=== PATIENT | female | born 1955 ===

== ENCOUNTER 2017-08-01 08:25 | Inpatient (IN) | payer OTHER ==
[~2017-08-01] VITALS: Ht 149.9 cm; Wt 80.3 kg
[2017-08-01] MEDS ORDERED: ASPIRIN81 M4 PO (09:56)
[2017-08-01] MEDS ORDERED: AMLODIPINE BESY10 M1 PO (09:56)
[2017-08-01] MEDS ORDERED: ESCITALOPRAM OXA5 MG PO (09:57)
[2017-08-01] MEDS ORDERED: LEVOTHYROXINE50 MCG PO (09:57)
[2017-08-01] MEDS ORDERED: FUROSEMIDE40 M1 PO (09:57)
[2017-08-01] MEDS ORDERED: LOSARTAN POTAS100 M1 PO (09:58)
[2017-08-01] MEDS ORDERED: NOVOLOG100 UNIT/2 (09:59)
[2017-08-01] MEDS ORDERED: PREDNISONE10 M2 PO (09:59)
[2017-08-01] MEDS ORDERED: RENVELA800 M1 PO (10:01)
--- NOTE | 2017-08-01 10:04 | RADIOLOGY REPORT ---
EXAMINATION: XR PORTABLE CHEST CLINICAL INFORMATION: Nausea vomiting, hypoxia, rales. History of end-stage renal disease. COMPARISON: Chest x-ray 03/31/[address] scan of the chest 06/03/2017. TECHNIQUE: Portable frontal view of the chest was obtained. FINDINGS: The lung klein are well-expanded bilaterally. The study redemonstrates a mass in the right superior lung field medially, which is not significantly changed compared to prior imaging. There is a new area of patchy opacity at the left base, which may be consistent with developing consolidation. The cardiac silhouette is normal. The aortic arch is unfolded. There is a small right-sided pleural effusion. There are no acute osseous findings. IMPRESSION: 1. There is a stable mass in the right upper lobe, seen on prior imaging. 2. Patchy opacification at the left base may be consistent with developing consolidation.
--- NOTE | 2017-08-01 10:10 | ED GENERAL ADULT ---
History of Present Illness General Chief Complaint: Altered Mental Status Stated Complaint: BIBA, UNRESPONSIVE Source: patient, family, old records, EMS Exam Limitations: clinical condition Allergies Uncoded Allergies: all pain medications (NAUSEA 02/26/14) Reconcile Medications Amlodipine Besylate 10 MG TABLET 1 TAB PO DAILY HEART (Reported) Aspirin (Aspirin*) 81 MG TAB.CHEW 1 TAB PO DAILY HEART HEALTH (Reported) Escitalopram Oxalate 5 MG TABLET 1 TAB PO DAILY MENTAL HEALTH (Reported) Furosemide 40 MG TABLET 1 TAB PO DAILY WATER RETENTION (Reported) Insulin Aspart (Novolog) (Unknown Strength) VIAL (Unknown Dose) AC DIABETES ( Reported) Levothyroxine Sodium 50 MCG TABLET 1 TAB PO DAILY AC THYROID (Reported) Losartan Potassium 100 MG TABLET 1 TAB PO DAILY HEART (Reported) Prednisone 10 MG TABLET 1 TAB PO DAILY STEROID (Reported) Sevelamer Carbonate (Renvela) 800 MG TABLET 1 TAB PO AC UNKNOWN (Reported) Core Measure Meds Pre-Hospital aspirin Triage Note: BIBA FROM HOME, PER EMS MALE FAMILY MEMBER AT HOUSE CALLED 911 FOR UNRESPONSIVE THIS AM. PT IS DIALYSIS PT LEFT ARM RESTRICTED, ACCUCHECK ON SCENE 27, GIVEN D10 ENROUTE, REPEAT ENROUTE 86 AND ON ARRIVAL 160'S. PT REMAINS UNRESPONSIVE, UPPER AIRWAY CONGESTION NOTED, O2 HIGH FLOW NON-REBREATHER PLACED, O2 SATS ON ARRIVAL 86-87%, ON HIGH FLOW O2 SATS 96-98%, RESPIRATORY PAGED FOR ABG'S AND RESP EVAL. Triage Nurses Notes Reviewed? yes Onset: Just prior to arrival Duration: hour(s):, constant, continues in ED Timing: recent history Injury Environment: home Severity: severe No Modifying Factors: none Associated Symptoms: cough LMP (ages 10-50): post menopausal : No Patient currently breastfeeds: No HPI: 1 day prior to admission patient felt weak and stayed in bed. Her saw her at 7 PM sleeps in another room. He was up. For work and found her with increased work of breathing nausea and vomiting not responsive to vocal stimulation. EMS found patient hypoglycemic and administered D10. He reports there's been no fever chills chest pain cough headache dysuria rash bleeding. (Siri HYMAN,Xavier) Vital Signs & Intake/Output Vital Signs & Intake/Output Vital Signs Date Time Temp Pulse Resp B/P B/P Pulse O2 O2 Flow FiO2 Mean Ox Delivery Rate 08/01 1758 99.7 128 18 181/68 100 Ventilator 08/01 1727 100.1 126 20 136/64 100 Ventilator 100% 08/01 1623 100 08/01 1430 111 93 08/01 1419 110 24 119/63 97 BIPAP 60% 08/01 1330 96 08/01 1210 96.9 96 24 128/72 99 BIPAP 60% 08/01 1150 111 97 08/01 1102 97.0 90 24 137/83 99 BIPAP 60% 08/01 1000 88 24 129/78 100 BIPAP 100% 08/01 1000 111 96 08/01 0900 97 Non 9L ReBreather 08/01 0845 96 Non 100% ReBreather 08/01 0842 97.5 110 28 151/79 87 Room Air Room Air (Nigel Carrillo) Past History Travel History Traveled to [place] past 21 day No Medical History Any Pertinent Medical History? see below for history Cardiovascular: hypertension Respiratory: obstructive sleep apnea Renal: ESRD on HD Surgical History Surgical History: L AVF Psychosocial History What is your primary language Bermudian Tobacco Use: UN Family History Hx Contributory? No (Xavier Horner MD) Review of Systems Review of Systems Constitutional: Reports: see HPI, weakness. EENTM: Reports: no symptoms. Respiratory: Reports: see HPI, cough, short of breath. Cardiovascular: Reports: no symptoms. GI: Reports: see HPI, diarrhea, nausea, vomiting. Genitourinary: Reports: no symptoms. Musculoskeletal: Reports: no symptoms. Skin: Reports: no symptoms. Neurological/Psychological: Reports: see HPI, weakness. Hematologic/Endocrine: Reports: no symptoms. Immunologic/Allergic: Reports: no symptoms. All Other Systems: Reviewed and Negative (Xavier Horner MD) Physical Exam Physical Exam General Appearance: well developed/nourished, lethargic, severe distress, obese Head: atraumatic, normal appearance Eyes: Bilateral: normal appearance, PERRL, other (nystagmus, rotatory). Ears, Nose, Throat: normal pharynx, normal ENT inspection Neck: normal inspection, supple, full range of motion, no midline tenderness Respiratory: chest non-tender, decreased breath sounds, rhonchi, rales, respiratory distress Cardiovascular: regular rate/rhythm, normal peripheral pulses, tachycardia, norml femoral pulses equa Peripheral Pulses: 4+ carotid (R), 4+ carotid (L) Gastrointestinal: normal bowel sounds, soft, non-tender, no organomegaly Back: normal inspection, normal range of motion, no vertebral tenderness Extremities: normal inspection, normal capillary refill, normal range of motion, no ligament instability Neurologic/Psych: disoriented x 3, motor/sensory deficits Reflexes: 2+: bicep (R), bicep (L). Skin: intact, normal color, warm/dry Lymphatic: no anterior cervical damien Core Measures ACS in differential dx? Yes CVA/TIA Diagnosis: No Sepsis Present: Yes Sepsis Focused Exam Completed? Yes (Xavier Horner MD) ED Sepsis Exam Date of Focused Sepsis Exam: 08/01/17 Time of Focused Sepsis Exam: 1700 Sepsis Cardiac Exam: Tachycardia Sepsis Resp Exam: Ronchi Sepsis Cap Refill Exam: >2 sec Sepsis Peripheral Pulse Exam: Weak Sepsis Peripheral Pulse Location: Radial Sepsis Skin Color Exam: Pale Skin Temp/Moisture Exam: Warm/Dry (Xavier Horner MD) Progress Differential Diagnoses I considered the following diagnoses in my evaluation of the patient: Aspiration pneumonia stroke hypoglycemia DKA Diagnostic Imaging: Viewed by Me: Radiology Read, CT Scan. Discussed w/RAD: Radiology Read, CT Scan. Radiology Impression: Nondiagnostic CT of the head secondary to significant streak/motion artifact despite repeating the acquisition. I cannot exclude infarcts nor hemorrhage on this study. CXR Impression: 1. There is a stable mass in the right upper lobe, seen on prior imaging. 2. Patchy opacification at the left base may be consistent with developing consolidation. Initial ED EKG: normal axis, normal intervals, normal p-waves, normal QRS complex, rhythm (sinus tachycardia) Prior EKG: unchanged Rhythm Strip: sinus tachycardia Comments: Sepsis NS fluid bolus not given secondary to ESRD and potential for volume overload. 20 minutes after intubation patient was noted to be hypotensive with bradycardia leading to asystole. ACLS protocol started. Patient with return of spontaneous circulation dopamine and norepinephrine drip started. Dopamine stopped norepinephrine titrated. Amiodarone administered for wide-complex tachycardia. (Xavier Horner MD) Differential Diagnoses I cons Plan of Care: Orders Procedure Date/time Status ARTERIAL BLOOD GAS (GEN) 08/02 499 Active XRY-PORTABLE CHEST XRAY 08/02 499 Active INSULIN,SERUM 08/020 Active ICU LAB BUNDLE 08/02 499 Active CBC WITHOUT DIFFERENTIAL 03/20 0500 Active TROPONIN LEVEL 08/02 0300 Active Nothing by Mouth 08/01 D Active ICU LAB BUNDLE 08/01 2300 Active TROPONIN LEVEL 08/01 2100 Active EKG 08/01 2100 Active PARTIAL THROMBOPLASTIN TIME 08/01 1906 Active PROTHROMBIN TIME 08/01 1906 Active ICU LAB BUNDLE 08/01 1904 Active XRY-PORTABLE CHEST XRAY 08/01 1859 Active VRE ACTIVE SURVIELLANCE 08/01 1849 Active VENTILATOR PARAMETERS 08/01 1845 Complete LACTIC ACID 08/01 1834 Active VRE ACTIVE SURVIELLANCE 08/01 1823 Active ACTIVE SURVEILLANCE NARES 08/01 1823 Active Lab Add-on Test 08/01 1740 Active TYPE & SCREEN (NOT X-MATCH) 08/01 1724 Active EKG 08/01 1703 Active URINE DRUGS OF ABUSE 08/01 1646 Active Lab Add-on Test 08/01 1621 Active Add-on Test (ER Only) 08/01 1606 Active VENTILATOR PARAMETERS 08/01 1600 Complete Add-on Test (ER Only) 08/01 1520 Active LOWER RESPIRATORY CULTURE 08/01 1444 Active ECHOCARDIOGRAM 08/01 1444 Active Lab Add-on Test 08/01 1443 Active TROPONIN LEVEL 08/01 1442 Complete EKG 08/01 1442 Active TRC EVALUATION (GEN) 08/01 1441 Active Saline Lock 08/01 1441 Active Pathway - chart 08/01 1441 Active House Staff 08/01 1441 Active Code Status 08/01 1441 Active Patient Data 08/01 1422 Active Admit to inpatient 08/01 1326 Active BIPAP 08/01 1156 Complete ARTERIAL BLOOD GAS (GEN) 08/01 1140 Complete LACTIC ACID 08/01 1132 Complete RAPID VIRAL INFLUENZA A 08/01 1020 Complete BIPAP 08/01 1000 Complete THYROID STIMULATING HORMONE 08/01 1000 Complete PROLACTIN 08/01 1000 Complete PHOSPHORUS 08/01 1000 Complete INSULIN,SERUM 08/01 1000 Complete GLYCOSYLATED HGB 08/01 1000 Complete FREE T4 08/01 1000 Complete CORTISOL AM 08/01 1000 Complete [place], Insertion/Removal/Asses 08/01 0922 Active CULTURE,URINE 08/01 0922 Active NIH Stroke Scale 08/01 0849 Active ARTERIAL BLOOD GAS (GEN) 08/01 0832 Complete BLOOD CULTURE 08/01 0832 Active TROPONIN LEVEL 08/01 0832 Complete MAGNESIUM 08/01 0832 Complete LACTIC ACID 08/01 0832 Complete COMPREHENSIVE METABOLIC PANEL 08/01 0832 Complete CREATINE PHOSPHOKINASE 08/01 0832 Complete CBC WITHOUT DIFFERENTIAL 08/01 0832 Complete EKG 08/01 0832 Active ARTERIAL BLOOD GAS (GEN) 08/01 UNK Complete VTE Mechanical Prophylaxis 08/01 UNK Active Vital Signs 08/01 UNK Active OGT 08/01 UNK Active Intake & Output 08/01 UNK Active Hemoccult 08/01 UNK Active FingerStick- Glucose 08/01 UNK Active Current Medications Sig/Makayla Start time Last Medication Dose Stop Time Status Admin Hydrocortisone 50 MG Q12 08/02 1000 AC Sodium Succinate (Solucortef) Levothyroxine Sodium 25 MCG DAILY 08/02 1000 AC (Synthroid) Sodium Bicarbonate 150 MEQ Q10H 08/01 1900 AC (Sodium Bicarbonate 8.4%) Dextrose/Water 1,000 ML (D5W 1000) Ampicillin Sodium/ 1,500 MG Q6 08/01 1800 CAN Sulbactam Sodium (Unasyn) Sodium Chloride 100 ML (Normal Saline 0.9%) Ampicillin Sodium/ 3,000 MG Q12 08/01 1730 AC Sulbactam Sodium (Unasyn) Sodium Chloride 100 ML (Normal Saline 0.9%) Heparin Sodium 25,000 UNIT Q24H 08/01 1730 AC (Porcine) (Heparin) Sodium Chloride 500 ML Pantoprazole Sodium 40 MG DAILY 08/01 1730 AC (Protonix) Acetaminophen 1,000 MG Q6P PRN 08/01 1445 AC (Ofirmev) Insulin Human Regular 0 Q6 08/01 1440 AC 08/01 (NovoLIN R) 1813 Laboratory Tests 08/01/17 1710: pH 7.06 *L, pCO2 42, pO2 167 H, HCO3 12 L, ABG O2 Sat (Measured) 97.0, P-50 ( Temp Corrected) N, Carboxyhemoglobin 0.3 L, O2 Concentration % 100%, Temperature 97.5, Respiration Rate 26, O2 Delivery Method ESPRIT VENT, Vent Mode AC, Expiratory Pressure 5, Tidal Volume 500, Phlebotomy Draw Site RIGHT BRACHIAL 08/01/17 1510: Troponin I 3.04 *H 08/01/17 1307: Lactic Acid 2.0 08/01/17 1140: pH 7.29 *L, pCO2 32 L, pO2 238 H, HCO3 15 L, ABG O2 Sat (Measured) 98.0, Carboxyhemoglobin 0.3 L, O2 Concentration % 100%, Respiration Rate 24, O2 Delivery Method BIPAP, Vent Mode ST, Expiratory Pressure 6, Inspiratory Pressure 16, Phlebotomy Draw Site RIGHT RADIAL 08/01/17 1000: Anion Gap 18 H, Estimated GFR 7 L, BUN/Creatinine Ratio 15.3, Glucose 86, Hemoglobin A1c 8.8 H, Insulin Level 31.0 H, Lactic Acid 2.3 H, Calcium 8.2 L , Phosphorus 8.8 H, Magnesium 1.8, Total Bilirubin 0.4, AST 29, ALT 28, Alkaline Phosphatase 48, Creatine Kinase 248 H, Troponin I 2.31 *H, Total Protein 4.9 L, Albumin 2.7 L, Globulin 2.2, Albumin/Globulin Ratio 1.2, TSH 9.510 H, Free T4 0.89, Prolactin 29.0 H, Cortisol AM Sample 26.5 H, CBC w Diff MAN DIFF ORDERED, RBC 4.33, MCV 80.5 L, MCH 26.3 L, MCHC 32.7 L, RDW 18.6 H, MPV 6.9 L, Gran % 89.2 H, Lymphocytes % 9.1 L, Monocytes % 0.9 L, Eosinophils % 0.6, Basophils % 0.2, Absolute Granulocytes 14.5 H, Segmented Neutrophils 73, Band Neutrophils 13 H, Absolute Lymphocytes 1.5, Lymphocytes 11 L, Monocytes 3, Absolute Monocytes 0.1, Absolute Eosinophils 0.1, Absolute Basophils 0, Platelet Estimate INCREASED, Normocytic RBCs VERIFIED, Normochromic RBCs VERIFIED, Poikilocytosis FEW, [place] Cells FEW 08/01/17 0900: pH 7.23 *L, pCO2 38, pO2 92, HCO3 16 L, ABG O2 Sat (Measured) 94.0 L, Carboxyhemoglobin 0.5 L, O2 Concentration % 100%, O2 Delivery Method NRB, Phlebotomy Draw Site RIGHT BRACHIAL Microbiology 08/01 1849 GI: Surveillance Culture - ORD 08/01 182 UPPER RESP: Surveillance Culture - ORD 08/01 1822 GI: Surveillance Culture - ORD 08/01 1444 LOWER RESP: Respiratory Culture - ORD 08/01 1444 LOWER RESP: Gram Stain - ORD 08/01 1030 NASOPHARYN: Influenza Virus A & B Rapid Smear - COMP 08/01 1000 BLOOD: Blood Culture - RECD 03/19 0922 URINE ROUT: Urine Culture - ORD 08/01 0832 BLOOD: Blood Culture - ORD (Nigel Carrillo) Departure Departure Disposition: STILL A PATIENT Condition: Stable Clinical Impression Primary Impression: Aspiration pneumonia due to gastric secretions Qualifiers: Laterality: left Lung location: lower lobe of lung Qualified Code: J69.0 - Pneumonitis due to inhalation of food and vomit Secondary Impressions: End stage renal disease, Hypoglycemia, Metabolic acidosis , NSTEMI (non-ST elevated myocardial infarction) Referrals: Israel Oshea MD (PCP/Family) Departure Forms: Customer Survey General Discharge Information Admission Note Spoke With: Darcy HYMAN,Carlee Davis Documentation of Exam: Documentation of any treatments & extenuating circumstances including Concerns Regarding Discharge (functional status, medication knowledge or non-compliance, living conditions, etc.) that warrant an admission rather than observation: Supplemental oxygen / BiPAP, IV antibiotics, ICU monitoring, serial EKG, serial lab exam, frequent neurologic checks neurology evaluation, renal evaluation, ICU evaluation, medication adjustment, continuing care discharge planning, (Xavier Horner MD) Procedures Intubation Time of Intubation: 161 Intubation Method: orotracheal Tube Size (cm): 7.0 Medications: succinylcholine, etomidate Breath Sounds After Intubation: equal Intubation Complications: no complications Post Intubation Xray? Yes (Xavier Horner MD) Central Line Central Line Lumen: triple Central Line Procedure: Yes: bentadine prep?, sterile drapes applied, sterile dressing applied. Central Line Position: femoral (R) Anesthesia: lidocaine 1% CC's of Anesthesia: 5 Complications: none Central Line Post Position: sutured, good blood return (Nigel Carrillo) Critical Care Note Critical Care Note Critical Care Time: 75-104 min (90) Total CPR Time (mins): 10 (Xavier Horner MD)
[2017-08-01 10:14] LABS: ABSOLUTE BASOPHIL COUNT 0 /CUMM (0.0-0.2); ABSOLUTE EOSINOPHIL COUNT 0.1 /CUMM (0.0-0.7); ABSOLUTE GRANULOCYTE CT 14.5 /CUMM (1.4-6.5); ABSOLUTE LYMPH COUNT 1.5 /CUMM (1.2-3.4); ABSOLUTE MONOCYTE COUNT 0.1 /CUMM (0.10-0.60); BASOPHIL % 0.2 % (0.0-2.0); EOSINOPHIL % 0.6 % (0-5); GRANULOCYTE % 89.2 % (42.2-75.2); HEMATOCRIT 34.8 % (37-47); MEAN CORPUSCULAR HGB 26.3 PG (27.0-31.0); MEAN CORPUSCULAR HGB CONC 32.7 G/DL (33.0-37.0); MEAN CORPUSCULAR VOLUME 80.5 FL (81.0-99.0); MEAN PLATELET VOLUME 6.9 FL (7.4-10.4); PLATELET COUNT 405 /CUMM (130-400); RBC DISTRIBUTION WIDTH 18.6 % (11.5-14.5); RED BLOOD CELL CT 4.33 /CUMM (4.20-5.40); WHITE BLOOD CELL COUNT 16.2 /CUMM (4.8-10.8)
--- NOTE | 2017-08-01 13:01 | CT SCAN REPORT ---
EXAMINATION: CT HEAD WITHOUT CONTRAST CLINICAL INFORMATION: Unresponsive the rotatory nystagmus. COMPARISON: None available. TECHNIQUE: Contiguous axial imaging was performed from the skull base to vertex without intravenous administration of contrast. FINDINGS: This examination is nondiagnostic secondary to significant streak artifact and patient motion. I cannot exclude infarcts nor for the presence of intracranial hemorrhage on this exam. There is no hydrocephalus nor midline shift. No definite significant soft tissue findings. No acute osseous findings. Trace fluid levels within the maxillary sinuses bilaterally. Partial ethmoid air cell opacification bilaterally. Small fluid level within the left sphenoid sinus. Partially imaged nasogastric tube. IMPRESSION: Nondiagnostic CT of the head secondary to significant streak/motion artifact despite repeating the acquisition. I cannot exclude infarcts nor hemorrhage on this study.
--- NOTE | 2017-08-01 14:35 | History & Physical ---
Brad Riggins 08/01/17 1435: General Information and HPI MD Statement: I have seen and personally examined KAM JOSEPH and documented this H&P. The patient is a 62 year old F who presented with a patient stated chief complaint of [unresponsive]. Source of Information: family, old records, EMS Exam Limitations: unable to give history, not alert/orientated History of Present Illness: This is 62-year-old female with a medical history of stage 5 CKD(nephrotic proteinuria, diabetic nephropathy and retinopathy) with left AV fistula placed couple month ago(still making urine), currently not on hemodialysis, has only one kidney since childhood. Chronic anemia, hypertension, type 1 diabetes on insulin pump, hypothyroidism, ankylosing spondylitis on chronic prednisone, depression, GERD, right lung mass according to the family the biopsy came back as a benign, hyperparathyroidism due to renal insufficiency, chronic pain, obstructive sleep apnea on CPAP. Presented to the emergency department via EMS due to unresponsiveness. Her stated that yesterday afternoon was laying down in the bed which is not her usual. He stated that the last time he saw her alert, oriented and awake was around 7 PM. He stated that when he went to see her at 7 AM he found unresponsive, and there is forming/fluid covering her face and mouth and he noticed that she had a bowel and urine incontinence so they contacted EMS and brought her to the hospital, he stated that her Accu-Chek was in the 27(the family stated that her insulin pump was discontinue the day before yesterday) so she received some dextrose D10 on the way to the hospital, also she found to be tachycardic with low oxygen this is associated with airway congestion. The patient arrived to the ED patient was placed on BiPAP due to metabolic acidosis ABG, the patient remained unresponsive also she had troponin of 2.3 with no significant EKG changes, patient this is her first time to present to the ED so we did have previous record for comparison. Also she received a dose of IV ceftriaxone, azithromycin, rectal aspirin, started on D5 half-normal saline. Chest x-ray showed a patchy opacity at the left base which was suggestive of developing consolidation, also shows stable mass in the right upper lobe. Head CAT scan was Nondiagnostic CT of the head secondary to significant streak/motion artifact despite repeating the acquisition. We consulted the following specialist: Nephrology, endocrinology, cardiology, neurology, infectious disease. Patient was intubated around 4:10 PM, reason for intubation was to secure her airways as he has a lot of oral secretions. After discussion with the taxation consultant he recommended to start the patient on continuous infusion of sodium bicarbonate and there is no need for any emergent dialysis for now. After discussion with infectious disease specialist he recommended to cover her for the possibility of aspiration pneumonia with IV Unasyn and panculture the patient. After discussion with pull over as the patient has insulin pump should recommend hydrocortisone stress dose 100 mg IV as the blood pressure starting to decrease around 4:20 PM, stat order placed. And she recommended D10 at 50 mL/h and Accu-Chek every 30 minutes and she preferred Accu-Chek to be via peripheral line, also she recommended to check an insulin level, cortisol level TSH and free T4. Around 4:35 PM the patient starts become bradycardic, direct verbal order of pacer and atropine was giving before these arrived patient become in asystole and cardiac arrest code was initiated, we contact the loin trimmer stat, patient received around 2 amp of atropine and 1 amp of epinephrine, bicarbonate, 40 mg of vasopressin, dopamine drip and Levophed drip started after that has a systolic blood pressure of more than 180 and good peripheral pulses. also she received a dose of 150 amiodarone due to heart is of 220 with a V. tach s/p cardiac arrest code, third troponin came back 3.04. After discussion with the loin trimmer recommended that the patient on IV heparin, keep trending her troponin and EKG. Right femoral central line placed by the ED staff, also the patient received the 100 mg of hydrocortisone. Allergies/Medications Allergies: Uncoded Allergies: all pain medications (NAUSEA 02/26/14) Home Med list Amlodipine Besylate 10 MG TABLET 1 TAB PO DAILY HEART (Reported) Aspirin (Aspirin*) 81 MG TAB.CHEW 1 TAB PO DAILY HEART HEALTH (Reported) Escitalopram Oxalate 5 MG TABLET 1 TAB PO DAILY MENTAL HEALTH (Reported) Furosemide 40 MG TABLET 1 TAB PO DAILY WATER RETENTION (Reported) Insulin Aspart (Novolog) (Unknown Strength) VIAL (Unknown Dose) AC DIABETES ( Reported) Levothyroxine Sodium 50 MCG TABLET 1 TAB PO DAILY AC THYROID (Reported) Losartan Potassium 100 MG TABLET 1 TAB PO DAILY HEART (Reported) Prednisone 10 MG TABLET 1 TAB PO DAILY STEROID (Reported) Sevelamer Carbonate (Renvela) 800 MG TABLET 1 TAB PO AC UNKNOWN (Reported) Past History Travel History Traveled to [place] past 21 day No Medical History Cardiovascular: hypertension Respiratory: obstructive sleep apnea Renal: ESRD on HD Surgical History Surgical History: L AVF Past Family/Social History Family History Relations & Conditions if any MOTHER (Diabetes, hyperlipidemia). Psychosocial History Smoking Status: Former Smoker ETOH Use: occasional use Illicit Drug Use: denies illicit drug use Review of Systems Review of Systems Constitutional: Reports: see HPI. Exam & Diagnostic Data Last 24 Hrs of Vital Signs/I&O Vital Signs Date Time Temp Pulse Resp B/P B/P Pulse O2 O2 Flow FiO2 Mean Ox Delivery Rate 08/01 1727 100.1 126 20 136/64 100 Ventilator 100% 08/01 1623 100 08/01 1430 111 93 08/01 1419 110 24 119/63 97 BIPAP 60% 08/01 1330 96 08/01 1210 96.9 96 24 128/72 99 BIPAP 60% 08/01 1150 111 97 08/01 1102 97.0 90 24 137/83 99 BIPAP 60% 08/01 1000 88 24 129/78 100 BIPAP 100% 08/01 1000 111 96 08/01 0900 97 Non 9L ReBreather 08/01 0845 96 Non 100% ReBreather 08/01 0842 97.5 110 28 151/79 87 Room Air Room Air Intake & Output 08/01 1600 08/01 0800 08/01 0000 Intake Total 1250 Output Total 3 Balance 1247 Intake, IV 1250 Output, Urine 3 Patient 160 lb Weight Weight Estimated Measurement Method Physical Exam General Appearance initially was on BiPAP then intubated Skin Temp/Moisture Exam: Cool/Dry HEENT on initial evaluation she has horizontal nystagmus. after the cardiac arrest code the pupils become fixed and non reactive to light . Neck Supple Cardiovascular Normal S1, Normal S2 Lungs decrease in air entry bibasilar, rhonchi, noisy breathing Abdomen Normal Bowel Sounds, Soft, obese Extremities trace bilateral edema Last 24 Hrs of Labs/Charli: Laboratory Tests 08/01/17 1710: pH 7.06 *L, pCO2 42, pO2 167 H, HCO3 12 L, ABG O2 Sat (Measured) 97.0, P-50 ( Temp Corrected) N, Carboxyhemoglobin 0.3 L, O2 Concentration % 100%, Temperature 97.5, Respiration Rate 26, O2 Delivery Method ESPRIT VENT, Vent Mode AC, Expiratory Pressure 5, Tidal Volume 500, Phlebotomy Draw Site RIGHT BRACHIAL 08/01/17 1510: Troponin I 3.04 *H 08/01/17 1307: Lactic Acid 2.0 08/01/17 1140: pH 7.29 *L, pCO2 32 L, pO2 238 H, HCO3 15 L, ABG O2 Sat (Measured) 98.0, Carboxyhemoglobin 0.3 L, O2 Concentration % 100%, Respiration Rate 24, O2 Delivery Method BIPAP, Vent Mode ST, Expiratory Pressure 6, Inspiratory Pressure 16, Phlebotomy Draw Site RIGHT RADIAL 08/01/17 1000: Anion Gap 18 H, Estimated GFR 7 L, BUN/Creatinine Ratio 15.3, Glucose 86, Hemoglobin A1c 8.8 H, Insulin Level 31.0 H, Lactic Acid 2.3 H, Calcium 8.2 L , Phosphorus 8.8 H, Magnesium 1.8, Total Bilirubin 0.4, AST 29, ALT 28, Alkaline Phosphatase 48, Creatine Kinase 248 H, Troponin I 2.31 *H, Total Protein 4.9 L, Albumin 2.7 L, Globulin 2.2, Albumin/Globulin Ratio 1.2, TSH 9.510 H, Free T4 0.89, Prolactin 29.0 H, Cortisol AM Sample 26.5 H, CBC w Diff MAN DIFF ORDERED, RBC 4.33, MCV 80.5 L, MCH 26.3 L, MCHC 32.7 L, RDW 18.6 H, MPV 6.9 L, Gran % 89.2 H, Lymphocytes % 9.1 L, Monocytes % 0.9 L, Eosinophils % 0.6, Basophils % 0.2, Absolute Granulocytes 14.5 H, Segmented Neutrophils 73, Band Neutrophils 13 H, Absolute Lymphocytes 1.5, Lymphocytes 11 L, Monocytes 3, Absolute Monocytes 0.1, Absolute Eosinophils 0.1, Absolute Basophils 0, Platelet Estimate INCREASED, Normocytic RBCs VERIFIED, Normochromic RBCs VERIFIED, Poikilocytosis FEW, [place] Cells FEW 08/01/17 0900: pH 7.23 *L, pCO2 38, pO2 92, HCO3 16 L, ABG O2 Sat (Measured) 94.0 L, Carboxyhemoglobin 0.5 L, O2 Concentration % 100%, O2 Delivery Method NRB, Phlebotomy Draw Site RIGHT BRACHIAL Microbiology 08/01 1444 LOWER RESP: Respiratory Culture - ORD 08/01 1444 LOWER RESP: Gram Stain - ORD 08/01 1030 NASOPHARYN: Influenza Virus A & B Rapid Smear - COMP 08/01 1000 BLOOD: Blood Culture - RECD 08/01 0922 URINE ROUT: Urine Culture - ORD 08/01 0832 BLOOD: Blood Culture - ORD Diagnostic Data CXR Results EXAMINATION: XR PORTABLE CHEST CLINICAL INFORMATION: Nausea vomiting, hypoxia, rales. History of end-stage renal disease. COMPARISON: Chest x-ray 03/31/[address] scan of the chest 06/03/2017. TECHNIQUE: Portable frontal view of the chest was obtained. FINDINGS: The lung klein are well-expanded bilaterally. The study redemonstrates a mass in the right superior lung field medially, which is not significantly changed compared to prior imaging. There is a new area of patchy opacity at the left base, which may be consistent with developing consolidation. The cardiac silhouette is normal. The aortic arch is unfolded. There is a small right-sided pleural effusion. There are no acute osseous findings. IMPRESSION: 1. There is a stable mass in the right upper lobe, seen on prior imaging. 2. Patchy opacification at the left base may be consistent with developing consolidation. Other Results EXAM TYPE: CAT - CT HEAD WO IV CONTRAST EXAMINATION: CT HEAD WITHOUT CONTRAST CLINICAL INFORMATION: Unresponsive the rotatory nystagmus. COMPARISON: None available. TECHNIQUE: Contiguous axial imaging was performed from the skull base to vertex without intravenous administration of contrast. FINDINGS: This examination is nondiagnostic secondary to significant streak artifact and patient motion. I cannot exclude infarcts nor for the presence of intracranial hemorrhage on this exam. There is no hydrocephalus nor midline shift. No definite significant soft tissue findings. No acute osseous findings. Trace fluid levels within the maxillary sinuses bilaterally. Partial ethmoid air cell opacification bilaterally. Small fluid level within the left sphenoid sinus. Partially imaged nasogastric tube. IMPRESSION: Nondiagnostic CT of the head secondary to significant streak/motion artifact despite repeating the acquisition. I cannot exclude infarcts nor hemorrhage on this study. Assessment/Plan Assessment: This is 62-year-old female with a medical history of stage 5 CKD(nephrotic proteinuria, diabetic nephropathy and retinopathy) with left AV fistula placed couple month ago(still making urine), currently not on hemodialysis, has only one kidney since childhood. 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 Presented to the emergency department via EMS due to unresponsiveness. Problem list: -Status post cardiac arrest in the ED was on asystole -Acute hypoxic respiratory failure currently intubated. -Unresponsiveness 2/2 hypoglycemia versus encephalopathy versus cerebellar stroke. -Hyppoglycemia with elevated insulin level. -Elevated troponin type II PA versus ST segment depression PA. -New RBBB, wide QRS tachycardia. -End-stage renal disease with metabolic acidosis. -Leukocytosis with bandemia that could be most likely due to aspiration pneumonia. Plan: -Admit patient to critical care unit -Vitals every shift, blood pressure continuous monitoring -Start cooling pre protocol -Obtain coagulation panel, type and crossmatch. -Continue Levophed to keep systolic blood pressure more than 90mmHg -IV Unasyn 3 g per renal clearance -Panculture including blood, urine and sputum. Obtain urine tox -150 mEq sodium bicarbonate and D5 at 100 mL per hour the 1st 500 ml as a bolus. -IV heparin drip pre cardiology, trend troponin and EKG. -Obtain echocardiogram. -D10 dextrose at 20 mL per hour at the second Accu-Chek more than 100 DC the dextrose. -hydrocortisone 50 mg IV twice a day, 25 MCG IV levothyroxin -Accu-Chek every 30 minute via peripheral blood sample. -Follow-up with the family regarding the insulin pump setting. -40 mg of IV Protonix for GI ppt. -Recheck insulin level, TSH, free T4, prolactin level. -Repeat ABG, chest x-ray in a.m. -Neurology, cardiology, nephrology, endocrinology consultation, we will follow recommendations. -DVT prophylaxis: Heparin Drip -Full code As Ranked By This Provider Problem List: 1. Metabolic acidosis 2. Hypoglycemia 3. NSTEMI (non-ST elevated myocardial infarction) Core Measures/Misc (01/30) Acute Coronary Syndrome ACS Diagnosis: Yes Congestive Heart Failure Congestive Heart Failure Diagnosis Yes Cerebrovascular Accident CVA/TIA Diagnosis: No VTE (View Protocol) VTE Risk Factors Age>40 No Mechanical VTE Prophylaxis d/t N/A MechProphylax Ordered No VTE Pharm Prophylaxis d/t NA PharmProphylax ordered Sepsis (View protocol) Sepsis Present: Yes Darcy HYMANCarele Davis 08/01/172004: Attending MD Review Statement Attending Statement Attending MD Statement: examined this patient, discuss w/resident/PA/PAPER REELER, agreed w/resident/PA/PAPER REELER, discussed with family Attending Assessment/Plan: I have personally seen and examined the patient multiple times throughout the day. I have had multiple family meetings with the patient's , sister, mother and daughter. I have discussed the plan of care with the housestaff at length. Briefly, the patient is a 62-year-old female with a history of stage V CK D secondary to diabetic nephropathy status post left AV fistula and currently not on hemodialysis. She also has chronic anemia, hypertension, type 1 diabetes on an insulin pump, hypothyroidism, ankylosing spondylitis on chronic prednisone , depression, reflux disease, and a chronic right lung mass which has been worked up by Dr. Barajas and Dr. Nash at length. There has been no evidence of malignancy demonstrated. The patient was found yesterday afternoon laying in her bed which was not her baseline. The last time she was seen awake and alert at home around 7 PM. The patient's went to check on her at 7 AM noting she was found to be unresponsive foaming at the mouth and having had evidence of vomiting with aspiration. She also had bowel and urine incontinence. 911 was called and an Accu-Chek was done with a blood sugar of 27. The patient's family stated her insulin pump was discontinued the day before yesterday. She was given D10 on the way to the hospital and had significant airway congestion and hypoxemia. In the ED, the patient had hypoxia was placed on BiPAP for metabolic acidosis on ABG. She had a positive troponin of 2.3. The patient received ceftriaxone and azithromycin following campos culturing. She was also given IV fluids for volume resuscitation. Initial chest x-ray showed a patchy opacity at the left base which was suggestive of developing consolidation. She had a stable right upper lobe lung mass. She had a head CT that was negative for any acute pathology. After reviewing her labs and examining the patient, multiple consultants were called including nephrology, endocrinology, cardiology, neurology and ID. Of note, the patient was intubated approximately around 4:10 PM. The reason for intubation was the patient remained unresponsive and was unable to adequately protect her airway. She also appeared to be in increased respiratory distress and had ongoing evidence of a bulk acidosis despite BiPAP. Fifteen minutes following the intubation, the patient became bradycardic and atropine was ordered. She was subsequently noted to be in cardiac arrest and ACLS was initiated as per protocol. The patient was reported to have a ventricular arrhythmia and was given 150 mg of amiodarone. The patient had recovery of spontaneous circulation several minutes after CPR was initiated. She received a total of 2 mg of atropine, 1 amp of epinephrine, 1 amp of sodium bicarbonate, 40 mg of vasopressin, and she was subsequently started on dopamine and Levophed for a low systolic blood pressure. The patient had no spontaneous movements and her pupils were fixed and dilated postarrest. Her third troponin came back at 3.04. The patient was given stress dose steroids and a right femoral central line was placed in the ED. The patient is currently in the intensive care unit. Again, she has no spontaneous movements and her pupils remained fixed and dilated. Because this was a witnessed cardiac arrest, in hospital, with evidence of ventricular tachycardia, therapeutic hypothermia as per protocol is being initiated. We will plan to follow up cultures, continue with IV Unasyn as per ID, and tenuous volume resuscitation as per nephrology (no current role for dialysis), taper pressors down to off to maintain the systolic blood pressure greater then 90 mmHg, monitor blood sugars every 30 minutes per endocrinology (continue D10 until blood sugars are stabilized), continue stress dose steroids, provide IV Protonix, and DVT prophylaxis at all times. A heparin drip has been recommended by cardiology will monitor PTTs. A repeat ABG has been requested post administration of bicarbonate therapy. Absolute be drawn as per therapeutic hypothermia protocol. Will also repeat a lactic acid. Will trend troponins. The endotracheal tube has been removed and repeat chest x-ray is pending. Will follow up all consultants recommendations. Appreciate input. The patient remains critically ill. I have discussed her current situation with the patient's family and housestaff in detail. I have asked to be contacted during the night should the patient's condition change or deteriorate.
--- NOTE | 2017-08-01 16:38 | Cons- Nephrology ---
General Information and HPI Consulting Request Date of Consult: 08/01/17 Requested By: Carlee Taveras MD History of Present Illness: Ms. 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 She has longstanding DM and underwent a renal biopsy (faxed progress notes from Dr. Mcghee , brine purifier) which showed chronic interstitial nephritis and DN. She was treated with a course of steroids which were tapered and underwent creation of a left UA AVF last fall in anticipation of dialysis. She continued to work at [employer] and , in fact, went to work for 1/2 day on Tuesday. She was last seen by her awake last night around 5 PM when she was in bed (she often does this due to fatigue). This morning he found her unresponsive with foaming around the mouth. EMT's were called and en route glucose was 24. She was given D10 and brought to the ED and is now being admitted to the ICU. Intial Cr was 6 (baseline 5.5) with a metabolic acidosis. Allergies/Medications Allergies: Uncoded Allergies: all pain medications (NAUSEA 02/26/14) Home Med List: Amlodipine Besylate 10 MG TABLET 1 TAB PO DAILY HEART (Reported) Aspirin (Aspirin*) 81 MG TAB.CHEW 1 TAB PO DAILY HEART HEALTH (Reported) Escitalopram Oxalate 5 MG TABLET 1 TAB PO DAILY MENTAL HEALTH (Reported) Furosemide 40 MG TABLET 1 TAB PO DAILY WATER RETENTION (Reported) Insulin Aspart (Novolog) (Unknown Strength) VIAL (Unknown Dose) AC DIABETES ( Reported) Levothyroxine Sodium 50 MCG TABLET 1 TAB PO DAILY AC THYROID (Reported) Losartan Potassium 100 MG TABLET 1 TAB PO DAILY HEART (Reported) Prednisone 10 MG TABLET 1 TAB PO DAILY STEROID (Reported) Sevelamer Carbonate (Renvela) 800 MG TABLET 1 TAB PO AC UNKNOWN (Reported) Review of Systems Review of Systems: Unable to obtain. pt unresponsive Past History Travel History Traveled to [place] past 21 day No Medical History Cardiovascular: hypertension Respiratory: obstructive sleep apnea Renal: ESRD on HD Surgical History Surgical History: L AVF Exam & Diagnostic Data Vital Signs and I&O Vital Signs Date Time Temp Pulse Resp B/P B/P Pulse O2 O2 Flow FiO2 Mean Ox Delivery Rate 08/01 1430 111 93 08/01 1419 110 24 119/63 97 BIPAP 60% 03/19 1330 96 08/01 1210 96.9 96 24 128/72 99 BIPAP 60% 08/01 1150 111 97 08/01 1102 97.0 90 24 137/83 99 BIPAP 60% 08/01 1000 88 24 129/78 100 BIPAP 100% 08/01 1000 111 96 08/01 0900 97 Non 9L ReBreather 08/01 0845 96 Non 100% ReBreather 08/01 0842 97.5 110 28 151/79 87 Room Air Room Air F intubated in ED. Nurses taking BP but low Skin neg rash Eyes anicteric ENT intubated Lungs clear to A Cor RRR Abd soft N/T Ext tr edema L UA AVF good bruit Neuro unresponsive Results Pertinent Lab Results: Laboratory Tests 08/01 08/01 08/01 1510 1307 1140 Blood Gas pH (7.35 - 7.45 PH) 7.29 *L pCO2 (35 - 45 TORR) 32 L pO2 (80 - 100 TORR) 238 H HCO3 (21 - 28 MEQ/L) 15 L ABG O2 Sat (Measured) (>96.0 %) 98.0 Carboxyhemoglobin (1.5 - 5.0 %) 0.3 L O2 Concentration % 100% Respiration Rate (BPM) 24 O2 Delivery Method BIPAP Vent Mode ST Expiratory Pressure (CM H2O P) 6 Inspiratory Pressure (CM H2O P) 16 Chemistry Lactic Acid (0.7 - 2.1 mmol/L) 2.0 Troponin I (< 0.11 ng/ml) 3.04 *H Miscellaneous Phlebotomy Draw Site RIGHT RADIAL 08/01 08/01 1000 0900 Blood Gas pH (7.35 - 7.45 PH) 7.23 *L pCO2 (35 - 45 TORR) 38 pO2 (80 - 100 TORR) 92 HCO3 (21 - 28 MEQ/L) 16 L ABG O2 Sat (Measured) (>96.0 %) 94.0 L Carboxyhemoglobin (1.5 - 5.0 %) 0.5 L O2 Concentration % 100% O2 Delivery Method NRB Chemistry Sodium (137 - 145 mmol/L) 146 H Potassium (3.5 - 5.1 mmol/L) 4.7 Chloride (98 - 107 mmol/L) 111 H Carbon Dioxide (22 - 30 mmol/L) 16 L Anion Gap (5 - 16) 18 H BUN (7 - 17 mg/dL) 95 H Creatinine (0.5 - 1.0 mg/dL) 6.2 *H Estimated GFR (>60 ml/min) 7 L BUN/Creatinine Ratio (7 - 25 %) 15.3 Glucose (65 - 99 mg/dL) 86 Hemoglobin A1c (4.2 - 5.8 %) 8.8 H Insulin Level (3.0 - 25.0 mIU/mL) Pending Lactic Acid (0.7 - 2.1 mmol/L) 2.3 H Calcium (8.4 - 10.2 mg/dL) 8.2 L Phosphorus (2.5 - 4.5 mg/dL) 8.8 H Magnesium (1.6 - 2.3 mg/dL) 1.8 Total Bilirubin (0.2 - 1.3 mg/dL) 0.4 AST (14 - 36 U/L) 29 ALT (9 - 52 U/L) 28 Alkaline Phosphatase (<127 U/L) 48 Creatine Kinase (30 - 135 U/L) 248 H Troponin I (< 0.11 ng/ml) 2.31 *H Total Protein (6.3 - 8.2 g/dL) 4.9 L Albumin (3.5 - 5.0 g/dL) 2.7 L Globulin (1.9 - 4.2 gm/dL) 2.2 Albumin/Globulin Ratio (1.1 - 2.2 %) 1.2 TSH (0.270 - 4.200 uIU/mL) 9.510 H Free T4 (0.78 - 2.44 ng/dL) 0.89 Prolactin (3.0 - 18.6 ng/mL) 29.0 H Cortisol AM Sample (4.46 - 22.7 ug/dL) Pending Hematology CBC w Diff MAN DIFF ORDERED WBC (4.8 - 10.8 /CUMM) 16.2 H RBC (4.20 - 5.40 /CUMM) 4.33 Hgb (12.0 - 16.0 G/DL) 11.4 L Hct (37 - 47 %) 34.8 L MCV (81.0 - 99.0 FL) 80.5 L MCH (27.0 - 31.0 PG) 26.3 L MCHC (33.0 - 37.0 G/DL) 32.7 L RDW (11.5 - 14.5 %) 18.6 H Plt Count (130 - 400 /CUMM) 405 H MPV (7.4 - 10.4 FL) 6.9 L Gran % (42.2 - 75.2 %) 89.2 H Lymphocytes % (20.5 - 51.1 %) 9.1 L Monocytes % (1.7 - 9.3 %) 0.9 L Eosinophils % (0 - 5 %) 0.6 Basophils % (0.0 - 2.0 %) 0.2 Absolute Granulocytes (1.4 - 6.5 /CUMM) 14.5 H Segmented Neutrophils (42.2 - 75.2 %) 73 Band Neutrophils (0.0 - 5.0 %) 13 H Absolute Lymphocytes (1.2 - 3.4 /CUMM) 1.5 Lymphocytes (20.5 - 51.1 %) 11 L Monocytes (1.7 - 9.3 %) 3 Absolute Monocytes (0.10 - 0.60 /CUMM) 0.1 Absolute Eosinophils (0.0 - 0.7 /CUMM) 0.1 Absolute Basophils (0.0 - 0.2 /CUMM) 0 Platelet Estimate (ADEQUATE) INCREASED Normocytic RBCs VERIFIED Normochromic RBCs VERIFIED Poikilocytosis FEW [place] Cells FEW Miscellaneous Phlebotomy Draw Site RIGHT BRACHIAL Assessment/Plan Assessment/Recommendations Assessment: CKD V predominantly due to diabetic nephropathy with a component of JOYCE. Her says she often doesn't eat due to fatigue and these likely represent early uremic symptoms. Cr on admission here is not that different than outpatient creatinine but this likely represents a GFR < 10 cc/min. Her unresponsiveness is not related to uremia although I suspect her fatigue and appetite change are. She does not require emergent dialysis and given her unstable state at this point dialysis would be more likely to cause harm in the immediate setting (vascular instability). I did, however, discuss with her that I suspect she will start dialysis this admission (next few days) given baseline low GFR and increased catabolic load. As discussed with the medical team, she has an anion gap metabolic acidosis (Winter's formula (1.5 x 16 + 8 +/- 2 = 32 +/- 2. CO2 is 32 so she has apporpriate resp compensation). She does not have metabolic alkalosis (A.G. - nl A.G (12 but may be higher given CKD) = 18-12 = 6. This 6 is direct marketing representative of the mEq of organic anions ( lactate/ketones etc) and are considered bicarb equivalents. if we add this to her bicarb 16 her total bicarbonate is 22 - prob a bit lower since her nl A.G is prob higher than 12). This means she does not have a met alkalosis (easier to understand and more physiologic than traditional delta/delta taught). Could correct with some IV bicarbonate (not critical) typically D5 with 150 Na Bicarbonate). Given hypotension and URI symptoms, consider sepsis. Send BC and antibiotics as recommended by Dr Love. Correct hypoglycemia as you are doing. Please send Hepatitis B S Ag/Ab with next bloodwork (not urgent) as this will be needed if dialysis is needed. Thanks will follow. Jamar Lucero MD. Recommendations: .
--- NOTE | 2017-08-01 16:47 | Cons- Infect Disease ---
General Information and HPI Consulting Request Date of Consult: 08/01/17 Requested By: Carlee Taveras MD Reason for Consult: Rule out sepsis Source of Information: family Exam Limitations: unable to give history, clinical condition History of Present Illness: This is a 62-year-old woman with a history of diabetes, end-stage renal disease, status post creation of a left upper extremity fistula 6 months prior to admission in anticipation of dialysis, maintained on steroids for the last several months for biopsy-proven interstitial nephritis, status post a nondiagnostic navigational bronchoscopy and biopsy 4 months prior to admission for a right upper lobe mass, noted to be lethargic yesterday with recent URI symptoms, admitted today after she was found by her this morning to be unresponsive, with a glucose of 27 reported en route to the hospital. On arrival to the emergency room she was found to be unresponsive with foam around the mouth, with intermittent episodes of right arm stiffening noted. She was afebrile, with a blood pressure of 151/79, an O2 sat of 86-87% on high flow oxygen and a glucose in the 160's. Laboratory data revealed a white blood cell count of 16,000, with 73 segs and 13 bands, BUN/creatinine 95 and 6.2, lactic acid 2.3, with normal liver enzymes, CPK 248, troponin 2.31, TSH 9.510, hemoglobin A1c 8.8, ABG 7.23/38/92 on 100% nonrebreather. Chest x-ray revealed a stable mass in the right upper lobe and patchy opacification at the left lung base. CT of the head, a limited study, was negative for any acute process. She was begun on Ceftriaxone and Azithromycin and was intubated. She is now hypotensive, with a systolic blood pressure in the 50s. Allergies/Medications Allergies: Uncoded Allergies: all pain medications (NAUSEA 02/26/14) Home Med List: Amlodipine Besylate 10 MG TABLET 1 TAB PO DAILY HEART (Reported) Aspirin (Aspirin*) 81 MG TAB.CHEW 1 TAB PO DAILY HEART HEALTH (Reported) Escitalopram Oxalate 5 MG TABLET 1 TAB PO DAILY MENTAL HEALTH (Reported) Furosemide 40 MG TABLET 1 TAB PO DAILY WATER RETENTION (Reported) Insulin Aspart (Novolog) (Unknown Strength) VIAL (Unknown Dose) AC DIABETES ( Reported) Levothyroxine Sodium 50 MCG TABLET 1 TAB PO DAILY AC THYROID (Reported) Losartan Potassium 100 MG TABLET 1 TAB PO DAILY HEART (Reported) Prednisone 10 MG TABLET 1 TAB PO DAILY STEROID (Reported) Sevelamer Carbonate (Renvela) 800 MG TABLET 1 TAB PO AC UNKNOWN (Reported) Past History Travel History Traveled to [place] past 21 day No Medical History Cardiovascular: hypertension Respiratory: obstructive sleep apnea Renal: chronic kidney disease Musculoskeletal: arthritis Endocrine: diabetes Surgical History Surgical History: L AVF Review of Systems Comments Unobtainable Exam & Diagnostic Data Last 24 Hrs of Vital Signs/I&O Vital Signs Date Time Temp Pulse Resp B/P B/P Pulse O2 O2 Flow FiO2 Mean Ox Delivery Rate 08/01 1430 111 93 08/01 1419 110 24 119/63 97 BIPAP 60% 08/01 1330 96 08/01 1210 96.9 96 24 128/72 99 BIPAP 60% 08/01 1150 111 97 08/01 1102 97.0 90 24 137/83 99 BIPAP 60% 08/01 1000 88 24 129/78 100 BIPAP 100% 08/01 1000 111 96 08/01 0900 97 Non 9L ReBreather 08/01 0845 96 Non 100% ReBreather 08/01 0842 97.5 110 28 151/79 87 Room Air Room Air Intake & Output 08/01 1600 08/01 0800 08/01 0000 Intake Total 1250 Output Total 3 Balance 1247 Intake, IV 1250 Output, Urine 3 Patient 160 lb Weight Weight Estimated Measurement Method Physical Exam Other Physical Findings: Afebrile. She is sedated and unresponsive now on the ventilator. Skin reveals no rash. HEENT negative. Neck is supple with no adenopathy. Lungs bilateral rhonchi. Heart regular rhythm with no murmur. Abdomen is soft, nontender with positive bowel sounds. Back no CVA tenderness. Extremities no cyanosis, clubbing or edema; left upper extremity fistula with a positive bruit. Neuro is without focality. Last 24 Hours of Lab Results: Laboratory Tests 08/01 08/01 08/01 1510 1307 1140 Blood Gas pH (7.35 - 7.45 PH) 7.29 *L pCO2 (35 - 45 TORR) 32 L pO2 (80 - 100 TORR) 238 H HCO3 (21 - 28 MEQ/L) 15 L ABG O2 Sat (Measured) (>96.0 %) 98.0 Carboxyhemoglobin (1.5 - 5.0 %) 0.3 L O2 Concentration % 100% Respiration Rate (BPM) 24 O2 Delivery Method BIPAP Vent Mode ST Expiratory Pressure (CM H2O P) 6 Inspiratory Pressure (CM H2O P) 16 Chemistry Lactic Acid (0.7 - 2.1 mmol/L) 2.0 Troponin I (< 0.11 ng/ml) 3.04 *H Miscellaneous Phlebotomy Draw Site RIGHT RADIAL 08/01 08/01 1000 0900 Blood Gas pH (7.35 - 7.45 PH) 7.23 *L pCO2 (35 - 45 TORR) 38 pO2 (80 - 100 TORR) 92 HCO3 (21 - 28 MEQ/L) 16 L ABG O2 Sat (Measured) (>96.0 %) 94.0 L Carboxyhemoglobin (1.5 - 5.0 %) 0.5 L O2 Concentration % 100% O2 Delivery Method NRB Chemistry Sodium (137 - 145 mmol/L) 146 H Potassium (3.5 - 5.1 mmol/L) 4.7 Chloride (98 - 107 mmol/L) 111 H Carbon Dioxide (22 - 30 mmol/L) 16 L Anion Gap (5 - 16) 18 H BUN (7 - 17 mg/dL) 95 H Creatinine (0.5 - 1.0 mg/dL) 6.2 *H Estimated GFR (>60 ml/min) 7 L BUN/Creatinine Ratio (7 - 25 %) 15.3 Glucose (65 - 99 mg/dL) 86 Hemoglobin A1c (4.2 - 5.8 %) 8.8 H Insulin Level (3.0 - 25.0 mIU/mL) Pending Lactic Acid (0.7 - 2.1 mmol/L) 2.3 H Calcium (8.4 - 10.2 mg/dL) 8.2 L Phosphorus (2.5 - 4.5 mg/dL) 8.8 H Magnesium (1.6 - 2.3 mg/dL) 1.8 Total Bilirubin (0.2 - 1.3 mg/dL) 0.4 AST (14 - 36 U/L) 29 ALT (9 - 52 U/L) 28 Alkaline Phosphatase (<127 U/L) 48 Creatine Kinase (30 - 135 U/L) 248 H Troponin I (< 0.11 ng/ml) 2.31 *H Total Protein (6.3 - 8.2 g/dL) 4.9 L Albumin (3.5 - 5.0 g/dL) 2.7 L Globulin (1.9 - 4.2 gm/dL) 2.2 Albumin/Globulin Ratio (1.1 - 2.2 %) 1.2 TSH (0.270 - 4.200 uIU/mL) 9.510 H Free T4 (0.78 - 2.44 ng/dL) 0.89 Prolactin (3.0 - 18.6 ng/mL) 29.0 H Cortisol AM Sample (4.46 - 22.7 ug/dL) Pending Hematology CBC w Diff MAN DIFF ORDERED WBC (4.8 - 10.8 /CUMM) 16.2 H RBC (4.20 - 5.40 /CUMM) 4.33 Hgb (12.0 - 16.0 G/DL) 11.4 L Hct (37 - 47 %) 34.8 L MCV (81.0 - 99.0 FL) 80.5 L MCH (27.0 - 31.0 PG) 26.3 L MCHC (33.0 - 37.0 G/DL) 32.7 L RDW (11.5 - 14.5 %) 18.6 H Plt Count (130 - 400 /CUMM) 405 H MPV (7.4 - 10.4 FL) 6.9 L Gran % (42.2 - 75.2 %) 89.2 H Lymphocytes % (20.5 - 51.1 %) 9.1 L Monocytes % (1.7 - 9.3 %) 0.9 L Eosinophils % (0 - 5 %) 0.6 Basophils % (0.0 - 2.0 %) 0.2 Absolute Granulocytes (1.4 - 6.5 /CUMM) 14.5 H Segmented Neutrophils (42.2 - 75.2 %) 73 Band Neutrophils (0.0 - 5.0 %) 13 H Absolute Lymphocytes (1.2 - 3.4 /CUMM) 1.5 Lymphocytes (20.5 - 51.1 %) 11 L Monocytes (1.7 - 9.3 %) 3 Absolute Monocytes (0.10 - 0.60 /CUMM) 0.1 Absolute Eosinophils (0.0 - 0.7 /CUMM) 0.1 Absolute Basophils (0.0 - 0.2 /CUMM) 0 Platelet Estimate (ADEQUATE) INCREASED Normocytic RBCs VERIFIED Normochromic RBCs VERIFIED Poikilocytosis FEW [place] Cells FEW Miscellaneous Phlebotomy Draw Site RIGHT BRACHIAL Last 24 Hours of Charli Results: Blood culture August 01 pending Rapid flu swab August 01 negative Diagnostic Data Recent Imaging Findings: Chest x-ray revealed a stable mass in the right upper lobe and patchy opacification at the left lung base. CT of the head, a limited study, was negative for any acute process. Assessment/Plan Assessment/Plan Impression: This is a 62-year-old woman with a history of diabetes, end-stage renal disease, maintained on steroids for the last several months for interstitial nephritis, admitted this morning after she was found to be unresponsive at home, with increased lethargy and URI symptoms over the last day, found en route to the hospital to have a glucose of 27 and noted to have intermittent episodes of right arm stiffening, currently afebrile and hypotensive, intubated for hypoxia, with a leukocytosis/bandemia and elevated troponin and patchy opacification at the left lung base on chest x-ray. The etiology of her illness is unclear. Her unresponsiveness may be related to hypoglycemia, with the report of episodic stiffening of her right arm raising concern for seizure activity. Her leukocytosis and bandemia suggest sepsis, though she has been on steroids chronically, which could explain her leukocytosis. She does have a patchy density at the left lung base, which could be secondary to aspiration. The right upper lobe mass has been noted before, with a navigational bronchoscopy/biopsy 4 months prior to admission nondiagnostic. Her elevated troponin is of unclear significance with her renal failure. Suggestion: 1. Obtain an additional blood culture 2. Sputum culture 3. Further management of her hypoglycemia, including stress steroids, per Endocrinology 4. Further management of her renal failure per Renal 5. Consider Neuro evaluation for possible seizure activity 6. Begin Unasyn 3 grams IV every 12 hours pending above Consult Acknowledgment - Thank you for your consult request.
--- NOTE | 2017-08-01 18:44 | RADIOLOGY REPORT ---
EXAMINATION: CHEST 1 VIEW CLINICAL INFORMATION: Endotracheal tube placement. COMPARISON: Same day chest radiograph obtained at 0906 hours. TECHNIQUE: An AP view of the chest is provided. FINDINGS: The cardiac silhouette is not enlarged. An endotracheal tube has been placed. The tip is approximately 5 to 10 mm above the vazquez. There are neither pleural effusions nor pneumothoraces. There is a persistent right upper lobe mass adjacent to the mediastinal pleura with mild adjacent nonspecific patchy airspace disease. There is improved aeration at the left lung base with minimal airspace disease persisting. The osseous structures are unremarkable. IMPRESSION: Tip of endotracheal tube approximately 5 to 10 mm above the vazquez. Persistent right upper lobe mass. Improved aeration at the left lung base.
--- NOTE | 2017-08-01 20:01 | RADIOLOGY REPORT ---
EXAMINATION: XR PORTABLE CHEST CLINICAL INFORMATION: Repositioning of endotracheal tube. COMPARISON: 08/01/2017 at 5:00 PM TECHNIQUE: Portable frontal view of the chest was obtained. FINDINGS: Since the prior study there has been retraction of the endotracheal tube now terminating approximately 5.6 cm above the vazquez. A nasogastric tube is now evident with tip projecting over the stomach. The cardiomediastinal silhouette is stable. There are hazy bilateral airspace opacities seen in both lungs, slightly more conspicuous at the left base than previously which may be technical in nature. A small left-sided pleural effusion may be present. No pneumothoraces are visualized. IMPRESSION: Endotracheal tube terminates 5.6 cm above the vazquez. Nasogastric tube tip projects over the stomach. Bilateral patchy airspace opacities are redemonstrated, perhaps slightly increased in conspicuity at the left base relative to the prior study.
--- NOTE | 2017-08-01 20:05 | Admission Certification ---
Admission Certification Certification Statement - As attending physician, I certify that at the time of - admission, based on clinical presentation, severity of - symptoms, need for further diagnostic testing and - therapeutic interventions, and risk of adverse outcomes - without in-hospital treatment, in my clinical assessment, - this patient requires an acute hospital stay for a minimum - of two nights or longer. I have also considered psychsocial - factors such as support system, advanced age, financial - issues, cognitive issues, and failed out-patient treatments, - past re-admission history, safety of patient, and lack of - compliance as applicable. Specific rationale supporting this admission is: The patient presented with acute mental status change, respiratory failure, and aspiration pneumonia. She arrested in the ED approximately 15 minutes post intubation. She requires mechanical ventilation and pressor support. She remains critically ill and will continue to need ICU monitoring and treatment.
--- NOTE | 2017-08-01 20:11 | Cons- Neurology ---
General Information and HPI Consulting Request Date of Consult: 08/01/17 Requested By: Darcy HYMAN,Carlee Davis Source of Information: old records History of Present Illness: 62-year-old female admitted to hospital unresponsive She has long history of diabetes and nephritis She has a history of fatigue and went to bed early night before her admission On the morning found her unresponsive foaming at the mouth EMT was called and a glucose of 24 was found Patient was given D10 In the ED she had a cardiac arrest; she was given atropine and succinocholine and atropine She is presently intubated Allergies/Medications Allergies: Uncoded Allergies: all pain medications (NAUSEA 02/26/14) Home Med List: Amlodipine Besylate 10 MG TABLET 1 TAB PO DAILY HEART (Reported) Aspirin (Aspirin*) 81 MG TAB.CHEW 1 TAB PO DAILY HEART HEALTH (Reported) Escitalopram Oxalate 5 MG TABLET 1 TAB PO DAILY MENTAL HEALTH (Reported) Furosemide 40 MG TABLET 1 TAB PO DAILY WATER RETENTION (Reported) Insulin Aspart (Novolog) (Unknown Strength) VIAL (Unknown Dose) AC DIABETES ( Reported) Levothyroxine Sodium 50 MCG TABLET 1 TAB PO DAILY AC THYROID (Reported) Losartan Potassium 100 MG TABLET 1 TAB PO DAILY HEART (Reported) Prednisone 10 MG TABLET 1 TAB PO DAILY STEROID (Reported) Sevelamer Carbonate (Renvela) 800 MG TABLET 1 TAB PO AC UNKNOWN (Reported) Current Medications: Current Medications Sig/Makayla Start time Last Medication Dose Route Stop Time Status Admin Acetaminophen 1,000 MG Q6P PRN 08/01 1445 AC IV Ampicillin Sodium/ 1,500 MG Q6 08/01 1800 CAN Sulbactam Sodium IV Sodium Chloride 100 ML Ampicillin Sodium/ 3,000 MG Q12 08/01 1730 AC Sulbactam Sodium IV Sodium Chloride 100 ML Aspirin 300 MG ONCE ONE 08/01 1145 DC 08/01 AL 08/01 1146 1145 Atropine Sulfate 0 .STK-MED ONE 08/01 1630 DC .ROUTE Azithromycin 500 MG ONCE ONE 08/01 1000 DC 08/01 Dextrose/Water 250 ML IV 08/01 1059 1053 Ceftriaxone Sodium 0 .STK-MED ONE 08/01 1030 DC .ROUTE Ceftriaxone Sodium 1,000 MG ONCE ONE 08/01 1000 DC 08/01 IV 08/01 1001 1053 Dextrose/Sodium 1,000 ML Q10H 08/01 1145 DC 08/01 Chloride IV 1248 Dextrose/Sodium 1,000 ML Q10H 08/01 1100 DC 08/01 Chloride IV 1100 Dextrose/Water 1,000 ML Q20H 08/01 1630 DC 08/01 IV 1726 Dextrose/Water 250 ML .STK-MED ONE 08/01 1156 DC IV Etomidate 20 MG ONCE ONE 08/01 1545 DC 08/01 IV 08/01 1546 1619 Etomidate 0 .STK-MED ONE 08/01 1545 DC IV Glucagon 0 .STK-MED ONE 08/01 1156 DC .ROUTE Heparin Sodium 0 .STK-MED ONE 08/01 1756 DC (Porcine) .ROUTE Heparin Sodium 4,000 UNIT ONCE ONE 08/01 1730 DC (Porcine) IV 08/01 1731 Heparin Sodium 25,000 UNIT Q24H 08/01 1730 AC (Porcine) IV Sodium Chloride 500 ML Hydrocortisone 50 MG Q12 08/02 1000 DC Sodium Succinate IV Hydrocortisone 50 MG DAILY 08/02 1000 UNVr Sodium Succinate IV Hydrocortisone 100 MG ONE ONE 08/01 1615 DC 08/01 Sodium Succinate IV 08/01 1616 1709 Insulin Human Regular 0 Q6 08/01 1440 AC 08/01 SC 1813 Levothyroxine Sodium 25 MCG DAILY 08/02 1000 AC IV Lorazepam 0 .STK-MED ONE 08/01 1604 DC .ROUTE Norepinephrine 8 MG ONCE ONE 08/01 1830 DC Sodium Chloride 250 ML IV 08/01 1831 Norepinephrine 0 .STK-MED ONE 08/01 1825 DC IV Norepinephrine 0 .STK-MED ONE 08/01 1654 DC IV Norepinephrine 8 MG ONCE ONE 08/01 1645 DC 08/01 Sodium Chloride 250 ML IV 08/01 1646 1748 Pantoprazole Sodium 40 MG DAILY 08/01 1730 AC IV Sodium Bicarbonate 50 MEQ ONCE ONE 08/01 1900 DC IV 08/01 1901 Sodium Bicarbonate 150 MEQ Q10H 08/01 1900 AC Dextrose/Water 1,000 ML IV Sodium Bicarbonate 100 MEQ CONTINOUS INFUSION 08/01 1600 DC Dextrose/Water 1,000 ML IV Sodium Chloride 500 ML BOLUS ONE 08/01 1615 DC 08/01 IV 08/01 1714 1617 Succinylcholine 100 MG ONCE ONE 08/01 1545 DC 08/01 Chloride IV 08/01 1546 1619 Review of Systems Review of Systems: Unable to obtain at present since patient is in coma Past History Travel History Traveled to [place] past 21 day No Medical History Cardiovascular: hypertension Respiratory: obstructive sleep apnea Renal: chronic kidney disease Musculoskeletal: arthritis Endocrine: diabetes Surgical History Surgical History: L AVF Family History Relations & Conditions If Any: MOTHER (Diabetes, hyperlipidemia). Psychosocial History Smoking Status: Former Smoker ETOH Use: occasional use Illicit Drug Use: denies illicit drug use Exam & Diagnostic Data Vital Signs and I&O Vital Signs Date Time Temp Pulse Resp B/P B/P Pulse O2 O2 Flow FiO2 Mean Ox Delivery Rate 08/01 1950 Ventilator 85% 08/01 1825 100.0 126 18 136/64 100 Ventilator 100% 08/01 1758 99.7 128 18 181/68 100 Ventilator 08/01 1727 100.1 126 20 136/64 100 Ventilator 100% 08/01 1623 100 08/01 1553 97.9 122 18 152/72 100 08/01 1430 111 93 08/01 1419 110 24 119/63 97 BIPAP 60% 08/01 1330 96 08/01 1210 96.9 96 24 128/72 99 BIPAP 60% 08/01 1150 111 97 08/01 1102 97.0 90 24 137/83 99 BIPAP 60% 08/01 1000 88 24 129/78 100 BIPAP 100% 08/01 1000 111 96 08/01 0900 97 Non 9L ReBreather 08/01 0845 96 Non 100% ReBreather 08/01 0842 97.5 110 28 151/79 87 Room Air Room Air Intake & Output 08/01 1600 08/01 0800 08/01 0000 Intake Total 1250 Output Total 3 Balance 1247 Intake, IV 1250 Output, Urine 3 Patient 160 lb Weight Weight Estimated Measurement Method Physical Exam: On cooling blanket and on pressors No response to noxious stimuli Pupils not reactive and midsize No doll's eyes No corneal response No gag response No not breathing above respirator setting Flaccid upper and lower extremities No movement upper and lower extremities Deep tendon reflexes hypoactive Coordinative functions cannot be assessed Last 48 Hours of Lab Results: Laboratory Tests 08/01 1931 1710 1510 1307 Blood Gas pH (7.35 - 7.45 PH) 7.06 *L pCO2 (35 - 45 TORR) 42 pO2 (80 - 100 TORR) 167 H HCO3 (21 - 28 MEQ/L) 12 L ABG O2 Sat (Measured) (>96.0 %) 97.0 P-50 (Temp Corrected) N Carboxyhemoglobin (1.5 - 5.0 %) 0.3 L O2 Concentration % 100% Temperature (97.0 - 100.0 FARH) 97.5 Respiration Rate (BPM) 26 O2 Delivery Method ESPRIT VENT Vent Mode AC Expiratory Pressure (CMH2O/P) 5 Tidal Volume (CC) 500 Chemistry Sodium Pending Potassium Pending Chloride Pending Carbon Dioxide Pending Anion Gap Pending BUN Pending Creatinine Pending Glucose Pending Lactic Acid (0.7 - 2.1 mmol/L) Pending 2.0 Calcium Pending Phosphorus Pending Magnesium Pending Total Bilirubin Pending AST Pending ALT Pending Troponin I (< 0.11 ng/ml) 3.04 *H Albumin Pending Coagulation PT Pending INR Pending APTT Pending Miscellaneous Phlebotomy Draw Site RIGHT BRACHIAL 08/01 08/01 1140 1000 Blood Gas pH (7.35 - 7.45 PH) 7.29 *L pCO2 (35 - 45 TORR) 32 L pO2 (80 - 100 TORR) 238 H HCO3 (21 - 28 MEQ/L) 15 L ABG O2 Sat (Measured) (>96.0 %) 98.0 Carboxyhemoglobin (1.5 - 5.0 %) 0.3 L O2 Concentration % 100% Respiration Rate (BPM) 24 O2 Delivery Method BIPAP Vent Mode ST Expiratory Pressure (CM H2O P) 6 Inspiratory Pressure (CM H2O P) 16 Chemistry Sodium (137 - 145 mmol/L) 146 H Potassium (3.5 - 5.1 mmol/L) 4.7 Chloride (98 - 107 mmol/L) 111 H Carbon Dioxide (22 - 30 mmol/L) 16 L Anion Gap (5 - 16) 18 H BUN (7 - 17 mg/dL) 95 H Creatinine (0.5 - 1.0 mg/dL) 6.2 *H Estimated GFR (>60 ml/min) 7 L BUN/Creatinine Ratio (7 - 25 %) 15.3 Glucose (65 - 99 mg/dL) 86 Hemoglobin A1c (4.2 - 5.8 %) 8.8 H Insulin Level (3.0 - 25.0 mIU/mL) 31.0 H Lactic Acid (0.7 - 2.1 mmol/L) 2.3 H Calcium (8.4 - 10.2 mg/dL) 8.2 L Phosphorus (2.5 - 4.5 mg/dL) 8.8 H Magnesium (1.6 - 2.3 mg/dL) 1.8 Total Bilirubin (0.2 - 1.3 mg/dL) 0.4 AST (14 - 36 U/L) 29 ALT (9 - 52 U/L) 28 Alkaline Phosphatase (<127 U/L) 48 Creatine Kinase (30 - 135 U/L) 248 H Troponin I (< 0.11 ng/ml) 2.31 *H Total Protein (6.3 - 8.2 g/dL) 4.9 L Albumin (3.5 - 5.0 g/dL) 2.7 L Globulin (1.9 - 4.2 gm/dL) 2.2 Albumin/Globulin Ratio (1.1 - 2.2 %) 1.2 TSH (0.270 - 4.200 uIU/mL) 9.510 H Free T4 (0.78 - 2.44 ng/dL) 0.89 Prolactin (3.0 - 18.6 ng/mL) 29.0 H Cortisol AM Sample (4.46 - 22.7 ug/dL) 26.5 H Hematology CBC w Diff MAN DIFF ORDERED WBC (4.8 - 10.8 /CUMM) 16.2 H RBC (4.20 - 5.40 /CUMM) 4.33 Hgb (12.0 - 16.0 G/DL) 11.4 L Hct (37 - 47 %) 34.8 L MCV (81.0 - 99.0 FL) 80.5 L MCH (27.0 - 31.0 PG) 26.3 L MCHC (33.0 - 37.0 G/DL) 32.7 L RDW (11.5 - 14.5 %) 18.6 H Plt Count (130 - 400 /CUMM) 405 H MPV (7.4 - 10.4 FL) 6.9 L Gran % (42.2 - 75.2 %) 89.2 H Lymphocytes % (20.5 - 51.1 %) 9.1 L Monocytes % (1.7 - 9.3 %) 0.9 L Eosinophils % (0 - 5 %) 0.6 Basophils % (0.0 - 2.0 %) 0.2 Absolute Granulocytes (1.4 - 6.5 /CUMM) 14.5 H Segmented Neutrophils (42.2 - 75.2 %) 73 Band Neutrophils (0.0 - 5.0 %) 13 H Absolute Lymphocytes (1.2 - 3.4 /CUMM) 1.5 Lymphocytes (20.5 - 51.1 %) 11 L Monocytes (1.7 - 9.3 %) 3 Absolute Monocytes (0.10 - 0.60 /CUMM) 0.1 Absolute Eosinophils (0.0 - 0.7 /CUMM) 0.1 Absolute Basophils (0.0 - 0.2 /CUMM) 0 Platelet Estimate (ADEQUATE) INCREASED Normocytic RBCs VERIFIED Normochromic RBCs VERIFIED Poikilocytosis FEW [place] Cells FEW Miscellaneous Phlebotomy Draw Site RIGHT RADIAL 08/01 0900 Blood Gas pH (7.35 - 7.45 PH) 7.23 *L pCO2 (35 - 45 TORR) 38 pO2 (80 - 100 TORR) 92 HCO3 (21 - 28 MEQ/L) 16 L ABG O2 Sat (Measured) (>96.0 %) 94.0 L Carboxyhemoglobin (1.5 - 5.0 %) 0.5 L O2 Concentration % 100% O2 Delivery Method NRB Miscellaneous Phlebotomy Draw Site RIGHT BRACHIAL Imaging/Other Studies: CT brain IMPRESSION: Nondiagnostic CT of the head secondary to significant streak/motion artifact despite repeating the acquisition. I cannot exclude infarcts nor hemorrhage on this study. Assessment/Plan Assessment: Coma Likely secondary to severe hypoglycemia Unclear as to how much medication such as succinylcholine are interfering with the neurologic examination; half-life should be relatively short and in approximately 24 hours a better assessment can be made Nonetheless given history prognosis appears very poor Recommendations: Reevaluation within 1-2 days Consult Acknowledgment - Thank you for your consult request.
--- NOTE | 2017-08-01 20:46 | Event Note ---
Event Note Event Note: Situation Hypoglycemia now resolved Background 62 year old insulin diabetic admitted for unresponsive subsequently developing cardiac arrest s/p CPR/ROSC. Insulin pump was reported discontinued yesterday, however her insulin level today is found to be high. Assessment Patient with apparent unintended insulin overdose with profound hypoglycemia and cardiac arrest. Patient was initially hypotensive requiring levophed, dopamine, and hydrocortisone. She was maintained on D10 in addition to D5 + Bicarb. Blood sugars shreya to over 200. Stem Teacher Dr Estrada was made aware of these whom recommended discontinuing D10 and evening hydrocortisone (cortisol was found to be normal) and started levemir / novolog coverage. Insulin pump was provided by and was placed with patients belongings. SBP was found to be greater that 180 for which dopamine was discontinued and levophed reduced. Plan -Discontinue D10 -Continue D5 + Bicarb -Start Levemir 12 units SC BID -Start Novolog SSI with Accuchecks Q4H -Skip evening hydrocortisone -Titrate Levophed as needed
[2017-08-01 21:24] LABS: PT 13.1 SEC (9.4-12.5); PTT 28 SEC (25-37)
--- NOTE | 2017-08-01 21:34 | Cons- Endocrinology ---
General Information and HPI Consulting Request Date of Consult: 08/01/17 Requested By: ICU team Reason for Consult: management of DM type 1 and severe hypoglycemia and unresponsiveness Source of Information: family Exam Limitations: unable to give history History of Present Illness: 62 y/o female hx of longstanding DM type 1, chronic renal disease due to diabetes and chronic interstitual nephritis and was treated with a couse of steroid. As per patient's , patient took prednisone 10 mg last night. Her glucose level was running low and insulin pump was supposed to be discontinued last night. Patient was found to be unresponsive with foaming around her mouth. EMS was called and her glucose level was in the 20s. IV dextrose was given. Her glucose level improved temporarily and then dropped again. When I was called to see the patient in ER at around 4 pm, her FSG was in the 50s and her SBP was in the 50s as well. She was intubated. She was on bicarb drip in d5w. Stress dose of steroid and D10 w were recommended. Then patient had cardiac arrest and she was coded. NOw she is in ICU. She is on pressor and bicarb drip in D5W. Her BP and glucse level were better. D10 w was discontinued. Her recent FSG was 252. Allergies/Medications Allergies: Uncoded Allergies: all pain medications (NAUSEA 02/26/14) Home Med List: Amlodipine Besylate 10 MG TABLET 1 TAB PO DAILY HEART (Reported) Aspirin (Aspirin*) 81 MG TAB.CHEW 1 TAB PO DAILY HEART HEALTH (Reported) Escitalopram Oxalate 5 MG TABLET 1 TAB PO DAILY MENTAL HEALTH (Reported) Furosemide 40 MG TABLET 1 TAB PO DAILY WATER RETENTION (Reported) Insulin Aspart (Novolog) (Unknown Strength) VIAL (Unknown Dose) AC DIABETES ( Reported) Levothyroxine Sodium 50 MCG TABLET 1 TAB PO DAILY AC THYROID (Reported) Losartan Potassium 100 MG TABLET 1 TAB PO DAILY HEART (Reported) Prednisone 10 MG TABLET 1 TAB PO DAILY STEROID (Reported) Sevelamer Carbonate (Renvela) 800 MG TABLET 1 TAB PO AC UNKNOWN (Reported) Review of Systems Review of Systems Constitutional: Reports: see HPI (intubated). 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 Psychosocial History Where Do You Live? Home Services at Home: None Smoking Status: Former Smoker ETOH Use: occasional use Illicit Drug Use: denies illicit drug use Exam & Diagnostic Data Last 24 Hrs of Vital Signs/I&O Vital Signs Date Time Temp Pulse Resp B/P B/P Pulse O2 O2 Flow FiO2 Mean Ox Delivery Rate 08/02 1999 75 08/02 1999 99 Ventilator 85% 08/01 1950 Ventilator 85% 08/01 1825 100.0 126 18 136/64 100 Ventilator 100% 08/01 1758 99.7 128 18 181/68 100 Ventilator 08/01 1727 100.1 126 20 136/64 100 Ventilator 100% 08/01 1705 165 18 199/80 98 Ventilator 100% 08/01 1623 100 08/01 1553 97.9 122 18 152/72 100 08/01 1430 111 93 08/01 1419 110 24 119/63 97 BIPAP 60% 08/01 1330 96 08/01 1210 96.9 96 24 128/72 99 BIPAP 60% 08/01 1150 111 97 08/01 1102 97.0 90 24 137/83 99 BIPAP 60% 08/01 1000 88 24 129/78 100 BIPAP 100% 08/01 1000 111 96 08/01 0900 97 Non 9L ReBreather 08/01 0845 96 Non 100% ReBreather 08/01 0842 97.5 110 28 151/79 87 Room Air Room Air Intake & Output 08/01 1600 08/01 0800 08/01 0000 Intake Total 1250 Output Total 3 Balance 1247 Intake, IV 1250 Output, Urine 3 Patient 160 lb Weight Weight Estimated Measurement Method Physical Exam General Appearance: intubated Respiratory: coarse breath sound Cardiovascular: bradycardia ( in ER) Extremities: no edema Labs/Charli Results: Laboratory Tests 08/01 1710 Blood Gas pH (7.35 - 7.45 PH) 7.06 *L pCO2 (35 - 45 TORR) 42 pO2 (80 - 100 TORR) 167 H HCO3 (21 - 28 MEQ/L) 12 L ABG O2 Sat (Measured) (>96.0 %) 97.0 P-50 (Temp Corrected) N Carboxyhemoglobin (1.5 - 5.0 %) 0.3 L O2 Concentration % 100% Temperature (97.0 - 100.0 FARH) 97.5 Respiration Rate (BPM) 26 O2 Delivery Method ESPRIT VENT Vent Mode AC Expiratory Pressure (CMH2O/P) 5 Tidal Volume (CC) 500 Chemistry Sodium (137 - 145 mmol/L) 144 Potassium (3.5 - 5.1 mmol/L) 5.6 H Chloride (98 - 107 mmol/L) 108 H Carbon Dioxide (22 - 30 mmol/L) 15 L Anion Gap (5 - 16) 20 H BUN (7 - 17 mg/dL) 95 H Creatinine (0.5 - 1.0 mg/dL) 6.3 *H Estimated GFR (>60 ml/min) 7 L Glucose (65 - 99 mg/dL) 228 H Lactic Acid (0.7 - 2.1 mmol/L) 3.8 H Calcium (8.4 - 10.2 mg/dL) 7.2 L Phosphorus (2.5 - 4.5 mg/dL) 10.7 H Magnesium (1.6 - 2.3 mg/dL) 1.7 Total Bilirubin (0.2 - 1.3 mg/dL) 0.5 AST (14 - 36 U/L) 253 H ALT (9 - 52 U/L) 161 H Troponin I Pending Albumin (3.5 - 5.0 g/dL) 2.3 L Coagulation PT (9.4 - 12.5 SEC) 13.1 H INR (0.90 - 1.19) 1.20 H APTT (25 - 37 SEC) 28 Miscellaneous Phlebotomy Draw Site RIGHT BRACHIAL 08/01 08/01 08/01 1510 1307 1140 Blood Gas pH (7.35 - 7.45 PH) 7.29 *L pCO2 (35 - 45 TORR) 32 L pO2 (80 - 100 TORR) 238 H HCO3 (21 - 28 MEQ/L) 15 L ABG O2 Sat (Measured) (>96.0 %) 98.0 Carboxyhemoglobin (1.5 - 5.0 %) 0.3 L O2 Concentration % 100% Respiration Rate (BPM) 24 O2 Delivery Method BIPAP Vent Mode ST Expiratory Pressure (CM H2O P) 6 Inspiratory Pressure (CM H2O P) 16 Chemistry Lactic Acid (0.7 - 2.1 mmol/L) 2.0 Troponin I (< 0.11 ng/ml) 3.04 *H Miscellaneous Phlebotomy Draw Site RIGHT RADIAL 08/01 08/01 1000 0900 Blood Gas pH (7.35 - 7.45 PH) 7.23 *L pCO2 (35 - 45 TORR) 38 pO2 (80 - 100 TORR) 92 HCO3 (21 - 28 MEQ/L) 16 L ABG O2 Sat (Measured) (>96.0 %) 94.0 L Carboxyhemoglobin (1.5 - 5.0 %) 0.5 L O2 Concentration % 100% O2 Delivery Method NRB Chemistry Sodium (137 - 145 mmol/L) 146 H Potassium (3.5 - 5.1 mmol/L) 4.7 Chloride (98 - 107 mmol/L) 111 H Carbon Dioxide (22 - 30 mmol/L) 16 L Anion Gap (5 - 16) 18 H BUN (7 - 17 mg/dL) 95 H Creatinine (0.5 - 1.0 mg/dL) 6.2 *H Estimated GFR (>60 ml/min) 7 L BUN/Creatinine Ratio (7 - 25 %) 15.3 Glucose (65 - 99 mg/dL) 86 Hemoglobin A1c (4.2 - 5.8 %) 8.8 H Insulin Level (3.0 - 25.0 mIU/mL) 31.0 H Lactic Acid (0.7 - 2.1 mmol/L) 2.3 H Calcium (8.4 - 10.2 mg/dL) 8.2 L Phosphorus (2.5 - 4.5 mg/dL) 8.8 H Magnesium (1.6 - 2.3 mg/dL) 1.8 Total Bilirubin (0.2 - 1.3 mg/dL) 0.4 AST (14 - 36 U/L) 29 ALT (9 - 52 U/L) 28 Alkaline Phosphatase (<127 U/L) 48 Creatine Kinase (30 - 135 U/L) 248 H Troponin I (< 0.11 ng/ml) 2.31 *H Total Protein (6.3 - 8.2 g/dL) 4.9 L Albumin (3.5 - 5.0 g/dL) 2.7 L Globulin (1.9 - 4.2 gm/dL) 2.2 Albumin/Globulin Ratio (1.1 - 2.2 %) 1.2 TSH (0.270 - 4.200 uIU/mL) 9.510 H Free T4 (0.78 - 2.44 ng/dL) 0.89 Prolactin (3.0 - 18.6 ng/mL) 29.0 H Cortisol AM Sample (4.46 - 22.7 ug/dL) 26.5 H Hematology CBC w Diff MAN DIFF ORDERED WBC (4.8 - 10.8 /CUMM) 16.2 H RBC (4.20 - 5.40 /CUMM) 4.33 Hgb (12.0 - 16.0 G/DL) 11.4 L Hct (37 - 47 %) 34.8 L MCV (81.0 - 99.0 FL) 80.5 L MCH (27.0 - 31.0 PG) 26.3 L MCHC (33.0 - 37.0 G/DL) 32.7 L RDW (11.5 - 14.5 %) 18.6 H Plt Count (130 - 400 /CUMM) 405 H MPV (7.4 - 10.4 FL) 6.9 L Gran % (42.2 - 75.2 %) 89.2 H Lymphocytes % (20.5 - 51.1 %) 9.1 L Monocytes % (1.7 - 9.3 %) 0.9 L Eosinophils % (0 - 5 %) 0.6 Basophils % (0.0 - 2.0 %) 0.2 Absolute Granulocytes (1.4 - 6.5 /CUMM) 14.5 H Segmented Neutrophils (42.2 - 75.2 %) 73 Band Neutrophils (0.0 - 5.0 %) 13 H Absolute Lymphocytes (1.2 - 3.4 /CUMM) 1.5 Lymphocytes (20.5 - 51.1 %) 11 L Monocytes (1.7 - 9.3 %) 3 Absolute Monocytes (0.10 - 0.60 /CUMM) 0.1 Absolute Eosinophils (0.0 - 0.7 /CUMM) 0.1 Absolute Basophils (0.0 - 0.2 /CUMM) 0 Platelet Estimate (ADEQUATE) INCREASED Normocytic RBCs VERIFIED Normochromic RBCs VERIFIED Poikilocytosis FEW [place] Cells FEW Miscellaneous Phlebotomy Draw Site RIGHT BRACHIAL Assessment/Plan Assessment/Plan 62 y/o female hx of longstanding DM type 1, chronic renal disease due to diabetes and chronic interstitual nephritis and was treated with a couse of steroid. As per patient's , patient took prednisone 10 mg last night. Her glucose level was running low and insulin pump was supposed to be discontinued last night. Patient was found to be unresponsive with glucose level was in the 20s. Blood work in ER showed inappropriately elevated insulin level. Her severe hypoglycemia most likely is due to insulin overdose. She received hydrocortisone 100 mg iv in ER. She was on D10 w and pressor. Now her BP and glucose level improved. According to her insulin pump-- [employer]onic 630 G-- her basal insulin 36.75 units per 24 hours. Plan for now: 1. start evemir 12 units twice a day; 2. Novolog coveage every 4 hours--detail see the inpatient DM order; 3. Levothyroxine 25 mcg iv daily; 4. might consider stress dose of hydrocortisone 50 mg iv every 12 hours tomorrow ; 5. monitor FSG every 1-2 hours; insulin drip as it is indicated; 6. monitor electrolytes; 7. continue other treatments as per team; will follow 6. Inpatient Diabetes Orders Every 4 Hours: [place] Insulin: Novolog < 80 mg/dl: no coverage 80-100 mg/dl: no coverage 101-120 mg/dl: no coverage 121-150 mg/dl: no coverage 151-200 mg/dl: 2 units 201-250 mg/dl: 4 units 251-300 mg/dl: 6 units 301-350 mg/dl: 8 units 351-400 mg/dl: 10 units > 400 mg/dl: 12 units Consult Acknowledgment - Thank you for your consult request.
--- NOTE | 2017-08-01 22:14 | Cons- Cardiology ---
General Information and HPI Consulting Request Date of Consult: 08/01/17 Requested By: Carlee Taveras MD History of Present Illness: This patient is a 62 year old female with history of hypertension, diabetes, renal failure and ankylosing spondylitis on prednisone. The patient was seen last evening at about 7PM. At 7AM this morning the patient was found unconscious and unresponsive and incontinent of urine and stool. Her blood glucose was very low at 27. Her insulin pump was stopped two days ago. In the ER the patient demonstrated an metabolic acidosis and positive troponin. The patient was given dextrose with no improvement in mental status. A chest X-ray showed a left basilar infiltrate along with a stable right upper lobe mass. This patient was intubated and 15 to twently minutes later became bradycardic and went into asystole. She had chest compressions along with atropine, Epinephrine and bicarbonate with return of her rhythm. In consideration of likely aspiration pneumonia the patient was started on IV Unasyn. Since the patient had been on steroid she was given stress dose steroid swith an improvement in her blood pressure. After an episode of ventricular tachycardia the patient was also started on Amiodarone. Allergies/Medications Allergies: Uncoded Allergies: all pain medications (NAUSEA 02/26/14) Home Med List: Amlodipine Besylate 10 MG TABLET 1 TAB PO DAILY HEART (Reported) Aspirin (Aspirin*) 81 MG TAB.CHEW 1 TAB PO DAILY HEART HEALTH (Reported) Escitalopram Oxalate 5 MG TABLET 1 TAB PO DAILY MENTAL HEALTH (Reported) Furosemide 40 MG TABLET 1 TAB PO DAILY WATER RETENTION (Reported) Insulin Aspart (Novolog) (Unknown Strength) VIAL (Unknown Dose) AC DIABETES ( Reported) Levothyroxine Sodium 50 MCG TABLET 1 TAB PO DAILY AC THYROID (Reported) Losartan Potassium 100 MG TABLET 1 TAB PO DAILY HEART (Reported) Prednisone 10 MG TABLET 1 TAB PO DAILY STEROID (Reported) Sevelamer Carbonate (Renvela) 800 MG TABLET 1 TAB PO AC UNKNOWN (Reported) Review of Systems Review of Systems: A review of systems is unobtainable. 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 Psychosocial History Where Do You Live? Home Services at Home: None Smoking Status: Former Smoker ETOH Use: occasional use Illicit Drug Use: denies illicit drug use Exam & Diagnostic Data Vital Signs and I&O Vital Signs Date Time Temp Pulse Resp B/P B/P Pulse O2 O2 Flow FiO2 Mean Ox Delivery Rate 08/02 1999 75 08/02 1999 99 Ventilator 85% 08/01 1950 Ventilator 85% 08/01 1825 100.0 126 18 136/64 100 Ventilator 100% 08/01 1758 99.7 128 18 181/68 100 Ventilator 08/01 1727 100.1 126 20 136/64 100 Ventilator 100% 08/01 1705 165 18 199/80 98 Ventilator 100% 08/01 1623 100 08/01 1553 97.9 122 18 152/72 100 08/01 1430 111 93 08/01 1419 110 24 119/63 97 BIPAP 60% 08/01 1330 96 08/01 1210 96.9 96 24 128/72 99 BIPAP 60% 08/01 1150 111 97 08/01 1102 97.0 90 24 137/83 99 BIPAP 60% 08/01 1000 88 24 129/78 100 BIPAP 100% 08/01 1000 111 96 08/01 0900 97 Non 9L ReBreather 08/01 0845 96 Non 100% ReBreather 08/01 0842 97.5 110 28 151/79 87 Room Air Room Air Intake & Output 08/01 1600 08/01 0800 08/01 0000 07/31 1600 07/31 0800 07/31 0000 Intake Total 1250 Output Total 3 Balance 1247 Intake, IV 1250 Output, Urine 3 Patient 160 lb Weight Weight Estimated Measurement Method Physical Exam: General: WD/WN female; unresponsive and intubated HEENT: NC/AT, pupils fixed Neck: no JVD Heart: RRR w/o murmur Lungs: clear anteriorly Abdomen: soft, NT, +ve bowel sounds Ezxtremities: No edema Assessment/Plan Assessment/Plan * This patient likely had a hypoglycemic coma of unkown duration. Her neurologic status is uncertain at this point in time. * This patient has positive cardiac enzymes consistent with a type 2 TN. I am not convinced that this is the primary event in her illness. Begin aspirin, IV hepatin and statin. Do not begin a beta usha due to the patient becoming bradycardic and going into asystole. Follow cardiac enzymes until they peak. Obtain an echocardiogram. * Continue stress dose steroid and antibiotic therapy. Consult Acknowledgment - Thank you for your consult request.
--- NOTE | 2017-08-01 23:19 | Cons- Urology ---
General Information and HPI Consulting Request Date of Consult: 08/01/17 Requested By: Darcy HYMAN,Carlee Davis Reason for Consult: Patient unresponsive. Unable to place tinsley Source of Information: old records Exam Limitations: no limitations History of Present Illness: This patient was brought to the ER with unresponsiveness due to severe hypoglycemia. In the ER she sustained a cardiac arrest and was eventually resusitated and transfered to the ICU. She remains intubated and critically ill with unclear prognosis. An attempt to place tinsley by the nursing staff was unsuccessful. The patient has a hx of pelvic surgery the details of which are not known. Allergies/Medications Allergies: Uncoded Allergies: all pain medications (NAUSEA 02/26/14) Home Med List: Amlodipine Besylate 10 MG TABLET 1 TAB PO DAILY HEART (Reported) Aspirin (Aspirin*) 81 MG TAB.CHEW 1 TAB PO DAILY HEART HEALTH (Reported) Escitalopram Oxalate 5 MG TABLET 1 TAB PO DAILY MENTAL HEALTH (Reported) Furosemide 40 MG TABLET 1 TAB PO DAILY WATER RETENTION (Reported) Insulin Aspart (Novolog) (Unknown Strength) VIAL (Unknown Dose) AC DIABETES ( Reported) Levothyroxine Sodium 50 MCG TABLET 1 TAB PO DAILY AC THYROID (Reported) Losartan Potassium 100 MG TABLET 1 TAB PO DAILY HEART (Reported) Prednisone 10 MG TABLET 1 TAB PO DAILY STEROID (Reported) Sevelamer Carbonate (Renvela) 800 MG TABLET 1 TAB PO AC UNKNOWN (Reported) Current Medications: Current Medications Sig/Makayla Start time Last Medication Dose Route Stop Time Status Admin Acetaminophen 1,000 MG Q6P PRN 08/01 1445 AC IV Ampicillin Sodium/ 1,500 MG Q6 08/01 1800 CAN Sulbactam Sodium IV Sodium Chloride 100 ML Ampicillin Sodium/ 3,000 MG Q12 08/01 1730 AC 08/01 Sulbactam Sodium IV 2019 Sodium Chloride 100 ML Aspirin 300 MG ONCE ONE 08/01 1145 DC 08/01 IA 08/01 1146 1145 Atropine Sulfate 0 .STK-MED ONE 08/01 1630 DC .ROUTE Azithromycin 500 MG ONCE ONE 08/01 1000 DC 08/01 Dextrose/Water 250 ML IV 08/01 1059 1053 Ceftriaxone Sodium 0 .STK-MED ONE 08/01 1030 DC .ROUTE Ceftriaxone Sodium 1,000 MG ONCE ONE 08/01 1000 DC 08/01 IV 08/01 1001 1053 Dextrose/Sodium 1,000 ML Q10H 08/01 1145 DC 08/01 Chloride IV 1248 Dextrose/Sodium 1,000 ML Q10H 08/01 1100 DC 08/01 Chloride IV 1100 Dextrose/Water 1,000 ML Q20H 08/01 1630 DC 08/01 IV 1726 Dextrose/Water 250 ML .STK-MED ONE 08/01 1156 DC IV Etomidate 20 MG ONCE ONE 08/01 1545 DC 08/01 IV 08/01 1546 1619 Etomidate 0 .STK-MED ONE 08/01 1545 DC IV Glucagon 0 .STK-MED ONE 08/01 1156 DC .ROUTE Heparin Sodium 0 .STK-MED ONE 08/01 1756 DC (Porcine) .ROUTE Heparin Sodium 4,000 UNIT ONCE ONE 08/01 1730 DC 08/01 (Porcine) IV 08/01 1731 2025 Heparin Sodium 25,000 UNIT Q24H 08/01 1730 AC 08/01 (Porcine) IV 2036 Sodium Chloride 500 ML Hydrocortisone 50 MG Q12 08/02 1000 DC Sodium Succinate IV Hydrocortisone 50 MG DAILY 08/02 1000 AC Sodium Succinate IV Hydrocortisone 100 MG ONE ONE 08/01 1615 DC 08/01 Sodium Succinate IV 08/01 1616 1709 Insulin Aspart 0 Q4 08/01 2200 AC 08/01 SC 2245 Insulin Detemir 12 UNITS BID 08/01 2200 AC 08/01 SC 2245 Insulin Human Regular 0 Q6 08/01 1440 DC 08/01 SC 1813 Levothyroxine Sodium 25 MCG DAILY 08/02 1000 AC IV Lorazepam 0 .STK-MED ONE 08/01 1604 DC .ROUTE Norepinephrine 8 MG Q24H 08/02 0600 AC Sodium Chloride 250 ML IV Norepinephrine 8 MG ONCE ONE 08/01 1830 DC 08/01 Sodium Chloride 250 ML IV 08/01 1831 2014 Norepinephrine 0 .STK-MED ONE 08/01 1825 DC IV Norepinephrine 0 .STK-MED ONE 08/01 1654 DC IV Norepinephrine 8 MG ONCE ONE 08/01 1645 DC 08/01 Sodium Chloride 250 ML IV 08/01 1646 1748 Pantoprazole Sodium 40 MG DAILY 08/01 1730 AC 08/01 IV 2015 Sodium Bicarbonate 50 MEQ ONCE ONE 08/01 1900 DC 08/01 IV 08/01 1901 2013 Sodium Bicarbonate 150 MEQ Q10H 08/01 1900 AC 08/01 Dextrose/Water 1,000 ML IV 2100 Sodium Bicarbonate 100 MEQ CONTINOUS INFUSION 08/01 1600 DC Dextrose/Water 1,000 ML IV Sodium Chloride 500 ML BOLUS ONE 08/01 1615 DC 08/01 IV 08/01 1714 1617 Succinylcholine 100 MG ONCE ONE 08/01 1545 DC 08/01 Chloride IV 08/01 1546 1619 Past History Medical History Blood Transfusion Hx: No Neurological: NONE EENT: NONE Cardiovascular: hypertension Respiratory: obstructive sleep apnea Gastrointestinal: NONE Hepatic: NONE Renal: chronic kidney disease Musculoskeletal: arthritis Psychiatric: NONE Endocrine: diabetes type 1 Blood Disorders: NONE 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 Psychosocial History Where Do You Live? Home Services at Home: None Smoking Status: Former Smoker ETOH Use: occasional use Illicit Drug Use: denies illicit drug use Exam & Diagnostic Data Vital Signs and I&O Vital Signs Date Time Temp Pulse Resp B/P B/P Pulse O2 O2 Flow FiO2 Mean Ox Delivery Rate 08/01 2253 65 08/02 1999 75 08/02 1999 99 Ventilator 85% 08/01 1950 Ventilator 85% 08/01 1825 100.0 126 18 136/64 100 Ventilator 100% 08/01 1758 99.7 128 18 181/68 100 Ventilator 08/01 1727 100.1 126 20 136/64 100 Ventilator 100% 08/01 1705 165 18 199/80 98 Ventilator 100% 08/01 1623 100 08/01 1553 97.9 122 18 152/72 100 08/01 1430 111 93 08/01 1419 110 24 119/63 97 BIPAP 60% 08/01 1330 96 08/01 1210 96.9 96 24 128/72 99 BIPAP 60% 08/01 1150 111 97 08/01 1102 97.0 90 24 137/83 99 BIPAP 60% 08/01 1000 88 24 129/78 100 BIPAP 100% 08/01 1000 111 96 08/01 0900 97 Non 9L ReBreather 08/01 0845 96 Non 100% ReBreather 08/01 0842 97.5 110 28 151/79 87 Room Air Room Air Intake & Output 08/01 1600 08/01 0800 08/01 0000 07/31 1600 07/31 0800 07/31 0000 Intake Total 1250 Output Total 3 Balance 1247 Intake, IV 1250 Output, Urine 3 Patient 160 lb Weight Weight Estimated Measurement Method Pt intubated Abd: soft and non tender. Transverse lower abdominal incision is well healed Genitalia: Normal external genitalia. Urethral meatus is visible Procedure: Attempt to place tinsley was unsuccessful due urethral stricture likely from her previous surgery. Using filiforms and followers the urethra was dilated to 16 fr. Following this a 14 fr tinsley was placed Assessment/Plan Assessment/Plan Imp: 1. Urethral stricture, likely from previous surgery Plan: 1. Leave tinsley in place while patient is critically ill Consult Acknowledgment - Thank you for your consult request.
[2017-08-02] VITALS: BP 128/64
--- NOTE | 2017-08-02 00:21 | Event Note ---
Event Note Event Note: Situation Patient seen to have purposeful movement with agitation and overbreathing the ventilator while on hypothermic protocol s/p cardiac arrest Background 62 year old insulin diabetic admitted for unresponsive subsequently developing cardiac arrest s/p CPR/ROSC. Insulin pump was reported discontinued yesterday, however her insulin level today is found to be high. Assessment Patient appears to have movement consistent with intact brainsteam and cortical function making hypothermic protocol contraindicated due to purposeful movement. Palletizer Dr. Taveras notified. This was discussed with physical testing supervisor Dr. Galaviz. Hypothermic protocol is to be terminated and propofol started for sedation. Plan -Stop hypothermic protocol, patient temp now 97 degrees -Start propofol GGT for sedation
[2017-08-02 03:07] LABS: PTT 63 SEC (25-37)
[2017-08-02 05:24] LABS: ABSOLUTE BASOPHIL COUNT 0 /CUMM (0.0-0.2); ABSOLUTE EOSINOPHIL COUNT 0 /CUMM (0.0-0.7); ABSOLUTE GRANULOCYTE CT 13.7 /CUMM (1.4-6.5); ABSOLUTE LYMPH COUNT 1.3 /CUMM (1.2-3.4); ABSOLUTE MONOCYTE COUNT 0.5 /CUMM (0.10-0.60); BASOPHIL % 0.1 % (0.0-2.0); EOSINOPHIL % 0 % (0-5); GRANULOCYTE % 88.2 % (42.2-75.2); MEAN CORPUSCULAR HGB CONC 32.2 G/DL (33.0-37.0); MEAN CORPUSCULAR VOLUME 80.5 FL (81.0-99.0); MEAN PLATELET VOLUME 7.2 FL (7.4-10.4); PLATELET COUNT 319 /CUMM (130-400); RBC DISTRIBUTION WIDTH 18.8 % (11.5-14.5); RED BLOOD CELL CT 3.33 /CUMM (4.20-5.40); WHITE BLOOD CELL COUNT 15.5 /CUMM (4.8-10.8)
[2017-08-02 05:37] LABS: HEMATOCRIT 26.8 % (37-47)
--- NOTE | 2017-08-02 06:20 | RADIOLOGY REPORT ---
EXAMINATION: XR PORTABLE CHEST CLINICAL INFORMATION: Intubation. COMPARISON: Chest x-ray August 01, 2017 TECHNIQUE: Portable frontal view of the chest was obtained. 5:51 AM FINDINGS: Endotracheal tube measuring 3.6 cm above the vazquez. Nasogastric tube in stomach. The patchy bilateral airspace opacities are persistent. Largest area of consolidation in the right upper lobe. No significant central pulmonary vascular congestion. No large pleural effusion. There is no pneumothorax. IMPRESSION: 1. Endotracheal tube 3.6 as above vazquez. 2. Nasogastric tube in stomach. 3. Persistent bilateral airspace opacities.
--- NOTE | 2017-08-02 07:31 | PN- Urology ---
Subjective Subjective: Remains intubated Objective Vital Signs and I&Os Vital Signs Date Time Temp Pulse Resp B/P B/P Pulse O2 O2 Flow FiO2 Mean Ox Delivery Rate 08/02 0702 65 08/02 0648 101.1 08/02 0551 101.3 08/02 0400 99 Ventilator 65% 08/02 0344 65 08/02 0105 65 08/02 0000 96.6 110 30 128/64 99 Ventilator 65% 08/02 0000 99 Ventilator 65% 08/01 2253 65 08/01 2000 75 08/02 1999 99 Ventilator 85% 08/01 1950 Ventilator 85% 08/01 1825 100.0 126 18 136/64 100 Ventilator 100% 08/01 1758 99.7 128 18 181/68 100 Ventilator 08/01 1727 100.1 126 20 136/64 100 Ventilator 100% 08/01 1705 165 18 199/80 98 Ventilator 100% 08/01 1623 100 08/01 1553 97.9 122 18 152/72 100 08/01 1430 111 93 08/01 1419 110 24 119/63 97 BIPAP 60% 08/01 1330 96 08/01 1210 96.9 96 24 128/72 99 BIPAP 60% 08/01 1150 111 97 08/01 1102 97.0 90 24 137/83 99 BIPAP 60% 08/01 1000 88 24 129/78 100 BIPAP 100% 08/01 1000 111 96 08/01 0900 97 Non 9L ReBreather 08/01 0845 96 Non 100% ReBreather 08/01 0842 97.5 110 28 151/79 87 Room Air Room Air Intake & Output 08/02 0800 08/02 0000 08/01 1600 08/01 0800 08/01 0000 07/31 1600 Intake Total 1059 1455 1250 Output Total 32 20 3 Balance 1027 1435 1247 Intake, IV 1059 1455 1250 Output, Urine 32 20 3 Patient 170 lb 160 lb Weight Weight Bed scale Estimated Measurement Method Urine output is low via tinsley Abd: soft and non tender. Bladder is not palpable Genitalia: On pelvic exam tinsley balloon appears to be palable in bladder Attempted to irrigate tinsley but it does not irrigate well Laboratory Tests 08/02 08/02 0655 0600 Blood Gas pH (7.35 - 7.45 PH) 7.48 H pCO2 (35 - 45 TORR) 27 L pO2 (80 - 100 TORR) 219 H HCO3 (21 - 28 MEQ/L) 20 L ABG O2 Sat (Measured) (>96.0 %) 99.0 P-50 (Temp Corrected) N Carboxyhemoglobin (1.5 - 5.0 %) 0.4 L O2 Concentration % .65 Respiration Rate (BPM) 30 O2 Delivery Method VENT Vent Mode A/C Expiratory Pressure (CMH2O/P) 5 Tidal Volume (CC) 500 Chemistry Troponin I Cancelled Miscellaneous Phlebotomy Draw Site RIGHT BRACHIAL 08/02 08/02 08/02 0500 0230 0230 Chemistry Sodium (137 - 145 mmol/L) 145 Potassium (3.5 - 5.1 mmol/L) 4.6 Chloride (98 - 107 mmol/L) 105 Carbon Dioxide (22 - 30 mmol/L) 22 Anion Gap (5 - 16) 18 H BUN (7 - 17 mg/dL) 97 H Creatinine (0.5 - 1.0 mg/dL) 6.5 *H Estimated GFR (>60 ml/min) 7 L Glucose (65 - 99 mg/dL) 295 H Insulin Level (3.0 - 25.0 mIU/mL) Pending Lactic Acid (0.7 - 2.1 mmol/L) 3.0 H 3.2 H Calcium (8.4 - 10.2 mg/dL) 6.7 L Phosphorus (2.5 - 4.5 mg/dL) 8.3 H Magnesium (1.6 - 2.3 mg/dL) 1.6 Total Bilirubin (0.2 - 1.3 mg/dL) 0.4 AST (14 - 36 U/L) 138 H ALT (9 - 52 U/L) 124 H Troponin I (< 0.11 ng/ml) 4.20 *H Albumin (3.5 - 5.0 g/dL) 2.1 L Coagulation APTT (25 - 37 SEC) 63 H Hematology CBC w Diff MAN DIFF ORDERED WBC (4.8 - 10.8 /CUMM) 15.5 H RBC (4.20 - 5.40 /CUMM) 3.33 L Hgb (12.0 - 16.0 G/DL) 8.6 L Hct (37 - 47 %) 26.8 L MCV (81.0 - 99.0 FL) 80.5 L MCH (27.0 - 31.0 PG) 26.0 L MCHC (33.0 - 37.0 G/DL) 32.2 L RDW (11.5 - 14.5 %) 18.8 H Plt Count (130 - 400 /CUMM) 319 MPV (7.4 - 10.4 FL) 7.2 L Gran % (42.2 - 75.2 %) 88.2 H Lymphocytes % (20.5 - 51.1 %) 8.3 L Monocytes % (1.7 - 9.3 %) 3.4 Eosinophils % (0 - 5 %) 0 Basophils % (0.0 - 2.0 %) 0.1 Absolute Granulocytes (1.4 - 6.5 /CUMM) 13.7 H Segmented Neutrophils (42.2 - 75.2 %) 81 H Band Neutrophils (0.0 - 5.0 %) 4 Absolute Lymphocytes (1.2 - 3.4 /CUMM) 1.3 Lymphocytes (20.5 - 51.1 %) 13 L Monocytes (1.7 - 9.3 %) 2 Absolute Monocytes (0.10 - 0.60 /CUMM) 0.5 Absolute Eosinophils (0.0 - 0.7 /CUMM) 0 Absolute Basophils (0.0 - 0.2 /CUMM) 0 Platelet Estimate (ADEQUATE) ADEQUATE Polychromasia 1+ Hypochromic-Microcytic 1+ Poikilocytosis 2+ Basophilic Stippling SLIGHT Anisocytosis 1+ Microcytic Cells 1+ Ovalocytes 1+ Stomatocytes 1+ Other Body Source Fld Total RBCs Counted (%) 100 08/01 08/01 08/01 08/01 2255 2255 2240 2235 Blood Gas pH (7.35 - 7.45 PH) 7.29 *L pCO2 (35 - 45 TORR) 33 L pO2 (80 - 100 TORR) 87 HCO3 (21 - 28 MEQ/L) 16 L ABG O2 Sat (Measured) (>96.0 %) 96.0 P-50 (Temp Corrected) Y Carboxyhemoglobin (1.5 - 5.0 %) 0.3 L O2 Concentration % 65% Temperature (97.0 - 100.0 FARH) 96.4 L Respiration Rate (BPM) 30 O2 Delivery Method ESPRIT Vent Mode AC Expiratory Pressure (CMH2O/P) 5 Tidal Volume (CC) 500 Chemistry Sodium (137 - 145 mmol/L) 144 Potassium (3.5 - 5.1 mmol/L) 4.9 Chloride (98 - 107 mmol/L) 106 Carbon Dioxide (22 - 30 mmol/L) 17 L Anion Gap (5 - 16) 20 H BUN (7 - 17 mg/dL) 96 H Creatinine (0.5 - 1.0 mg/dL) 6.2 *H Estimated GFR (>60 ml/min) 7 L Glucose (65 - 99 mg/dL) 328 H Lactic Acid (0.7 - 2.1 mmol/L) 3.3 H Calcium (8.4 - 10.2 mg/dL) 6.9 L Phosphorus (2.5 - 4.5 mg/dL) 8.9 H Magnesium (1.6 - 2.3 mg/dL) 1.7 Total Bilirubin (0.2 - 1.3 mg/dL) 0.4 AST (14 - 36 U/L) 221 H ALT (9 - 52 U/L) 149 H Albumin (3.5 - 5.0 g/dL) 2.3 L Miscellaneous Phlebotomy Draw Site RIGHT BRACHIAL Toxicology Urine Opiates Screen (>2000 NG/ML) < 100 Methadone Screen (>300 NG/ML) < 40 Barbiturate Screen (>200 NG/ML) < 60 Ur Phencyclidine Scrn (>25 NG/ML) < 6.00 Amphetamines Screen (>1000 NG/ML) < 100 U Benzodiazepines Scrn (>200 NG/ML) < 85 Urine Cocaine Screen (>300 NG/ML) < 50 Urine Cannabis Screen (>50 NG/ML) < 5.00 08/01 193 1710 Blood Gas pH (7.35 - 7.45 PH) 7.06 *L pCO2 (35 - 45 TORR) 42 pO2 (80 - 100 TORR) 167 H HCO3 (21 - 28 MEQ/L) 12 L ABG O2 Sat (Measured) (>96.0 %) 97.0 P-50 (Temp Corrected) N Carboxyhemoglobin (1.5 - 5.0 %) 0.3 L O2 Concentration % 100% Temperature (97.0 - 100.0 FARH) 97.5 Respiration Rate (BPM) 26 O2 Delivery Method ESPRIT VENT Vent Mode AC Expiratory Pressure (CMH2O/P) 5 Tidal Volume (CC) 500 Chemistry Sodium (137 - 145 mmol/L) 144 Potassium (3.5 - 5.1 mmol/L) 5.6 H Chloride (98 - 107 mmol/L) 108 H Carbon Dioxide (22 - 30 mmol/L) 15 L Anion Gap (5 - 16) 20 H BUN (7 - 17 mg/dL) 95 H Creatinine (0.5 - 1.0 mg/dL) 6.3 *H Estimated GFR (>60 ml/min) 7 L Glucose (65 - 99 mg/dL) 228 H Lactic Acid (0.7 - 2.1 mmol/L) 3.8 H Calcium (8.4 - 10.2 mg/dL) 7.2 L Phosphorus (2.5 - 4.5 mg/dL) 10.7 H Magnesium (1.6 - 2.3 mg/dL) 1.7 Total Bilirubin (0.2 - 1.3 mg/dL) 0.5 AST (14 - 36 U/L) 253 H ALT (9 - 52 U/L) 161 H Troponin I (< 0.11 ng/ml) 3.46 *H Albumin (3.5 - 5.0 g/dL) 2.3 L Coagulation PT (9.4 - 12.5 SEC) 13.1 H INR (0.90 - 1.19) 1.20 H APTT (25 - 37 SEC) 28 Miscellaneous Phlebotomy Draw Site RIGHT BRACHIAL 08/01 08/01 08/01 1510 1307 1140 Blood Gas pH (7.35 - 7.45 PH) 7.29 *L pCO2 (35 - 45 TORR) 32 L pO2 (80 - 100 TORR) 238 H HCO3 (21 - 28 MEQ/L) 15 L ABG O2 Sat (Measured) (>96.0 %) 98.0 Carboxyhemoglobin (1.5 - 5.0 %) 0.3 L O2 Concentration % 100% Respiration Rate (BPM) 24 O2 Delivery Method BIPAP Vent Mode ST Expiratory Pressure (CM H2O P) 6 Inspiratory Pressure (CM H2O P) 16 Chemistry Lactic Acid (0.7 - 2.1 mmol/L) 2.0 Troponin I (< 0.11 ng/ml) 3.04 *H Miscellaneous Phlebotomy Draw Site RIGHT RADIAL 08/01 08/01 1000 0900 Blood Gas pH (7.35 - 7.45 PH) 7.23 *L pCO2 (35 - 45 TORR) 38 pO2 (80 - 100 TORR) 92 HCO3 (21 - 28 MEQ/L) 16 L ABG O2 Sat (Measured) (>96.0 %) 94.0 L Carboxyhemoglobin (1.5 - 5.0 %) 0.5 L O2 Concentration % 100% O2 Delivery Method NRB Chemistry Sodium (137 - 145 mmol/L) 146 H Potassium (3.5 - 5.1 mmol/L) 4.7 Chloride (98 - 107 mmol/L) 111 H Carbon Dioxide (22 - 30 mmol/L) 16 L Anion Gap (5 - 16) 18 H BUN (7 - 17 mg/dL) 95 H Creatinine (0.5 - 1.0 mg/dL) 6.2 *H Estimated GFR (>60 ml/min) 7 L BUN/Creatinine Ratio (7 - 25 %) 15.3 Glucose (65 - 99 mg/dL) 86 Hemoglobin A1c (4.2 - 5.8 %) 8.8 H Insulin Level (3.0 - 25.0 mIU/mL) 31.0 H Lactic Acid (0.7 - 2.1 mmol/L) 2.3 H Calcium (8.4 - 10.2 mg/dL) 8.2 L Phosphorus (2.5 - 4.5 mg/dL) 8.8 H Magnesium (1.6 - 2.3 mg/dL) 1.8 Total Bilirubin (0.2 - 1.3 mg/dL) 0.4 AST (14 - 36 U/L) 29 ALT (9 - 52 U/L) 28 Alkaline Phosphatase (<127 U/L) 48 Creatine Kinase (30 - 135 U/L) 248 H Troponin I (< 0.11 ng/ml) 2.31 *H Total Protein (6.3 - 8.2 g/dL) 4.9 L Albumin (3.5 - 5.0 g/dL) 2.7 L Globulin (1.9 - 4.2 gm/dL) 2.2 Albumin/Globulin Ratio (1.1 - 2.2 %) 1.2 TSH (0.270 - 4.200 uIU/mL) 9.510 H Free T4 (0.78 - 2.44 ng/dL) 0.89 Prolactin (3.0 - 18.6 ng/mL) 29.0 H Cortisol AM Sample (4.46 - 22.7 ug/dL) 26.5 H Hematology CBC w Diff MAN DIFF ORDERED WBC (4.8 - 10.8 /CUMM) 16.2 H RBC (4.20 - 5.40 /CUMM) 4.33 Hgb (12.0 - 16.0 G/DL) 11.4 L Hct (37 - 47 %) 34.8 L MCV (81.0 - 99.0 FL) 80.5 L MCH (27.0 - 31.0 PG) 26.3 L MCHC (33.0 - 37.0 G/DL) 32.7 L RDW (11.5 - 14.5 %) 18.6 H Plt Count (130 - 400 /CUMM) 405 H MPV (7.4 - 10.4 FL) 6.9 L Gran % (42.2 - 75.2 %) 89.2 H Lymphocytes % (20.5 - 51.1 %) 9.1 L Monocytes % (1.7 - 9.3 %) 0.9 L Eosinophils % (0 - 5 %) 0.6 Basophils % (0.0 - 2.0 %) 0.2 Absolute Granulocytes (1.4 - 6.5 /CUMM) 14.5 H Segmented Neutrophils (42.2 - 75.2 %) 73 Band Neutrophils (0.0 - 5.0 %) 13 H Absolute Lymphocytes (1.2 - 3.4 /CUMM) 1.5 Lymphocytes (20.5 - 51.1 %) 11 L Monocytes (1.7 - 9.3 %) 3 Absolute Monocytes (0.10 - 0.60 /CUMM) 0.1 Absolute Eosinophils (0.0 - 0.7 /CUMM) 0.1 Absolute Basophils (0.0 - 0.2 /CUMM) 0 Platelet Estimate (ADEQUATE) INCREASED Normocytic RBCs VERIFIED Normochromic RBCs VERIFIED Poikilocytosis FEW Nando Cells FEW Miscellaneous Phlebotomy Draw Site RIGHT BRACHIAL Assessment/Plan Assessment/Plan Imp: 1. Critically ill patient with difficult tinsley placement. On exam tinsley appears to be in place but doesn't irrigate well. Bladder scan is 137 cc Plan: 1. Would leave tinsley in place. 2. Bladder scan q shift 3. If bladder volumes increase options are: removal of tinsley to see if pt voids spontaneously, another attempt at bedside urethral dilation and tinsley placemen, attempted tinsley placement in OR, or suprapubic tube
--- NOTE | 2017-08-02 07:38 | PN- Resident CRCU ---
Bijan HYMAN,Nelly 08/02/17 0737: Subjective HPI/CRCU Issues: Overnight issues: Patient remains unresponsive on intubation with sedation. Trops continue to trend up. Tinsley with frothy blood/urine with poor output. Vitals: MAXIMUM TEMPERATURE 101.3, heart rate 92-122, sinus tach, respiration rate 30-34 , blood pressure 66-140 systolic over 43-101 diastolic, saturating at 95-100%, intubated with tidal volume of 500, FiO2 from 85% now down to 65%, PEEP of 5 Intake: 2013, output 52 Currently on levo fed, IV heparin drip, IV bicarbonate, propofol Labs: WBC: 15.5 with 88.2% granulocytes, 81 segmented neutrophils, 4 bands (down from 16.2 and 13 bands), H&H 8.6 and 26.8 (down from 11.4 and 34.8), platelets 319 ( down from 405) Sodium 145, potassium 4.6, chloride 105, bicarbonate 22, anion gap: 18 down from 20, BUN 97, creatinine 6.5, glucose 295 Hemoglobin A1c: 8.8 Accuchecks: 200s to 300s. Lactic acid: 3.0 (down from 3.2) Calcium: 6.7, albumin 2.1, corrected calcium 8.2 Phosphorus 8.3, magnesium 1.6, T bili, 0.4, AST: 138 (down from 221), ALT: 124 ( down from 149) Troponin: 2.31, 3.04, 3.46, 4.20 Toxicology screen: Negative Chest x-ray: 1. Endotracheal tube 3.6 as above vazquez. 2. Nasogastric tube in stomach. 3. Persistent bilateral airspace opacities. Objective Vital Signs & I&O Last 8 Hrs of Vitals and I&O: Vital Signs Date Time Temp Pulse Resp B/P B/P Pulse O2 O2 Flow FiO2 Mean Ox Delivery Rate 08/02 1600 98.8 98 20 126/60 98 Ventilator 40% 08/02 1600 98 Ventilator 40% 08/02 1540 40 08/02 1412 40 08/02 1200 96 Ventilator 40% 08/02 1149 40 08/02 0839 40 08/02 0800 100.8 92 30 118/60 98 Ventilator 65% 08/02 0800 98 Ventilator 65% 08/02 0702 65 08/02 0648 101.1 08/02 0551 101.3 03/20 0400 99 Ventilator 65% 08/02 0344 65 08/02 0105 65 08/02 0000 96.6 110 30 128/64 99 Ventilator 65% 08/02 0000 99 Ventilator 65% 08/01 2253 65 08/01 2000 75 08/01 2000 99 Ventilator 85% 08/01 1950 Ventilator 85% 08/01 1825 100.0 126 18 136/64 100 Ventilator 100% Intake & Output 08/02 1600 08/02 0800 08/02 0000 Intake Total 500 1059 1455 Output Total 32 20 Balance 500 1027 1435 Intake, IV 500 1059 1455 Output, Urine 32 20 Patient 169 lb 170 lb Weight Weight Bed scale Measurement Method Intake & Output 08/02 1600 Intake Total 500 Output Total Balance 500 Intake, IV 500 Patient 169 lb Weight Exam General Appearance: intubated, sedation turned off this am, patient moving legs spontaneously, not responsive to verbal/tactile/painful stimuli Head: atraumatic, normal appearance Respiratory: lungs clear (on anterior auscultation) Cardiovascular: regular rate/rhythm Gastrointestinal: normal bowel sounds, soft, non-tender Extremities: normal inspection, no edema Cranial Nerves: pupils were round, reactive to light however sluggish Skin: intact, warm/dry Skin Temp/Moisture Exam: Warm/Dry IV Drips IV Drips: IV heparin Current Medications: Current Medications Sig/Makayla Start time Last Medication Dose Route Stop Time Status Admin Acetaminophen 1,000 MG Q6P PRN 08/01 1445 AC 08/02 IV 0551 Ampicillin Sodium/ 3,000 MG Q12 08/01 1730 AC 08/02 Sulbactam Sodium IV 1020 Sodium Chloride 100 ML Dextrose/Water 1,000 ML Q20H 08/01 1630 DC 08/01 IV 1726 Heparin Sodium 25,000 UNIT Q24H 08/01 1730 AC 08/01 (Porcine) IV 2036 Sodium Chloride 500 ML Hydrocortisone 50 MG Q12 08/02 1000 DC Sodium Succinate IV Hydrocortisone 50 MG DAILY 08/02 1000 DC Sodium Succinate IV Hydrocortisone 25 MG BID 08/02 1000 AC 08/02 Sodium Succinate IV 1026 Insulin Aspart 0 Q4 08/01 2200 AC 08/02 SC 1529 Insulin Detemir 16 UNITS BID 08/02 1000 AC 08/02 SC 1026 Insulin Detemir 12 UNITS BID 08/01 2200 DC 08/01 SC 2245 Insulin Human Regular 0 Q6 08/01 1440 DC 08/01 SC 1813 Levothyroxine Sodium 25 MCG DAILY 08/02 1000 AC 08/02 IV 1022 Lorazepam 1 MG Q4P PRN 08/02 1400 AC IV Magnesium Citrate 300 ML ONE ONE 08/02 1615 CAN PO 08/02 1616 Magnesium Sulfate 1 GM ONCE ONE 08/02 1645 AC 08/02 Dextrose/Water 100 ML IV 08/02 2044 1720 Non-Formulary 0 SEE ADMIN CRITERIA 08/02 0030 CAN Medication ANY Norepinephrine 8 MG Q24H 08/02 0600 DC Sodium Chloride 250 ML IV Norepinephrine 8 MG ONCE ONE 08/01 1830 DC 08/01 Sodium Chloride 250 ML IV 08/01 [id number] Norepinephrine 0 .STK-MED ONE 08/01 1825 DC IV Pantoprazole Sodium 40 MG DAILY 08/01 1730 AC 08/02 IV 1018 Propofol 1,000 MG CONTINOUS INFUSION 08/02 0030 DC 08/02 N/A 1 UNIT IV 0030 Scopolamine HBr 1 PAT Q72H PRN 08/02 1600 AC 08/02 TOP 1640 Sodium Bicarbonate 150 MEQ Q10H 08/02 0300 DC 08/02 Dextrose/Water 1,000 ML IV 0325 Sodium Bicarbonate 50 MEQ ONCE ONE 08/01 1900 DC 08/01 IV 08/01 1902013 Sodium Bicarbonate 150 MEQ Q10H 08/01 1900 DC 08/01 Dextrose/Water 1,000 ML IV 2100 Sodium Bicarbonate 100 MEQ CONTINOUS INFUSION 08/01 1600 DC Dextrose/Water 1,000 ML IV Antibiotics Day #: 2 IV/PO? IV Impression/Plan Impression/Problem List Impression: This is 62-year-old female with a medical history of stage 5 CKD(nephrotic proteinuria, diabetic nephropathy and retinopathy) with left AV fistula placed couple month ago(still making urine), currently not on hemodialysis, has only one kidney since childhood. 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 Presented to the emergency department via EMS due to unresponsiveness. Patient is admitted to the ICU for management of the following: Respiratory: Acute hypoxic respiratory failure 2/2 to aspiration pneumonia on mechanical ventilation: Patient continues to remain on mechanical ventilation. Oxygen requirement has improved with decreased FiO2. Patient's sedation with propofol was shut off this morning. - continue mechanical ventilation at decreased respiratory rate of 20. - ativan 1mg q4h PRN for agitation - Repeat ABG and chest x-ray in a.m. Infection: Aspiration Pneumonia: Patient continues to be tachycardic, febrile with elevated leukocytosis which is downtrending on IV Unasyn. No growth on cultures thus far. Repeat chest xray shows persistent bilateral airspace opacities with largest area of consolidation in the right upper lobe. Patient remains on ventilatory support. - continue IV Unasyn - continue to monitor CBCs, vitals - Follow-up blood cultures, sputum culture - ID on board. Appreciate recommendations. Cardiac: Status post cardiac arrest in the ED New right bundle branch block, wide QRS tachycardia NSTEMI- likely 2/2 to demand ischemia Patient's troponin's peaked to 4.20. Patient remains unresponsive on mechanical ventilator. Patient's heparin was temporarily stopped due to concerns of bleeding from tinsley site. Patient was seen by cardiology. H/H was stable and patient's heparin was resumed. - continue IV heparin - continue aspirin and statin Heme: Anemia Patient has a history of chronic anemia. Patient had bleeding in the tinsley and around the tinsley site. H/H was monitored with no acute drop. - continue to monitor H/H Metabolic: Type 1 Diabetes - on Insulin Pump Patient initially presented with hypoglycemia w/ BG of 27. Patients BG over the past 24 hours was in the high 200s to high 300s. - Endocrinology on board. Appreciate recommendations - Increased levemir to 16 units BID - Insulin SS adjusted per endocrinology recommendations - Target BG per endocrinology: FSG of 100 to 200. Adrenal Insufficiency. Patient is on chronic prednisone for interstitital nephritis. - Stress dose steroids with IV hydrocortisone 25mg IV BID Metabolic acidosis with elevated anion gap and lactic acidosis Patient's anion gap is down from previous day. Lactic acid was previously fluctuating however is now downtrending. Patient was previously getting IV Bicarb. - continue to monitor - repeat lactic acid until it normalizes - IV bicarb discontinued due to ABG showing alkalosis with pH of 7.48 Alimentary: Patient is currently NPO due to intubation. Fluids are being given cautiously due to ECHO showing LVEF of 30%. Neurology: Unresponsiveness - likely multifactorial at this point. Initially secondary to severe hypoglycemia. Patient likely had a seizure prior to arrival as she was found to have urinary and bladder incontinence and had an elevated prolactin level on admission. Patient was also found to have vomitted and aspirated. In the ED on day of admision patient had a cardiac arrest for approximately 10 minutes. Patient had a head CT which was nondiagnostic due to motion artifact therefore bleed, hypoxic brain injury or infarction cannot be ruled out. - neurology is on board. appreciate recommendations - will require further imaging with CT or MRI - an EEG may be prudent to rule out seizures - continue neurochecks - continue to watch off sedation - continue aspiration protocol - continue aspirin - continue to monitor and replete electrolytes Nephrology: ESRD w/maturing left sided AV fistula: Patient has a history of ESRD with biopsy showing chronic intersitial nephritis and diabetic nephropathy. Patient was placed on a course of steroids which were tapered off. Patient has been evaluated by nephrology today. IV Bicarb was discontinued. Patient will not need dialysis yet per nephrology. Patient is currently oliguric. - continue to monitor electrolytes - continue to monitor I/O - nephrology consulted. appreciate recommendations Urology: Urethral stricture. Nursing was unable to placed tinsley. Urology was consulted and placed a 16 jordanian tinsley after urethral dilation. Patient's tinsley appears to be obstructed today with what appears to be clotted frothy blood in the bag and area around the tinsley with bleeding and showing leakage. Irrigation today did not improve the patency of the tinsley. Patient continues to have elevated PVR. Urology was contacted today. - Will continue to keep tinsley in place at this time - Remove tinsley if PVR > 300 - PVR qshift - No bladder irrigation at this time per urology - If tinsley is removed pending PVR, watch to see if patient has spontaneous voiding. If she does not, patient may require tinsley placement in the OR. DVT PPx: On IV Heparin Code: Full code Problem List: 1. Hypoglycemia 2. Metabolic acidosis 3. NSTEMI (non-ST elevated myocardial infarction) 4. End stage renal disease 5. Aspiration pneumonia due to gastric secretions Pain Ratin Tomorrow's Labs & Rationales: cbc cmp Plan DVT/Prophylaxis: mechanical, pharmacological Hector Barajas MD 08/02/17 0949: Attending MD Review Statement Attending Sign Off Attending Cosign Statement: I have: examined this patient, reviewed avalbl EMR data, personally reviewd images, discussd w/resident/PA/CYCLE ANALYST, discussed mgmt plan w/chico, discussed mgmt plan w/CM, discussed mgmt plan w/pt, agreed w/resident/PA/CYCLE ANALYST, amended to note. Other Findings: Impression 62 year old woman * s/p asystolic arrest, likely/presumed secondary to insulin overdose resulting in hypolglycemia * CKD * unresponsiveness * hypoxemic respiratory failure * lung nodule s/p non diagnostic biopsy * leukocytosis with likely aspiration Plan Respiratory -mechanical ventilation to be continued -abg corrected -reduce RR to 20 -lung nodule was non-diagnositic, to be followed in future if appropriate -dc bicarb ID -f/u ID, unsayn for now CVS -monitor hemodynamics -f/u cardiology recs Heme -f/u cbc, coags Metabolic -f/u endocrine/renal recs -monitor ins/outs -monitor electrolytes Alimentary -NPO for now -finger sticks Neuro -neurology appreciated -hypothermia aborted secondary to spontantaneous movements DVT prophylaxis at all times TTS 45 min
[2017-08-02 08:00] VITALS: BP 118/60
--- NOTE | 2017-08-02 08:59 | PN- Nephrology ---
Assessment/Plan Nephrology Assessment: CKD 5. s/p hypoglycemia, asp pneumonia and now cardiac arrest. Oligoanuric. Acidosis corrected (now resp alk). Would stop bicarbonate drip. Continue supportive care as you are doing. No urgent need for dialysis but will likely need to start later this week. Discussed with . Suggestion: . Subjective Subjective: Events noted. Pt with V fib arrest last night. Resusitated. Now in ICU intubated. Was cooled for 4 hrs but cooling stopped when she began to move. Oligoanuric. Acidosis corrected. BP okay off pressors. Objective Vital Signs and I&Os F Intubated 101.1 110 128/64 Lungs occ ronchi Cor RRR Abd soft Ext neg edema AVF pos bruit Results Pertinent Lab Results: 7.48/ 27/ 219 40% FIO2 145 / 105 / 97 / 4.6 / 22 / 6.5\ AG 18 L.A. 3.0
--- NOTE | 2017-08-02 10:06 | ECHOCARDIOGRAM REPORT ---
KAM JOSEPH Age: 62 : 1955 Gender: F Exam Date: 08/01/2017 20:05 Exam Location: [facility] Ht (in): 60 Wt (lb): 160 BSA: 1.78 BP: 119 / 63 Ordering Physician: Brad Riggins MD Referring Physician: Loyd Morrow MD, PhD Technologist: Allyssa Glez [facility] Room Number: 104 Indications: SHORTNESS OF BREATH Rhythm: Sinus Technical Quality: fair FINDINGS Left Ventricle Normal left ventricular size, wall thickness and systolic function with severe hypokinesis of the apex, mid to distal inferior and distal anteroseptal wall. The ejection fraction is visually estimated at 30%. Right Ventricle The right ventricle is normal in size and function. Right Atrium The right atrium is normal in size. Left Atrium The left atrium is normal in size. The interatrial septum is intact. Mitral Valve The mitral valve demonstrates mild annuar calcification with normal function. There is trace mitral regurgitation. Aortic Valve Structurally normal aortic valve without significant sclerosis or stenosis. There is no aortic regurgitation. Tricuspid Valve The tricuspid valve is normal in structure and function. There is trace tricuspid regurgitation. Pulmonary artery systolic pressure is normal. Pulmonic Valve Structurally normal pulmonic valve. There is no pulmonic regurgitation. Pericardium Normal pericardium without effusion. No pleural effusion. Great Vessels Normal aortic root dimension. The aortic arch and great vessels are well seen and are normal. CONCLUSIONS 1. Moderately decreased EF of 30% with apical severe hypokinesis consistent with Takasubo cardiomyopathy. 2. Trace mitral regurgitation. 3. Trace tricuspid regurgitation. Loyd Morrow M.D. (Electronically Signed) Final Date: 02 August 2017 10:06 MEASUREMENTS (Male / Female) Normal Values 2D ECHO LV Diastolic Diameter PLAX 4.4 cm 4.2 - 5.9 / 3.9 - 5.3 cm LV Systolic Diameter PLAX 2.9 cm 2.1 - 4.0 cm LV Fractional Shortening PLAX 34.1 % 25 - 46 % LV Ejection Fraction 2D Teich 63.3 % IVS Diastolic Thickness 1.0 cm LVPW Diastolic Thickness 1.1 cm LV Relative Wall Thickness 0.5 RV Internal Dim ED PLAX 1.9 cm 1.9 - 3.8 cm LVOT Diameter 1.8 cm Aortic Root Diameter 2.4 cm LA Systolic Diameter LX 2.7 cm 3.0 - 4.0 / 2.7 - 3.8 cm LA Volume 19.0 cm 18 - 58 / 22 - 52 cm Ascending Aorta Diameter 2.7 cm DOPPLER AV Peak Velocity 157.0 cm/s AV Peak Gradient 9.9 mmHg AV Mean Velocity 103.0 cm/s AV Mean Gradient 5.0 mmHg AV Velocity Time Integral 21.6 cm LVOT Peak Velocity 104.0 cm/s LVOT Peak Gradient 4.3 mmHg LVOT Mean Velocity 76.2 cm/s LVOT Mean Gradient 3.0 mmHg LVOT Velocity Time Integral 16.9 cm LVOT Stroke Volume 43.0 cm AV Area Cont Eq vti 2.0 cm AV Area Cont Eq pk 1.7 cm MV Peak Velocity 170.5 cm/s MV Peak Gradient 11.6 mmHg MV Mean Velocity 90.1 cm/s MV Mean Gradient 4.0 mmHg Mitral E Point Velocity 132.0 cm/s MV PHT Velocity 170.0 cm/s MV Deceleration Hardy 1269.0 cm/s MV Pressure Half Time 40.2 ms MV Area PHT 5.5 cm MV Deceleration Time 148.0 ms TR Peak Velocity 141.0 cm/s TR Peak Gradient 8.0 mmHg Right Atrial Pressure 10.0 mmHg Pulmonary Artery Systolic Pressu 18.0 mmHg Right Ventricular Systolic Press 18.0 mmHg LV E' Lateral Velocity 17.4 cm/s Mitral E to LV E' Lateral Ratio 7.6 LV E' Septal Velocity 16.9 cm/s Mitral E to LV E' Septal Ratio 7.8
--- NOTE | 2017-08-02 11:43 | PN- Infect Dx ---
Subjective Subjective: MAXIMUM TEMPERATURE 101.3 on steroids. Her blood pressure remains stable on no pressors. She was sedated until early this morning but has remained unresponsive. Objective Last 24 Hrs of Vital Signs/I&O Vital Signs Date Time Temp Pulse Resp B/P B/P Pulse O2 O2 Flow FiO2 Mean Ox Delivery Rate 08/02 0839 40 08/02 0800 100.8 92 30 118/60 98 Ventilator 65% 08/02 0800 98 Ventilator 65% 08/02 0702 65 08/02 0648 101.1 08/02 0551 101.3 08/02 0400 99 Ventilator 65% 08/02 0344 65 08/02 0105 65 08/02 0000 96.6 110 30 128/64 99 Ventilator 65% 08/02 0000 99 Ventilator 65% 08/01 2253 65 08/01 2000 75 08/01 2000 99 Ventilator 85% 08/01 1950 Ventilator 85% 08/01 1825 100.0 126 18 136/64 100 Ventilator 100% 08/01 1758 99.7 128 18 181/68 100 Ventilator 08/01 1727 100.1 126 20 136/64 100 Ventilator 100% 08/01 1705 165 18 199/80 98 Ventilator 100% 08/01 1623 100 08/01 1553 97.9 122 18 152/72 100 08/01 1430 111 93 08/01 1419 110 24 119/63 97 BIPAP 60% 08/01 1330 96 08/01 1210 96.9 96 24 128/72 99 BIPAP 60% 08/01 1150 111 97 Intake & Output 08/02 1600 08/02 0800 08/02 0000 Intake Total 1059 1455 Output Total 32 20 Balance 1027 1435 Intake, IV 1059 1455 Output, Urine 32 20 Patient 169 lb 170 lb Weight Weight Bed scale Measurement Method Physical Exam Other Physical Findings: She is unresponsive on the ventilator Lungs are clear anteriorly Heart regular rhythm with no murmur Abdomen soft, with positive bowel sounds Extremities no cyanosis, clubbing or edema Escudero catheter is in place with minimal urine output Results Last 24 Hours of Lab Results: Laboratory Tests 08/02 08/02 08/02 08/02 1115 0835 0835 0655 Blood Gas pH (7.35 - 7.45 PH) 7.48 H pCO2 (35 - 45 TORR) 27 L pO2 (80 - 100 TORR) 219 H HCO3 (21 - 28 MEQ/L) 20 L ABG O2 Sat (Measured) (>96.0 %) 99.0 P-50 (Temp Corrected) N Carboxyhemoglobin (1.5 - 5.0 %) 0.4 L O2 Concentration % .65 Respiration Rate (BPM) 30 O2 Delivery Method VENT Vent Mode A/C Expiratory Pressure (CMH2O/P) 5 Tidal Volume (CC) 500 Chemistry Lactic Acid (0.7 - 2.1 mmol/L) Pending 3.4 H Troponin I (< 0.11 ng/ml) 3.74 *H Miscellaneous Phlebotomy Draw Site RIGHT BRACHIAL 08/02 08/02 08/02 0600 0500 0230 Chemistry Sodium (137 - 145 mmol/L) 145 Potassium (3.5 - 5.1 mmol/L) 4.6 Chloride (98 - 107 mmol/L) 105 Carbon Dioxide (22 - 30 mmol/L) 22 Anion Gap (5 - 16) 18 H BUN (7 - 17 mg/dL) 97 H Creatinine (0.5 - 1.0 mg/dL) 6.5 *H Estimated GFR (>60 ml/min) 7 L Glucose (65 - 99 mg/dL) 295 H Insulin Level (3.0 - 25.0 mIU/mL) 88.5 H Lactic Acid (0.7 - 2.1 mmol/L) 3.0 H Calcium (8.4 - 10.2 mg/dL) 6.7 L Phosphorus (2.5 - 4.5 mg/dL) 8.3 H Magnesium (1.6 - 2.3 mg/dL) 1.6 Total Bilirubin (0.2 - 1.3 mg/dL) 0.4 AST (14 - 36 U/L) 138 H ALT (9 - 52 U/L) 124 H Troponin I (< 0.11 ng/ml) Cancelled 4.20 *H Albumin (3.5 - 5.0 g/dL) 2.1 L Hematology CBC w Diff MAN DIFF ORDERED WBC (4.8 - 10.8 /CUMM) 15.5 H RBC (4.20 - 5.40 /CUMM) 3.33 L Hgb (12.0 - 16.0 G/DL) 8.6 L Hct (37 - 47 %) 26.8 L MCV (81.0 - 99.0 FL) 80.5 L MCH (27.0 - 31.0 PG) 26.0 L MCHC (33.0 - 37.0 G/DL) 32.2 L RDW (11.5 - 14.5 %) 18.8 H Plt Count (130 - 400 /CUMM) 319 MPV (7.4 - 10.4 FL) 7.2 L Gran % (42.2 - 75.2 %) 88.2 H Lymphocytes % (20.5 - 51.1 %) 8.3 L Monocytes % (1.7 - 9.3 %) 3.4 Eosinophils % (0 - 5 %) 0 Basophils % (0.0 - 2.0 %) 0.1 Absolute Granulocytes (1.4 - 6.5 /CUMM) 13.7 H Segmented Neutrophils (42.2 - 75.2 %) 81 H Band Neutrophils (0.0 - 5.0 %) 4 Absolute Lymphocytes (1.2 - 3.4 /CUMM) 1.3 Lymphocytes (20.5 - 51.1 %) 13 L Monocytes (1.7 - 9.3 %) 2 Absolute Monocytes (0.10 - 0.60 /CUMM) 0.5 Absolute Eosinophils (0.0 - 0.7 /CUMM) 0 Absolute Basophils (0.0 - 0.2 /CUMM) 0 Platelet Estimate (ADEQUATE) ADEQUATE Polychromasia 1+ Hypochromic-Microcytic 1+ Poikilocytosis 2+ Basophilic Stippling SLIGHT Anisocytosis 1+ Microcytic Cells 1+ Ovalocytes 1+ Stomatocytes 1+ Other Body Source Fld Total RBCs Counted (%) 100 08/02 08/01 08/01 08/01 0230 2255 2255 2240 Chemistry Sodium (137 - 145 mmol/L) 144 Potassium (3.5 - 5.1 mmol/L) 4.9 Chloride (98 - 107 mmol/L) 106 Carbon Dioxide (22 - 30 mmol/L) 17 L Anion Gap (5 - 16) 20 H BUN (7 - 17 mg/dL) 96 H Creatinine (0.5 - 1.0 mg/dL) 6.2 *H Estimated GFR (>60 ml/min) 7 L Glucose (65 - 99 mg/dL) 328 H Lactic Acid (0.7 - 2.1 mmol/L) 3.2 H 3.3 H Calcium (8.4 - 10.2 mg/dL) 6.9 L Phosphorus (2.5 - 4.5 mg/dL) 8.9 H Magnesium (1.6 - 2.3 mg/dL) 1.7 Total Bilirubin (0.2 - 1.3 mg/dL) 0.4 AST (14 - 36 U/L) 221 H ALT (9 - 52 U/L) 149 H Albumin (3.5 - 5.0 g/dL) 2.3 L Coagulation APTT (25 - 37 SEC) 63 H Toxicology Urine Opiates Screen (>2000 NG/ML) < 100 Methadone Screen (>300 NG/ML) < 40 Barbiturate Screen (>200 NG/ML) < 60 Ur Phencyclidine Scrn (>25 NG/ML) < 6.00 Amphetamines Screen (>1000 NG/ML) < 100 U Benzodiazepines Scrn (>200 NG/ML) < 85 Urine Cocaine Screen (>300 NG/ML) < 50 Urine Cannabis Screen (>50 NG/ML) < 5.00 08/01 193 Blood Gas pH (7.35 - 7.45 PH) 7.29 *L pCO2 (35 - 45 TORR) 33 L pO2 (80 - 100 TORR) 87 HCO3 (21 - 28 MEQ/L) 16 L ABG O2 Sat (Measured) (>96.0 %) 96.0 P-50 (Temp Corrected) Y Carboxyhemoglobin (1.5 - 5.0 %) 0.3 L O2 Concentration % 65% Temperature (97.0 - 100.0 FARH) 96.4 L Respiration Rate (BPM) 30 O2 Delivery Method ESPRIT Vent Mode AC Expiratory Pressure (CMH2O/P) 5 Tidal Volume (CC) 500 Chemistry Sodium (137 - 145 mmol/L) 144 Potassium (3.5 - 5.1 mmol/L) 5.6 H Chloride (98 - 107 mmol/L) 108 H Carbon Dioxide (22 - 30 mmol/L) 15 L Anion Gap (5 - 16) 20 H BUN (7 - 17 mg/dL) 95 H Creatinine (0.5 - 1.0 mg/dL) 6.3 *H Estimated GFR (>60 ml/min) 7 L Glucose (65 - 99 mg/dL) 228 H Lactic Acid (0.7 - 2.1 mmol/L) 3.8 H Calcium (8.4 - 10.2 mg/dL) 7.2 L Phosphorus (2.5 - 4.5 mg/dL) 10.7 H Magnesium (1.6 - 2.3 mg/dL) 1.7 Total Bilirubin (0.2 - 1.3 mg/dL) 0.5 AST (14 - 36 U/L) 253 H ALT (9 - 52 U/L) 161 H Troponin I (< 0.11 ng/ml) 3.46 *H Albumin (3.5 - 5.0 g/dL) 2.3 L Coagulation PT (9.4 - 12.5 SEC) 13.1 H INR (0.90 - 1.19) 1.20 H APTT (25 - 37 SEC) 28 Miscellaneous Phlebotomy Draw Site RIGHT BRACHIAL 08/01 08/01 08/01 08/01 1710 1510 1307 1140 Blood Gas pH (7.35 - 7.45 PH) 7.06 *L 7.29 *L pCO2 (35 - 45 TORR) 42 32 L pO2 (80 - 100 TORR) 167 H 238 H HCO3 (21 - 28 MEQ/L) 12 L 15 L ABG O2 Sat (Measured) (>96.0 %) 97.0 98.0 P-50 (Temp Corrected) N Carboxyhemoglobin (1.5 - 5.0 %) 0.3 L 0.3 L O2 Concentration % 100% 100% Temperature (97.0 - 100.0 FARH) 97.5 Respiration Rate (BPM) 26 24 O2 Delivery Method ESPRIT VENT BIPAP Vent Mode AC ST Expiratory Pressure (CMH2O/P) 5 6 Tidal Volume (CC) 500 Inspiratory Pressure (CM H2O P) 16 Chemistry Lactic Acid (0.7 - 2.1 mmol/L) 2.0 Troponin I (< 0.11 ng/ml) 3.04 *H Miscellaneous Phlebotomy Draw Site RIGHT BRACHIAL RIGHT RADIAL Last 24 Hours of Charli Results: Blood culture August 01 negative Blood culture August 02 pending Sputum culture August 01 scant growth of mixed naeem Urine culture August 01 negative Recent Imaging Studies: Chest x-ray August 02 reveals persistent bilateral airspace opacities Assessment/Plan ID Impression: She remains critically ill, unresponsive since a cardiac arrest yesterday afternoon, now off sedation. She remains febrile with a leukocytosis, which may be in part secondary to steroids, on Unasyn Day 2 of treatment for possible aspiration pneumonia, with a decrease in her oxygen requirements, with her sputum culture only growing mixed naeem. Her prognosis remains guarded, with an elevated troponin and with renal failure, with dialysis considered likely to be necessary in the next few days. Suggestion: 1. Follow-up recent cultures 2. Continue Unasyn
--- NOTE | 2017-08-02 12:11 | Event Note ---
Event Note Event Note: Patient's PVR this afternoon was 190 after irrigation with 40cc. Patient's previous bladder scan this morning was 150ml. Patient's tinsley bag shows clotted frothy bloody output. Spoke to Dr. Lim. Per Dr. Lim, continue checking PVR qshift without irrigating at this time. If patient's PVR > 300mL will likely need to remove tinsley. If patient doesn't have spontaneous voiding, she will likely require tinsley placement in the OR with Dr. Lim. Dr. Lim ([facility]): [phone]
--- NOTE | 2017-08-02 12:26 | PN- Diabetes ---
Assessment/Plan Diabetes Assessment: 62 y/o female hx of longstanding DM type 1, chronic renal disease due to diabetes and chronic interstitual nephritis and was treated with a couse of steroid. As per patient's , patient took prednisone 10 mg last night. Her glucose level was running low and insulin pump was supposed to be discontinued last night. Patient was found to be unresponsive with glucose level was in the 20s. Blood work in ER showed inappropriately elevated insulin level. Her severe hypoglycemia most likely was due to insulin overdose. She received hydrocortisone 100 mg iv in ER. Patient was intubated. She was on D10 w and pressor. Now her BP and glucose level improved and she has been off on D10 w and pressor. She is still on bicarb drip in D5 w at 100 ml/hour. According to her insulin pump-- [employer]onic 630 G-- her basal insulin 36.75 units per 24 hours. She was put on Levemir 12 units twice a day and Novolog coveage every 4 hours. Her FSGs were 335, 390 and 291. In addition, she was put on Levothyroxine 25 mcg iv daily. Plan: 1. increase Levemir to 16 units twice a day; 2. adjust Novolog coverage every 4 hours; detail see the inpatient insulin order ; 3. stress dose steroid--- hydrocortisone 25 mg iv twice a day; 4. monitor FSGs; target of glucose between 100 and 200 mg/dl; 5. monitor vital signs; please inform me if her FSGs are still not controlled or her IVF will be adjusted, then her insulin regimen will be adjusted accordingly. Inpatient Diabetes Orders Every 4 Hours: Bolus Insulin: Novolog < 80 mg/dl: no coverage 80-100 mg/dl: no coverage 101-120 mg/dl: 2 units 121-150 mg/dl: 2 units 151-200 mg/dl: 4 units 201-250 mg/dl: 6 units 251-300 mg/dl: 8 units 301-350 mg/dl: 10 units 351-400 mg/dl: 12 units > 400 mg/dl: 14 units Subjective Subjective: Patient is intubated and on sedation. Objective Last 24 Hrs of Vital Signs/I&O Vital Signs Date Time Temp Pulse Resp B/P B/P Pulse O2 O2 Flow FiO2 Mean Ox Delivery Rate 08/02 1149 40 08/02 0839 40 08/02 0800 100.8 92 30 118/60 98 Ventilator 65% 08/02 0800 98 Ventilator 65% 08/02 0702 65 08/02 0648 101.1 08/02 0551 101.3 08/02 0400 99 Ventilator 65% 08/02 0344 65 08/02 0105 65 08/02 0000 96.6 110 30 128/64 99 Ventilator 65% 08/02 0000 99 Ventilator 65% 08/01 2253 65 08/01 2000 75 08/02 1999 99 Ventilator 85% 08/01 1950 Ventilator 85% 08/01 1825 100.0 126 18 136/64 100 Ventilator 100% 08/01 1758 99.7 128 18 181/68 100 Ventilator 08/01 1727 100.1 126 20 136/64 100 Ventilator 100% 08/01 1705 165 18 199/80 98 Ventilator 100% 08/01 1623 100 08/01 1553 97.9 122 18 152/72 100 08/01 1430 111 93 08/01 1419 110 24 119/63 97 BIPAP 60% 08/01 1330 96 Intake & Output 08/02 1600 08/02 0800 08/02 0000 Intake Total 1059 1455 Output Total 32 20 Balance 1027 1435 Intake, IV 1059 1455 Output, Urine 32 20 Patient 169 lb 170 lb Weight Weight Bed scale Measurement Method Findings Pertinent Lab/Charli Results: Laboratory Tests 08/02 08/02 08/02 08/02 1115 0835 0835 0655 Blood Gas pH (7.35 - 7.45 PH) 7.48 H pCO2 (35 - 45 TORR) 27 L pO2 (80 - 100 TORR) 219 H HCO3 (21 - 28 MEQ/L) 20 L ABG O2 Sat (Measured) (>96.0 %) 99.0 P-50 (Temp Corrected) N Carboxyhemoglobin (1.5 - 5.0 %) 0.4 L O2 Concentration % .65 Respiration Rate (BPM) 30 O2 Delivery Method VENT Vent Mode A/C Expiratory Pressure (CMH2O/P) 5 Tidal Volume (CC) 500 Chemistry Lactic Acid (0.7 - 2.1 mmol/L) Pending 3.4 H Troponin I (< 0.11 ng/ml) 3.74 *H Miscellaneous Phlebotomy Draw Site RIGHT BRACHIAL 08/02 08/02 08/02 0600 0500 0230 Chemistry Sodium (137 - 145 mmol/L) 145 Potassium (3.5 - 5.1 mmol/L) 4.6 Chloride (98 - 107 mmol/L) 105 Carbon Dioxide (22 - 30 mmol/L) 22 Anion Gap (5 - 16) 18 H BUN (7 - 17 mg/dL) 97 H Creatinine (0.5 - 1.0 mg/dL) 6.5 *H Estimated GFR (>60 ml/min) 7 L Glucose (65 - 99 mg/dL) 295 H Insulin Level (3.0 - 25.0 mIU/mL) 88.5 H Lactic Acid (0.7 - 2.1 mmol/L) 3.0 H Calcium (8.4 - 10.2 mg/dL) 6.7 L Phosphorus (2.5 - 4.5 mg/dL) 8.3 H Magnesium (1.6 - 2.3 mg/dL) 1.6 Total Bilirubin (0.2 - 1.3 mg/dL) 0.4 AST (14 - 36 U/L) 138 H ALT (9 - 52 U/L) 124 H Troponin I (< 0.11 ng/ml) Cancelled 4.20 *H Albumin (3.5 - 5.0 g/dL) 2.1 L Hematology CBC w Diff MAN DIFF ORDERED WBC (4.8 - 10.8 /CUMM) 15.5 H RBC (4.20 - 5.40 /CUMM) 3.33 L Hgb (12.0 - 16.0 G/DL) 8.6 L Hct (37 - 47 %) 26.8 L MCV (81.0 - 99.0 FL) 80.5 L MCH (27.0 - 31.0 PG) 26.0 L MCHC (33.0 - 37.0 G/DL) 32.2 L RDW (11.5 - 14.5 %) 18.8 H Plt Count (130 - 400 /CUMM) 319 MPV (7.4 - 10.4 FL) 7.2 L Gran % (42.2 - 75.2 %) 88.2 H Lymphocytes % (20.5 - 51.1 %) 8.3 L Monocytes % (1.7 - 9.3 %) 3.4 Eosinophils % (0 - 5 %) 0 Basophils % (0.0 - 2.0 %) 0.1 Absolute Granulocytes (1.4 - 6.5 /CUMM) 13.7 H Segmented Neutrophils (42.2 - 75.2 %) 81 H Band Neutrophils (0.0 - 5.0 %) 4 Absolute Lymphocytes (1.2 - 3.4 /CUMM) 1.3 Lymphocytes (20.5 - 51.1 %) 13 L Monocytes (1.7 - 9.3 %) 2 Absolute Monocytes (0.10 - 0.60 /CUMM) 0.5 Absolute Eosinophils (0.0 - 0.7 /CUMM) 0 Absolute Basophils (0.0 - 0.2 /CUMM) 0 Platelet Estimate (ADEQUATE) ADEQUATE Polychromasia 1+ Hypochromic-Microcytic 1+ Poikilocytosis 2+ Basophilic Stippling SLIGHT Anisocytosis 1+ Microcytic Cells 1+ Ovalocytes 1+ Stomatocytes 1+ Other Body Source Fld Total RBCs Counted (%) 100 08/02 08/01 08/01 08/01 0230 2255 2255 2240 Chemistry Sodium (137 - 145 mmol/L) 144 Potassium (3.5 - 5.1 mmol/L) 4.9 Chloride (98 - 107 mmol/L) 106 Carbon Dioxide (22 - 30 mmol/L) 17 L Anion Gap (5 - 16) 20 H BUN (7 - 17 mg/dL) 96 H Creatinine (0.5 - 1.0 mg/dL) 6.2 *H Estimated GFR (>60 ml/min) 7 L Glucose (65 - 99 mg/dL) 328 H Lactic Acid (0.7 - 2.1 mmol/L) 3.2 H 3.3 H Calcium (8.4 - 10.2 mg/dL) 6.9 L Phosphorus (2.5 - 4.5 mg/dL) 8.9 H Magnesium (1.6 - 2.3 mg/dL) 1.7 Total Bilirubin (0.2 - 1.3 mg/dL) 0.4 AST (14 - 36 U/L) 221 H ALT (9 - 52 U/L) 149 H Albumin (3.5 - 5.0 g/dL) 2.3 L Coagulation APTT (25 - 37 SEC) 63 H Toxicology Urine Opiates Screen (>2000 NG/ML) < 100 Methadone Screen (>300 NG/ML) < 40 Barbiturate Screen (>200 NG/ML) < 60 Ur Phencyclidine Scrn (>25 NG/ML) < 6.00 Amphetamines Screen (>1000 NG/ML) < 100 U Benzodiazepines Scrn (>200 NG/ML) < 85 Urine Cocaine Screen (>300 NG/ML) < 50 Urine Cannabis Screen (>50 NG/ML) < 5.00 08/01 193 Blood Gas pH (7.35 - 7.45 PH) 7.29 *L pCO2 (35 - 45 TORR) 33 L pO2 (80 - 100 TORR) 87 HCO3 (21 - 28 MEQ/L) 16 L ABG O2 Sat (Measured) (>96.0 %) 96.0 P-50 (Temp Corrected) Y Carboxyhemoglobin (1.5 - 5.0 %) 0.3 L O2 Concentration % 65% Temperature (97.0 - 100.0 FARH) 96.4 L Respiration Rate (BPM) 30 O2 Delivery Method ESPRIT Vent Mode AC Expiratory Pressure (CMH2O/P) 5 Tidal Volume (CC) 500 Chemistry Sodium (137 - 145 mmol/L) 144 Potassium (3.5 - 5.1 mmol/L) 5.6 H Chloride (98 - 107 mmol/L) 108 H Carbon Dioxide (22 - 30 mmol/L) 15 L Anion Gap (5 - 16) 20 H BUN (7 - 17 mg/dL) 95 H Creatinine (0.5 - 1.0 mg/dL) 6.3 *H Estimated GFR (>60 ml/min) 7 L Glucose (65 - 99 mg/dL) 228 H Lactic Acid (0.7 - 2.1 mmol/L) 3.8 H Calcium (8.4 - 10.2 mg/dL) 7.2 L Phosphorus (2.5 - 4.5 mg/dL) 10.7 H Magnesium (1.6 - 2.3 mg/dL) 1.7 Total Bilirubin (0.2 - 1.3 mg/dL) 0.5 AST (14 - 36 U/L) 253 H ALT (9 - 52 U/L) 161 H Troponin I (< 0.11 ng/ml) 3.46 *H Albumin (3.5 - 5.0 g/dL) 2.3 L Coagulation PT (9.4 - 12.5 SEC) 13.1 H INR (0.90 - 1.19) 1.20 H APTT (25 - 37 SEC) 28 Miscellaneous Phlebotomy Draw Site RIGHT BRACHIAL 08/01 08/01 08/01 1710 1510 1307 Blood Gas pH (7.35 - 7.45 PH) 7.06 *L pCO2 (35 - 45 TORR) 42 pO2 (80 - 100 TORR) 167 H HCO3 (21 - 28 MEQ/L) 12 L ABG O2 Sat (Measured) (>96.0 %) 97.0 P-50 (Temp Corrected) N Carboxyhemoglobin (1.5 - 5.0 %) 0.3 L O2 Concentration % 100% Temperature (97.0 - 100.0 FARH) 97.5 Respiration Rate (BPM) 26 O2 Delivery Method ESPRIT VENT Vent Mode AC Expiratory Pressure (CMH2O/P) 5 Tidal Volume (CC) 500 Chemistry Lactic Acid (0.7 - 2.1 mmol/L) 2.0 Troponin I (< 0.11 ng/ml) 3.04 *H Miscellaneous Phlebotomy Draw Site RIGHT BRACHIAL
--- NOTE | 2017-08-02 14:13 | PN- Cardiology ---
Subjective Subjective: * Patient remains unresponsive to verbal stimulus * sinus rhythm * creatinine is 6.5 * troponin peaked at 4.2 and is trending down * Increased WBC count with low grade fever and right lung infiltrate * decreasing H/H Objective Vital Signs and I&Os Vital Signs Date Time Temp Pulse Resp B/P B/P Pulse O2 O2 Flow FiO2 Mean Ox Delivery Rate 08/02 1200 96 Ventilator 40% 08/02 1149 40 08/02 0839 40 08/02 0800 100.8 92 30 118/60 98 Ventilator 65% 08/02 0800 98 Ventilator 65% 08/02 0702 65 08/02 0648 101.1 08/02 0551 101.3 08/02 0400 99 Ventilator 65% 08/02 0344 65 08/02 0105 65 08/02 0000 96.6 110 30 128/64 99 Ventilator 65% 08/02 0000 99 Ventilator 65% 08/01 2253 65 08/01 2000 75 08/01 2000 99 Ventilator 85% 08/01 1950 Ventilator 85% 08/01 1825 100.0 126 18 136/64 100 Ventilator 100% 08/01 1758 99.7 128 18 181/68 100 Ventilator 08/01 1727 100.1 126 20 136/64 100 Ventilator 100% 08/01 1705 165 18 199/80 98 Ventilator 100% 08/01 1623 100 08/01 1553 97.9 122 18 152/72 100 08/01 1430 111 93 08/01 1419 110 24 119/63 97 BIPAP 60% Intake & Output 08/02 1600 08/02 0800 08/02 0000 08/01 1600 08/01 0800 08/01 0000 Intake Total 1059 1455 1250 Output Total 32 20 3 Balance 1027 1435 1247 Intake, IV 1059 1455 1250 Output, Urine 32 20 3 Patient 169 lb 170 lb 160 lb Weight Weight Bed scale Estimated Measurement Method Physical Exam: General: WD/overweight female. Intubated. HEENT: NC/AT, pupils reactive to light, no dolls eyes Neck: no JVD, no carotid bruit Heart: RRR w/o murmur Lungs: clear bilaterally Abdomen: soft, NT, +ve bowel sounds Extremities: no edema Neuro: some spontaneous movement of legs bilaterally Assessment/Plan Assessment/Plan * This patient has evidence of coma likely related to prolonged hypoglycemia. A neurological evaluation is in progress and the patient is having sedation held for better evaluation of her mental status. * This patient has evidence of a NSTEMI with cardiac enzymes trending down. I suspect that her NV is a type 2 from supply demand mismatch rather than from an acute ruptured intracoronary plaque. As such, if bleeding is an issue her IV heparin can be stopped. He H/H is trending down. If her H/H falls more transfuse one unit of pRBC's to decreased myocardial demand and prevent compensatory tachycardia in the setting of her NV. I would not begin beta blockers at this point in time due to her becoming bradycardic and going into asystole yesterday. * Continue antibiotics for a likely aspiration pneumonia. Continue telemetry? Yes
--- NOTE | 2017-08-02 14:27 | PN- Neurology ---
Subjective Subjective: No new problems overnight. Currently on no sedation. Hypothermic protocol being held. Has history of chronic kidney disease and insulin-dependent diabetes. Admitted after being found unresponsive, duration unclear, with a blood glucose in the 20s. She subsequently had an asystole arrest requiring approximately 15 minutes of resuscitative efforts. Objective Vital Signs and I&Os Vital Signs Date Time Temp Pulse Resp B/P B/P Pulse O2 O2 Flow FiO2 Mean Ox Delivery Rate 08/02 1412 40 08/02 1200 96 Ventilator 40% 08/02 1149 40 08/02 0839 40 08/02 0800 100.8 92 30 118/60 98 Ventilator 65% 08/02 0800 98 Ventilator 65% 08/02 0702 65 08/02 0648 101.1 08/02 0551 101.3 08/02 0400 99 Ventilator 65% 08/02 0344 65 08/02 0105 65 08/02 0000 96.6 110 30 128/64 99 Ventilator 65% 08/02 0000 99 Ventilator 65% 08/01 2253 65 08/01 2000 75 08/02 1999 99 Ventilator 85% 08/01 1950 Ventilator 85% 08/01 1825 100.0 126 18 136/64 100 Ventilator 100% 08/01 1758 99.7 128 18 181/68 100 Ventilator 08/01 1727 100.1 126 20 136/64 100 Ventilator 100% 08/01 1705 165 18 199/80 98 Ventilator 100% 08/01 1623 100 08/01 1553 97.9 122 18 152/72 100 08/01 1430 111 93 Intake & Output 08/02 1600 08/02 0800 08/02 0000 08/01 1600 08/01 0800 08/01 0000 Intake Total 1059 1455 1250 Output Total 32 20 3 Balance 1027 1435 1247 Intake, IV 1059 1455 1250 Output, Urine 32 20 3 Patient 169 lb 170 lb 160 lb Weight Weight Bed scale Estimated Measurement Method Middle-aged female intubated in the intensive care unit. She was unresponsive to verbal command. She grimaced to noxious stimuli. She would over breathe the ventilator. Pupils were 3 mm and poorly reactive. The oculocephalic reflex was absent. There was a weak corneal reflex on the left. The right corneal was absent. She had triple flexion responses in the distal lower extremities bilaterally to minimal stimuli. Current Medications: Current Medications Sig/Makayla Start time Last Medication Dose Route Stop Time Status Admin Acetaminophen 1,000 MG Q6P PRN 08/01 1445 AC 08/02 IV 0551 Ampicillin Sodium/ 1,500 MG Q6 08/01 1800 CAN Sulbactam Sodium IV Sodium Chloride 100 ML Ampicillin Sodium/ 3,000 MG Q12 08/01 1730 AC 08/02 Sulbactam Sodium IV 1020 Sodium Chloride 100 ML Atropine Sulfate 0 .STK-MED ONE 08/01 1630 DC .ROUTE Dextrose/Sodium 1,000 ML Q10H 08/01 1100 DC 08/01 Chloride IV 1100 Dextrose/Water 1,000 ML Q20H 08/01 1630 DC 08/01 IV 1726 Etomidate 20 MG ONCE ONE 08/01 1545 DC 08/01 IV 08/01 1546 1619 Etomidate 0 .STK-MED ONE 08/01 1545 DC IV Heparin Sodium 0 .STK-MED ONE 08/01 1756 DC (Porcine) .ROUTE Heparin Sodium 4,000 UNIT ONCE ONE 08/01 1730 DC 08/01 (Porcine) IV 08/01 173 2025 Heparin Sodium 25,000 UNIT Q24H 08/01 1730 AC 08/01 (Porcine) IV 2036 Sodium Chloride 500 ML Hydrocortisone 50 MG Q12 08/02 1000 DC Sodium Succinate IV Hydrocortisone 50 MG DAILY 08/02 1000 DC Sodium Succinate IV Hydrocortisone 25 MG BID 08/02 1000 AC 08/02 Sodium Succinate IV 1026 Hydrocortisone 100 MG ONE ONE 08/01 1615 DC 08/01 Sodium Succinate IV 08/01 1616 1709 Insulin Aspart 0 Q4 08/01 2200 AC 08/02 SC 1026 Insulin Detemir 16 UNITS BID 08/02 1000 AC 08/02 SC 1026 Insulin Detemir 12 UNITS BID 08/01 2200 DC 08/01 SC 2245 Insulin Human Regular 0 Q6 08/01 1440 DC 08/01 SC 1813 Levothyroxine Sodium 25 MCG DAILY 08/02 1000 AC 08/02 IV 1022 Lorazepam 1 MG Q4P PRN 08/02 1400 AC IV Lorazepam 0 .STK-MED ONE 08/01 1604 DC .ROUTE Non-Formulary 0 SEE ADMIN CRITERIA 08/02 0030 CAN Medication ANY Norepinephrine 8 MG Q24H 08/02 0600 DC Sodium Chloride 250 ML IV Norepinephrine 8 MG ONCE ONE 08/01 1830 DC 08/01 Sodium Chloride 250 ML IV 08/01 1831 2014 Norepinephrine 0 .STK-MED ONE 08/01 1825 DC IV Norepinephrine 0 .STK-MED ONE 08/01 1654 DC IV Norepinephrine 8 MG ONCE ONE 08/01 1645 DC 08/01 Sodium Chloride 250 ML IV 08/01 1646 1748 Pantoprazole Sodium 40 MG DAILY 08/01 1730 AC 08/02 IV 1018 Propofol 1,000 MG CONTINOUS INFUSION 08/02 0030 DC 08/02 N/A 1 UNIT IV 0030 Sodium Bicarbonate 150 MEQ Q10H 08/02 0300 DC 08/02 Dextrose/Water 1,000 ML IV 0325 Sodium Bicarbonate 50 MEQ ONCE ONE 08/01 1900 DC 08/01 IV 08/01 1901 2014 Sodium Bicarbonate 150 MEQ Q10H 08/01 1900 DC 08/01 Dextrose/Water 1,000 ML IV 2100 Sodium Bicarbonate 100 MEQ CONTINOUS INFUSION 08/01 1600 DC Dextrose/Water 1,000 ML IV Sodium Chloride 500 ML BOLUS ONE 08/01 1615 DC 08/01 IV 08/01 1714 1617 Succinylcholine 100 MG ONCE ONE 08/01 1545 DC 08/01 Chloride IV 08/01 1546 1619 Assessment/Plan Assessment: Areli currently has minimal brain function following cardiac arrest and significant hypoglycemia of unclear duration. Condition is critical and prognosis guarded at best. Plan: I have discussed the patient's serious situation with multiple family members. We will continue supportive care. CODE STATUS should be clarified. Follow-up imaging of the brain with CAT scan or MRI would be indicated in the next 24-48 hours. We will be available to follow up with the ICU team.
[2017-08-02 15:06] LABS: ABSOLUTE BASOPHIL COUNT 0 /CUMM (0.0-0.2); ABSOLUTE EOSINOPHIL COUNT 0 /CUMM (0.0-0.7); ABSOLUTE GRANULOCYTE CT 12.2 /CUMM (1.4-6.5); ABSOLUTE LYMPH COUNT 1.5 /CUMM (1.2-3.4); ABSOLUTE MONOCYTE COUNT 0.4 /CUMM (0.10-0.60); BASOPHIL % 0.2 % (0.0-2.0); EOSINOPHIL % 0 % (0-5); GRANULOCYTE % 85.9 % (42.2-75.2); HEMATOCRIT 26.3 % (37-47); MEAN CORPUSCULAR HGB 26.2 PG (27.0-31.0); MEAN CORPUSCULAR VOLUME 79.5 FL (81.0-99.0); MEAN PLATELET VOLUME 7.1 FL (7.4-10.4); PLATELET COUNT 338 /CUMM (130-400); RBC DISTRIBUTION WIDTH 18.7 % (11.5-14.5); WHITE BLOOD CELL COUNT 14.2 /CUMM (4.8-10.8)
[2017-08-02 15:19] LABS: PTT 39 SEC (25-37)
[2017-08-02 16:00] VITALS: BP 126/60
[2017-08-02 22:48] LABS: PTT 64 SEC (25-37)
[2017-08-03] VITALS: BP 144/68
[2017-08-03 05:42] LABS: ABSOLUTE BASOPHIL COUNT 0 /CUMM (0.0-0.2); ABSOLUTE EOSINOPHIL COUNT 0 /CUMM (0.0-0.7); ABSOLUTE LYMPH COUNT 1.6 /CUMM (1.2-3.4); ABSOLUTE MONOCYTE COUNT 0.4 /CUMM (0.10-0.60); BASOPHIL % 0.2 % (0.0-2.0); EOSINOPHIL % 0 % (0-5); GRANULOCYTE % 86.5 % (42.2-75.2); HEMATOCRIT 26.8 % (37-47); MEAN CORPUSCULAR HGB 26.5 PG (27.0-31.0); MEAN CORPUSCULAR HGB CONC 32.6 G/DL (33.0-37.0); MEAN CORPUSCULAR VOLUME 81.3 FL (81.0-99.0); MEAN PLATELET VOLUME 7.5 FL (7.4-10.4); PLATELET COUNT 352 /CUMM (130-400); RBC DISTRIBUTION WIDTH 19.3 % (11.5-14.5)
--- NOTE | 2017-08-03 06:22 | PN- Resident CRCU ---
Bijan HYMAN,Nelly 08/03/17 0621: Subjective HPI/CRCU Issues: Overnight issues: Patient remains intubated and unresponsive today off sedation. No acute events overnight. Vitals: MAXIMUM TEMPERATURE of 100.8, heart rate: 98 to 114 sinus tach, respiration rate 20-30, blood pressure: Systolic 107 to 158 over diastolic 55-73, saturating between 96-99% on mechanical ventilation with tidal volume of 500, FiO2 decreased from 65% to 40%, PEEP of 5 Total intake 3089, total output 52 with bladder scan showing PVR of 190, 110, 70 On IV heparin Labs: WBC 16 with 86.5% granulocytes, 84 segmented neutrophils, 5 bands, H&H 8.8 and 26.8, platelet 352 Sodium 149, potassium 4.1, chloride 106, bicarbonate 21, anion gap 22, BUN 102, creatinine 7.6, glucose 109, calcium 7.8, albumin 2.4, phosphorus 8.4, magnesium 2.0, T bili 0.7, AST 65, ALT 89 Chest x-ray: Endotracheal tube 4 cm above the vazquez, and has a gastric tube in the stomach, patchy infiltrate at the right upper lobe Objective Vital Signs & I&O Last 8 Hrs of Vitals and I&O: Vital Signs Date Time Temp Pulse Resp B/P B/P Pulse O2 O2 Flow FiO2 Mean Ox Delivery Rate 08/03 1428 30 08/03 1200 96 Ventilator 30% 08/03 1138 30 08/03 0809 30 08/03 0800 98.2 107 20 146/64 99 Ventilator 40% 08/03 0800 99 Ventilator 40% 08/03 0644 40 08/03 0400 98 Ventilator 40% 08/03 0301 40 08/03 0046 40 08/03 0000 100.4 106 20 144/68 98 Ventilator 40% 08/03 0000 98 Ventilator 40% 08/02 2233 40 08/02 2000 99 Ventilator 40% 08/02 1930 40 Intake & Output 08/03 1600 08/03 0800 08/03 0000 Intake Total 365 175 400 Output Total Balance 365 175 400 Intake, IV 365 175 400 Patient 169 lb Weight Intake & Output 08/03 1600 Intake Total 365 Output Total Balance 365 Intake, IV 365 Patient 169 lb Weight Exam General Appearance: well developed/nourished, intubated, unresponsive Head: atraumatic Respiratory: lungs clear (to anterior auscultation ) Cardiovascular: regular rate/rhythm Gastrointestinal: normal bowel sounds, soft, non-tender Extremities: normal inspection Cranial Nerves: patient unresponsive, PERRL Other Physical Findings: +babinksi, spontaneous leg movement, no response to tacticle, verbal or painful stimuli IV Drips IV Drips: IV heparin Current Medications: Current Medications Sig/Makayla Start time Last Medication Dose Route Stop Time Status Admin Acetaminophen 1,000 MG Q6P PRN 08/01 1445 AC 08/02 IV 0551 Ampicillin Sodium/ 3,000 MG Q12 08/01 1730 AC 08/03 Sulbactam Sodium IV 1037 Sodium Chloride 100 ML Aspirin 81 MG DAILY 08/03 1000 AC 08/03 PO 1317 Atorvastatin Calcium 40 MG 1700 08/03 1700 AC PO Heparin Sodium 25,000 UNIT Q24H 08/01 1730 AC 08/02 (Porcine) IV 2241 Sodium Chloride 500 ML Hydrocortisone 25 MG BID 08/02 1000 AC 08/03 Sodium Succinate IV 1026 Insulin Aspart 0 Q4 08/01 2200 AC 08/03 SC 0217 Insulin Detemir 12 UNITS BID 08/03 2200 AC SC Insulin Detemir 12 UNITS ONCE ONE 08/03 1445 DC 08/03 SC 08/03 1446 1447 Insulin Detemir 14 UNITS BID 08/03 1000 DC SC Insulin Detemir 16 UNITS BID 08/02 1000 DC 08/02 SC 2146 Levothyroxine Sodium 25 MCG DAILY 08/02 1000 AC 08/03 IV 1026 Lorazepam 1 MG Q4P PRN 08/02 1400 AC IV Magnesium Citrate 300 ML ONE ONE 08/02 1615 CAN PO 08/02 1616 Magnesium Sulfate 1 GM ONCE ONE 08/02 1645 DC 08/02 Dextrose/Water 100 ML IV 08/02 2044 1720 Pantoprazole Sodium 40 MG DAILY 08/01 1730 AC 08/03 IV 1026 Scopolamine HBr 1 PAT Q72H PRN 08/02 1600 AC 08/02 TOP 1640 Results Results: Laboratory Tests 08/03 08/03 1005 0620 Blood Gas pH (7.35 - 7.45 PH) 7.43 pCO2 (35 - 45 TORR) 30 L pO2 (80 - 100 TORR) 147 H HCO3 (21 - 28 MEQ/L) 19 L ABG O2 Sat (Measured) (>96.0 %) 98.0 P-50 (Temp Corrected) N Carboxyhemoglobin (1.5 - 5.0 %) 0.3 L O2 Concentration % .40 Respiration Rate (BPM) 20 O2 Delivery Method VENT Vent Mode A/C Expiratory Pressure (CMH2O/P) 5 Tidal Volume (CC) 500 Coagulation APTT (25 - 37 SEC) 66 H Miscellaneous Phlebotomy Draw Site RIGHT BRACHIAL 08/03 08/02 0400 2200 Chemistry Sodium (137 - 145 mmol/L) 149 H Potassium (3.5 - 5.1 mmol/L) 4.1 Chloride (98 - 107 mmol/L) 106 Carbon Dioxide (22 - 30 mmol/L) 21 L Anion Gap (5 - 16) 22 H BUN (7 - 17 mg/dL) 102 *H Creatinine (0.5 - 1.0 mg/dL) 7.6 *H Estimated GFR (>60 ml/min) 5 L Glucose (65 - 99 mg/dL) 109 H Calcium (8.4 - 10.2 mg/dL) 7.8 L Phosphorus (2.5 - 4.5 mg/dL) 8.4 H Magnesium (1.6 - 2.3 mg/dL) 2.0 Total Bilirubin (0.2 - 1.3 mg/dL) 0.7 AST (14 - 36 U/L) 65 H ALT (9 - 52 U/L) 89 H Albumin (3.5 - 5.0 g/dL) 2.4 L Coagulation APTT (25 - 37 SEC) 64 H Hematology CBC w Diff MAN DIFF ORDERED WBC (4.8 - 10.8 /CUMM) 15.0 H RBC (4.20 - 5.40 /CUMM) 3.30 L Hgb (12.0 - 16.0 G/DL) 8.8 L Hct (37 - 47 %) 26.8 L MCV (81.0 - 99.0 FL) 81.3 MCH (27.0 - 31.0 PG) 26.5 L MCHC (33.0 - 37.0 G/DL) 32.6 L RDW (11.5 - 14.5 %) 19.3 H Plt Count (130 - 400 /CUMM) 352 MPV (7.4 - 10.4 FL) 7.5 Gran % (42.2 - 75.2 %) 86.5 H Lymphocytes % (20.5 - 51.1 %) 10.5 L Monocytes % (1.7 - 9.3 %) 2.8 Eosinophils % (0 - 5 %) 0 Basophils % (0.0 - 2.0 %) 0.2 Absolute Granulocytes (1.4 - 6.5 /CUMM) 13.0 H Segmented Neutrophils (42.2 - 75.2 %) 84 H Band Neutrophils (0.0 - 5.0 %) 5 Absolute Lymphocytes (1.2 - 3.4 /CUMM) 1.6 Lymphocytes (20.5 - 51.1 %) 9 L Monocytes (1.7 - 9.3 %) 2 Absolute Monocytes (0.10 - 0.60 /CUMM) 0.4 Absolute Eosinophils (0.0 - 0.7 /CUMM) 0 Absolute Basophils (0.0 - 0.2 /CUMM) 0 Platelet Estimate (ADEQUATE) ADEQUATE Polychromasia 1+ Anisocytosis 1+ Target Cells FEW Stomatocytes FEW [place] Cells RARE Elliptocytes 1+ Serology Hep Bs Antigen (NONREACTIVE) NONREACTIVE Hep Bs Antibody (NONREACTIVE) NONREACTIVE Impression/Plan Impression/Problem List Impression: This is 62-year-old female with a medical history of stage 5 CKD(nephrotic proteinuria, diabetic nephropathy and retinopathy) with left AV fistula placed couple month ago(still making urine), currently not on hemodialysis, has only one kidney since childhood. 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 Presented to the emergency department via EMS due to unresponsiveness. Patient is admitted to the ICU for management of the following: Respiratory: Acute hypoxic respiratory failure 2/2 to aspiration pneumonia on mechanical ventilation: Patient continues to remain on mechanical ventilation. Oxygen requirement continues to improve with decreased FiO2. Patient's remains unresponsive off sedation. - continue mechanical ventilation - ativan 1mg q4h PRN for agitation - Repeat ABG and chest x-ray in a.m. Infection: Aspiration Pneumonia: Patient continues to be tachycardic, febrile with elevated leukocytosis which is downtrending on IV Unasyn. No growth on cultures thus far. Repeat chest xray shows persistent bilateral airspace opacities with largest area of consolidation in the right upper lobe. Patient remains on ventilatory support. CT Chest showing lobulated mass in the right upper lobe medially is not significantly changed in size. There are now patchy areas of ground glass opacification nodularity in both lungs, which may be consistent with multifocal pneumonic infiltrates. - continue IV Unasyn - continue to monitor CBCs, vitals - Follow-up blood cultures, sputum culture - ID on board. Appreciate recommendations. Cardiac: Status post cardiac arrest in the ED New right bundle branch block, wide QRS tachycardia NSTEMI- likely 2/2 to demand ischemia Patient's troponin's peaked to 4.20. Patient remains unresponsive on mechanical ventilator. Patient's heparin was temporarily stopped on 08/02 due to concerns of bleeding from tinsley site. Patient was seen by cardiology. H/H was stable and patient's heparin was shortly after on 08/02. - continue IV heparin - continue aspirin and statin Heme: Anemia Patient has a history of chronic anemia. Patient had bleeding in the tinsley and around the tinsley site. H/H was monitored with no acute drop. - continue to monitor H/H Metabolic: Type 1 Diabetes - on Insulin Pump Patient initially presented with hypoglycemia w/ BG of 27. Patients BG over the past 24 hours was in the high 200s to high 300s. - Endocrinology on board. Appreciate recommendations - Decreased levemir to 12 units BID - Insulin SS adjusted per endocrinology recommendations - Target BG per endocrinology: FSG of 100 to 200. Adrenal Insufficiency. Patient is on chronic prednisone for interstitital nephritis. - Stress dose steroids with IV hydrocortisone 25mg IV BID Metabolic acidosis with elevated anion gap and lactic acidosis - Resolved Patient's anion gap is down from previous day. Lactic acid was previously fluctuating however is now downtrending. Patient was previously getting IV Bicarb. Alimentary: Patient is currently NPO due to intubation. Nutrition consulted today. Patient started on Nepro Tube Feeds. Fluids are being given cautiously due to ECHO showing LVEF of 30%. Neurology: Unresponsiveness - likely multifactorial at this point. Initially secondary to severe hypoglycemia. Patient likely had a seizure prior to arrival as she was found to have urinary and bladder incontinence and had an elevated prolactin level on admission. Patient was also found to have vomitted and aspirated. In the ED on day of admision patient had a cardiac arrest for approximately 10 minutes. Patient had a head CT on admission which was nondiagnostic due to motion artifact. Repeat CT on 08/03 showed extensive loss of benito-white matter differentiation primarily involving the basal ganglia, right insular cortex, and both temporal lobes. These findings are consistent with hypoxic ischemic injury. No acute hemorrhage. - neurology is on board. appreciate recommendations - continue neurochecks - continue to watch off sedation - continue aspiration protocol - continue aspirin - continue to monitor and replete electrolytes Nephrology: ESRD w/left sided AV fistula: Patient has a history of ESRD with biopsy showing chronic intersitial nephritis and diabetic nephropathy. Patient was placed on a course of steroids which were tapered off. Patient has been evaluated by nephrology today. IV Bicarb was discontinued. - patient is to go for dialysis tomorrow. Spoke to Dr. Lucero, patient's fistula will be used. - continue to monitor electrolytes - continue to monitor I/O - nephrology consulted. appreciate recommendations Urology: Urethral stricture. Nursing was unable to placed tinsley. Urology was consulted and placed a 16 ugandan tinsley after urethral dilation. Patient's tinsley appears to be obstructed today with what appears to be clotted frothy blood in the bag and area around the tinsley with bleeding and showing leakage. Irrigation on 08/02 did not improve the patency of the tinsley. The tinsley was removed this morning by urology. This afternoon patient's PVR >500. Dr. Lim was contacted. - Tinsley placement per urology - PVR qshift DVT PPx: On IV Heparin Code: Full code Problem List: 1. Hypoxic brain injury 2. NSTEMI (non-ST elevated myocardial infarction) 3. End stage renal disease Pain Ratin Tomorrow's Labs & Rationales: cbc bep abg Plan DVT/Prophylaxis: mechanical, pharmacological Hector Barajas MD 08/03/17 1043: Attending MD Review Statement Attending Sign Off Attending Cosign Statement: I have: examined this patient, reviewed avalbl EMR data, personally reviewd images, discussd w/resident/PA/REAL ESTATE ACQUISITION ANALYST, discussed mgmt plan w/[place], discussed mgmt plan w/CM, discussed mgmt plan w/pt, agreed w/resident/PA/REAL ESTATE ACQUISITION ANALYST, amended to note. Other Findings: Impression 62 year old woman s/p asystolic arrest, likely/presumed secondary to insulin overdose resulting in hypolglycemia CKD unresponsiveness hypoxemic respiratory failure lung nodule s/p non diagnostic biopsy leukocytosis with likely aspiration Plan Respiratory -mechanical ventilation to be continued -lung nodule was non-diagnositic, ct chest without contrast today ID -f/u ID, unsayn for now CVS -monitor hemodynamics -f/u cardiology recs Heme -f/u cbc, coags Metabolic -f/u endocrine/renal recs -monitor ins/outs -monitor electrolytes -plan for HD per nephrology Alimentary -begin nepro tube feeds -finger sticks Neuro -neurology appreciated -ct head today DVT prophylaxis at all times TTS 40 min Family at bedside, discussed system based problem list and treatment plan
--- NOTE | 2017-08-03 06:58 | RADIOLOGY REPORT ---
EXAMINATION: XR PORTABLE CHEST CLINICAL INFORMATION: Intubation. COMPARISON: Chest x-ray August 02, 2017 TECHNIQUE: Portable frontal view of the chest was obtained. 6:02 AM FINDINGS: Endotracheal tube about 4 cm above the vazquez. Nasogastric tube in stomach. Lung apices not included in exam. There is a patchy density in the right upper lobe. The left lung is now clear. No pleural effusion. There is no significant pulmonary vascular congestion. IMPRESSION: 1. Endotracheal tube about 47 is above vazquez. 2. Nasogastric tube in stomach. 3. Patchy infiltrate right upper lobe. Left lung is now clear.
--- NOTE | 2017-08-03 07:16 | PN- Nephrology ---
Assessment/Plan Nephrology Assessment: ADRIAN on CKD 5. Pt would need dialysis soon in any case but given oligoanuria and intubation we should start dialysis soon. I discussed this with her and son who are with her today. I will begin dialysis tomorrow and plan dialysis /Tuesday/Tuesday this week. Please check with the lab and make sure hepatitis B S Ag has been sent and run and please place a hard copy in her chart of this result for the dialysis nurse. Thanks Jamar Lucero MD Suggestion: . Subjective Subjective: Pt remains intubated. Remains oligoanuric. Objective Vital Signs and I&Os \ F intubated 100.4 106 144/68 Lungs clear Cor RRR Abd soft Ext neg edema AVF pos thrill Results Pertinent Lab Results: 7.43/30/147 149 / 106 / 102 / 4.1 / 22 / 7.6 ]
--- NOTE | 2017-08-03 07:46 | PN- Urology ---
Subjective Subjective: Remains intubated Objective Vital Signs and I&Os Vital Signs Date Time Temp Pulse Resp B/P B/P Pulse O2 O2 Flow FiO2 Mean Ox Delivery Rate 08/03 0644 40 08/03 0400 98 Ventilator 40% 08/03 0301 40 08/03 0046 40 08/03 0000 100.4 106 20 144/68 98 Ventilator 40% 08/03 0000 98 Ventilator 40% 08/02 2233 40 08/02 2000 99 Ventilator 40% 08/02 1930 40 08/02 1600 98.8 98 20 126/60 98 Ventilator 40% 08/02 1600 98 Ventilator 40% 08/02 1540 40 08/02 1412 40 08/02 1200 96 Ventilator 40% 08/02 1149 40 08/02 0839 40 08/02 0800 100.8 92 30 118/60 98 Ventilator 65% 08/02 0800 98 Ventilator 65% Intake & Output 08/03 0800 08/03 0000 08/02 1600 08/02 0800 08/02 0000 08/01 1600 Intake Total 175 023 792 7036 1455 1250 Output Total 32 20 3 Balance 175 835 695 2211 1435 1247 Intake, IV 175 182 162 0387 1455 1250 Output, Urine 32 20 3 Patient 169 lb 170 lb 160 lb Weight Weight Bed scale Estimated Measurement Method Abd: soft and non tender. Bladder not palpable Genitalia: tinsley in place. No drainage over last 24 hours Patient was noted to void around tinsley. PVR by bladder scan is 214 Laboratory Tests 08/03 08/03 0620 0400 Blood Gas pH (7.35 - 7.45 PH) 7.43 pCO2 (35 - 45 TORR) 30 L pO2 (80 - 100 TORR) 147 H HCO3 (21 - 28 MEQ/L) 19 L ABG O2 Sat (Measured) (>96.0 %) 98.0 P-50 (Temp Corrected) N Carboxyhemoglobin (1.5 - 5.0 %) 0.3 L O2 Concentration % .40 Respiration Rate (BPM) 20 O2 Delivery Method VENT Vent Mode A/C Expiratory Pressure (CMH2O/P) 5 Tidal Volume (CC) 500 Chemistry Sodium (137 - 145 mmol/L) 149 H Potassium (3.5 - 5.1 mmol/L) 4.1 Chloride (98 - 107 mmol/L) 106 Carbon Dioxide (22 - 30 mmol/L) 21 L Anion Gap (5 - 16) 22 H BUN (7 - 17 mg/dL) 102 *H Creatinine (0.5 - 1.0 mg/dL) 7.6 *H Estimated GFR (>60 ml/min) 5 L Glucose (65 - 99 mg/dL) 109 H Calcium (8.4 - 10.2 mg/dL) 7.8 L Phosphorus (2.5 - 4.5 mg/dL) 8.4 H Magnesium (1.6 - 2.3 mg/dL) 2.0 Total Bilirubin (0.2 - 1.3 mg/dL) 0.7 AST (14 - 36 U/L) 65 H ALT (9 - 52 U/L) 89 H Albumin (3.5 - 5.0 g/dL) 2.4 L Hematology CBC w Diff MAN DIFF ORDERED WBC (4.8 - 10.8 /CUMM) 15.0 H RBC (4.20 - 5.40 /CUMM) 3.30 L Hgb (12.0 - 16.0 G/DL) 8.8 L Hct (37 - 47 %) 26.8 L MCV (81.0 - 99.0 FL) 81.3 MCH (27.0 - 31.0 PG) 26.5 L MCHC (33.0 - 37.0 G/DL) 32.6 L RDW (11.5 - 14.5 %) 19.3 H Plt Count (130 - 400 /CUMM) 352 MPV (7.4 - 10.4 FL) 7.5 Gran % (42.2 - 75.2 %) 86.5 H Lymphocytes % (20.5 - 51.1 %) 10.5 L Monocytes % (1.7 - 9.3 %) 2.8 Eosinophils % (0 - 5 %) 0 Basophils % (0.0 - 2.0 %) 0.2 Absolute Granulocytes (1.4 - 6.5 /CUMM) 13.0 H Segmented Neutrophils (42.2 - 75.2 %) 84 H Band Neutrophils (0.0 - 5.0 %) 5 Absolute Lymphocytes (1.2 - 3.4 /CUMM) 1.6 Lymphocytes (20.5 - 51.1 %) 9 L Monocytes (1.7 - 9.3 %) 2 Absolute Monocytes (0.10 - 0.60 /CUMM) 0.4 Absolute Eosinophils (0.0 - 0.7 /CUMM) 0 Absolute Basophils (0.0 - 0.2 /CUMM) 0 Platelet Estimate (ADEQUATE) ADEQUATE Polychromasia 1+ Anisocytosis 1+ Target Cells FEW Stomatocytes FEW [place] Cells RARE Elliptocytes 1+ Miscellaneous Phlebotomy Draw Site RIGHT BRACHIAL Serology Hep Bs Antigen (NONREACTIVE) Pending Hep Bs Antibody (NONREACTIVE) Pending 08/02 08/02 08/02 2200 1445 1115 Chemistry Lactic Acid (0.7 - 2.1 mmol/L) 2.0 2.5 H Coagulation APTT (25 - 37 SEC) 64 H 39 H Hematology CBC w Diff MAN DIFF ORDERED WBC (4.8 - 10.8 /CUMM) 14.2 H RBC (4.20 - 5.40 /CUMM) 3.30 L Hgb (12.0 - 16.0 G/DL) 8.6 L Hct (37 - 47 %) 26.3 L MCV (81.0 - 99.0 FL) 79.5 L MCH (27.0 - 31.0 PG) 26.2 L MCHC (33.0 - 37.0 G/DL) 33.0 RDW (11.5 - 14.5 %) 18.7 H Plt Count (130 - 400 /CUMM) 338 MPV (7.4 - 10.4 FL) 7.1 L Gran % (42.2 - 75.2 %) 85.9 H Lymphocytes % (20.5 - 51.1 %) 10.7 L Monocytes % (1.7 - 9.3 %) 3.2 Eosinophils % (0 - 5 %) 0 Basophils % (0.0 - 2.0 %) 0.2 Absolute Granulocytes (1.4 - 6.5 /CUMM) 12.2 H Segmented Neutrophils (42.2 - 75.2 %) 82 H Band Neutrophils (0.0 - 5.0 %) 7 H Absolute Lymphocytes (1.2 - 3.4 /CUMM) 1.5 Lymphocytes (20.5 - 51.1 %) 8 L Monocytes (1.7 - 9.3 %) 3 Absolute Monocytes (0.10 - 0.60 /CUMM) 0.4 Absolute Eosinophils (0.0 - 0.7 /CUMM) 0 Absolute Basophils (0.0 - 0.2 /CUMM) 0 Platelet Estimate (ADEQUATE) ADEQUATE Polychromasia Hypochromic-Microcytic 1+ Anisocytosis 1+ Microcytic Cells 1+ 08/02 08/02 0835 0835 Chemistry Lactic Acid (0.7 - 2.1 mmol/L) 3.4 H Troponin I (< 0.11 ng/ml) 3.74 *H Assessment/Plan Assessment/Plan Imp: 1. Urethral stricture due to previous pelvic/urethral surgery 2. Acute kidney injury on CKD 3. Critically ill with questionable half-way neurologic status Plan: 1. Since tinsley is not draining and she voided around tinsley will remove tinsley 2. Check pvr by bladder scan q shift 3. If patient absolutely needs bladder drainage then she would have to go to OR for attempted cystoscopyic placement and if that failed suprapubic tube insertion
[2017-08-03 08:00] VITALS: BP 146/64
--- NOTE | 2017-08-03 09:45 | PN- Infect Dx ---
Subjective Subjective: MAXIMUM TEMPERATURE 100.8 on steroids. She remains unresponsive. Objective Last 24 Hrs of Vital Signs/I&O Vital Signs Date Time Temp Pulse Resp B/P B/P Pulse O2 O2 Flow FiO2 Mean Ox Delivery Rate 08/03 0809 30 08/03 0800 98.2 107 20 146/64 99 Ventilator 40% 08/03 0644 40 08/03 0400 98 Ventilator 40% 08/03 0301 40 08/03 0046 40 08/03 0000 100.4 106 20 144/68 98 Ventilator 40% 08/03 0000 98 Ventilator 40% 08/02 2233 40 08/02 2000 99 Ventilator 40% 08/02 1930 40 08/02 1600 98.8 98 20 126/60 98 Ventilator 40% 08/02 1600 98 Ventilator 40% 08/02 1540 40 08/02 1412 40 08/02 1200 96 Ventilator 40% 08/02 1149 40 Intake & Output 08/03 1600 08/03 0800 08/03 0000 Intake Total 175 400 Output Total Balance 175 400 Intake, IV 175 400 Physical Exam Other Physical Findings: She is unresponsive on the ventilator Lungs are clear Heart regular rhythm with no murmur Abdomen is soft, with positive bowel sounds Extremities right femoral triple lumen catheter remains in place; left upper extremity fistula with a positive bruit and thrill Results Last 24 Hours of Lab Results: Laboratory Tests 08/03 08/03 0620 0400 Blood Gas pH (7.35 - 7.45 PH) 7.43 pCO2 (35 - 45 TORR) 30 L pO2 (80 - 100 TORR) 147 H HCO3 (21 - 28 MEQ/L) 19 L ABG O2 Sat (Measured) (>96.0 %) 98.0 P-50 (Temp Corrected) N Carboxyhemoglobin (1.5 - 5.0 %) 0.3 L O2 Concentration % .40 Respiration Rate (BPM) 20 O2 Delivery Method VENT Vent Mode A/C Expiratory Pressure (CMH2O/P) 5 Tidal Volume (CC) 500 Chemistry Sodium (137 - 145 mmol/L) 149 H Potassium (3.5 - 5.1 mmol/L) 4.1 Chloride (98 - 107 mmol/L) 106 Carbon Dioxide (22 - 30 mmol/L) 21 L Anion Gap (5 - 16) 22 H BUN (7 - 17 mg/dL) 102 *H Creatinine (0.5 - 1.0 mg/dL) 7.6 *H Estimated GFR (>60 ml/min) 5 L Glucose (65 - 99 mg/dL) 109 H Calcium (8.4 - 10.2 mg/dL) 7.8 L Phosphorus (2.5 - 4.5 mg/dL) 8.4 H Magnesium (1.6 - 2.3 mg/dL) 2.0 Total Bilirubin (0.2 - 1.3 mg/dL) 0.7 AST (14 - 36 U/L) 65 H ALT (9 - 52 U/L) 89 H Albumin (3.5 - 5.0 g/dL) 2.4 L Hematology CBC w Diff MAN DIFF ORDERED WBC (4.8 - 10.8 /CUMM) 15.0 H RBC (4.20 - 5.40 /CUMM) 3.30 L Hgb (12.0 - 16.0 G/DL) 8.8 L Hct (37 - 47 %) 26.8 L MCV (81.0 - 99.0 FL) 81.3 MCH (27.0 - 31.0 PG) 26.5 L MCHC (33.0 - 37.0 G/DL) 32.6 L RDW (11.5 - 14.5 %) 19.3 H Plt Count (130 - 400 /CUMM) 352 MPV (7.4 - 10.4 FL) 7.5 Gran % (42.2 - 75.2 %) 86.5 H Lymphocytes % (20.5 - 51.1 %) 10.5 L Monocytes % (1.7 - 9.3 %) 2.8 Eosinophils % (0 - 5 %) 0 Basophils % (0.0 - 2.0 %) 0.2 Absolute Granulocytes (1.4 - 6.5 /CUMM) 13.0 H Segmented Neutrophils (42.2 - 75.2 %) 84 H Band Neutrophils (0.0 - 5.0 %) 5 Absolute Lymphocytes (1.2 - 3.4 /CUMM) 1.6 Lymphocytes (20.5 - 51.1 %) 9 L Monocytes (1.7 - 9.3 %) 2 Absolute Monocytes (0.10 - 0.60 /CUMM) 0.4 Absolute Eosinophils (0.0 - 0.7 /CUMM) 0 Absolute Basophils (0.0 - 0.2 /CUMM) 0 Platelet Estimate (ADEQUATE) ADEQUATE Polychromasia 1+ Anisocytosis 1+ Target Cells FEW Stomatocytes FEW [place] Cells RARE Elliptocytes 1+ Miscellaneous Phlebotomy Draw Site RIGHT BRACHIAL Serology Hep Bs Antigen (NONREACTIVE) Pending Hep Bs Antibody (NONREACTIVE) Pending 08/02 08/02 08/02 2200 1445 1115 Chemistry Lactic Acid (0.7 - 2.1 mmol/L) 2.0 2.5 H Coagulation APTT (25 - 37 SEC) 64 H 39 H Hematology CBC w Diff MAN DIFF ORDERED WBC (4.8 - 10.8 /CUMM) 14.2 H RBC (4.20 - 5.40 /CUMM) 3.30 L Hgb (12.0 - 16.0 G/DL) 8.6 L Hct (37 - 47 %) 26.3 L MCV (81.0 - 99.0 FL) 79.5 L MCH (27.0 - 31.0 PG) 26.2 L MCHC (33.0 - 37.0 G/DL) 33.0 RDW (11.5 - 14.5 %) 18.7 H Plt Count (130 - 400 /CUMM) 338 MPV (7.4 - 10.4 FL) 7.1 L Gran % (42.2 - 75.2 %) 85.9 H Lymphocytes % (20.5 - 51.1 %) 10.7 L Monocytes % (1.7 - 9.3 %) 3.2 Eosinophils % (0 - 5 %) 0 Basophils % (0.0 - 2.0 %) 0.2 Absolute Granulocytes (1.4 - 6.5 /CUMM) 12.2 H Segmented Neutrophils (42.2 - 75.2 %) 82 H Band Neutrophils (0.0 - 5.0 %) 7 H Absolute Lymphocytes (1.2 - 3.4 /CUMM) 1.5 Lymphocytes (20.5 - 51.1 %) 8 L Monocytes (1.7 - 9.3 %) 3 Absolute Monocytes (0.10 - 0.60 /CUMM) 0.4 Absolute Eosinophils (0.0 - 0.7 /CUMM) 0 Absolute Basophils (0.0 - 0.2 /CUMM) 0 Platelet Estimate (ADEQUATE) ADEQUATE Polychromasia Hypochromic-Microcytic 1+ Anisocytosis 1+ Microcytic Cells 1+ Last 24 Hours of Charli Results: Blood cultures August 01/August 02 negative Sputum culture August 01 mixed naeem Urine culture August 01 negative Recent Imaging Studies: Chest x-ray August 03 no change in the chronic right upper lobe density, with lungs otherwise clear Assessment/Plan ID Impression: Condition remains poor, unresponsive since a cardiac arrest on admission, off sedation. She remains febrile, of unclear etiology, with a leukocytosis, which may be secondary to the steroids, which have been continued for interstitial nephritis diagnosed several months prior to admission. She remains on Unasyn Day 3 of treatment for possible aspiration pneumonia, with overall improvement in her respiratory status, with her chest x-ray negative for any new consolidation and with her sputum culture only growing mixed naeem. She is tentatively scheduled for dialysis tomorrow. Suggestion: 1. Further evaluation of her neurologic status per Neurology 2. Await dialysis, tentatively scheduled for the a.m. 3. Remove right femoral triple lumen catheter 4. Continue Unasyn
--- NOTE | 2017-08-03 10:00 | PN- Neurology ---
Subjective Subjective: Admitted after being found unresponsive, duration unclear, with a blood glucose in the 20s. She subsequently had an asystole arrest requiring approximately 15 minutes of resuscitative efforts. On steroids, which have been continued for interstitial nephritis diagnosed several months prior to admission. She remains on Unasyn Day 3 of treatment for possible aspiration pneumonia. Acute on chronic kidney failure, to be dialyzed today. Remains intubated, off sedatives Objective Vital Signs and I&Os Vital Signs Date Time Temp Pulse Resp B/P B/P Pulse O2 O2 Flow FiO2 Mean Ox Delivery Rate 08/03 0809 30 08/03 0800 98.2 107 20 146/64 99 Ventilator 40% 08/03 0800 99 Ventilator 40% 08/03 0644 40 08/03 0400 98 Ventilator 40% 08/03 0301 40 08/03 0046 40 08/03 0000 100.4 106 20 144/68 98 Ventilator 40% 08/03 0000 98 Ventilator 40% 08/02 2233 40 08/02 2000 99 Ventilator 40% 08/02 1930 40 08/02 1600 98.8 98 20 126/60 98 Ventilator 40% 08/02 1600 98 Ventilator 40% 08/02 1540 40 08/02 1412 40 08/02 1200 96 Ventilator 40% 08/02 1149 40 Intake & Output 08/03 1600 08/03 0800 08/03 0000 08/02 1600 08/02 0800 08/02 0000 Intake Total 175 649 418 6561 1455 Output Total 32 20 Balance 175 373 064 9498 1435 Intake, IV 175 629 611 9046 1455 Output, Urine 32 20 Patient 169 lb 170 lb Weight Weight Bed scale Measurement Method Physical Exam: Intubated, eyes closed No response to verbal stimuli Follows no commands To sternal rub, there is decerebrate posturing and grimacing With nailbed pressure to the hands, there is decerebrate posturing With nailbed pressure to the toes, there is flexion withdrawal, reflexive versus semi-purposeful Gag reflex present Corneal reflexes present Oculocephalics intact Pupils equal and round, sluggishly reactive to light Current Medications: Current Medications Sig/Makayla Start time Last Medication Dose Route Stop Time Status Admin Acetaminophen 1,000 MG Q6P PRN 08/01 1445 AC 08/02 IV 0551 Ampicillin Sodium/ 3,000 MG Q12 08/01 1730 AC 08/02 Sulbactam Sodium IV 2146 Sodium Chloride 100 ML Aspirin 81 MG DAILY 08/03 1000 AC PO Atorvastatin Calcium 40 MG 1700 08/03 1700 AC PO Heparin Sodium 5,000 UNIT .STK-MED ONE 08/02 1528 DC (Porcine) IV 08/02 1529 Heparin Sodium 25,000 UNIT Q24H 08/01 1730 AC 08/02 (Porcine) IV 2241 Sodium Chloride 500 ML Hydrocortisone 25 MG BID 08/02 1000 AC 08/02 Sodium Succinate IV 2147 Insulin Aspart 0 Q4 08/01 2200 AC 08/03 SC 0217 Insulin Detemir 14 UNITS BID 08/03 1000 AC SC Insulin Detemir 16 UNITS BID 08/02 1000 DC 08/02 SC 2146 Levothyroxine Sodium 25 MCG DAILY 08/02 1000 AC 08/02 IV 1022 Lorazepam 1 MG Q4P PRN 08/02 1400 AC IV Magnesium Citrate 300 ML ONE ONE 08/02 1615 CAN PO 08/02 1616 Magnesium Sulfate 1 GM ONCE ONE 08/02 1645 DC 08/02 Dextrose/Water 100 ML IV 08/02 2044 1720 Norepinephrine 8 MG Q24H 08/02 0600 DC Sodium Chloride 250 ML IV Pantoprazole Sodium 40 MG DAILY 08/01 1730 AC 08/02 IV 1018 Propofol 1,000 MG CONTINOUS INFUSION 08/02 0030 DC 08/02 N/A 1 UNIT IV 0030 Scopolamine HBr 1 PAT Q72H PRN 08/02 1600 AC 08/02 TOP 1640 Sodium Bicarbonate 150 MEQ Q10H 08/02 0300 DC 08/02 Dextrose/Water 1,000 ML IV 0325 Results Last 24 Hours of Lab Results: Laboratory Tests 08/03 08/03 0620 0400 Blood Gas pH (7.35 - 7.45 PH) 7.43 pCO2 (35 - 45 TORR) 30 L pO2 (80 - 100 TORR) 147 H HCO3 (21 - 28 MEQ/L) 19 L ABG O2 Sat (Measured) (>96.0 %) 98.0 P-50 (Temp Corrected) N Carboxyhemoglobin (1.5 - 5.0 %) 0.3 L O2 Concentration % .40 Respiration Rate (BPM) 20 O2 Delivery Method VENT Vent Mode A/C Expiratory Pressure (CMH2O/P) 5 Tidal Volume (CC) 500 Chemistry Sodium (137 - 145 mmol/L) 149 H Potassium (3.5 - 5.1 mmol/L) 4.1 Chloride (98 - 107 mmol/L) 106 Carbon Dioxide (22 - 30 mmol/L) 21 L Anion Gap (5 - 16) 22 H BUN (7 - 17 mg/dL) 102 *H Creatinine (0.5 - 1.0 mg/dL) 7.6 *H Estimated GFR (>60 ml/min) 5 L Glucose (65 - 99 mg/dL) 109 H Calcium (8.4 - 10.2 mg/dL) 7.8 L Phosphorus (2.5 - 4.5 mg/dL) 8.4 H Magnesium (1.6 - 2.3 mg/dL) 2.0 Total Bilirubin (0.2 - 1.3 mg/dL) 0.7 AST (14 - 36 U/L) 65 H ALT (9 - 52 U/L) 89 H Albumin (3.5 - 5.0 g/dL) 2.4 L Hematology CBC w Diff MAN DIFF ORDERED WBC (4.8 - 10.8 /CUMM) 15.0 H RBC (4.20 - 5.40 /CUMM) 3.30 L Hgb (12.0 - 16.0 G/DL) 8.8 L Hct (37 - 47 %) 26.8 L MCV (81.0 - 99.0 FL) 81.3 MCH (27.0 - 31.0 PG) 26.5 L MCHC (33.0 - 37.0 G/DL) 32.6 L RDW (11.5 - 14.5 %) 19.3 H Plt Count (130 - 400 /CUMM) 352 MPV (7.4 - 10.4 FL) 7.5 Gran % (42.2 - 75.2 %) 86.5 H Lymphocytes % (20.5 - 51.1 %) 10.5 L Monocytes % (1.7 - 9.3 %) 2.8 Eosinophils % (0 - 5 %) 0 Basophils % (0.0 - 2.0 %) 0.2 Absolute Granulocytes (1.4 - 6.5 /CUMM) 13.0 H Segmented Neutrophils (42.2 - 75.2 %) 84 H Band Neutrophils (0.0 - 5.0 %) 5 Absolute Lymphocytes (1.2 - 3.4 /CUMM) 1.6 Lymphocytes (20.5 - 51.1 %) 9 L Monocytes (1.7 - 9.3 %) 2 Absolute Monocytes (0.10 - 0.60 /CUMM) 0.4 Absolute Eosinophils (0.0 - 0.7 /CUMM) 0 Absolute Basophils (0.0 - 0.2 /CUMM) 0 Platelet Estimate (ADEQUATE) ADEQUATE Polychromasia 1+ Anisocytosis 1+ Target Cells FEW Stomatocytes FEW [place] Cells RARE Elliptocytes 1+ Miscellaneous Phlebotomy Draw Site RIGHT BRACHIAL Serology Hep Bs Antigen (NONREACTIVE) Pending Hep Bs Antibody (NONREACTIVE) Pending 08/02 08/02 08/02 2200 1445 1115 Chemistry Lactic Acid (0.7 - 2.1 mmol/L) 2.0 2.5 H Coagulation APTT (25 - 37 SEC) 64 H 39 H Hematology CBC w Diff MAN DIFF ORDERED WBC (4.8 - 10.8 /CUMM) 14.2 H RBC (4.20 - 5.40 /CUMM) 3.30 L Hgb (12.0 - 16.0 G/DL) 8.6 L Hct (37 - 47 %) 26.3 L MCV (81.0 - 99.0 FL) 79.5 L MCH (27.0 - 31.0 PG) 26.2 L MCHC (33.0 - 37.0 G/DL) 33.0 RDW (11.5 - 14.5 %) 18.7 H Plt Count (130 - 400 /CUMM) 338 MPV (7.4 - 10.4 FL) 7.1 L Gran % (42.2 - 75.2 %) 85.9 H Lymphocytes % (20.5 - 51.1 %) 10.7 L Monocytes % (1.7 - 9.3 %) 3.2 Eosinophils % (0 - 5 %) 0 Basophils % (0.0 - 2.0 %) 0.2 Absolute Granulocytes (1.4 - 6.5 /CUMM) 12.2 H Segmented Neutrophils (42.2 - 75.2 %) 82 H Band Neutrophils (0.0 - 5.0 %) 7 H Absolute Lymphocytes (1.2 - 3.4 /CUMM) 1.5 Lymphocytes (20.5 - 51.1 %) 8 L Monocytes (1.7 - 9.3 %) 3 Absolute Monocytes (0.10 - 0.60 /CUMM) 0.4 Absolute Eosinophils (0.0 - 0.7 /CUMM) 0 Absolute Basophils (0.0 - 0.2 /CUMM) 0 Platelet Estimate (ADEQUATE) ADEQUATE Polychromasia Hypochromic-Microcytic 1+ Anisocytosis 1+ Microcytic Cells 1+ Recent Imaging Studies: Head CT today FINDINGS: There is relatively extensive loss of benito-white matter differentiation primarily involving the basal ganglia, right insular cortex, and both temporal lobes. There is some preservation of benito-white matter differentiation for instance within the interhemispheric fissure near the vertex, both frontal lobes, and left insular cortex. Cytotoxic edema causes regional sulcal effacement. No midline shift or hydrocephalus. There is no acute intracranial hemorrhage and no abnormal extra-axial collection. The calvarium and skull base are intact. There is a trace right mastoid tip effusion. Moderate to severe paranasal sinus disease. IMPRESSION: There is relatively extensive loss of benito-white matter differentiation primarily involving the basal ganglia, right insular cortex, and both temporal lobes. These findings are consistent with hypoxic ischemic injury. No acute hemorrhage. DICTATED BY: Jamar Sheppard MD DATE/TIME DICTATED:08/03/171124 IMPRESSION: Nondiagnostic CT of the head secondary to significant streak/motion artifact despite repeating the acquisition. I cannot exclude infarcts nor hemorrhage on this study. DICTATED BY: Anatoly Lambert MD DATE/TIME DICTATED:08/01/171251 Assessment/Plan Assessment: Severe encephalopathy, multifactorial (anoxic and metabolic) Neuro exam slightly improved compared to previous, Though prognosis is guarded to poor at this time Plan: Discussed with the family and the ICU team Supportive care to be continued for now Continue neuro checks and keep the patient off of sedating medications
--- NOTE | 2017-08-03 11:37 | CT SCAN REPORT ---
EXAMINATION: CT HEAD WITHOUT CONTRAST CLINICAL INFORMATION: Unresponsiveness. Evaluate for hemorrhage or hypoxic brain injury. Stroke. COMPARISON: CT scan of the head 08/01/2017. TECHNIQUE: Contiguous axial imaging was performed from the skull base to vertex without intravenous administration of contrast. DLP: 610.91 mGy-cm FINDINGS: There is relatively extensive loss of benito-white matter differentiation primarily involving the basal ganglia, right insular cortex, and both temporal lobes. There is some preservation of benito-white matter differentiation for instance within the interhemispheric fissure near the vertex, both frontal lobes, and left insular cortex. Cytotoxic edema causes regional sulcal effacement. No midline shift or hydrocephalus. There is no acute intracranial hemorrhage and no abnormal extra-axial collection. The calvarium and skull base are intact. There is a trace right mastoid tip effusion. Moderate to severe paranasal sinus disease. IMPRESSION: There is relatively extensive loss of benito-white matter differentiation primarily involving the basal ganglia, right insular cortex, and both temporal lobes. These findings are consistent with hypoxic ischemic injury. No acute hemorrhage.
[2017-08-03 12:03] LABS: PTT 66 SEC (25-37)
--- NOTE | 2017-08-03 13:49 | CT SCAN REPORT ---
EXAMINATION: CT CHEST WITHOUT CONTRAST CLINICAL INFORMATION: Lung mass. COMPARISON: Chest x-rays earlier 08/03/2017 and 08/02/2017. CT scan of the chest 06/03/2017. TECHNIQUE: Multidetector volumetric CT imaging of the chest was done. Axial MIP volume rendering provided. Sagittal and coronal reformatted images were obtained. DLP: 485.4 mGy-cm FINDINGS: BARK GRINDER: There are partially visualized enteric and endotracheal tubes. There is hazy opacity in the right upper zone medially. LUNGS: The study redemonstrates the lobulated relatively well-defined mass in the right upper lobe medially abutting the superior mediastinum which measures 3.9 x 2.5 cm which is not significantly changed compared to prior imaging taking differences in slice selection into account. There are now multiple new patchy areas of groundglass opacification with some nodularity in the right upper lobe posteriorly, in the superior segments of the lower lobes bilaterally with areas of more confluent opacification in the left lower lobe. MEDIASTINUM: The central airways are patent. The thyroid gland has heterogenous density with an area of low attenuation in the left lobe. There is no hilar or mediastinal lymphadenopathy. As described above there are endotracheal and enteric tubes in position. The heart is normal in size. There is no pericardial effusion. There are mild atheromatous calcifications of the coronary arteries. PLEURA: There is no pleural effusion. No pleural mass or thickening. AXILLA: There is no axillary lymphadenopathy. There are no masses in the chest wall. There are areas of edema in the lateral chest goddard bilaterally. UPPER ABDOMEN: The patient is status post cholecystectomy. The visualized right kidney appears atrophic. The adrenal glands are not enlarged. OSSEOUS STRUCTURES: There are multilevel spondylitic changes in the thoracic spine with narrowing of intervertebral disc height and marginal osteophytes. IMPRESSION: 1. The lobulated mass in the right upper lobe medially is not significantly changed in size. 2. There are now patchy areas of ground glass opacification nodularity in both lungs, which may be consistent with multifocal pneumonic infiltrates.
--- NOTE | 2017-08-03 14:23 | PN- Diabetes ---
Assessment/Plan Diabetes Assessment: 62 y/o female hx of longstanding DM type 1, chronic renal disease due to diabetes and chronic interstitual nephritis and was treated with a couse of steroid. Patient was found to be unresponsive with glucose level was in the 20s. Blood work in ER showed inappropriately elevated insulin level. Her severe hypoglycemia most likely was due to insulin overdose. She received hydrocortisone 100 mg iv in ER. Patient was intubated. She was on D10 w and pressor. Now her BP and glucose level improved and she has been off on D10 w and pressor. According to her insulin pump-- [employer]onic 630 G-- her basal insulin 36.75 units per 24 hours. Currently she is on Levemir 16 units twice a day and Novolog coveage every 4 hours. Her FSGs were 102, 114, 132 and 109. In addition, she was put on Levothyroxine 25 mcg iv daily. Plan: 1. decrease Levemir to 12 units twice a day; 2. adjust Novolog coverage every 4 hours; detail see the inpatient DM order; 3. monitor FSGs and electrolytes. 4. continue hydrocortisone 25 mg iv twice a day for now. will follow. Inpatient Diabetes Orders Every 4 Hours: Bolus Insulin: Novolog < 80 mg/dl: no coverage 80-100 mg/dl: no coverage 101-120 mg/dl: no coverage 121-150 mg/dl: no coverage 151-200 mg/dl: 2 units 201-250 mg/dl: 4 units 251-300 mg/dl: 6 units 301-350 mg/dl: 8 units 351-400 mg/dl: 10 units > 400 mg/dl: 12 units Subjective Subjective: Patient remains intubated. Objective Last 24 Hrs of Vital Signs/I&O Vital Signs Date Time Temp Pulse Resp B/P B/P Pulse O2 O2 Flow FiO2 Mean Ox Delivery Rate 08/03 1200 96 Ventilator 30% 08/03 1138 30 08/03 0809 30 08/03 0800 98.2 107 20 146/64 99 Ventilator 40% 08/03 0800 99 Ventilator 40% 08/03 0644 40 08/03 0400 98 Ventilator 40% 08/03 0301 40 08/03 0046 40 08/03 0000 100.4 106 20 144/68 98 Ventilator 40% 08/03 0000 98 Ventilator 40% 08/02 2233 40 03/20 2000 99 Ventilator 40% 08/02 1930 40 08/02 1600 98.8 98 20 126/60 98 Ventilator 40% 08/02 1600 98 Ventilator 40% 08/02 1540 40 Intake & Output 08/03 1600 08/03 0800 08/03 0000 Intake Total 175 400 Output Total Balance 175 400 Intake, IV 175 400 Patient 169 lb Weight Findings Pertinent Lab/Charli Results: Laboratory Tests 08/03 08/03 1005 0620 Blood Gas pH (7.35 - 7.45 PH) 7.43 pCO2 (35 - 45 TORR) 30 L pO2 (80 - 100 TORR) 147 H HCO3 (21 - 28 MEQ/L) 19 L ABG O2 Sat (Measured) (>96.0 %) 98.0 P-50 (Temp Corrected) N Carboxyhemoglobin (1.5 - 5.0 %) 0.3 L O2 Concentration % .40 Respiration Rate (BPM) 20 O2 Delivery Method VENT Vent Mode A/C Expiratory Pressure (CMH2O/P) 5 Tidal Volume (CC) 500 Coagulation APTT (25 - 37 SEC) 66 H Miscellaneous Phlebotomy Draw Site RIGHT BRACHIAL 08/03 08/02 0400 2200 Chemistry Sodium (137 - 145 mmol/L) 149 H Potassium (3.5 - 5.1 mmol/L) 4.1 Chloride (98 - 107 mmol/L) 106 Carbon Dioxide (22 - 30 mmol/L) 21 L Anion Gap (5 - 16) 22 H BUN (7 - 17 mg/dL) 102 *H Creatinine (0.5 - 1.0 mg/dL) 7.6 *H Estimated GFR (>60 ml/min) 5 L Glucose (65 - 99 mg/dL) 109 H Calcium (8.4 - 10.2 mg/dL) 7.8 L Phosphorus (2.5 - 4.5 mg/dL) 8.4 H Magnesium (1.6 - 2.3 mg/dL) 2.0 Total Bilirubin (0.2 - 1.3 mg/dL) 0.7 AST (14 - 36 U/L) 65 H ALT (9 - 52 U/L) 89 H Albumin (3.5 - 5.0 g/dL) 2.4 L Coagulation APTT (25 - 37 SEC) 64 H Hematology CBC w Diff MAN DIFF ORDERED WBC (4.8 - 10.8 /CUMM) 15.0 H RBC (4.20 - 5.40 /CUMM) 3.30 L Hgb (12.0 - 16.0 G/DL) 8.8 L Hct (37 - 47 %) 26.8 L MCV (81.0 - 99.0 FL) 81.3 MCH (27.0 - 31.0 PG) 26.5 L MCHC (33.0 - 37.0 G/DL) 32.6 L RDW (11.5 - 14.5 %) 19.3 H Plt Count (130 - 400 /CUMM) 352 MPV (7.4 - 10.4 FL) 7.5 Gran % (42.2 - 75.2 %) 86.5 H Lymphocytes % (20.5 - 51.1 %) 10.5 L Monocytes % (1.7 - 9.3 %) 2.8 Eosinophils % (0 - 5 %) 0 Basophils % (0.0 - 2.0 %) 0.2 Absolute Granulocytes (1.4 - 6.5 /CUMM) 13.0 H Segmented Neutrophils (42.2 - 75.2 %) 84 H Band Neutrophils (0.0 - 5.0 %) 5 Absolute Lymphocytes (1.2 - 3.4 /CUMM) 1.6 Lymphocytes (20.5 - 51.1 %) 9 L Monocytes (1.7 - 9.3 %) 2 Absolute Monocytes (0.10 - 0.60 /CUMM) 0.4 Absolute Eosinophils (0.0 - 0.7 /CUMM) 0 Absolute Basophils (0.0 - 0.2 /CUMM) 0 Platelet Estimate (ADEQUATE) ADEQUATE Polychromasia 1+ Anisocytosis 1+ Target Cells FEW Stomatocytes FEW [place] Cells RARE Elliptocytes 1+ Serology Hep Bs Antigen (NONREACTIVE) NONREACTIVE Hep Bs Antibody (NONREACTIVE) NONREACTIVE 08/02 1445 Chemistry Lactic Acid (0.7 - 2.1 mmol/L) 2.0 Coagulation APTT (25 - 37 SEC) 39 H Hematology CBC w Diff MAN DIFF ORDERED WBC (4.8 - 10.8 /CUMM) 14.2 H RBC (4.20 - 5.40 /CUMM) 3.30 L Hgb (12.0 - 16.0 G/DL) 8.6 L Hct (37 - 47 %) 26.3 L MCV (81.0 - 99.0 FL) 79.5 L MCH (27.0 - 31.0 PG) 26.2 L MCHC (33.0 - 37.0 G/DL) 33.0 RDW (11.5 - 14.5 %) 18.7 H Plt Count (130 - 400 /CUMM) 338 MPV (7.4 - 10.4 FL) 7.1 L Gran % (42.2 - 75.2 %) 85.9 H Lymphocytes % (20.5 - 51.1 %) 10.7 L Monocytes % (1.7 - 9.3 %) 3.2 Eosinophils % (0 - 5 %) 0 Basophils % (0.0 - 2.0 %) 0.2 Absolute Granulocytes (1.4 - 6.5 /CUMM) 12.2 H Segmented Neutrophils (42.2 - 75.2 %) 82 H Band Neutrophils (0.0 - 5.0 %) 7 H Absolute Lymphocytes (1.2 - 3.4 /CUMM) 1.5 Lymphocytes (20.5 - 51.1 %) 8 L Monocytes (1.7 - 9.3 %) 3 Absolute Monocytes (0.10 - 0.60 /CUMM) 0.4 Absolute Eosinophils (0.0 - 0.7 /CUMM) 0 Absolute Basophils (0.0 - 0.2 /CUMM) 0 Platelet Estimate (ADEQUATE) ADEQUATE Polychromasia Hypochromic-Microcytic 1+ Anisocytosis 1+ Microcytic Cells 1+
[2017-08-03 16:00] VITALS: BP 160/62
--- NOTE | 2017-08-03 17:14 | PN- Urology ---
Surgical Brief Attending Note Brief Attending Note: Patient voided spontaneously earlier today. Hasn't voided in several hours. Bladder scan; 400-[address] tinsley at bedside without success Plan: 1. May need to go to OR for attempted cystoscopic placement of tinsley and if not sucessful suprapubic tube insertion. This would have to be done in an open fashion with an abdominal incision due to her previous pelvic surgery. 2. Will discuss with Dr Barajas. Patient is currently on a heparin drip which would have to be stopped
--- NOTE | 2017-08-03 18:42 | PN- Cardiology ---
Subjective Subjective: * Patient remains unresponsive with some spontaneous movement of her legs with breathing over the vent. * sinus rhythm * creatinine is 7.6 * troponin peaked at 4.2 and is trending down * Increased WBC count with low grade fever and right lung infiltrate * stable anemia Objective Vital Signs and I&Os Vital Signs Date Time Temp Pulse Resp B/P B/P Pulse O2 O2 Flow FiO2 Mean Ox Delivery Rate 08/03 1700 30 08/03 1428 30 08/03 1200 96 Ventilator 30% 08/03 1138 30 08/03 0809 30 08/03 0800 98.2 107 20 146/64 99 Ventilator 40% 08/03 0800 99 Ventilator 40% 08/03 0644 40 08/03 0400 98 Ventilator 40% 08/03 0301 40 08/03 0046 40 08/03 0000 100.4 106 20 144/68 98 Ventilator 40% 08/03 0000 98 Ventilator 40% 08/02 2233 40 08/02 2000 99 Ventilator 40% 08/02 1930 40 Intake & Output 08/03 1600 08/03 0800 08/03 0000 08/02 1600 08/02 0800 08/02 0000 Intake Total 365 175 169 008 2856 1455 Output Total 32 20 Balance 365 175 791 813 3671 1435 Intake, IV 365 175 390 426 5464 1455 Output, Urine 32 20 Patient 169 lb 169 lb 170 lb Weight Weight Bed scale Measurement Method Physical Exam: General: WD/overweight female. Intubated. HEENT: NC/AT, pupils reactive to light, no dolls eyes Neck: no JVD, no carotid bruit Heart: RRR w/o murmur Lungs: clear bilaterally Abdomen: soft, NT, +ve bowel sounds Extremities: no edema Neuro: some spontaneous movement of legs bilaterally Assessment/Plan Assessment/Plan * This patient has evidence of coma likely related to prolonged hypoglycemia. Changes on her head CT are suggestive of anoxic injury. * This patient has evidence of a NSTEMI with cardiac enzymes trending down. I suspect that her DC is a type 2 from supply demand mismatch rather than from an acute ruptured intracoronary plaque. As such, if bleeding is an issue her IV heparin can be stopped. He H/H is trending down. H/H is stable. Okay to stop IV heparin at this point in time. I would not begin beta blockers at this point in time due to her becoming bradycardic and going into asystole yesterday. * Continue antibiotics for a likely aspiration pneumonia. Continue telemetry? Yes
[2017-08-03 20:00] VITALS: BP 145/64
[2017-08-03 23:02] LABS: PTT 50 SEC (25-37)
[2017-08-04] VITALS: BP 164/85
[2017-08-04 05:18] LABS: ABSOLUTE BASOPHIL COUNT 0 /CUMM (0.0-0.2); ABSOLUTE EOSINOPHIL COUNT 0 /CUMM (0.0-0.7); ABSOLUTE GRANULOCYTE CT 9.7 /CUMM (1.4-6.5); ABSOLUTE LYMPH COUNT 1.7 /CUMM (1.2-3.4); ABSOLUTE MONOCYTE COUNT 0.4 /CUMM (0.10-0.60); BASOPHIL % 0.1 % (0.0-2.0); EOSINOPHIL % 0 % (0-5); GRANULOCYTE % 82.2 % (42.2-75.2); HEMATOCRIT 23.1 % (37-47); MEAN CORPUSCULAR HGB 26.6 PG (27.0-31.0); MEAN CORPUSCULAR VOLUME 80.7 FL (81.0-99.0); MEAN PLATELET VOLUME 7.6 FL (7.4-10.4); PLATELET COUNT 310 /CUMM (130-400); RBC DISTRIBUTION WIDTH 18.5 % (11.5-14.5); RED BLOOD CELL CT 2.86 /CUMM (4.20-5.40); WHITE BLOOD CELL COUNT 11.8 /CUMM (4.8-10.8)
--- NOTE | 2017-08-04 06:34 | RADIOLOGY REPORT ---
EXAMINATION: XR PORTABLE CHEST CLINICAL INFORMATION: Intubation. Aspiration. COMPARISON: Portable chest August 03, 2017. TECHNIQUE: Portable frontal view of the chest was obtained. 6:00 AM FINDINGS: Endotracheal tube catheter is approximately 6 cm above the vazquez. The nasogastric tube is coiled in the stomach. The patchy airspace opacity in the right upper lobe is similar to prior chest x-ray August 03, 2017. The left lung is clear. There is no pulmonary vascular congestion. There is no pleural effusion. IMPRESSION: 1. Endotracheal tube catheter 6 cm above the vazquez. 2. Nasogastric tube in stomach. 3. Persistent right upper lobe patchy airspace opacity.
--- NOTE | 2017-08-04 07:43 | PN- Resident CRCU ---
See Addendum Subjective HPI/CRCU Issues: Overnight issues: Patient IV heparin was shut off at approximately 1 AM in anticipation for Tinsley placement in the OR. Patient is to go to dialysis this morning. No acute events overnight Patient continues to remain unresponsiveness Vitals: T max: 99, HR: 80s to 100s, RR: 20, BP: 167/70, Saturating at 96% on mechanical ventilation Labs: WBC 11.8 with 82.2% granulocytes, 85 segmented neutrophils, 1 band (down from 15.0), H&H 7.6 and 23.1, platelets 310 Sodium 149, potassium 4.1, chloride 108, bicarbonate 23, anion gap 18, BUN 103, creatinine 8.7, glucose 152, calcium 8.8, phosphorus 8.7, magnesium 2.1, T bili 0.8, AST 41, ALT 60, albumin 2.2 Blood gas: PH 7.48, PCO2 28, PO2 101, bicarbonate 21, ABG O2 sat 97.0 Microbiology: No growth in cultures to date Imaging: Chest x-ray: Endotracheal tube is approximately 6 cm above the vazquez, NG tube in stomach, persistent right upper lobe patchy airspace opacity Objective Vital Signs & I&O Last 8 Hrs of Vitals and I&O: Vital Signs Date Time Temp Pulse Resp B/P B/P Pulse O2 O2 Flow FiO2 Mean Ox Delivery Rate 08/04 0840 30 08/04 0536 30 08/04 0400 96 Ventilator 30% 08/04 0319 30 08/04 0051 30 08/04 0000 96 Ventilator 30% 08/04 0000 98.2 92 20 164/85 96 Ventilator 30% 08/03 2238 30 08/03 2000 99.0 94 20 145/64 96 Ventilator 08/03 1944 30 08/03 1938 Ventilator 08/03 1700 30 08/03 1600 98 Ventilator 30% 08/03 1600 98.2 99 20 160/62 98 Ventilator 30% 08/03 1428 30 08/03 1200 96 Ventilator 30% 08/03 1138 30 Intake & Output 08/04 1600 08/04 0800 08/04 0000 Intake Total 57 257.6 Output Total Balance 57 257.6 Intake, IV 57 197.6 Intake, Other 60 Number 1 2 Bowel Movements Patient 176 lb Weight Weight Bed scale Measurement Method Exam General Appearance: intubated, unresponsive to verbal or tacticle stimuli, is currently off sedation, moves legs spontaneously Head: atraumatic Respiratory: normal breath sounds, lungs clear (to anterior auscultation) Cardiovascular: regular rate/rhythm, edema Gastrointestinal: normal bowel sounds, soft, non-tender Extremities: normal inspection, no lower extremity edema, hands appear edematous Cranial Nerves: PERRL, uunable to assess full neurologic exam due to unresponsiveness Skin Temp/Moisture Exam: Warm/Dry Tinsley Date In: 08/04/17 Still Needed? Yes IV Drips IV Drips: IV Heparin Current Medications: Current Medications Sig/Makayla Start time Last Medication Dose Route Stop Time Status Admin Acetaminophen 1,000 MG Q6P PRN 08/01 1445 AC 08/02 IV 0551 Ampicillin Sodium/ 3,000 MG Q12 08/01 1730 AC 08/04 Sulbactam Sodium IV 1000 Sodium Chloride 100 ML Aspirin 81 MG DAILY 08/03 1000 AC 08/04 PO 1010 Atorvastatin Calcium 40 MG 1700 08/03 1700 AC 08/03 PO 1835 Dextrose/Sodium 1,000 ML Q20H 08/03 1830 CAN Chloride IV Fentanyl Citrate 200 MCG .STK-MED ONE 08/04 0721 DC IM 08/04 0722 Heparin Sodium 25,000 UNIT Q24H 08/01 1730 DC 08/03 (Porcine) IV 08/04 0100 2152 Sodium Chloride 500 ML Hydrocortisone 25 MG BID 08/02 1000 AC 08/04 Sodium Succinate IV 1010 Insulin Aspart 0 Q4 08/01 2200 AC 08/04 SC 1252 Insulin Detemir 12 UNITS BID 08/03 2200 DC SC Insulin Detemir 6 UNITS BID 08/03 2200 AC 08/04 SC 1000 Levothyroxine Sodium 25 MCG DAILY 08/02 1000 AC 08/04 IV 1011 Lorazepam 1 MG Q4P PRN 08/02 1400 AC IV Midazolam HCl 2 MG .STK-MED ONE 08/04 0722 DC IM 08/04 0723 Pantoprazole Sodium 40 MG DAILY 08/01 1730 AC 08/04 IV 1010 Scopolamine HBr 1 PAT Q72H PRN 08/02 1600 AC 08/02 TOP 1640 Impression/Plan Impression/Problem List Impression: This is 62-year-old female with a medical history of stage 5 CKD(nephrotic proteinuria, diabetic nephropathy and retinopathy) with left AV fistula placed couple month ago(still making urine), currently not on hemodialysis, has only one kidney since childhood. 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 Presented to the emergency department via EMS due to unresponsiveness. Patient is admitted to the ICU for management of the following: Respiratory: Acute hypoxic respiratory failure 2/2 to aspiration pneumonia on mechanical ventilation: Patient continues to remain on mechanical ventilation. Oxygen requirement continues to improve with decreased FiO2. Patient's remains unresponsive off sedation. Patient has respiratory alkalosis, can decreased the rate and decrease FiO2 today. - continue mechanical ventilation - ativan 1mg q4h PRN for agitation - Repeat chest x-ray in a.m. - Will assess tomorrow if ABG is needed. Infection: Aspiration Pneumonia: Patient continues to be tachycardic, febrile with elevated leukocytosis which is downtrending on IV Unasyn. No growth on cultures thus far. Repeat chest xray shows persistent bilateral airspace opacities with largest area of consolidation in the right upper lobe. Patient remains on ventilatory support. CT Chest showing lobulated mass in the right upper lobe medially is not significantly changed in size. There are now patchy areas of ground glass opacification nodularity in both lungs, which may be consistent with multifocal pneumonic infiltrates. - continue IV Unasyn - continue to monitor CBCs, vitals - Follow-up blood cultures, sputum culture - ID on board. Appreciate recommendations. Cardiac: Status post cardiac arrest in the ED New right bundle branch block, wide QRS tachycardia NSTEMI- likely 2/2 to demand ischemia Patient's troponin's peaked to 4.20. Patient remains unresponsive on mechanical ventilator. Patient's heparin was temporarily stopped on 08/02 due to concerns of bleeding from tinsley site. Patient was seen by cardiology. H/H was stable and patient's heparin was shortly after on 08/02. - IV heparin can be discontinued per cardiology. Patient's H/H has been dropping today. - continue aspirin and statin Heme: Anemia Patient has a history of chronic anemia. H/H dropped to 7.6 this morning. Patient had tinsley placement in the OR today with continued bleeding which is expected per urology. Patient is also having guiac positive stools. Repeat H/H after was 7.1. Patient is to be transfused 1 unit pRBC with dialysis today. - CBC post transfusion - Transfuse for H/H < 7 Metabolic: Type 1 Diabetes - on Insulin Pump Patient initially presented with hypoglycemia w/ BG of 27. Patients BG over the past 24 hours was in the high 200s to high 300s. - Endocrinology on board. Appreciate recommendations - Continue levemir to 6 units BID - Insulin SS adjusted per endocrinology recommendations - Target BG per endocrinology: FSG of 100 to 200. Adrenal Insufficiency. Patient is on chronic prednisone for interstitital nephritis. - Stress dose steroids with IV hydrocortisone 25mg IV BID Metabolic acidosis with elevated anion gap and lactic acidosis - Resolved Patient's anion gap is down from previous day. Lactic acid was previously fluctuating however is now downtrending. Patient was previously getting IV Bicarb. Alimentary: Patient is currently NPO due to intubation. Tube feeds held today. Fluids are being given cautiously due to ECHO showing LVEF of 30%. Neurology: Unresponsiveness - likely multifactorial at this point. Initially secondary to severe hypoglycemia. Patient likely had a seizure prior to arrival as she was found to have urinary and bladder incontinence and had an elevated prolactin level on admission. Patient was also found to have vomitted and aspirated. In the ED on day of admision patient had a cardiac arrest for approximately 10 minutes. Patient had a head CT on admission which was nondiagnostic due to motion artifact. Repeat CT on 08/03 showed extensive loss of benito-white matter differentiation primarily involving the basal ganglia, right insular cortex, and both temporal lobes. These findings are consistent with hypoxic ischemic injury. No acute hemorrhage. - neurology is on board. appreciate recommendations - continue neurochecks - continue to watch off sedation - continue aspiration protocol - continue aspirin - continue to monitor and replete electrolytes Nephrology: ESRD w/left sided AV fistula: Patient has a history of ESRD with biopsy showing chronic intersitial nephritis and diabetic nephropathy. Patient was placed on a course of steroids which were tapered off. Patient has been evaluated by nephrology today. IV Bicarb was discontinued. Patient is currently being dialyzed today. - patient is to go for dialysis again tomorrow. - continue to monitor electrolytes - continue to monitor I/O - nephrology consulted. appreciate recommendations Urology: Urethral stricture. Nursing was unable to placed tinsley. Urology was consulted and placed a 16 qatari tinsley after urethral dilation. Patient's tinsley appears to be obstructed today with what appears to be clotted frothy blood in the bag and area around the tinsley with bleeding and showing leakage. Irrigation on 08/02 did not improve the patency of the tinsley. The tinsley was removed in the morning on by urology. Patient's PVR >500 on 08/[address] Lim attempted to place a tinsley at the bedside however was unable to. Patient was taken to the OR today for cystoscopy with successful tinsley placement. Cystoscopy showed false urethral passage. Patient drained 800cc immediateley after tinsley placement. - continue to monitor output - continue to monitor for excessive bleeding DVT PPx: IV heparin discontinued due to bleeding, ALPs only Code: Full code Problem List: 1. Hypoxic brain injury 2. NSTEMI (non-ST elevated myocardial infarction) 3. End stage renal disease 4. Aspiration pneumonia due to gastric secretions Pain Ratin Tomorrow's Labs & Rationales: cbc - anemia bep - hypernatremia, esrd Plan DVT/Prophylaxis: mechanical, pharmacological
[2017-08-04 08:00] VITALS: BP 167/70
--- NOTE | 2017-08-04 08:43 | PN- Urology ---
Surgical Brief Attending Note Brief Attending Note: Patient was brought to the OR and under cystoscopic guidance a guidewire was placed in the bladder and a tinsley placed over the wire. About 800 cc of urine drained from the bladder. Urine is now mildly bloody. Would leave tinsley in place. May irrigate prn. If safe to do so would leave off heparin drip for about 6 more hours. If unsafe to do so then restart heparin and keep PTT at lower end of therapeutic range and irrigate tinsley prn. Do not attempt to change tinsley.
--- NOTE | 2017-08-04 08:49 | Operative Report ---
Operative/Inv Procedure Report Surgery Date: 08/04/17 Name of Procedure: Cystoscopy and insertion of tinsley catheter Pre-Operative Diagnosis: Urinary retention, unable to place tinsley at bedside Post-Operative Diagnosis: Same. Also in mid urethra a false passage ventrally Estimated Blood Loss: scant Surgeon/Vp Treasurer: Carina Anesthesia: general endotracheal tube Drains: 18 fr counseling director tip tinsley catheter Specimens: none Complications: none Condition: critical Operative Indication: Critically ill patient in urinary retention and inability to place tinsley at bedside Operative/Procedure Note Note: The patient was taken to the operating room and identified. She was placed on the operating table in the supine position. Timeout was executed appropriately. Patient was already intubated. Anesthesia was given. She was then placed in the dorsal lithotomy position. Bimanual exam revealed a palpable lower abdominal mass which was felt to be the bladder. The uterus and cervix were not palpable. She was prepped and draped in usual fashion for cystoscopy. Using the 22 Vincentian cystoscope with 30 lens urethroscopy was performed. The very distal urethra was normal. There was a sizable false passage of the urethra in the mid urethra ventrally. Urethroscopy revealed that the true urethra was much more superiorly located. Therefore by angling the cystoscope toward the ceiling the urethra could be followed into the bladder. The bladder was noted to be distended. It was otherwise grossly normal. A guidewire was placed through the cystoscope and the cystoscope removed leaving the wire in place. Over the wire an 18 Vincentian [place] tip catheter was placed. 10 mL was placed in the balloon. A large amount of urine drained from the bladder, proximally 800 mL after which are palpable lower abdominal mass resolved. Patient tolerated the procedure reasonably well as completion was taken back to the intensive care unit in critical condition Findings: Distended bladder. Elevated bladder neck from previous surgery. Urethral false passage and mid urethral ventrally Discharge Disposition: Critical Care Unit
--- NOTE | 2017-08-04 10:10 | PN- Infect Dx ---
Subjective Subjective: Afebrile on steroids. She remains unresponsive. Objective Last 24 Hrs of Vital Signs/I&O Vital Signs Date Time Temp Pulse Resp B/P B/P Pulse O2 O2 Flow FiO2 Mean Ox Delivery Rate 08/04 0840 30 08/04 0536 30 08/04 0400 96 Ventilator 30% 08/04 0319 30 08/04 0051 30 08/04 0000 96 Ventilator 30% 08/04 0000 98.2 92 20 164/85 96 Ventilator 30% 08/03 2238 30 08/03 2000 99.0 94 20 145/64 96 Ventilator 08/03 1944 30 08/03 1938 Ventilator 08/03 1700 30 08/03 1600 98 Ventilator 30% 08/03 1600 98.2 99 20 160/62 98 Ventilator 30% 08/03 1428 30 08/03 1200 96 Ventilator 30% 08/03 1138 30 Intake & Output 08/04 1600 08/04 0800 08/04 0000 Intake Total 57 257.6 Output Total Balance 57 257.6 Intake, IV 57 197.6 Intake, Other 60 Number 1 2 Bowel Movements Patient 176 lb Weight Weight Bed scale Measurement Method Physical Exam Other Physical Findings: She is unresponsive on the ventilator Lungs are clear Heart regular rhythm with no murmur Abdomen is soft, positive bowel sounds Extremities no cyanosis, clubbing or edema; right femoral triple lumen catheter in place with no inflammation at the site Escudero catheter in place Results Last 24 Hours of Lab Results: Laboratory Tests 08/04 08/04 0600 0425 Blood Gas pH (7.35 - 7.45 PH) 7.48 H pCO2 (35 - 45 TORR) 28 L pO2 (80 - 100 TORR) 101 H HCO3 (21 - 28 MEQ/L) 21 ABG O2 Sat (Measured) (>96.0 %) 97.0 P-50 (Temp Corrected) N Carboxyhemoglobin (1.5 - 5.0 %) 0.3 L O2 Concentration % .30 Respiration Rate (BPM) 20 O2 Delivery Method VENT Vent Mode A/C Expiratory Pressure (CMH2O/P) 5 Tidal Volume (CC) 500 Chemistry Sodium (137 - 145 mmol/L) 149 H Potassium (3.5 - 5.1 mmol/L) 4.1 Chloride (98 - 107 mmol/L) 108 H Carbon Dioxide (22 - 30 mmol/L) 23 Anion Gap (5 - 16) 18 H BUN (7 - 17 mg/dL) 103 *H Creatinine (0.5 - 1.0 mg/dL) 8.7 *H Estimated GFR (>60 ml/min) 5 L Glucose (65 - 99 mg/dL) 152 H Calcium (8.4 - 10.2 mg/dL) 8.8 Phosphorus (2.5 - 4.5 mg/dL) 8.7 H Magnesium (1.6 - 2.3 mg/dL) 2.1 Total Bilirubin (0.2 - 1.3 mg/dL) 0.8 AST (14 - 36 U/L) 41 H ALT (9 - 52 U/L) 60 H Albumin (3.5 - 5.0 g/dL) 2.2 L Hematology CBC w Diff MAN DIFF ORDERED WBC (4.8 - 10.8 /CUMM) 11.8 H RBC (4.20 - 5.40 /CUMM) 2.86 L Hgb (12.0 - 16.0 G/DL) 7.6 L Hct (37 - 47 %) 23.1 L MCV (81.0 - 99.0 FL) 80.7 L MCH (27.0 - 31.0 PG) 26.6 L MCHC (33.0 - 37.0 G/DL) 33.0 RDW (11.5 - 14.5 %) 18.5 H Plt Count (130 - 400 /CUMM) 310 MPV (7.4 - 10.4 FL) 7.6 Gran % (42.2 - 75.2 %) 82.2 H Lymphocytes % (20.5 - 51.1 %) 14.4 L Monocytes % (1.7 - 9.3 %) 3.3 Eosinophils % (0 - 5 %) 0 Basophils % (0.0 - 2.0 %) 0.1 Absolute Granulocytes (1.4 - 6.5 /CUMM) 9.7 H Segmented Neutrophils (42.2 - 75.2 %) 85 H Band Neutrophils (0.0 - 5.0 %) 1 Absolute Lymphocytes (1.2 - 3.4 /CUMM) 1.7 Lymphocytes (20.5 - 51.1 %) 11 L Monocytes (1.7 - 9.3 %) 2 Absolute Monocytes (0.10 - 0.60 /CUMM) 0.4 Absolute Eosinophils (0.0 - 0.7 /CUMM) 0 Absolute Basophils (0.0 - 0.2 /CUMM) 0 Metamyelocytes (0.0 - 1.0 %) 1 Platelet Estimate (ADEQUATE) ADEQUATE Polychromasia 1+ Ovalocytes FEW Miscellaneous Phlebotomy Draw Site RIGHT BRACHIAL Other Body Source Fld Total RBCs Counted (%) 100 08/03 08/03 2210 1005 Coagulation APTT (25 - 37 SEC) 50 H 66 H Last 24 Hours of Charli Results: Blood cultures August 01August 02 negative Recent Imaging Studies: CT of the head August 03 reveals relatively extensive loss of benito-white matter differentiation consistent with hypoxic ischemic injury CT of the chest revealed a lobulated mass in the right upper lobe not significantly changed in size; new patchy areas of ground glass opacification in the right upper lobe posteriorly and the superior segments of both lower lobes. Chest x-ray August 04 reveals a persistent right upper lobe mass Assessment/Plan ID Impression: Condition remains poor, remaining unresponsive status post a cardiac arrest on admission, with evidence of hypoxic ischemic injury on her recent CT scan. Her renal failure has progressed, possibly in part secondary to urinary retention, status post removal of 800 mL of urine upon placement of a Escudero catheter in the OR earlier this morning, and she is scheduled for dialysis later today. She remains afebrile (on steroids for interstitial nephritis), with her white blood cell count decreased today, on Unasyn Day 4 of treatment for possible aspiration pneumonia, with her CT of the chest revealing bilateral patchy densities in addition to the chronic right upper lobe mass that was biopsied 4 months prior to admission. Suggestion: 1. Await dialysis 2. Remove right femoral triple lumen catheter 3. Continue Unasyn
--- NOTE | 2017-08-04 10:10 | PN- Nephrology ---
Assessment/Plan Nephrology Assessment: Dialysis today. Plan about 1.5L UF as tolerated with 2.5 hr Rx. Will plan dialysis again tomorrow. Jamar Lucero MD Suggestion: . Subjective Subjective: Pt intubated. No change in condition. Escudero changed in OR. oliguric. Objective Vital Signs and I&Os F intubated in ICU 164/85 98.2 Lungs clear Cor RRR Abd soft 1+sacral edema Tr LE edema Results Pertinent Lab Results: Laboratory Tests 08/04 08/04 0600 0425 Blood Gas pH (7.35 - 7.45 PH) 7.48 H pCO2 (35 - 45 TORR) 28 L pO2 (80 - 100 TORR) 101 H HCO3 (21 - 28 MEQ/L) 21 ABG O2 Sat (Measured) (>96.0 %) 97.0 P-50 (Temp Corrected) N Carboxyhemoglobin (1.5 - 5.0 %) 0.3 L O2 Concentration % .30 Respiration Rate (BPM) 20 O2 Delivery Method VENT Vent Mode A/C Expiratory Pressure (CMH2O/P) 5 Tidal Volume (CC) 500 Chemistry Sodium (137 - 145 mmol/L) 149 H Potassium (3.5 - 5.1 mmol/L) 4.1 Chloride (98 - 107 mmol/L) 108 H Carbon Dioxide (22 - 30 mmol/L) 23 Anion Gap (5 - 16) 18 H BUN (7 - 17 mg/dL) 103 *H Creatinine (0.5 - 1.0 mg/dL) 8.7 *H Estimated GFR (>60 ml/min) 5 L Glucose (65 - 99 mg/dL) 152 H Calcium (8.4 - 10.2 mg/dL) 8.8 Phosphorus (2.5 - 4.5 mg/dL) 8.7 H Magnesium (1.6 - 2.3 mg/dL) 2.1 Total Bilirubin (0.2 - 1.3 mg/dL) 0.8 AST (14 - 36 U/L) 41 H ALT (9 - 52 U/L) 60 H Albumin (3.5 - 5.0 g/dL) 2.2 L Hematology CBC w Diff MAN DIFF ORDERED WBC (4.8 - 10.8 /CUMM) 11.8 H RBC (4.20 - 5.40 /CUMM) 2.86 L Hgb (12.0 - 16.0 G/DL) 7.6 L Hct (37 - 47 %) 23.1 L MCV (81.0 - 99.0 FL) 80.7 L MCH (27.0 - 31.0 PG) 26.6 L MCHC (33.0 - 37.0 G/DL) 33.0 RDW (11.5 - 14.5 %) 18.5 H Plt Count (130 - 400 /CUMM) 310 MPV (7.4 - 10.4 FL) 7.6 Gran % (42.2 - 75.2 %) 82.2 H Lymphocytes % (20.5 - 51.1 %) 14.4 L Monocytes % (1.7 - 9.3 %) 3.3 Eosinophils % (0 - 5 %) 0 Basophils % (0.0 - 2.0 %) 0.1 Absolute Granulocytes (1.4 - 6.5 /CUMM) 9.7 H Segmented Neutrophils (42.2 - 75.2 %) 85 H Band Neutrophils (0.0 - 5.0 %) 1 Absolute Lymphocytes (1.2 - 3.4 /CUMM) 1.7 Lymphocytes (20.5 - 51.1 %) 11 L Monocytes (1.7 - 9.3 %) 2 Absolute Monocytes (0.10 - 0.60 /CUMM) 0.4 Absolute Eosinophils (0.0 - 0.7 /CUMM) 0 Absolute Basophils (0.0 - 0.2 /CUMM) 0 Metamyelocytes (0.0 - 1.0 %) 1 Platelet Estimate (ADEQUATE) ADEQUATE Polychromasia 1+ Ovalocytes FEW Miscellaneous Phlebotomy Draw Site RIGHT BRACHIAL Other Body Source Fld Total RBCs Counted (%) 100 08/03 08/03 08/03 2210 1005 0620 Blood Gas pH (7.35 - 7.45 PH) 7.43 pCO2 (35 - 45 TORR) 30 L pO2 (80 - 100 TORR) 147 H HCO3 (21 - 28 MEQ/L) 19 L ABG O2 Sat (Measured) (>96.0 %) 98.0 P-50 (Temp Corrected) N Carboxyhemoglobin (1.5 - 5.0 %) 0.3 L O2 Concentration % .40 Respiration Rate (BPM) 20 O2 Delivery Method VENT Vent Mode A/C Expiratory Pressure (CMH2O/P) 5 Tidal Volume (CC) 500 Coagulation APTT (25 - 37 SEC) 50 H 66 H Miscellaneous Phlebotomy Draw Site RIGHT BRACHIAL 08/03 08/02 0400 2200 Chemistry Sodium (137 - 145 mmol/L) 149 H Potassium (3.5 - 5.1 mmol/L) 4.1 Chloride (98 - 107 mmol/L) 106 Carbon Dioxide (22 - 30 mmol/L) 21 L Anion Gap (5 - 16) 22 H BUN (7 - 17 mg/dL) 102 *H Creatinine (0.5 - 1.0 mg/dL) 7.6 *H Estimated GFR (>60 ml/min) 5 L Glucose (65 - 99 mg/dL) 109 H Calcium (8.4 - 10.2 mg/dL) 7.8 L Phosphorus (2.5 - 4.5 mg/dL) 8.4 H Magnesium (1.6 - 2.3 mg/dL) 2.0 Total Bilirubin (0.2 - 1.3 mg/dL) 0.7 AST (14 - 36 U/L) 65 H ALT (9 - 52 U/L) 89 H Albumin (3.5 - 5.0 g/dL) 2.4 L Coagulation APTT (25 - 37 SEC) 64 H Hematology CBC w Diff MAN DIFF ORDERED WBC (4.8 - 10.8 /CUMM) 15.0 H RBC (4.20 - 5.40 /CUMM) 3.30 L Hgb (12.0 - 16.0 G/DL) 8.8 L Hct (37 - 47 %) 26.8 L MCV (81.0 - 99.0 FL) 81.3 MCH (27.0 - 31.0 PG) 26.5 L MCHC (33.0 - 37.0 G/DL) 32.6 L RDW (11.5 - 14.5 %) 19.3 H Plt Count (130 - 400 /CUMM) 352 MPV (7.4 - 10.4 FL) 7.5 Gran % (42.2 - 75.2 %) 86.5 H Lymphocytes % (20.5 - 51.1 %) 10.5 L Monocytes % (1.7 - 9.3 %) 2.8 Eosinophils % (0 - 5 %) 0 Basophils % (0.0 - 2.0 %) 0.2 Absolute Granulocytes (1.4 - 6.5 /CUMM) 13.0 H Segmented Neutrophils (42.2 - 75.2 %) 84 H Band Neutrophils (0.0 - 5.0 %) 5 Absolute Lymphocytes (1.2 - 3.4 /CUMM) 1.6 Lymphocytes (20.5 - 51.1 %) 9 L Monocytes (1.7 - 9.3 %) 2 Absolute Monocytes (0.10 - 0.60 /CUMM) 0.4 Absolute Eosinophils (0.0 - 0.7 /CUMM) 0 Absolute Basophils (0.0 - 0.2 /CUMM) 0 Platelet Estimate (ADEQUATE) ADEQUATE Polychromasia 1+ Anisocytosis 1+ Target Cells FEW Stomatocytes FEW Nando Cells RARE Elliptocytes 1+ Serology Hep Bs Antigen (NONREACTIVE) NONREACTIVE Hep Bs Antibody (NONREACTIVE) NONREACTIVE 08/02 08/02 08/02 1445 1115 0835 Chemistry Lactic Acid (0.7 - 2.1 mmol/L) 2.0 2.5 H Troponin I (< 0.11 ng/ml) 3.74 *H Coagulation APTT (25 - 37 SEC) 39 H Hematology CBC w Diff MAN DIFF ORDERED WBC (4.8 - 10.8 /CUMM) 14.2 H RBC (4.20 - 5.40 /CUMM) 3.30 L Hgb (12.0 - 16.0 G/DL) 8.6 L Hct (37 - 47 %) 26.3 L MCV (81.0 - 99.0 FL) 79.5 L MCH (27.0 - 31.0 PG) 26.2 L MCHC (33.0 - 37.0 G/DL) 33.0 RDW (11.5 - 14.5 %) 18.7 H Plt Count (130 - 400 /CUMM) 338 MPV (7.4 - 10.4 FL) 7.1 L Gran % (42.2 - 75.2 %) 85.9 H Lymphocytes % (20.5 - 51.1 %) 10.7 L Monocytes % (1.7 - 9.3 %) 3.2 Eosinophils % (0 - 5 %) 0 Basophils % (0.0 - 2.0 %) 0.2 Absolute Granulocytes (1.4 - 6.5 /CUMM) 12.2 H Segmented Neutrophils (42.2 - 75.2 %) 82 H Band Neutrophils (0.0 - 5.0 %) 7 H Absolute Lymphocytes (1.2 - 3.4 /CUMM) 1.5 Lymphocytes (20.5 - 51.1 %) 8 L Monocytes (1.7 - 9.3 %) 3 Absolute Monocytes (0.10 - 0.60 /CUMM) 0.4 Absolute Eosinophils (0.0 - 0.7 /CUMM) 0 Absolute Basophils (0.0 - 0.2 /CUMM) 0 Platelet Estimate (ADEQUATE) ADEQUATE Polychromasia Hypochromic-Microcytic 1+ Anisocytosis 1+ Microcytic Cells 1+ 08/02 08/02 08/02 0835 0655 0600 Blood Gas pH (7.35 - 7.45 PH) 7.48 H pCO2 (35 - 45 TORR) 27 L pO2 (80 - 100 TORR) 219 H HCO3 (21 - 28 MEQ/L) 20 L ABG O2 Sat (Measured) (>96.0 %) 99.0 P-50 (Temp Corrected) N Carboxyhemoglobin (1.5 - 5.0 %) 0.4 L O2 Concentration % .65 Respiration Rate (BPM) 30 O2 Delivery Method VENT Vent Mode A/C Expiratory Pressure (CMH2O/P) 5 Tidal Volume (CC) 500 Chemistry Lactic Acid (0.7 - 2.1 mmol/L) 3.4 H Troponin I Cancelled Miscellaneous Phlebotomy Draw Site RIGHT BRACHIAL 08/02 08/02 08/02 0500 0230 0230 Chemistry Sodium (137 - 145 mmol/L) 145 Potassium (3.5 - 5.1 mmol/L) 4.6 Chloride (98 - 107 mmol/L) 105 Carbon Dioxide (22 - 30 mmol/L) 22 Anion Gap (5 - 16) 18 H BUN (7 - 17 mg/dL) 97 H Creatinine (0.5 - 1.0 mg/dL) 6.5 *H Estimated GFR (>60 ml/min) 7 L Glucose (65 - 99 mg/dL) 295 H Insulin Level (3.0 - 25.0 mIU/mL) 88.5 H Lactic Acid (0.7 - 2.1 mmol/L) 3.0 H 3.2 H Calcium (8.4 - 10.2 mg/dL) 6.7 L Phosphorus (2.5 - 4.5 mg/dL) 8.3 H Magnesium (1.6 - 2.3 mg/dL) 1.6 Total Bilirubin (0.2 - 1.3 mg/dL) 0.4 AST (14 - 36 U/L) 138 H ALT (9 - 52 U/L) 124 H Troponin I (< 0.11 ng/ml) 4.20 *H Albumin (3.5 - 5.0 g/dL) 2.1 L Coagulation APTT (25 - 37 SEC) 63 H Hematology CBC w Diff MAN DIFF ORDERED WBC (4.8 - 10.8 /CUMM) 15.5 H RBC (4.20 - 5.40 /CUMM) 3.33 L Hgb (12.0 - 16.0 G/DL) 8.6 L Hct (37 - 47 %) 26.8 L MCV (81.0 - 99.0 FL) 80.5 L MCH (27.0 - 31.0 PG) 26.0 L MCHC (33.0 - 37.0 G/DL) 32.2 L RDW (11.5 - 14.5 %) 18.8 H Plt Count (130 - 400 /CUMM) 319 MPV (7.4 - 10.4 FL) 7.2 L Gran % (42.2 - 75.2 %) 88.2 H Lymphocytes % (20.5 - 51.1 %) 8.3 L Monocytes % (1.7 - 9.3 %) 3.4 Eosinophils % (0 - 5 %) 0 Basophils % (0.0 - 2.0 %) 0.1 Absolute Granulocytes (1.4 - 6.5 /CUMM) 13.7 H Segmented Neutrophils (42.2 - 75.2 %) 81 H Band Neutrophils (0.0 - 5.0 %) 4 Absolute Lymphocytes (1.2 - 3.4 /CUMM) 1.3 Lymphocytes (20.5 - 51.1 %) 13 L Monocytes (1.7 - 9.3 %) 2 Absolute Monocytes (0.10 - 0.60 /CUMM) 0.5 Absolute Eosinophils (0.0 - 0.7 /CUMM) 0 Absolute Basophils (0.0 - 0.2 /CUMM) 0 Platelet Estimate (ADEQUATE) ADEQUATE Polychromasia 1+ Hypochromic-Microcytic 1+ Poikilocytosis 2+ Basophilic Stippling SLIGHT Anisocytosis 1+ Microcytic Cells 1+ Ovalocytes 1+ Stomatocytes 1+ Other Body Source Fld Total RBCs Counted (%) 100 08/01 08/01 08/01 08/01 2253 2258 2248 2236 Blood Gas pH (7.35 - 7.45 PH) 7.29 *L pCO2 (35 - 45 TORR) 33 L pO2 (80 - 100 TORR) 87 HCO3 (21 - 28 MEQ/L) 16 L ABG O2 Sat (Measured) (>96.0 %) 96.0 P-50 (Temp Corrected) Y Carboxyhemoglobin (1.5 - 5.0 %) 0.3 L O2 Concentration % 65% Temperature (97.0 - 100.0 FARH) 96.4 L Respiration Rate (BPM) 30 O2 Delivery Method ESPRIT Vent Mode AC Expiratory Pressure (CMH2O/P) 5 Tidal Volume (CC) 500 Chemistry Sodium (137 - 145 mmol/L) 144 Potassium (3.5 - 5.1 mmol/L) 4.9 Chloride (98 - 107 mmol/L) 106 Carbon Dioxide (22 - 30 mmol/L) 17 L Anion Gap (5 - 16) 20 H BUN (7 - 17 mg/dL) 96 H Creatinine (0.5 - 1.0 mg/dL) 6.2 *H Estimated GFR (>60 ml/min) 7 L Glucose (65 - 99 mg/dL) 328 H Lactic Acid (0.7 - 2.1 mmol/L) 3.3 H Calcium (8.4 - 10.2 mg/dL) 6.9 L Phosphorus (2.5 - 4.5 mg/dL) 8.9 H Magnesium (1.6 - 2.3 mg/dL) 1.7 Total Bilirubin (0.2 - 1.3 mg/dL) 0.4 AST (14 - 36 U/L) 221 H ALT (9 - 52 U/L) 149 H Albumin (3.5 - 5.0 g/dL) 2.3 L Miscellaneous Phlebotomy Draw Site RIGHT BRACHIAL Toxicology Urine Opiates Screen (>2000 NG/ML) < 100 Methadone Screen (>300 NG/ML) < 40 Barbiturate Screen (>200 NG/ML) < 60 Ur Phencyclidine Scrn (>25 NG/ML) < 6.00 Amphetamines Screen (>1000 NG/ML) < 100 U Benzodiazepines Scrn (>200 NG/ML) < 85 Urine Cocaine Screen (>300 NG/ML) < 50 Urine Cannabis Screen (>50 NG/ML) < 5.00 08/01 193 1710 Blood Gas pH (7.35 - 7.45 PH) 7.06 *L pCO2 (35 - 45 TORR) 42 pO2 (80 - 100 TORR) 167 H HCO3 (21 - 28 MEQ/L) 12 L ABG O2 Sat (Measured) (>96.0 %) 97.0 P-50 (Temp Corrected) N Carboxyhemoglobin (1.5 - 5.0 %) 0.3 L O2 Concentration % 100% Temperature (97.0 - 100.0 FARH) 97.5 Respiration Rate (BPM) 26 O2 Delivery Method ESPRIT VENT Vent Mode AC Expiratory Pressure (CMH2O/P) 5 Tidal Volume (CC) 500 Chemistry Sodium (137 - 145 mmol/L) 144 Potassium (3.5 - 5.1 mmol/L) 5.6 H Chloride (98 - 107 mmol/L) 108 H Carbon Dioxide (22 - 30 mmol/L) 15 L Anion Gap (5 - 16) 20 H BUN (7 - 17 mg/dL) 95 H Creatinine (0.5 - 1.0 mg/dL) 6.3 *H Estimated GFR (>60 ml/min) 7 L Glucose (65 - 99 mg/dL) 228 H Lactic Acid (0.7 - 2.1 mmol/L) 3.8 H Calcium (8.4 - 10.2 mg/dL) 7.2 L Phosphorus (2.5 - 4.5 mg/dL) 10.7 H Magnesium (1.6 - 2.3 mg/dL) 1.7 Total Bilirubin (0.2 - 1.3 mg/dL) 0.5 AST (14 - 36 U/L) 253 H ALT (9 - 52 U/L) 161 H Troponin I (< 0.11 ng/ml) 3.46 *H Albumin (3.5 - 5.0 g/dL) 2.3 L Coagulation PT (9.4 - 12.5 SEC) 13.1 H INR (0.90 - 1.19) 1.20 H APTT (25 - 37 SEC) 28 Miscellaneous Phlebotomy Draw Site RIGHT BRACHIAL 08/01 08/01 08/01 1510 1307 1140 Blood Gas pH (7.35 - 7.45 PH) 7.29 *L pCO2 (35 - 45 TORR) 32 L pO2 (80 - 100 TORR) 238 H HCO3 (21 - 28 MEQ/L) 15 L ABG O2 Sat (Measured) (>96.0 %) 98.0 Carboxyhemoglobin (1.5 - 5.0 %) 0.3 L O2 Concentration % 100% Respiration Rate (BPM) 24 O2 Delivery Method BIPAP Vent Mode ST Expiratory Pressure (CM H2O P) 6 Inspiratory Pressure (CM H2O P) 16 Chemistry Lactic Acid (0.7 - 2.1 mmol/L) 2.0 Troponin I (< 0.11 ng/ml) 3.04 *H Miscellaneous Phlebotomy Draw Site RIGHT RADIAL
[2017-08-04 10:18] LABS: ABSOLUTE BASOPHIL COUNT 0 /CUMM (0.0-0.2); ABSOLUTE EOSINOPHIL COUNT 0 /CUMM (0.0-0.7); ABSOLUTE GRANULOCYTE CT 8.7 /CUMM (1.4-6.5); ABSOLUTE MONOCYTE COUNT 0.6 /CUMM (0.10-0.60); BASOPHIL % 0.2 % (0.0-2.0); EOSINOPHIL % 0.1 % (0-5); GRANULOCYTE % 77.2 % (42.2-75.2); HEMATOCRIT 22.2 % (37-47); MEAN CORPUSCULAR HGB 26.2 PG (27.0-31.0); MEAN CORPUSCULAR HGB CONC 32.1 G/DL (33.0-37.0); MEAN CORPUSCULAR VOLUME 81.6 FL (81.0-99.0); MEAN PLATELET VOLUME 7.3 FL (7.4-10.4); PLATELET COUNT 280 /CUMM (130-400); RBC DISTRIBUTION WIDTH 18.5 % (11.5-14.5); RED BLOOD CELL CT 2.72 /CUMM (4.20-5.40); WHITE BLOOD CELL COUNT 11.3 /CUMM (4.8-10.8)
--- NOTE | 2017-08-04 10:47 | PN- Diabetes ---
Assessment/Plan Diabetes Assessment: 62 y/o female hx of longstanding DM type 1, chronic renal disease due to diabetes and chronic interstitual nephritis and was treated with a couse of steroid. Patient was found to be unresponsive with glucose level was in the 20s. Blood work in ER showed inappropriately elevated insulin level. Her severe hypoglycemia most likely was due to insulin overdose. She received hydrocortisone 100 mg iv in ER. Patient was intubated. She was on D10 w and pressor. Now her BP and glucose level improved and she has been off on D10 w and pressor. She is now on hydrocortisone 25 mg iv twice a day. According to her insulin pump-- [employer]tronic 630 G-- her basal insulin 36.75 units per 24 hours. She was on Levemir 16 units twice a day and Novolog coveage every 4 hours. Levemir was decreased to 12 units twice a day. However, Levemir was further decreased to 6 units twice a day; Nivolog coverage every 4 hours was adjusted. Her FSGs were 146, 210, 148 and 174. In addition, she was put on Levothyroxine 25 mcg iv daily. She will receive HD today. Plan: 1. continue Levemir 6 units twice a day for now; 2. continue the current Novolog coverage every 4 hours; 3. monitor FSGs and electrolytes. 4. continue hydrocortisone 25 mg iv twice a day for now. will follow. Subjective Subjective: Patient remains intubated. Objective Last 24 Hrs of Vital Signs/I&O Vital Signs Date Time Temp Pulse Resp B/P B/P Pulse O2 O2 Flow FiO2 Mean Ox Delivery Rate 08/04 0840 30 08/04 0536 30 08/04 0400 96 Ventilator 30% 08/04 0319 30 08/04 0051 30 08/04 0000 96 Ventilator 30% 08/04 0000 98.2 92 20 164/85 96 Ventilator 30% 08/03 2238 30 08/03 2000 99.0 94 20 145/64 96 Ventilator 08/03 1944 30 08/03 1938 Ventilator 08/03 1700 30 08/03 1600 98 Ventilator 30% 08/03 1600 98.2 99 20 160/62 98 Ventilator 30% 08/03 1428 30 08/03 1200 96 Ventilator 30% 08/03 1138 30 Intake & Output 08/04 1600 08/04 0800 08/04 0000 Intake Total 57 257.6 Output Total Balance 57 257.6 Intake, IV 57 197.6 Intake, Other 60 Number 1 2 Bowel Movements Patient 176 lb Weight Weight Bed scale Measurement Method Findings Pertinent Lab/Charli Results: Laboratory Tests 08/04 08/04 1000 0600 Blood Gas pH (7.35 - 7.45 PH) 7.48 H pCO2 (35 - 45 TORR) 28 L pO2 (80 - 100 TORR) 101 H HCO3 (21 - 28 MEQ/L) 21 ABG O2 Sat (Measured) (>96.0 %) 97.0 P-50 (Temp Corrected) N Carboxyhemoglobin (1.5 - 5.0 %) 0.3 L O2 Concentration % .30 Respiration Rate (BPM) 20 O2 Delivery Method VENT Vent Mode A/C Expiratory Pressure (CMH2O/P) 5 Tidal Volume (CC) 500 Hematology CBC w Diff Pending WBC Pending RBC Pending Hgb Pending Hct Pending MCV Pending MCH Pending MCHC Pending RDW Pending Plt Count Pending MPV Pending Miscellaneous Phlebotomy Draw Site RIGHT BRACHIAL 08/04 08/03 8609 2210 Chemistry Sodium (137 - 145 mmol/L) 149 H Potassium (3.5 - 5.1 mmol/L) 4.1 Chloride (98 - 107 mmol/L) 108 H Carbon Dioxide (22 - 30 mmol/L) 23 Anion Gap (5 - 16) 18 H BUN (7 - 17 mg/dL) 103 *H Creatinine (0.5 - 1.0 mg/dL) 8.7 *H Estimated GFR (>60 ml/min) 5 L Glucose (65 - 99 mg/dL) 152 H Calcium (8.4 - 10.2 mg/dL) 8.8 Phosphorus (2.5 - 4.5 mg/dL) 8.7 H Magnesium (1.6 - 2.3 mg/dL) 2.1 Total Bilirubin (0.2 - 1.3 mg/dL) 0.8 AST (14 - 36 U/L) 41 H ALT (9 - 52 U/L) 60 H Albumin (3.5 - 5.0 g/dL) 2.2 L Coagulation APTT (25 - 37 SEC) 50 H Hematology CBC w Diff MAN DIFF ORDERED WBC (4.8 - 10.8 /CUMM) 11.8 H RBC (4.20 - 5.40 /CUMM) 2.86 L Hgb (12.0 - 16.0 G/DL) 7.6 L Hct (37 - 47 %) 23.1 L MCV (81.0 - 99.0 FL) 80.7 L MCH (27.0 - 31.0 PG) 26.6 L MCHC (33.0 - 37.0 G/DL) 33.0 RDW (11.5 - 14.5 %) 18.5 H Plt Count (130 - 400 /CUMM) 310 MPV (7.4 - 10.4 FL) 7.6 Gran % (42.2 - 75.2 %) 82.2 H Lymphocytes % (20.5 - 51.1 %) 14.4 L Monocytes % (1.7 - 9.3 %) 3.3 Eosinophils % (0 - 5 %) 0 Basophils % (0.0 - 2.0 %) 0.1 Absolute Granulocytes (1.4 - 6.5 /CUMM) 9.7 H Segmented Neutrophils (42.2 - 75.2 %) 85 H Band Neutrophils (0.0 - 5.0 %) 1 Absolute Lymphocytes (1.2 - 3.4 /CUMM) 1.7 Lymphocytes (20.5 - 51.1 %) 11 L Monocytes (1.7 - 9.3 %) 2 Absolute Monocytes (0.10 - 0.60 /CUMM) 0.4 Absolute Eosinophils (0.0 - 0.7 /CUMM) 0 Absolute Basophils (0.0 - 0.2 /CUMM) 0 Metamyelocytes (0.0 - 1.0 %) 1 Platelet Estimate (ADEQUATE) ADEQUATE Polychromasia 1+ Ovalocytes FEW Other Body Source Fld Total RBCs Counted (%) 100
--- NOTE | 2017-08-04 13:30 | PN- Neurology ---
Subjective Subjective: Remains unresponsive Objective Vital Signs and I&Os Vital Signs Date Time Temp Pulse Resp B/P B/P Pulse O2 O2 Flow FiO2 Mean Ox Delivery Rate 08/04 1124 30 08/04 0840 30 08/04 0536 30 08/04 0400 96 Ventilator 30% 08/04 0319 30 08/04 0051 30 08/04 0000 96 Ventilator 30% 08/04 0000 98.2 92 20 164/85 96 Ventilator 30% 08/03 2238 30 08/03 2000 99.0 94 20 145/64 96 Ventilator 08/03 1944 30 08/03 1938 Ventilator 08/03 1700 30 08/03 1600 98 Ventilator 30% 08/03 1600 98.2 99 20 160/62 98 Ventilator 30% 08/03 1428 30 Intake & Output 08/04 1600 08/04 0800 08/04 0000 08/03 1600 08/03 0800 08/03 0000 Intake Total 57 257.6 365 175 400 Output Total Balance 57 257.6 365 175 400 Intake, IV 57 197.6 365 175 400 Intake, Other 60 Number 1 2 Bowel Movements Patient 176 lb 169 lb Weight Weight Bed scale Measurement Method No response to verbal command. Decerebrate posturing with right upper extremity to sternal rub. Pupils midposition and poorly reactive. Corneal reflexes weakly positive. Oculocephalic reflexes absent. Bilateral Babinski signs are present. Current Medications: Current Medications Sig/Makayla Start time Last Medication Dose Route Stop Time Status Admin Acetaminophen 1,000 MG Q6P PRN 08/01 1445 AC 08/02 IV 0551 Ampicillin Sodium/ 3,000 MG Q12 08/01 1730 AC 08/04 Sulbactam Sodium IV 1000 Sodium Chloride 100 ML Aspirin 81 MG DAILY 08/03 1000 AC 08/04 PO 1010 Atorvastatin Calcium 40 MG 1700 08/03 1700 AC 08/03 PO 1835 Dextrose/Sodium 1,000 ML Q20H 08/03 1830 CAN Chloride IV Heparin Sodium 25,000 UNIT Q24H 08/01 1730 DC 08/03 (Porcine) IV 08/04 0100 2152 Sodium Chloride 500 ML Hydrocortisone 25 MG BID 08/02 1000 AC 08/04 Sodium Succinate IV 1010 Insulin Aspart 0 Q4 08/01 2200 AC 08/04 SC 1252 Insulin Detemir 12 UNITS BID 08/03 2200 DC SC Insulin Detemir 6 UNITS BID 08/03 2200 AC 08/04 SC 1000 Insulin Detemir 12 UNITS ONCE ONE 08/03 1445 DC 08/03 SC 08/03 1446 1447 Insulin Detemir 14 UNITS BID 08/03 1000 DC SC Levothyroxine Sodium 25 MCG DAILY 08/02 1000 AC 08/04 IV 1011 Lorazepam 1 MG Q4P PRN 08/02 1400 AC IV Pantoprazole Sodium 40 MG DAILY 08/01 1730 AC 08/04 IV 1010 Scopolamine HBr 1 PAT Q72H PRN 08/02 1600 AC 08/02 TOP 1640 Assessment/Plan Assessment: #1 anoxic encephalopathy #2 minimal brain function #3 CT scan shows loss of benito-white differentiation indicative of diffuse cerebral edema Prognosis poor Plan: The patient is about to be dialyzed. Support continues for the present however, as above, prognosis for functional recovery is extremely poor. I have relayed my thoughts to the family.
[2017-08-04 16:00] VITALS: BP 147/63
[2017-08-04 20:53] LABS: ABSOLUTE BASOPHIL COUNT 0 /CUMM (0.0-0.2); ABSOLUTE EOSINOPHIL COUNT 0 /CUMM (0.0-0.7); ABSOLUTE GRANULOCYTE CT 11.1 /CUMM (1.4-6.5); ABSOLUTE LYMPH COUNT 1.4 /CUMM (1.2-3.4); ABSOLUTE MONOCYTE COUNT 0.5 /CUMM (0.10-0.60); BASOPHIL % 0.2 % (0.0-2.0); EOSINOPHIL % 0 % (0-5); GRANULOCYTE % 85.3 % (42.2-75.2); MEAN CORPUSCULAR HGB 27.1 PG (27.0-31.0); MEAN CORPUSCULAR HGB CONC 32.2 G/DL (33.0-37.0); MEAN CORPUSCULAR VOLUME 84.2 FL (81.0-99.0); MEAN PLATELET VOLUME 7.6 FL (7.4-10.4); PLATELET COUNT 281 /CUMM (130-400); RBC DISTRIBUTION WIDTH 17.6 % (11.5-14.5); RED BLOOD CELL CT 3.39 /CUMM (4.20-5.40); WHITE BLOOD CELL COUNT 13.1 /CUMM (4.8-10.8)
[2017-08-04 20:56] LABS: HEMATOCRIT 28.6 % (37-47)
--- NOTE | 2017-08-04 21:24 | PN- Cardiology ---
Subjective Subjective: * No change in neurologic status. * dialysis could not be done due to clotted fistula * sinus rhythm * creatinine is 8.7 * troponin peaked at 4.2 and is trending down * Increased WBC count with low grade fever and right lung infiltrate * stable anemia Objective Vital Signs and I&Os Vital Signs Date Time Temp Pulse Resp B/P B/P Pulse O2 O2 Flow FiO2 Mean Ox Delivery Rate 08/05 1999 98 Ventilator 30% 08/04 1925 30 08/04 1657 30 08/04 1600 96 Ventilator 30% 08/04 1600 97.0 72 20 147/63 96 Ventilator 30% 08/04 1423 30 08/04 1200 8 Ventilator 30% 08/04 1124 30 08/04 0840 30 08/04 0800 96 Ventilator 35% 08/04 0800 96.4 114 20 167/70 96 Ventilator 30% 08/04 0536 30 08/04 0400 96 Ventilator 30% 08/04 0319 30 08/04 0051 30 08/04 0000 96 Ventilator 30% 08/04 0000 98.2 92 20 164/85 96 Ventilator 30% 08/03 2238 30 Intake & Output 08/04 1600 08/04 0800 08/04 0000 08/03 1600 08/03 0800 08/03 0000 Intake Total 100 57 257.6 365 175 400 Output Total 300 Balance -200 57 257.6 365 175 400 Intake, IV 100 57 197.6 365 175 400 Intake, Other 60 Number 1 1 2 Bowel Movements Output, Urine 300 Patient 176 lb 169 lb Weight Weight Bed scale Measurement Method Physical Exam: General: WD/overweight female. Intubated. HEENT: NC/AT, pupils reactive to light, no dolls eyes Neck: no JVD, no carotid bruit Heart: RRR w/o murmur Lungs: clear bilaterally Abdomen: soft, NT, +ve bowel sounds Extremities: no edema Neuro: some spontaneous movement of legs bilaterally Assessment/Plan Assessment/Plan * This patient has evidence of coma likely related to prolonged hypoglycemia. Changes on her head CT are suggestive of anoxic injury. * This patient has evidence of a NSTEMI with cardiac enzymes trending down. I suspect that her MS is a type 2 from supply demand mismatch rather than from an acute ruptured intracoronary plaque. H/H is improved. Okay to stop IV heparin at this point in time. I would not begin beta blockers at this point in time due to her becoming bradycardic and going into asystole yesterday. * Continue antibiotics for a likely aspiration pneumonia. Continue telemetry? Yes
[2017-08-05] VITALS: BP 154/82
[2017-08-05 04:45] LABS: ABSOLUTE BASOPHIL COUNT 0 /CUMM (0.0-0.2); ABSOLUTE EOSINOPHIL COUNT 0 /CUMM (0.0-0.7); ABSOLUTE GRANULOCYTE CT 7.9 /CUMM (1.4-6.5); ABSOLUTE LYMPH COUNT 2.2 /CUMM (1.2-3.4); ABSOLUTE MONOCYTE COUNT 0.7 /CUMM (0.10-0.60); BASOPHIL % 0.2 % (0.0-2.0); EOSINOPHIL % 0.1 % (0-5); GRANULOCYTE % 73.1 % (42.2-75.2); MEAN CORPUSCULAR HGB 27.7 PG (27.0-31.0); MEAN CORPUSCULAR HGB CONC 33.6 G/DL (33.0-37.0); MEAN CORPUSCULAR VOLUME 82.6 FL (81.0-99.0); MEAN PLATELET VOLUME 7.3 FL (7.4-10.4); PLATELET COUNT 265 /CUMM (130-400); RBC DISTRIBUTION WIDTH 17.8 % (11.5-14.5); RED BLOOD CELL CT 3.39 /CUMM (4.20-5.40); WHITE BLOOD CELL COUNT 10.8 /CUMM (4.8-10.8)
--- NOTE | 2017-08-05 06:38 | RADIOLOGY REPORT ---
EXAMINATION: XR PORTABLE CHEST CLINICAL INFORMATION: Intubation COMPARISON: Chest x-ray August 04, 2017 TECHNIQUE: Portable frontal view of the chest was obtained. 6:04 AM FINDINGS: Endotracheal tube about 6 cm above vazquez. Nasogastric tube tip in the stomach but the sidehole is at the level the diaphragm. There is a persistent small parenchymal opacity, infiltrate, at the right upper lobe. Left lung clear. No pleural effusion. Cardiac mediastinal contour is unchanged. IMPRESSION: 1. Endotracheal tube 6 cm above vazquez. 2. Nasogastric tube tip in stomach. 3. Persistent right upper lobe patchy airspace opacity.
--- NOTE | 2017-08-05 07:34 | PN- Resident CRCU ---
Bijan HYMAN,Nelly 08/05/17 0733: Subjective HPI/CRCU Issues: Patient continues to remain unresponsive with occasional spontaneous leg movements and eye twitching. Patient had dialysis yesterday. There was some difficulty with patient's fistula however nephrology reports that it will be used again today. Objective Vital Signs & I&O Last 8 Hrs of Vitals and I&O: Laboratory Tests 08/05 Chemistry Sodium (137 - 145 mmol/L) 147 H Potassium (3.5 - 5.1 mmol/L) 4.1 Chloride (98 - 107 mmol/L) 107 Carbon Dioxide (22 - 30 mmol/L) 22 Anion Gap (5 - 16) 18 H BUN (7 - 17 mg/dL) 79 H Creatinine (0.5 - 1.0 mg/dL) 7.0 *H Estimated GFR (>60 ml/min) 6 L Glucose (65 - 99 mg/dL) 214 H Calcium (8.4 - 10.2 mg/dL) 9.1 Phosphorus (2.5 - 4.5 mg/dL) 6.7 H Magnesium (1.6 - 2.3 mg/dL) 2.1 Total Bilirubin (0.2 - 1.3 mg/dL) 0.9 AST (14 - 36 U/L) 41 H ALT (9 - 52 U/L) 54 H Albumin (3.5 - 5.0 g/dL) 2.4 L Hematology CBC w Diff NO MAN DIFF REQ NO MAN DIFF REQ WBC (4.8 - 10.8 /CUMM) 10.8 13.1 H RBC (4.20 - 5.40 /CUMM) 3.39 L 3.39 L Hgb (12.0 - 16.0 G/DL) 9.4 L 9.2 L Hct (37 - 47 %) 28.0 L 28.6 L MCV (81.0 - 99.0 FL) 82.6 84.2 MCH (27.0 - 31.0 PG) 27.7 27.1 MCHC (33.0 - 37.0 G/DL) 33.6 32.2 L RDW (11.5 - 14.5 %) 17.8 H 17.6 H Plt Count (130 - 400 /CUMM) 265 281 MPV (7.4 - 10.4 FL) 7.3 L 7.6 Gran % (42.2 - 75.2 %) 73.1 85.3 H Lymphocytes % (20.5 - 51.1 %) 20.3 L 11.0 L Monocytes % (1.7 - 9.3 %) 6.3 3.5 Eosinophils % (0 - 5 %) 0.1 0 Basophils % (0.0 - 2.0 %) 0.2 0.2 Absolute Granulocytes (1.4 - 6.5 /CUMM) 7.9 H 11.1 H Absolute Lymphocytes (1.2 - 3.4 /CUMM) 2.2 1.4 Absolute Monocytes (0.10 - 0.60 /CUMM) 0.7 H 0.5 Absolute Eosinophils (0.0 - 0.7 /CUMM) 0 0 Absolute Basophils (0.0 - 0.2 /CUMM) 0 0 Exam General Appearance: well developed/nourished, intubated, unresponsive Respiratory: normal breath sounds, lungs clear (clear on anterior auscultation) Cardiovascular: regular rate/rhythm Gastrointestinal: normal bowel sounds, soft Extremities: normal inspection, no edema Cranial Nerves: PERRL, limited neuro exam due to unresponsiveness, + babinski sign Current Medications: Current Medications Sig/Makayla Start time Last Medication Dose Route Stop Time Status Admin Acetaminophen 1,000 MG Q6P PRN 08/01 1445 AC 08/02 IV 0551 Amlodipine Besylate 5 MG DAILY 08/06 1000 AC PO Amlodipine Besylate 2.5 MG ONCE ONE 08/05 1600 DC 08/05 PO 08/05 1601 1500 Amlodipine Besylate 2.5 MG DAILY 08/05 1211 DC 08/05 PO 1312 Ampicillin Sodium/ 3,000 MG Q12 08/01 1730 AC 08/05 Sulbactam Sodium IV 1200 Sodium Chloride 100 ML Artificial Tears 2 GTT 4 TIMES/DAY 08/05 1400 AC 08/05 OPH 1641 Aspirin 81 MG DAILY 08/03 1000 AC 08/05 PO 1223 Atorvastatin Calcium 40 MG 1700 08/03 1700 AC 08/05 PO 1641 Hydralazine HCl 5 MG ONCE ONE 08/05 1630 DC 08/05 IV 08/05 1631 1642 Hydrocortisone 12.5 MG BID 08/05 1000 AC 08/05 Sodium Succinate IV 1222 Hydrocortisone 25 MG BID 08/02 1000 DC 08/04 Sodium Succinate IV 2141 Insulin Aspart 0 Q4H 08/05 1200 AC 08/05 SC 1641 Insulin Aspart 0 Q4 08/01 2200 DC 08/05 SC 0615 Insulin Detemir 8 UNITS BID 08/05 1000 AC 08/05 SC 1221 Insulin Detemir 6 UNITS BID 08/03 2200 DC 08/04 SC 2212 Levothyroxine Sodium 25 MCG DAILY 08/02 1000 AC 08/05 IV 1222 Lorazepam 1 MG Q4P PRN 08/02 1400 AC IV Pantoprazole Sodium 40 MG DAILY 08/01 1730 AC 08/05 IV 1222 Scopolamine HBr 1 PAT Q72H PRN 08/02 1600 AC 08/02 TOP 1640 Impression/Plan Impression/Problem List Impression: This is 62-year-old female with a medical history of stage 5 CKD(nephrotic proteinuria, diabetic nephropathy and retinopathy) with left AV fistula placed couple month ago(still making urine), currently not on hemodialysis, has only one kidney since childhood. 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 Presented to the emergency department via EMS due to unresponsiveness. Patient is admitted to the ICU for management of the following: Respiratory: Acute hypoxic respiratory failure 2/2 to aspiration pneumonia on mechanical ventilation: Patient continues to remain on mechanical ventilation. Oxygen requirement continues to improve with decreased FiO2. Patient's remains unresponsive off sedation. - continue mechanical ventilation - ativan 1mg q4h PRN for agitation - Repeat chest x-ray in a.m. Infection: Aspiration Pneumonia: Patient continues to be tachycardic, febrile with elevated leukocytosis which is downtrending on IV Unasyn. No growth on cultures thus far. Repeat chest xray shows persistent bilateral airspace opacities with largest area of consolidation in the right upper lobe. Patient remains on ventilatory support. CT Chest showing lobulated mass in the right upper lobe medially is not significantly changed in size. There are now patchy areas of ground glass opacification nodularity in both lungs, which may be consistent with multifocal pneumonic infiltrates. - will complete a 5 day course of antibiotics today. Will discontinue antibiotics today. - continue to monitor CBCs, vitals - Follow-up blood cultures, sputum culture - ID on board. Appreciate recommendations. Cardiac: Status post cardiac arrest in the ED New right bundle branch block, wide QRS tachycardia NSTEMI- likely 2/2 to demand ischemia Patient's troponin's peaked to 4.20. Patient remains unresponsive on mechanical ventilator. Patient's heparin was temporarily stopped on 08/02 due to concerns of bleeding from tinsley site. Patient was seen by cardiology. H/H was stable and patient's heparin was shortly after on 08/02. - Off IV heparin. Patient's H/H stable but continues to have guiac positive stools. - continue aspirin and statin Heme: Anemia Patient has a history of chronic anemia. H/H dropped to 7.6 this morning. Patient had tinsley placement in the OR today with continued bleeding which is expected per urology. Patient is also having guiac positive stools. Repeat H/H after was 7.1. Patient s/p 1 unit pRBC with dialysis on 08/04. Repeat H/H was >9 this morning. - continue to mmonitor H/H - continue to monitor for signs of bleeding Metabolic: Type 1 Diabetes - on Insulin Pump Patient initially presented with hypoglycemia w/ BG of 27. Patients BG over the past 24 hours was up to the 400s today. Levemir was increased. Hydrocortisone was decreased today. - Endocrinology on board. Appreciate recommendations - Continue levemir to 8 units BID - Insulin SS adjusted per endocrinology recommendations - Target BG per endocrinology: FSG of 100 to 200. Adrenal Insufficiency. Patient is on chronic prednisone for interstitital nephritis. - IV hydrocortisone decreased to 12.5mg IV BID Metabolic acidosis with elevated anion gap and lactic acidosis - Resolved Patient's anion gap is down from previous day. Lactic acid was previously fluctuating however is now downtrending. Patient was previously getting IV Bicarb. Alimentary: Patient is currently NPO due to intubation. Resume tube feeds today. Fluids are being given cautiously due to ECHO showing LVEF of 30%. Neurology: Unresponsiveness - likely multifactorial at this point. Initially secondary to severe hypoglycemia. Patient likely had a seizure prior to arrival as she was found to have urinary and bladder incontinence and had an elevated prolactin level on admission. Patient was also found to have vomitted and aspirated. In the ED on day of admision patient had a cardiac arrest for approximately 10 minutes. Patient had a head CT on admission which was nondiagnostic due to motion artifact. Repeat CT on 08/03 showed extensive loss of benito-white matter differentiation primarily involving the basal ganglia, right insular cortex, and both temporal lobes. These findings are consistent with hypoxic ischemic injury. No acute hemorrhage. - neurology is on board. appreciate recommendations - continue neurochecks - continue to watch off sedation - continue aspiration protocol - continue aspirin - continue to monitor and replete electrolytes Nephrology: ESRD w/left sided AV fistula: Patient has a history of ESRD with biopsy showing chronic intersitial nephritis and diabetic nephropathy. Patient was placed on a course of steroids which were tapered off. Patient has been evaluated by nephrology today. IV Bicarb was discontinued. Patient is currently being dialyzed today. - patient is to go for dialysis again tomorrow. - continue to monitor electrolytes - continue to monitor I/O - nephrology consulted. appreciate recommendations Urology: Urethral stricture. Nursing was unable to placed tinsley. Urology was consulted and placed a 16 macedonian tinsley after urethral dilation. Patient's tinsley appears to be obstructed today with what appears to be clotted frothy blood in the bag and area around the tinsley with bleeding and showing leakage. Irrigation on 08/02 did not improve the patency of the tinsley. The tinsley was removed in the morning on by urology. Patient's PVR >500 on 08/[address] Lim attempted to place a tinsley at the bedside however was unable to. Patient was taken to the OR on 08/04 for cystoscopy with successful tinsley placement. Cystoscopy showed false urethral passage. Patient drained 800cc immediateley after tinsley placement. - continue to monitor output - continue to monitor for excessive bleeding - urology on board DVT PPx: ALPs only Code: Full code Problem List: 1. Hypoxic brain injury 2. NSTEMI (non-ST elevated myocardial infarction) 3. End stage renal disease Pain Ratin Tomorrow's Labs & Rationales: cbc bep Plan DVT/Prophylaxis: mechanical, pharmacological Hector Barajas MD 08/05/17 1214: Attending MD Review Statement Attending Sign Off Attending Cosign Statement: I have: examined this patient, reviewed [employer] EMR data, personally reviewd images, discussd w/resident/PA/FLATWORK PRESSER, discussed mgmt plan w/[place], discussed mgmt plan w/CM, discussed mgmt plan w/pt, agreed w/resident/PA/FLATWORK PRESSER, amended to note. Other Findings: Impression 62 year old woman s/p asystolic arrest, likely/presumed secondary to insulin overdose resulting in hypolglycemia CKD unresponsiveness hypoxemic respiratory failure lung nodule s/p non diagnostic biopsy leukocytosis with likely aspiration Plan Respiratory -mechanical ventilation to be continued -lung nodule was non-diagnositic, ct chest without contrast today ID -f/u ID CVS -monitor hemodynamics -f/u cardiology recs Heme -f/u cbc, coags Metabolic -f/u endocrine/renal recs -monitor ins/outs -monitor electrolytes -HD per nephrology Alimentary -tube feeds -finger sticks Neuro -neurology appreciated -ct head today DVT prophylaxis at all times TTS 40 min Family at bedside, discussed system based problem list and treatment plan
[2017-08-05 08:00] VITALS: BP 188/70
--- NOTE | 2017-08-05 08:41 | PN- Nephrology ---
Assessment/Plan Nephrology Assessment: ESRD. On 2nd dialysis Rx. today. Still comatose. Will plan 2.5 L UF with HD today and 3.5 hr Rx. Will dialyze again tomorrow then Tuesday. Her coma is not related to her ESRD so dialysis would not be expected to improve her neurologic status. Her ADRIAN superimposed on ESRD, however, would complicate management ( fluids/electrolytes/superimposed uremia) over the next few days so dialysis was started yesterday to stabilize this aspect of her care and allow more time for recovery on her own. Will monitor dialysis closely. Will need low dose heparin for dialysis (about [id number] units/Rx). Jamar Lucero MD ADDENDUM: 10:00 AM AVF functioning well at BF 240. will continue same. Okay to cancel HIRAM. Will try to continue to use AVF> Main Lucero MD Suggestion: . Subjective Subjective: Pt on dialysis now. Problems with HD yesterday due to small AVF. Needled today without problem (AVF is under the upper arm and will likely need 16-17 g needles for a while). Objective Vital Signs and I&Os F intubated unresponsive 154/82 90 98.9 Lungs clear Cor RRR Abd soft Ext neg edema Results Pertinent Lab Results: 147 / 107 / 79 / 214 4.1 / 22 / 7.0\ Hg 9.4
--- NOTE | 2017-08-05 09:36 | PN- Diabetes ---
Assessment/Plan Diabetes Assessment: 62 y/o female hx of longstanding DM type 1, chronic renal disease due to diabetes and chronic interstitual nephritis and was treated with a couse of steroid. Patient was found to be unresponsive with glucose level was in the 20s. Blood work in ER showed inappropriately elevated insulin level. Her severe hypoglycemia most likely was due to insulin overdose. She received hydrocortisone 100 mg iv in ER. Patient was intubated. She was on D10 w and pressor. Her BP and glucose level improved and D10 w and pressor were discontinued. She is now on hydrocortisone 25 mg iv twice a day. According to her insulin pump-- [employer] 630 G-- her basal insulin 36.75 units per 24 hours. She was on Levemir 16 units twice a day and Novolog coveage every 4 hours initially. Levemir was gradually decreased to 6 units twice a day; Novolog coverage every 4 hours was adjusted. Her FSGs over past 24 hours were 429, 328, 193 and 205. In addition, she was put on Levothyroxine 25 mcg iv daily. She is receiving receive HD at this moment. Plan: 1. decrease Hydrocortisone to 12.5 mg iv twice a day today; 2. increase Levemir to 8 units twice a day; 3. continue the current Novolog coverage every 4 hours; 4. monitor FSGs, electrolytes and vital signs. will follow. Inpatient Diabetes Orders Before Each Meal: Bolus Insulin: . icr Subjective Subjective: patient remains intubated. Objective Last 24 Hrs of Vital Signs/I&O Vital Signs Date Time Temp Pulse Resp B/P B/P Pulse O2 O2 Flow FiO2 Mean Ox Delivery Rate 08/05 0856 30 08/05 0543 30 08/05 0400 97 Ventilator 30% 08/05 0349 30 08/05 0043 30 08/05 0000 98.9 90 20 154/82 97 Ventilator 30% 08/05 0000 97 Ventilator 30% 08/04 2238 30 08/05 1999 98 Ventilator 30% 08/04 1925 30 08/04 1657 30 08/04 1600 96 Ventilator 30% 08/04 1600 97.0 72 20 147/63 96 Ventilator 30% 08/04 1423 30 08/04 1200 8 Ventilator 30% 08/04 1124 30 Intake & Output 08/05 1600 08/05 0800 08/05 0000 Intake Total 120 Output Total 150 300 Balance -150 -180 Intake, IV 120 Output, Urine 150 300 Findings Pertinent Lab/Charli Results: Laboratory Tests 08/05 Chemistry Sodium (137 - 145 mmol/L) 147 H Potassium (3.5 - 5.1 mmol/L) 4.1 Chloride (98 - 107 mmol/L) 107 Carbon Dioxide (22 - 30 mmol/L) 22 Anion Gap (5 - 16) 18 H BUN (7 - 17 mg/dL) 79 H Creatinine (0.5 - 1.0 mg/dL) 7.0 *H Estimated GFR (>60 ml/min) 6 L Glucose (65 - 99 mg/dL) 214 H Calcium (8.4 - 10.2 mg/dL) 9.1 Phosphorus (2.5 - 4.5 mg/dL) 6.7 H Magnesium (1.6 - 2.3 mg/dL) 2.1 Total Bilirubin (0.2 - 1.3 mg/dL) 0.9 AST (14 - 36 U/L) 41 H ALT (9 - 52 U/L) 54 H Albumin (3.5 - 5.0 g/dL) 2.4 L Hematology CBC w Diff NO MAN DIFF REQ NO MAN DIFF REQ WBC (4.8 - 10.8 /CUMM) 10.8 13.1 H RBC (4.20 - 5.40 /CUMM) 3.39 L 3.39 L Hgb (12.0 - 16.0 G/DL) 9.4 L 9.2 L Hct (37 - 47 %) 28.0 L 28.6 L MCV (81.0 - 99.0 FL) 82.6 84.2 MCH (27.0 - 31.0 PG) 27.7 27.1 MCHC (33.0 - 37.0 G/DL) 33.6 32.2 L RDW (11.5 - 14.5 %) 17.8 H 17.6 H Plt Count (130 - 400 /CUMM) 265 281 MPV (7.4 - 10.4 FL) 7.3 L 7.6 Gran % (42.2 - 75.2 %) 73.1 85.3 H Lymphocytes % (20.5 - 51.1 %) 20.3 L 11.0 L Monocytes % (1.7 - 9.3 %) 6.3 3.5 Eosinophils % (0 - 5 %) 0.1 0 Basophils % (0.0 - 2.0 %) 0.2 0.2 Absolute Granulocytes (1.4 - 6.5 /CUMM) 7.9 H 11.1 H Absolute Lymphocytes (1.2 - 3.4 /CUMM) 2.2 1.4 Absolute Monocytes (0.10 - 0.60 /CUMM) 0.7 H 0.5 Absolute Eosinophils (0.0 - 0.7 /CUMM) 0 0 Absolute Basophils (0.0 - 0.2 /CUMM) 0 0 03/22 1000 Hematology CBC w Diff NO MAN DIFF REQ WBC (4.8 - 10.8 /CUMM) 11.3 H RBC (4.20 - 5.40 /CUMM) 2.72 L Hgb (12.0 - 16.0 G/DL) 7.1 *L Hct (37 - 47 %) 22.2 L MCV (81.0 - 99.0 FL) 81.6 MCH (27.0 - 31.0 PG) 26.2 L MCHC (33.0 - 37.0 G/DL) 32.1 L RDW (11.5 - 14.5 %) 18.5 H Plt Count (130 - 400 /CUMM) 280 MPV (7.4 - 10.4 FL) 7.3 L Gran % (42.2 - 75.2 %) 77.2 H Lymphocytes % (20.5 - 51.1 %) 17.5 L Monocytes % (1.7 - 9.3 %) 5.0 Eosinophils % (0 - 5 %) 0.1 Basophils % (0.0 - 2.0 %) 0.2 Absolute Granulocytes (1.4 - 6.5 /CUMM) 8.7 H Absolute Lymphocytes (1.2 - 3.4 /CUMM) 2.0 Absolute Monocytes (0.10 - 0.60 /CUMM) 0.6 Absolute Eosinophils (0.0 - 0.7 /CUMM) 0 Absolute Basophils (0.0 - 0.2 /CUMM) 0
--- NOTE | 2017-08-05 10:54 | PN- Infect Dx ---
Subjective Subjective: Afebrile on steroids. She is currently undergoing dialysis. Objective Last 24 Hrs of Vital Signs/I&O Vital Signs Date Time Temp Pulse Resp B/P B/P Pulse O2 O2 Flow FiO2 Mean Ox Delivery Rate 08/05 0856 30 08/05 0543 30 08/05 0400 97 Ventilator 30% 08/05 0349 30 08/05 0043 30 08/05 0000 98.9 90 20 154/82 97 Ventilator 30% 08/05 0000 97 Ventilator 30% 08/04 2238 30 08/04 2000 98 Ventilator 30% 08/04 1925 30 08/04 1657 30 08/04 1600 96 Ventilator 30% 08/04 1600 97.0 72 20 147/63 96 Ventilator 30% 08/04 1423 30 08/04 1200 8 Ventilator 30% 08/04 1124 30 Intake & Output 08/05 1600 08/05 0800 08/05 0000 Intake Total 120 Output Total 150 300 Balance -150 -180 Intake, IV 120 Output, Urine 150 300 Physical Exam Other Physical Findings: She remains unresponsive off sedation on the ventilator with occasional nonpurposeful movements Lungs are clear Heart regular rhythm with no murmur Abdomen is soft, with positive bowel sounds Extremities no cyanosis, clubbing or edema Escudero catheter remains in place Results Last 24 Hours of Lab Results: Laboratory Tests 08/05 Chemistry Sodium (137 - 145 mmol/L) 147 H Potassium (3.5 - 5.1 mmol/L) 4.1 Chloride (98 - 107 mmol/L) 107 Carbon Dioxide (22 - 30 mmol/L) 22 Anion Gap (5 - 16) 18 H BUN (7 - 17 mg/dL) 79 H Creatinine (0.5 - 1.0 mg/dL) 7.0 *H Estimated GFR (>60 ml/min) 6 L Glucose (65 - 99 mg/dL) 214 H Calcium (8.4 - 10.2 mg/dL) 9.1 Phosphorus (2.5 - 4.5 mg/dL) 6.7 H Magnesium (1.6 - 2.3 mg/dL) 2.1 Total Bilirubin (0.2 - 1.3 mg/dL) 0.9 AST (14 - 36 U/L) 41 H ALT (9 - 52 U/L) 54 H Albumin (3.5 - 5.0 g/dL) 2.4 L Hematology CBC w Diff NO MAN DIFF REQ NO MAN DIFF REQ WBC (4.8 - 10.8 /CUMM) 10.8 13.1 H RBC (4.20 - 5.40 /CUMM) 3.39 L 3.39 L Hgb (12.0 - 16.0 G/DL) 9.4 L 9.2 L Hct (37 - 47 %) 28.0 L 28.6 L MCV (81.0 - 99.0 FL) 82.6 84.2 MCH (27.0 - 31.0 PG) 27.7 27.1 MCHC (33.0 - 37.0 G/DL) 33.6 32.2 L RDW (11.5 - 14.5 %) 17.8 H 17.6 H Plt Count (130 - 400 /CUMM) 265 281 MPV (7.4 - 10.4 FL) 7.3 L 7.6 Gran % (42.2 - 75.2 %) 73.1 85.3 H Lymphocytes % (20.5 - 51.1 %) 20.3 L 11.0 L Monocytes % (1.7 - 9.3 %) 6.3 3.5 Eosinophils % (0 - 5 %) 0.1 0 Basophils % (0.0 - 2.0 %) 0.2 0.2 Absolute Granulocytes (1.4 - 6.5 /CUMM) 7.9 H 11.1 H Absolute Lymphocytes (1.2 - 3.4 /CUMM) 2.2 1.4 Absolute Monocytes (0.10 - 0.60 /CUMM) 0.7 H 0.5 Absolute Eosinophils (0.0 - 0.7 /CUMM) 0 0 Absolute Basophils (0.0 - 0.2 /CUMM) 0 0 Last 24 Hours of Charli Results: Blood cultures August 01/August 02 negative Recent Imaging Studies: Chest x-ray August 05 reveals a persistent right upper lobe density Assessment/Plan ID Impression: Condition remains poor, remaining unresponsive status post a cardiac arrest on admission, with evidence of hypoxic ischemic injury on her recent CT of the head. She was begun on dialysis yesterday and is again being dialyzed today. She remains afebrile (on steroids for interstitial nephritis), with her white blood cell count now normal on Unasyn Day 5 for possible aspiration pneumonia, with her recent chest x-rays only revealing the chronic right upper lobe density that was found on biopsy 4 months prior to admission to be nondiagnostic. Suggestion: 1. Remove right femoral triple lumen catheter 2. Further management with regard to her neurologic status and renal failure per ICU team 3. Discontinue Unasyn and follow off antibiotics
[2017-08-05 16:00] VITALS: BP 204/100
--- NOTE | 2017-08-05 21:42 | PN- Cardiology ---
Subjective Subjective: * Patient remains unresponsive. * sinus rhythm * severe hypertension * status post dialysis today Objective Vital Signs and I&Os Vital Signs Date Time Temp Pulse Resp B/P B/P Pulse O2 O2 Flow FiO2 Mean Ox Delivery Rate 08/05 2056 30 08/05 2048 97 Ventilator 30% 08/05 1848 92 186/90 08/05 1642 80 200/90 08/05 1600 96 Ventilator 30% 08/05 1600 98.3 78 20 204/100 98 Ventilator 30% 08/05 1500 70 200/100 08/05 1433 30 08/05 1312 86 202/81 08/05 1200 98 Ventilator 30% 08/05 0856 30 08/05 0800 96 Ventilator 30% 08/05 0800 98.9 92 20 188/70 96 Ventilator 30% 08/05 0543 30 08/05 0400 97 Ventilator 30% 08/05 0349 30 08/05 0043 30 08/05 0000 98.9 90 20 154/82 97 Ventilator 30% 08/05 0000 97 Ventilator 30% 08/04 2238 30 Intake & Output 08/05 1600 08/05 0800 08/05 0000 08/04 1600 08/04 0800 08/04 0000 Intake Total 100 120 100 57 257.6 Output Total 270 150 300 300 Balance -170 -150 -180 -200 57 257.6 Intake, IV 100 120 100 57 197.6 Intake, Other 60 Number 1 1 2 Bowel Movements Output, 100 Gastric Drainage Output, Urine 170 150 300 300 Patient 176 lb Weight Weight Bed scale Measurement Method Physical Exam: General: WD/overweight female. Intubated. HEENT: NC/AT, pupils reactive to light, no dolls eyes Neck: no JVD, no carotid bruit Heart: RRR w/o murmur Lungs: clear bilaterally Abdomen: soft, NT, +ve bowel sounds Extremities: no edema Neuro: some spontaneous movement of legs bilaterally Assessment/Plan Assessment/Plan * Patient is severely hypertensive. Would not give medications that are negative chronotropic agents due to previous severe bradycardia. Begin hydralazine 10mg IV TID and increase as necessary to control blood pressure. In consideration of the patient's CA NTG paste 1/2 inch Q 6 hours can also be started. Continue telemetry? Yes
[2017-08-06] VITALS: BP 161/73
[2017-08-06 08:00] VITALS: BP 142/74
--- NOTE | 2017-08-06 09:54 | PN- Resident CRCU ---
Subjective HPI/CRCU Issues: Unable to obtain labs from central line however able to give meds through the line per nursing staff Patient remains intubated and unresponsive, off sedation Patient had dialysis yesterday. Patient is planned for dialysis this afternoon. Vitals: MAXIMUM TEMPERATURE 99.3, heart rate 85-106, sinus rhythm to sinus tach, respiration rate 20, blood pressure yesterday afternoon was around 200/100. This morning blood pressure was running in the 160s over 70s. Saturating at 97- 98% on mechanical ventilation, tidal volume of 500, FiO2 of 30, PEEP of 5 Total intake 4349 output 3784 Accu-Cheks: 199, 222, 208, 232, 215, 189 Labs: WBC 17.1 with 79.5% granulocytes and no bands on steroids, H&H 10.2 and 30.8, platelets 245 Sodium 144, potassium 3.5, chloride 104, bicarbonate 21, anion gap 19, BUN 69, creatinine 6.1, glucose 250, 9.0, phosphorus 5.1, magnesium 2.2, LFTs within normal limits, albumin 2.7 Objective Vital Signs & I&O Last 8 Hrs of Vitals and I&O: Vital Signs Date Time Temp Pulse Resp B/P B/P Pulse O2 O2 Flow FiO2 Mean Ox Delivery Rate 08/06 1903 103 139/68 08/06 1615 30 08/06 1600 97.8 107 20 132/70 98 Ventilator 30% 08/06 1600 97 Ventilator 30% 08/06 1559 120 97/48 08/06 1437 30 08/06 1200 96 Ventilator 30% 08/06 1104 30 08/06 0800 99.4 90 20 142/74 97 Ventilator 30% 08/06 0800 97 Ventilator 30% 08/06 0755 30 08/06 0535 30 08/06 0400 97 Ventilator 30% 08/06 0305 30 08/06 0046 30 08/06 0000 97 Ventilator 30% 08/06 0000 97.3 87 20 161/73 97 Ventilator 30% 08/05 2231 30 08/05 2056 30 08/05 2048 97 Ventilator 30% Intake & Output 08/06 1600 08/06 0800 08/06 0000 Intake Total 270 160 80 Output Total 100 90 112 Balance 170 70 -32 Intake, IV 50 Intake, Tube 160 100 50 Feeding Intake, Tube 60 60 30 Irrigant Output, Urine 100 90 112 Patient 180 lb Weight Intake & Output 08/06 1600 Intake Total 270 Output Total 100 Balance 170 Intake, IV 50 Intake, Tube 160 Feeding Intake, Tube 60 Irrigant Output, Urine 100 Patient 180 lb Weight Exam General Appearance: well developed/nourished, no apparent distress, intubated, unresponsive, moves legs spontaneously, occasional twitching and eye movement Head: atraumatic, normal appearance Respiratory: normal breath sounds, chest non-tender, no respiratory distress, lungs clear Cardiovascular: regular rate/rhythm Gastrointestinal: normal bowel sounds, soft Extremities: normal inspection, no edema Cranial Nerves: PERRL Current Medications: Current Medications Sig/Makayla Start time Last Medication Dose Route Stop Time Status Admin Acetaminophen 1,000 MG Q6P PRN 08/01 1445 AC 08/02 IV 0551 Amlodipine Besylate 2.5 MG DAILY 08/06 1815 AC 08/06 PO 1903 Amlodipine Besylate 10 MG DAILY 08/06 1000 DC PO Artificial Tears 2 GTT 4 TIMES/DAY 08/05 1400 AC 08/06 OPH 1801 Aspirin 81 MG DAILY 08/03 1000 AC 08/06 PO 1757 Atorvastatin Calcium 40 MG 1700 08/03 1700 AC 08/06 PO 1757 Epoetin Oz 8,000 UNIT Tuesday .. 08/06 1300 AC IV Hydralazine HCl 10 MG Q8 08/06 1400 AC IV Hydralazine HCl 10 MG TID 08/06 1000 DC IV Hydrocortisone 12.5 MG BID 08/05 1000 AC 08/06 Sodium Succinate IV 0945 Insulin Aspart 0 Q4H 08/05 1200 AC 08/06 SC 1714 Insulin Detemir 11 UNITS BID 08/06 2200 AC SC Insulin Detemir 8 UNITS BID 08/05 1000 DC 08/06 SC 0945 Levothyroxine Sodium 25 MCG DAILY 08/02 1000 AC 08/06 IV 1011 Lorazepam 1 MG Q4P PRN 08/02 1400 AC IV Nitroglycerin 0.5 GM Q6 08/06 1200 AC 08/06 TOP 1800 Pantoprazole Sodium 40 MG DAILY 08/01 1730 AC 08/06 IV 0945 Scopolamine HBr 1 PAT Q72H PRN 08/02 1600 AC 08/02 TOP 1640 Impression/Plan Impression/Problem List Impression: This is 62-year-old female with a medical history of stage 5 CKD(nephrotic proteinuria, diabetic nephropathy and retinopathy) with left AV fistula placed couple month ago(still making urine), currently not on hemodialysis, has only one kidney since childhood. 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 Presented to the emergency department via EMS due to unresponsiveness. Patient is admitted to the ICU for management of the following: Respiratory: Acute hypoxic respiratory failure 2/2 to aspiration pneumonia on mechanical ventilation: Patient continues to remain on mechanical ventilation. Oxygen requirement continues to improve with decreased FiO2. Patient's remains unresponsive off sedation. - continue mechanical ventilation - ativan 1mg q4h PRN for agitation - Repeat chest x-ray in a.m. Infection: Aspiration Pneumonia: Patient continues to be tachycardic, febrile with elevated leukocytosis which is downtrending on IV Unasyn. No growth on cultures thus far. Repeat chest xray shows persistent bilateral airspace opacities with largest area of consolidation in the right upper lobe. Patient remains on ventilatory support. CT Chest showing lobulated mass in the right upper lobe medially is not significantly changed in size. There are now patchy areas of ground glass opacification nodularity in both lungs, which may be consistent with multifocal pneumonic infiltrates. - completed 5 days of antibiotic therapy. - continue to monitor CBCs, vitals - Follow-up blood cultures, sputum culture - ID on board. Appreciate recommendations. Cardiac: Status post cardiac arrest in the ED New right bundle branch block, wide QRS tachycardia NSTEMI- likely 2/2 to demand ischemia Patient's troponin's peaked to 4.20. Patient remains unresponsive on mechanical ventilator. Patient's heparin was temporarily stopped on 08/02 due to concerns of bleeding from tinsley site. Patient was seen by cardiology. H/H was stable and patient's heparin was shortly after on 08/02. - Off IV heparin. Patient's H/H stable. - continue aspirin and statin Heme: Anemia Patient has a history of chronic anemia. H/H dropped to 7.6 this morning. Patient had tinsley placement in the OR today with continued bleeding which is expected per urology. Patient is also having guiac positive stools. Repeat H/H after was 7.1. Patient s/p 1 unit pRBC with dialysis on 08/04. Repeat H/H was >9 this morning. - continue to mmonitor H/H - continue to monitor for signs of bleeding Metabolic: Type 1 Diabetes - on Insulin Pump Patient initially presented with hypoglycemia w/ BG of 27. Patients BG over the past 24 hours was up to the 400s today. Levemir was increased. Hydrocortisone was decreased today. - Endocrinology on board. Appreciate recommendations - Increased Levemir to 11 units BID - Insulin SS adjusted per endocrinology recommendations - Target BG per endocrinology: FSG of 100 to 200. Adrenal Insufficiency. Patient is on chronic prednisone for interstitital nephritis. - IV hydrocortisone 12.5mg IV BID Metabolic acidosis with elevated anion gap and lactic acidosis - Resolved Patient's anion gap is down from previous day. Lactic acid was previously fluctuating however is now downtrending. Patient was previously getting IV Bicarb. Alimentary: Patient is currently NPO due to intubation. Resume tube feeds today. Fluids are being given cautiously due to ECHO showing LVEF of 30%. Neurology: Unresponsiveness - likely multifactorial at this point. Initially secondary to severe hypoglycemia. Patient likely had a seizure prior to arrival as she was found to have urinary and bladder incontinence and had an elevated prolactin level on admission. Patient was also found to have vomitted and aspirated. In the ED on day of admision patient had a cardiac arrest for approximately 10 minutes. Patient had a head CT on admission which was nondiagnostic due to motion artifact. Repeat CT on 08/03 showed extensive loss of benito-white matter differentiation primarily involving the basal ganglia, right insular cortex, and both temporal lobes. These findings are consistent with hypoxic ischemic injury. No acute hemorrhage. - neurology is on board. appreciate recommendations - continue neurochecks - continue to watch off sedation - continue aspiration protocol - continue aspirin - continue to monitor and replete electrolytes Nephrology: ESRD w/left sided AV fistula: Patient has a history of ESRD with biopsy showing chronic intersitial nephritis and diabetic nephropathy. Patient was placed on a course of steroids which were tapered off. Patient has been evaluated by nephrology today. IV Bicarb was discontinued. Patient is currently being dialyzed today. - patient is to go for dialysis again tomorrow. - continue to monitor electrolytes - continue to monitor I/O - nephrology consulted. appreciate recommendations Urology: Urethral stricture. Nursing was unable to placed tinsley. Urology was consulted and placed a 16 sudanese tinsley after urethral dilation. Patient's tinsley appears to be obstructed today with what appears to be clotted frothy blood in the bag and area around the tinsley with bleeding and showing leakage. Irrigation on 08/02 did not improve the patency of the tinsley. The tinsley was removed in the morning on by urology. Patient's PVR >500 on 08/[address] Lim attempted to place a tinsley at the bedside however was unable to. Patient was taken to the OR on 08/04 for cystoscopy with successful tinsley placement. Cystoscopy showed false urethral passage. Patient drained 800cc immediateley after tinsley placement. - continue to monitor output - continue to monitor for excessive bleeding - urology on board DVT PPx: ALPs only Code: Full code Dispo: Patient continues to have a poor neurological status. Had a family discussion today. Family is aware of poor prognosis but would like to continue full measures at this time. Will readdress patient's status tomorrow. Problem List: 1. Hypoxic brain injury 2. NSTEMI (non-ST elevated myocardial infarction) 3. End stage renal disease Pain Ratin Tomorrow's Labs & Rationales: cbc bep Plan DVT/Prophylaxis: mechanical, pharmacological
--- NOTE | 2017-08-06 10:08 | PN- Cardiology ---
Subjective Subjective: The patient remains unresponsive and intubated on the respirator. Her blood pressure has come down on her current regimen. She is currently in the 160s systolic. She is being dialyzed today so hasn't gotten her medication yet this morning but she is stable. Objective Vital Signs and I&Os Vital Signs Date Time Temp Pulse Resp B/P B/P Pulse O2 O2 Flow FiO2 Mean Ox Delivery Rate 08/06 08 99.4 90 20 142/74 97 Ventilator 30% 08/06 0800 97 Ventilator 30% 08/06 0755 30 08/06 0535 30 08/06 0400 97 Ventilator 30% 08/06 0305 30 08/06 0046 30 08/06 0000 97 Ventilator 30% 08/06 0000 97.3 87 20 161/73 97 Ventilator 30% 08/05 2231 30 08/05 2056 30 08/05 2048 97 Ventilator 30% 08/05 1848 92 186/90 08/05 1652 30 08/05 1642 80 200/90 08/05 1600 96 Ventilator 30% 08/05 1600 98.3 78 20 204/100 98 Ventilator 30% 08/05 1500 70 200/100 08/05 1433 30 08/05 1312 86 202/81 08/05 1200 98 Ventilator 30% Intake & Output 08/06 1600 08/06 0800 08/06 0000 08/05 1600 08/05 0800 08/05 0000 Intake Total 160 80 100 120 Output Total 90 112 270 150 300 Balance 70 -32 -170 -150 -180 Intake, IV 100 120 Intake, Tube 100 50 Feeding Intake, Tube 60 30 Irrigant Output, 100 Gastric Drainage Output, Urine 90 112 170 150 300 Physical Exam: She was febrile She is unresponsive HEENT exam grossly normal Chest aerating well Heart regular rhythm no murmurs Extremities no edema Current Medications: Current Medications Sig/Makayla Start time Last Medication Dose Route Stop Time Status Admin Acetaminophen 1,000 MG Q6P PRN 08/01 1445 AC 08/02 IV 0551 Amlodipine Besylate 5 MG DAILY 08/06 1000 DC PO Amlodipine Besylate 10 MG DAILY 08/06 1000 AC PO Amlodipine Besylate 2.5 MG ONCE ONE 08/05 1600 DC 08/05 PO 08/05 1601 1500 Amlodipine Besylate 2.5 MG DAILY 08/05 1211 DC 08/05 PO 1312 Ampicillin Sodium/ 3,000 MG Q12 08/01 1730 DC 08/05 Sulbactam Sodium IV 1200 Sodium Chloride 100 ML Artificial Tears 2 GTT 4 TIMES/DAY 08/05 1400 AC 08/05 OPH 2156 Aspirin 81 MG DAILY 08/03 1000 AC 08/05 PO 1223 Atorvastatin Calcium 40 MG 1700 08/03 1700 AC 08/05 PO 1641 Hydralazine HCl 10 MG TID 08/06 1000 AC IV Hydralazine HCl 5 MG ONCE ONE 08/05 1830 DC 08/05 IV 08/05 1831 1848 Hydralazine HCl 5 MG ONCE ONE 08/05 1630 DC 08/05 IV 08/05 1631 1642 Hydrocortisone 12.5 MG BID 08/05 1000 AC 08/06 Sodium Succinate IV 0945 Insulin Aspart 0 Q4H 08/05 1200 AC 08/06 SC 0849 Insulin Aspart 0 Q4 08/01 2200 DC 08/05 SC 0615 Insulin Detemir 8 UNITS BID 08/05 1000 AC 08/06 SC 0945 Levothyroxine Sodium 25 MCG DAILY 08/02 1000 AC 08/05 IV 1222 Lorazepam 1 MG Q4P PRN 08/02 1400 AC IV Nitroglycerin 0.5 GM Q6 08/06 1200 AC TOP Pantoprazole Sodium 40 MG DAILY 08/01 1730 AC 08/06 IV 0945 Scopolamine HBr 1 PAT Q72H PRN 08/02 1600 AC 08/02 TOP 1640 Results Last 48 Hrs of Labs/Mics: Laboratory Tests 08/05/17 0405: Anion Gap 18 H, Estimated GFR 6 L, Glucose 214 H, Calcium 9.1, Phosphorus 6.7 H, Magnesium 2.1, Total Bilirubin 0.9, AST 41 H, ALT 54 H, Albumin 2.4 L, CBC w Diff NO MAN DIFF REQ, RBC 3.39 L, MCV 82.6, MCH 27.7, MCHC 33.6, RDW 17.8 H, MPV 7.3 L, Gran % 73.1, Lymphocytes % 20.3 L, Monocytes % 6.3, Eosinophils % 0.1, Basophils % 0.2, Absolute Granulocytes 7.9 H, Absolute Lymphocytes 2.2, Absolute Monocytes 0.7 H, Absolute Eosinophils 0, Absolute Basophils 0 08/04/172009: CBC w Diff NO MAN DIFF REQ, RBC 3.39 L, MCV 84.2, MCH 27.1, MCHC 32.2 L, RDW 17.6 H, MPV 7.6, Gran % 85.3 H, Lymphocytes % 11.0 L, Monocytes % 3.5, Eosinophils % 0, Basophils % 0.2, Absolute Granulocytes 11.1 H, Absolute Lymphocytes 1.4, Absolute Monocytes 0.5, Absolute Eosinophils 0, Absolute Basophils 0 Assessment/Plan Assessment/Plan The patient's blood pressure is reasonable on her current regimen. I recommend continuing to monitor her blood pressure closely. We can give additional doses of IV hydralazine if the pressure spikesIs with her blood, otherwise continue giving it regularly. Continue telemetry? Not applicable (unit)
--- NOTE | 2017-08-06 10:16 | PN- Nephrology ---
Assessment/Plan Nephrology Assessment: Hemodynamically stable. Suggestion: Plan for dialysis later todya with 2 liter UF. AVF may be problematic but we were successful with it yesterday. Subjective Subjective: Patient still unresponsive, on ventilator. Objective Vital Signs and I&Os Vital Signs Date Time Temp Pulse Resp B/P B/P Pulse O2 O2 Flow FiO2 Mean Ox Delivery Rate 08/06 0800 99.4 90 20 142/74 97 Ventilator 30% 08/06 0800 97 Ventilator 30% 08/06 0755 30 08/06 0535 30 08/06 0400 97 Ventilator 30% 08/06 0305 30 08/06 0046 30 08/06 0000 97 Ventilator 30% 08/06 0000 97.3 87 20 161/73 97 Ventilator 30% 08/05 2231 30 08/05 2056 30 08/05 2048 97 Ventilator 30% 08/05 1848 92 186/90 08/05 1652 30 08/05 1642 80 200/90 08/05 1600 96 Ventilator 30% 08/05 1600 98.3 78 20 204/100 98 Ventilator 30% 08/05 1500 70 200/100 08/05 1433 30 08/05 1312 86 202/81 08/05 1200 98 Ventilator 30% Intake & Output 08/06 1600 08/06 0400 08/05 1600 08/05 0400 08/04 1600 08/04 0400 Intake Total 160 80 100 120 157 257.6 Output Total 90 112 420 300 300 Balance 70 -32 -320 -180 -143 257.6 Intake, IV 100 120 157 197.6 Intake, Other 60 Intake, Tube 100 50 Feeding Intake, Tube 60 30 Irrigant Number 2 2 Bowel Movements Output, 100 Gastric Drainage Output, Urine 90 112 320 300 300 Patient 176 lb Weight Weight Bed scale Measurement Method Physical Exam: NAD VS as above Lungs: clear CV: no rub Abd: nontender Ext: trace edema Neuro : comatose. Current Medications: Current Medications Sig/Makayla Start time Last Medication Dose Route Stop Time Status Admin Acetaminophen 1,000 MG Q6P PRN 08/01 1445 AC 08/02 IV 0551 Amlodipine Besylate 5 MG DAILY 08/06 1000 DC PO Amlodipine Besylate 10 MG DAILY 08/06 1000 AC PO Amlodipine Besylate 2.5 MG ONCE ONE 08/05 1600 DC 08/05 PO 08/05 1601 1500 Amlodipine Besylate 2.5 MG DAILY 08/05 1211 DC 08/05 PO 1312 Ampicillin Sodium/ 3,000 MG Q12 08/01 1730 DC 08/05 Sulbactam Sodium IV 1200 Sodium Chloride 100 ML Artificial Tears 2 GTT 4 TIMES/DAY 08/05 1400 AC 08/06 OPH 1012 Aspirin 81 MG DAILY 08/03 1000 AC 08/05 PO 1223 Atorvastatin Calcium 40 MG 1700 08/03 1700 AC 08/05 PO 1641 Hydralazine HCl 10 MG TID 08/06 1000 AC IV Hydralazine HCl 5 MG ONCE ONE 08/05 1830 DC 08/05 IV 08/05 1831 1848 Hydralazine HCl 5 MG ONCE ONE 08/05 1630 DC 08/05 IV 08/05 1631 1642 Hydrocortisone 12.5 MG BID 08/05 1000 AC 08/06 Sodium Succinate IV 0945 Insulin Aspart 0 Q4H 08/05 1200 AC 08/06 SC 0849 Insulin Aspart 0 Q4 08/01 2200 DC 08/05 SC 0615 Insulin Detemir 8 UNITS BID 08/05 1000 AC 08/06 SC 0945 Levothyroxine Sodium 25 MCG DAILY 08/02 1000 AC 08/06 IV 1011 Lorazepam 1 MG Q4P PRN 08/02 1400 AC IV Nitroglycerin 0.5 GM Q6 08/06 1200 AC TOP Pantoprazole Sodium 40 MG DAILY 08/01 1730 AC 08/06 IV 0945 Scopolamine HBr 1 PAT Q72H PRN 08/02 1600 AC 08/02 TOP 1640 Results Pertinent Lab Results: Laboratory Tests 08/05 08/04 0405 2009 Chemistry Sodium (137 - 145 mmol/L) 147 H Potassium (3.5 - 5.1 mmol/L) 4.1 Chloride (98 - 107 mmol/L) 107 Carbon Dioxide (22 - 30 mmol/L) 22 Anion Gap (5 - 16) 18 H BUN (7 - 17 mg/dL) 79 H Creatinine (0.5 - 1.0 mg/dL) 7.0 *H Estimated GFR (>60 ml/min) 6 L Glucose (65 - 99 mg/dL) 214 H Calcium (8.4 - 10.2 mg/dL) 9.1 Phosphorus (2.5 - 4.5 mg/dL) 6.7 H Magnesium (1.6 - 2.3 mg/dL) 2.1 Total Bilirubin (0.2 - 1.3 mg/dL) 0.9 AST (14 - 36 U/L) 41 H ALT (9 - 52 U/L) 54 H Albumin (3.5 - 5.0 g/dL) 2.4 L Hematology CBC w Diff NO MAN DIFF REQ NO MAN DIFF REQ WBC (4.8 - 10.8 /CUMM) 10.8 13.1 H RBC (4.20 - 5.40 /CUMM) 3.39 L 3.39 L Hgb (12.0 - 16.0 G/DL) 9.4 L 9.2 L Hct (37 - 47 %) 28.0 L 28.6 L MCV (81.0 - 99.0 FL) 82.6 84.2 MCH (27.0 - 31.0 PG) 27.7 27.1 MCHC (33.0 - 37.0 G/DL) 33.6 32.2 L RDW (11.5 - 14.5 %) 17.8 H 17.6 H Plt Count (130 - 400 /CUMM) 265 281 MPV (7.4 - 10.4 FL) 7.3 L 7.6 Gran % (42.2 - 75.2 %) 73.1 85.3 H Lymphocytes % (20.5 - 51.1 %) 20.3 L 11.0 L Monocytes % (1.7 - 9.3 %) 6.3 3.5 Eosinophils % (0 - 5 %) 0.1 0 Basophils % (0.0 - 2.0 %) 0.2 0.2 Absolute Granulocytes (1.4 - 6.5 /CUMM) 7.9 H 11.1 H Absolute Lymphocytes (1.2 - 3.4 /CUMM) 2.2 1.4 Absolute Monocytes (0.10 - 0.60 /CUMM) 0.7 H 0.5 Absolute Eosinophils (0.0 - 0.7 /CUMM) 0 0 Absolute Basophils (0.0 - 0.2 /CUMM) 0 0 08/04 08/04 1000 0600 Blood Gas pH (7.35 - 7.45 PH) 7.48 H pCO2 (35 - 45 TORR) 28 L pO2 (80 - 100 TORR) 101 H HCO3 (21 - 28 MEQ/L) 21 ABG O2 Sat (Measured) (>96.0 %) 97.0 P-50 (Temp Corrected) N Carboxyhemoglobin (1.5 - 5.0 %) 0.3 L O2 Concentration % .30 Respiration Rate (BPM) 20 O2 Delivery Method VENT Vent Mode A/C Expiratory Pressure (CMH2O/P) 5 Tidal Volume (CC) 500 Hematology CBC w Diff NO MAN DIFF REQ WBC (4.8 - 10.8 /CUMM) 11.3 H RBC (4.20 - 5.40 /CUMM) 2.72 L Hgb (12.0 - 16.0 G/DL) 7.1 *L Hct (37 - 47 %) 22.2 L MCV (81.0 - 99.0 FL) 81.6 MCH (27.0 - 31.0 PG) 26.2 L MCHC (33.0 - 37.0 G/DL) 32.1 L RDW (11.5 - 14.5 %) 18.5 H Plt Count (130 - 400 /CUMM) 280 MPV (7.4 - 10.4 FL) 7.3 L Gran % (42.2 - 75.2 %) 77.2 H Lymphocytes % (20.5 - 51.1 %) 17.5 L Monocytes % (1.7 - 9.3 %) 5.0 Eosinophils % (0 - 5 %) 0.1 Basophils % (0.0 - 2.0 %) 0.2 Absolute Granulocytes (1.4 - 6.5 /CUMM) 8.7 H Absolute Lymphocytes (1.2 - 3.4 /CUMM) 2.0 Absolute Monocytes (0.10 - 0.60 /CUMM) 0.6 Absolute Eosinophils (0.0 - 0.7 /CUMM) 0 Absolute Basophils (0.0 - 0.2 /CUMM) 0 Miscellaneous Phlebotomy Draw Site RIGHT BRACHIAL 08/04 08/03 0425 2210 Chemistry Sodium (137 - 145 mmol/L) 149 H Potassium (3.5 - 5.1 mmol/L) 4.1 Chloride (98 - 107 mmol/L) 108 H Carbon Dioxide (22 - 30 mmol/L) 23 Anion Gap (5 - 16) 18 H BUN (7 - 17 mg/dL) 103 *H Creatinine (0.5 - 1.0 mg/dL) 8.7 *H Estimated GFR (>60 ml/min) 5 L Glucose (65 - 99 mg/dL) 152 H Calcium (8.4 - 10.2 mg/dL) 8.8 Phosphorus (2.5 - 4.5 mg/dL) 8.7 H Magnesium (1.6 - 2.3 mg/dL) 2.1 Total Bilirubin (0.2 - 1.3 mg/dL) 0.8 AST (14 - 36 U/L) 41 H ALT (9 - 52 U/L) 60 H Albumin (3.5 - 5.0 g/dL) 2.2 L Coagulation APTT (25 - 37 SEC) 50 H Hematology CBC w Diff MAN DIFF ORDERED WBC (4.8 - 10.8 /CUMM) 11.8 H RBC (4.20 - 5.40 /CUMM) 2.86 L Hgb (12.0 - 16.0 G/DL) 7.6 L Hct (37 - 47 %) 23.1 L MCV (81.0 - 99.0 FL) 80.7 L MCH (27.0 - 31.0 PG) 26.6 L MCHC (33.0 - 37.0 G/DL) 33.0 RDW (11.5 - 14.5 %) 18.5 H Plt Count (130 - 400 /CUMM) 310 MPV (7.4 - 10.4 FL) 7.6 Gran % (42.2 - 75.2 %) 82.2 H Lymphocytes % (20.5 - 51.1 %) 14.4 L Monocytes % (1.7 - 9.3 %) 3.3 Eosinophils % (0 - 5 %) 0 Basophils % (0.0 - 2.0 %) 0.1 Absolute Granulocytes (1.4 - 6.5 /CUMM) 9.7 H Segmented Neutrophils (42.2 - 75.2 %) 85 H Band Neutrophils (0.0 - 5.0 %) 1 Absolute Lymphocytes (1.2 - 3.4 /CUMM) 1.7 Lymphocytes (20.5 - 51.1 %) 11 L Monocytes (1.7 - 9.3 %) 2 Absolute Monocytes (0.10 - 0.60 /CUMM) 0.4 Absolute Eosinophils (0.0 - 0.7 /CUMM) 0 Absolute Basophils (0.0 - 0.2 /CUMM) 0 Metamyelocytes (0.0 - 1.0 %) 1 Platelet Estimate (ADEQUATE) ADEQUATE Polychromasia 1+ Ovalocytes FEW Other Body Source Fld Total RBCs Counted (%) 100
--- NOTE | 2017-08-06 10:45 | PN- CRCU ---
Subjective HPI/Critical Care Issues: Patient remains obtunded intubated Objective Current Medications: Current Medications Sig/Makayla Start time Last Medication Dose Route Stop Time Status Admin Acetaminophen 1,000 MG Q6P PRN 08/01 1445 AC 08/02 IV 0551 Amlodipine Besylate 5 MG DAILY 08/06 1000 DC PO Amlodipine Besylate 10 MG DAILY 08/06 1000 AC PO Amlodipine Besylate 2.5 MG ONCE ONE 08/05 1600 DC 08/05 PO 08/05 1601 1500 Amlodipine Besylate 2.5 MG DAILY 08/05 1211 DC 08/05 PO 1312 Ampicillin Sodium/ 3,000 MG Q12 08/01 1730 DC 08/05 Sulbactam Sodium IV 1200 Sodium Chloride 100 ML Artificial Tears 2 GTT 4 TIMES/DAY 08/05 1400 AC 08/06 OPH 1012 Aspirin 81 MG DAILY 08/03 1000 AC 08/05 PO 1223 Atorvastatin Calcium 40 MG 1700 08/03 1700 AC 08/05 PO 1641 Hydralazine HCl 10 MG TID 08/06 1000 AC IV Hydralazine HCl 5 MG ONCE ONE 08/05 1830 DC 08/05 IV 08/05 1831 1848 Hydralazine HCl 5 MG ONCE ONE 08/05 1630 DC 08/05 IV 08/05 1631 1642 Hydrocortisone 12.5 MG BID 08/05 1000 AC 08/06 Sodium Succinate IV 0945 Insulin Aspart 0 Q4H 08/05 1200 AC 08/06 SC 0849 Insulin Aspart 0 Q4 08/01 2200 DC 08/05 SC 0615 Insulin Detemir 8 UNITS BID 08/05 1000 AC 08/06 SC 0945 Levothyroxine Sodium 25 MCG DAILY 08/02 1000 AC 08/06 IV 1011 Lorazepam 1 MG Q4P PRN 08/02 1400 AC IV Nitroglycerin 0.5 GM Q6 08/06 1200 AC TOP Pantoprazole Sodium 40 MG DAILY 08/01 1730 AC 08/06 IV 0945 Scopolamine HBr 1 PAT Q72H PRN 08/02 1600 AC 08/02 TOP 1640 Vital Signs & I&O Last 24 Hrs of Vitals and I&O: Vital Signs Date Time Temp Pulse Resp B/P B/P Pulse O2 O2 Flow FiO2 Mean Ox Delivery Rate 08/06 0800 99.4 90 20 142/74 97 Ventilator 30% 08/06 0800 97 Ventilator 30% 08/06 0755 30 08/06 0535 30 08/06 0400 97 Ventilator 30% 08/06 0305 30 08/06 0046 30 08/06 0000 97 Ventilator 30% 08/06 0000 97.3 87 20 161/73 97 Ventilator 30% 08/05 2231 30 08/05 2056 30 08/05 2048 97 Ventilator 30% 08/05 1848 92 186/90 08/05 1652 30 08/05 1642 80 200/90 08/05 1600 96 Ventilator 30% 08/05 1600 98.3 78 20 204/100 98 Ventilator 30% 08/05 1500 70 200/100 08/05 1433 30 08/05 1312 86 202/81 08/05 1200 98 Ventilator 30% Intake & Output 08/06 1600 08/06 0800 08/06 0000 Intake Total 160 80 Output Total 90 112 Balance 70 -32 Intake, Tube 100 50 Feeding Intake, Tube 60 30 Irrigant Output, Urine 90 112 Saturation 30% 97% exam for chest shows rare rhonchi cardiac exam shows regular S1 and S2 without murmurs abdomen is soft nontender Impression/Plan Impression/Plan Impression/Plan: 62-year-old woman with presumed anoxic brain damage remains ventilator dependent Recommendations: Family discussion regarding the significance of anoxic brain damage and procedure for removal from life support. Continue current level of care while family is considering direction of care
--- NOTE | 2017-08-06 12:24 | PN- Diabetes ---
Assessment/Plan Diabetes Assessment: 62 y/o female hx of longstanding DM type 1, chronic renal disease due to diabetes and chronic interstitual nephritis and was treated with a couse of steroid. Patient was found to be unresponsive with glucose level was in the 20s. Blood work in ER showed inappropriately elevated insulin level. Her severe hypoglycemia most likely was due to insulin overdose. She received hydrocortisone 100 mg iv in ER. Patient was intubated. She was on D10 w and pressor. Her BP and glucose level improved and D10 w and pressor were discontinued. She is now on hydrocortisone 12.5 mg iv twice a day. In addition, she was put on Levothyroxine 25 mcg iv daily. According to her insulin pump-- [employer] 630 G-- her basal insulin 36.75 units per 24 hours. She was on Levemir 16 units twice a day and Novolog coveage every 4 hours initially. Currently she is on Levemir 8 units twice a day; Novolog coverage every 4 hours. She was put on tube feeding at 20 ml/hour. Her FSGs were 199, 222, 208 and 232. Plan: 1. increase Levemir to 11 units twice a day; 2. adjust Novolog coverage every 4 hours--detail see the inpatient DM order; 3. monitor FSGs; 4. continue hydrocortisone 12.5 mg iv twice a day for now; will follow. Inpatient Diabetes Orders Every 4 Hours: Bolus Insulin: Novolog < 80 mg/dl: no coverage 80-100 mg/dl: no coverage 101-120 mg/dl: 2 units 121-150 mg/dl: 2 units 151-200 mg/dl: 4 units 201-250 mg/dl: 6 units 251-300 mg/dl: 8 units 301-350 mg/dl: 10 units 351-400 mg/dl: 12 units > 400 mg/dl: 14 units Subjective Subjective: She remains intubated. Objective Last 24 Hrs of Vital Signs/I&O Vital Signs Date Time Temp Pulse Resp B/P B/P Pulse O2 O2 Flow FiO2 Mean Ox Delivery Rate 08/06 1104 30 08/06 0800 99.4 90 20 142/74 97 Ventilator 30% 08/06 0800 97 Ventilator 30% 08/06 0755 30 08/06 0535 30 08/06 0400 97 Ventilator 30% 08/06 0305 30 08/06 0046 30 08/06 0000 97 Ventilator 30% 08/06 0000 97.3 87 20 161/73 97 Ventilator 30% 08/05 2231 30 08/05 2056 30 08/05 2048 97 Ventilator 30% 08/05 1848 92 186/90 08/05 1652 30 08/05 1642 80 200/90 08/05 1600 96 Ventilator 30% 08/05 1600 98.3 78 20 204/100 98 Ventilator 30% 08/05 1500 70 200/100 08/05 1433 30 08/05 1312 86 202/81 Intake & Output 08/06 1600 08/06 0800 08/06 0000 Intake Total 160 80 Output Total 90 112 Balance 70 -32 Intake, Tube 100 50 Feeding Intake, Tube 60 30 Irrigant Output, Urine 90 112
[2017-08-06 14:06] LABS: ABSOLUTE BASOPHIL COUNT 0 /CUMM (0.0-0.2); ABSOLUTE EOSINOPHIL COUNT 0 /CUMM (0.0-0.7); ABSOLUTE LYMPH COUNT 2.4 /CUMM (1.2-3.4); EOSINOPHIL % 0.3 % (0-5)
[2017-08-06 14:11] LABS: ABSOLUTE GRANULOCYTE CT 13.6 /CUMM (1.4-6.5); BASOPHIL % 0.1 % (0.0-2.0); GRANULOCYTE % 79.5 % (42.2-75.2); HEMATOCRIT 30.8 % (37-47); MEAN CORPUSCULAR HGB 27.7 PG (27.0-31.0); MEAN CORPUSCULAR HGB CONC 33.1 G/DL (33.0-37.0); MEAN CORPUSCULAR VOLUME 83.6 FL (81.0-99.0); MEAN PLATELET VOLUME 8.1 FL (7.4-10.4); PLATELET COUNT 245 /CUMM (130-400); RBC DISTRIBUTION WIDTH 17.9 % (11.5-14.5); RED BLOOD CELL CT 3.69 /CUMM (4.20-5.40)
[2017-08-06 14:16] LABS: WHITE BLOOD CELL COUNT 17.1 /CUMM (4.8-10.8)
[2017-08-06 16:00] VITALS: BP 132/70
[2017-08-07 02:00] VITALS: BP 110/60
--- NOTE | 2017-08-07 06:31 | RADIOLOGY REPORT ---
EXAMINATION: CHEST 1 VIEW CLINICAL INFORMATION: Intubated. COMPARISON: Multiple prior exams are reviewed. The most recent is from August 05, 2017. TECHNIQUE: An AP view of the chest is provided. FINDINGS: The cardiac silhouette is not enlarged. An endotracheal tube is in place. The tip is approximately 10 cm above the vazquez. An enteric tube is in place. The tip overlies the left upper quadrant, likely within the stomach. The mediastinal and hilar contours are unremarkable. There are neither pleural effusions nor pneumothoraces. There is persistent mild hazy opacification within the medial right upper lung zone. The osseous structures are unremarkable. IMPRESSION: Endotracheal tube and enteric tube in place. Persistent hazy airspace disease within the medial right upper lung zone.
[2017-08-07 08:00] VITALS: BP 122/58
--- NOTE | 2017-08-07 08:46 | PN- Resident CRCU ---
Subjective HPI/CRCU Issues: Patient seen and examined. She is seen lying flat in bed with her head elevated intubated on a ventilator with multiple lines in place. She appears comfortable but in no acute distress. Subjective complaints and review of systems are unobtainable. Objective Vital Signs & I&O Last 8 Hrs of Vitals and I&O: Tele: Sinus tachycardia HR: 110s- 130s SBP: 110-140 Exam General Appearance: intubated Other Physical Findings: GEN: ill appearing middle aged woman intubated without sedation HEENT: NCAT, PERRL, anicteric sclera, MMM, ET tube, OGT in place NECK: Supple, no JVD CARD: normal S1/S2 w/o m/g/r PULM: CTA Bilaterally ABD: Soft, NT, ND, BS + : tinsley catheter in place draining NEURO: unresponsive to verbal / tactile stimuli, no spontaneous purposeful movement EXT: trace pedal edema, right LLE TLC in place Current Medications: Current Medications Sig/Makayla Start time Last Medication Dose Route Stop Time Status Admin Acetaminophen 1,000 MG Q6P PRN 08/01 1445 AC 08/07 IV 0946 Amlodipine Besylate 2.5 MG DAILY 08/06 1815 AC 08/06 PO 1903 Amlodipine Besylate 10 MG DAILY 08/06 1000 DC PO Artificial Tears 2 GTT 4 TIMES/DAY 08/05 1400 AC 08/07 OPH 0938 Aspirin 81 MG DAILY 08/03 1000 AC 08/06 PO 1757 Atorvastatin Calcium 40 MG 1700 08/03 1700 AC 08/06 PO 1757 Epoetin Oz 8,000 UNIT Tuesday .. 08/06 1300 AC IV Hydralazine HCl 10 MG Q8 08/06 1400 AC 08/07 IV 0616 Hydralazine HCl 10 MG TID 08/06 1000 DC IV Hydrocortisone 12.5 MG BID 08/05 1000 AC 08/07 Sodium Succinate IV 0938 Insulin Aspart 0 Q4H 08/05 1200 AC 08/07 SC 0829 Insulin Detemir 11 UNITS BID 08/06 2200 AC 08/07 SC 0946 Insulin Detemir 8 UNITS BID 08/05 1000 DC 08/06 SC 0945 Levothyroxine Sodium 25 MCG DAILY 08/02 1000 AC 08/07 IV 1021 Lorazepam 1 MG Q4P PRN 08/02 1400 AC IV Nitroglycerin 0.5 GM Q6 08/06 1200 AC 08/07 TOP 0613 Pantoprazole Sodium 40 MG DAILY 08/01 1730 AC 08/07 IV 0938 Scopolamine HBr 1 PAT Q72H PRN 08/02 1600 AC 08/02 TOP 1640 Impression/Plan Impression/Problem List Impression: 62 year old woman with multiple medical problems significant for insulin- dependent diabetes mellitus previously on insulin-pump and CKD-V s/p AVF brought in by ambulance after being found unresponsive with profound hypoglycemia. Patients insulin-pump was reportedly "discontinued" the day prior. Patient developed bradycardia with subsequent cardiac arrest in the ED for which CPR was started and ROSC acheived. Patient continues to remain intubated on a ventilator without any sedation. She is non responsive to verbal tactile stimuli, but has brainstem function intact. Her heart rate was elevated this morning for unclear reasons, but responded to acetaminophen suggesting that is was pain related. Hydralazine is lowered as to allow for permissive hypertension. She remains on solucortef for adrenal insufficiency. Family meeting to occur tomorrow with to determine goals of care. Problem List -Anoxic Brain Injury s/p Cardiac arrest / profound hypoglycemia -Probable insulin overdose -ESRD, now on HD -Acute urinary retention, urethral stricture s/p dilation/cystoscopy -Elevated troponin, likely NSTEMI -Adrenal insufficiency -Insulin-dependent diabetes mellitus -Chronic anemia -GERD -Hypothyroidism Plan -Continue ICU admission -Intubated, on Vent: VT 500, RR 20, 30% FiO2, PEEP 5 -OGT -Guaic all stool -Tinsley catheter -Accuchecks with Novolog SSI Q4H -Amlodipine 2.5 mg PO Daily -Aspirin 81 mg PO Daily -Hydralazine decreasd to 5 mg IV Q8H; hold for SBP < 160 -Protonix 40 mg IV Daily while intubated -Solucortef discontinued -Levemir 15 units SC BID -Scopolamine Patch for oral secretions -Continue home meds: levothyroxine -Endocrinology following for hypoglycemia -Urology following for urethral stricture -Neurology following for anoxic brain injury -Nephrology following for ESRD, HD -ID following for infectious assessment -Cardiology following for NSTEMI -Follow cultures & sensitivites -Daily CBC, ICU, CXR, ABG -Pain control with acetaminophen -NPO, on Tube Feeds -DVT PPx with -FULL CODE Problem List: 1. Hypoxic brain injury Pain Ratin Tomorrow's Labs & Rationales: CBC, ICU, ABG, CXR Plan DVT/Prophylaxis: mechanical, pharmacological
--- NOTE | 2017-08-07 08:47 | PN- Infect Dx ---
Subjective Subjective: Afebrile on steroids. She has remained unresponsive. Objective Last 24 Hrs of Vital Signs/I&O Vital Signs Date Time Temp Pulse Resp B/P B/P Pulse O2 O2 Flow FiO2 Mean Ox Delivery Rate 08/07 0800 98.8 120 20 122/58 97 Ventilator 30% 08/07 0616 97.5 113 20 140/66 08/07 0547 30 08/07 0400 97 Ventilator 30% 08/07 0341 30 08/07 0200 97.0 123 20 110/60 94 Ventilator 30% 08/07 0051 30 08/07 0000 94 Ventilator 30% 08/06 2228 97.5 113 20 151/73 08/06 2221 30 08/06 2000 95 Ventilator 30% 08/06 1915 30 08/06 1903 103 139/68 08/06 1615 30 08/06 1600 97.8 107 20 132/70 98 Ventilator 30% 08/06 1600 97 Ventilator 30% 08/06 1559 120 97/48 08/06 1437 30 08/06 1200 96 Ventilator 30% 08/06 1104 30 Intake & Output 08/07 1600 08/07 0800 08/07 0000 Intake Total 220 309 Output Total 49 1558 Balance 171 -1249 Intake, Tube 190 219 Feeding Intake, Tube 30 90 Irrigant Output, 1500 Dialysate Output, Urine 49 58 Patient 175 lb 174 lb Weight Weight Bed scale Measurement Method Physical Exam Other Physical Findings: She remains unresponsive on the ventilator Lungs are clear Heart regular rhythm with no murmur Extremities no cyanosis, clubbing or edema Escudero catheter remains in place Results Last 24 Hours of Lab Results: Laboratory Tests 08/06 1305 Chemistry Sodium (137 - 145 mmol/L) 144 Potassium (3.5 - 5.1 mmol/L) 3.5 Chloride (98 - 107 mmol/L) 104 Carbon Dioxide (22 - 30 mmol/L) 21 L Anion Gap (5 - 16) 19 H BUN (7 - 17 mg/dL) 69 H Creatinine (0.5 - 1.0 mg/dL) 6.1 *H Estimated GFR (>60 ml/min) 7 L Glucose (65 - 99 mg/dL) 250 H Calcium (8.4 - 10.2 mg/dL) 9.0 Phosphorus (2.5 - 4.5 mg/dL) 5.1 H Magnesium (1.6 - 2.3 mg/dL) 2.2 Total Bilirubin (0.2 - 1.3 mg/dL) 0.8 AST (14 - 36 U/L) 42 H ALT (9 - 52 U/L) 41 Albumin (3.5 - 5.0 g/dL) 2.7 L Hematology CBC w Diff NO MAN DIFF REQ WBC (4.8 - 10.8 /CUMM) 17.1 H RBC (4.20 - 5.40 /CUMM) 3.69 L Hgb (12.0 - 16.0 G/DL) 10.2 L Hct (37 - 47 %) 30.8 L MCV (81.0 - 99.0 FL) 83.6 MCH (27.0 - 31.0 PG) 27.7 MCHC (33.0 - 37.0 G/DL) 33.1 RDW (11.5 - 14.5 %) 17.9 H Plt Count (130 - 400 /CUMM) 245 MPV (7.4 - 10.4 FL) 8.1 Gran % (42.2 - 75.2 %) 79.5 H Lymphocytes % (20.5 - 51.1 %) 14.1 L Monocytes % (1.7 - 9.3 %) 6.0 Eosinophils % (0 - 5 %) 0.3 Basophils % (0.0 - 2.0 %) 0.1 Absolute Granulocytes (1.4 - 6.5 /CUMM) 13.6 H Absolute Lymphocytes (1.2 - 3.4 /CUMM) 2.4 Absolute Monocytes (0.10 - 0.60 /CUMM) 1.0 H Absolute Eosinophils (0.0 - 0.7 /CUMM) 0 Absolute Basophils (0.0 - 0.2 /CUMM) 0 Last 24 Hours of Charli Results: No new cultures Recent Imaging Studies: Chest x-ray August 07 no change in the right upper lobe density Assessment/Plan ID Impression: Condition unchanged, remaining unresponsive status post a cardiac arrest on admission, with evidence of hypoxic ischemic injury on her recent CT of the head. She remains afebrile (on steroids for interstitial nephritis), with her white blood cell count yesterday elevated, likely secondary to steroids, now off antibiotics after a 5 day course of Unasyn for possible aspiration pneumonia, with her respiratory status and her recent chest x-ray unchanged. She has no other obvious source of infection; therefore feel she can continue to be followed off antibiotics. Her prognosis remains quite poor, with no evidence of neurologic recovery so far. Suggestion: 1. Remove right femoral triple lumen catheter 2. Further management with regard to her neurologic status per Neurology/ICU team 3. Continue to follow off antibiotics
--- NOTE | 2017-08-07 10:02 | PN- CRCU ---
Subjective HPI/Critical Care Issues: Patient remains obtunded. His access is limited and therefore femoral line will remain in place until adequate peripheral access can be obtained. Family meeting scheduled for tomorrow for consideration of extubation Objective Current Medications: Current Medications Sig/Makayla Start time Last Medication Dose Route Stop Time Status Admin Acetaminophen 1,000 MG Q6P PRN 08/01 1445 AC 08/07 IV 0946 Amlodipine Besylate 2.5 MG DAILY 08/06 1815 AC 08/06 PO 1903 Amlodipine Besylate 10 MG DAILY 08/06 1000 DC PO Artificial Tears 2 GTT 4 TIMES/DAY 08/05 1400 AC 08/07 OPH 0938 Aspirin 81 MG DAILY 08/03 1000 AC 08/06 PO 1757 Atorvastatin Calcium 40 MG 1700 08/03 1700 AC 08/06 PO 1757 Epoetin Oz 8,000 UNIT Tuesday .. 08/06 1300 AC IV Hydralazine HCl 10 MG Q8 08/06 1400 AC 08/07 IV 0616 Hydralazine HCl 10 MG TID 08/06 1000 DC IV Hydrocortisone 12.5 MG BID 08/05 1000 AC 08/07 Sodium Succinate IV 0938 Insulin Aspart 0 Q4H 08/05 1200 AC 08/07 SC 0829 Insulin Detemir 11 UNITS BID 08/06 2200 AC 08/07 SC 0946 Insulin Detemir 8 UNITS BID 08/05 1000 DC 08/06 SC 0945 Levothyroxine Sodium 25 MCG DAILY 08/02 1000 AC 08/06 IV 1011 Lorazepam 1 MG Q4P PRN 08/02 1400 AC IV Nitroglycerin 0.5 GM Q6 08/06 1200 AC 08/07 TOP 0613 Pantoprazole Sodium 40 MG DAILY 08/01 1730 AC 08/07 IV 0938 Scopolamine HBr 1 PAT Q72H PRN 08/02 1600 AC 08/02 TOP 1640 Vital Signs & I&O Last 24 Hrs of Vitals and I&O: Vital Signs Date Time Temp Pulse Resp B/P B/P Pulse O2 O2 Flow FiO2 Mean Ox Delivery Rate 08/07 0800 98.8 120 20 122/58 97 Ventilator 30% 08/07 0750 30 08/07 0616 97.5 113 20 140/66 08/07 0547 30 08/07 0400 97 Ventilator 30% 08/07 0341 30 08/07 0200 97.0 123 20 110/60 94 Ventilator 30% 08/07 0051 30 08/07 0000 94 Ventilator 30% 08/06 2228 97.5 113 20 151/73 08/06 2221 30 08/06 2000 95 Ventilator 30% 08/06 1915 30 08/06 1903 103 139/68 08/06 1615 30 08/06 1600 97.8 107 20 132/70 98 Ventilator 30% 08/06 1600 97 Ventilator 30% 08/06 1559 120 97/48 08/06 1437 30 08/06 1200 96 Ventilator 30% 08/06 1104 30 Intake & Output 08/07 1600 08/07 0800 08/07 0000 Intake Total 220 309 Output Total 49 1558 Balance 171 -1249 Intake, Tube 190 219 Feeding Intake, Tube 30 90 Irrigant Output, 1500 Dialysate Output, Urine 49 58 Patient 175 lb 174 lb Weight Weight Bed scale Measurement Method And saturation 97% on 30% exam for chest shows occasional rhonchi cardiac exam shows a regular rhythm Impression/Plan Impression/Plan Impression/Plan: [age]-year-old woman with severe anoxic brain damage remains obtunded and ventilator dependent. Recommendations: Continue present level of support. Change in code status discussed with family wishes to defer 2 more global conversation tomorrow.
--- NOTE | 2017-08-07 11:00 | PN- Cardiology ---
Subjective Subjective: The patient remains unresponsive and intubated. There is no spontaneous motion. Her heart rate was a little high this morning in the 120s but has come down. Her blood pressure is in the 120s systolic. Some of her BP meds have been held. She apparently was a little hypotensive during dialysis yesterday as well. Objective Vital Signs and I&Os Vital Signs Date Time Temp Pulse Resp B/P B/P Pulse O2 O2 Flow FiO2 Mean Ox Delivery Rate 08/07 0800 98.8 120 20 122/58 97 Ventilator 30% 08/07 0800 97 Ventilator 30% 08/07 0750 30 08/07 0616 97.5 113 20 140/66 08/07 0547 30 08/07 0400 97 Ventilator 30% 08/07 0341 30 08/07 0200 97.0 123 20 110/60 94 Ventilator 30% 08/07 0051 30 08/07 0000 94 Ventilator 30% 08/06 2228 97.5 113 20 151/73 08/06 2221 30 08/06 2000 95 Ventilator 30% 08/06 1915 30 08/06 1903 103 139/68 08/06 1615 30 08/06 1600 97.8 107 20 132/70 98 Ventilator 30% 08/06 1600 97 Ventilator 30% 08/06 1559 120 97/48 08/06 1437 30 08/06 1200 96 Ventilator 30% 08/06 1104 30 Intake & Output 08/07 1600 08/07 0800 08/07 0000 08/06 1600 08/06 0800 08/06 0000 Intake Total 220 309 270 160 80 Output Total 49 1558 100 90 112 Balance 171 -1249 170 70 -32 Intake, IV 50 Intake, Tube 190 219 160 100 50 Feeding Intake, Tube 30 90 60 60 30 Irrigant Output, 1500 Dialysate Output, Urine 49 58 100 90 112 Patient 175 lb 174 lb 180 lb Weight Weight Bed scale Measurement Method Physical Exam: She remains unresponsive Chest is aerating well Heart mildly tachycardic, no murmurs Extremities no edema Neurologic no spontaneous activity Current Medications: Current Medications Sig/Makayla Start time Last Medication Dose Route Stop Time Status Admin Acetaminophen 1,000 MG Q6P PRN 08/01 1445 AC 08/07 IV 0946 Amlodipine Besylate 2.5 MG DAILY 08/06 1815 AC 08/06 PO 1903 Amlodipine Besylate 10 MG DAILY 08/06 1000 DC PO Artificial Tears 2 GTT 4 TIMES/DAY 08/05 1400 AC 08/07 OPH 0938 Aspirin 81 MG DAILY 08/03 1000 AC 08/06 PO 1757 Atorvastatin Calcium 40 MG 1700 08/03 1700 AC 08/06 PO 1757 Epoetin Oz 8,000 UNIT Tuesday .. 08/06 1300 AC IV Hydralazine HCl 10 MG Q8 08/06 1400 AC 08/07 IV 0616 Hydralazine HCl 10 MG TID 08/06 1000 DC IV Hydrocortisone 12.5 MG BID 08/05 1000 AC 08/07 Sodium Succinate IV 0938 Insulin Aspart 0 Q4H 08/05 1200 AC 08/07 SC 0829 Insulin Detemir 11 UNITS BID 08/06 2200 AC 08/07 SC 0946 Insulin Detemir 8 UNITS BID 08/05 1000 DC 08/06 SC 0945 Levothyroxine Sodium 25 MCG DAILY 08/02 1000 AC 08/07 IV 1021 Lorazepam 1 MG Q4P PRN 08/02 1400 AC IV Nitroglycerin 0.5 GM Q6 08/06 1200 AC 08/07 TOP 0613 Pantoprazole Sodium 40 MG DAILY 08/01 1730 AC 08/07 IV 0938 Scopolamine HBr 1 PAT Q72H PRN 08/02 1600 AC 08/02 TOP 1640 Results Last 48 Hrs of Labs/Mics: Laboratory Tests 08/06/17 1305: Anion Gap 19 H, Estimated GFR 7 L, Glucose 250 H, Calcium 9.0, Phosphorus 5.1 H, Magnesium 2.2, Total Bilirubin 0.8, AST 42 H, ALT 41, Albumin 2.7 L, CBC w Diff NO MAN DIFF REQ, RBC 3.69 L, MCV 83.6, MCH 27.7, MCHC 33.1, RDW 17.9 H, MPV 8.1, Gran % 79.5 H, Lymphocytes % 14.1 L, Monocytes % 6.0, Eosinophils % 0.3, Basophils % 0.1, Absolute Granulocytes 13.6 H, Absolute Lymphocytes 2.4, Absolute Monocytes 1.0 H, Absolute Eosinophils 0, Absolute Basophils 0 Assessment/Plan Assessment/Plan The patient's blood pressure has improved. I recommend cutting back on her blood pressure medication and using PRN doses of hydralazine or amlodipine if it spikes again. Continue telemetry? Not applicable
--- NOTE | 2017-08-07 12:14 | PN- Diabetes ---
Assessment/Plan Diabetes Assessment: 62 y/o female hx of longstanding DM type 1, chronic renal disease due to diabetes and chronic interstitual nephritis and was treated with a couse of steroid. Patient was found to be unresponsive with glucose level was in the 20s. Blood work in ER showed inappropriately elevated insulin level. Her severe hypoglycemia most likely was due to insulin overdose. She received hydrocortisone 100 mg iv in ER. Patient was intubated. She was on D10 w and pressor. Her BP and glucose level improved and D10 w and pressor were discontinued. She is now on hydrocortisone 12.5 mg iv twice a day. In addition, she was put on Levothyroxine 25 mcg iv daily. According to her insulin pump-- [employer] 630 G-- her basal insulin 36.75 units per 24 hours. She was on Levemir 16 units twice a day and Novolog coveage every 4 hours initially. Currently she is on Levemir 11 units twice a day; Novolog coverage every 4 hours. The tube feeding was increased to 35 ml/hour. Her FSGs were 211, 219, 244 and 272. Plan: 1. increase Levemir to 15 units twice a day; 2. adjust Novolog coverage every 4 hours--detail see the inpatient DM order; 3. monitor FSGs; 4. stop hydrocortisone today; will follow. Inpatient Diabetes Orders Every 4 Hours: Bolus Insulin: Novolog < 80 mg/dl: no coverage 80-100 mg/dl: no coverage 101-120 mg/dl: 5units 121-150 mg/dl: 5 units 151-200 mg/dl: 7 units 201-250 mg/dl: 9 units 251-300 mg/dl: 11 units 301-350 mg/dl: 13 units 351-400 mg/dl: 15 units > 400 mg/dl: 17 units Plan: see above Subjective Subjective: Patient is intubated. Objective Last 24 Hrs of Vital Signs/I&O Vital Signs Date Time Temp Pulse Resp B/P B/P Pulse O2 O2 Flow FiO2 Mean Ox Delivery Rate 08/07 1105 30 08/07 0800 98.8 120 20 122/58 97 Ventilator 30% 08/07 0800 97 Ventilator 30% 08/07 0750 30 08/07 0616 97.5 113 20 140/66 08/07 0547 30 08/07 0400 97 Ventilator 30% 08/07 0341 30 08/07 0200 97.0 123 20 110/60 94 Ventilator 30% 08/07 0051 30 08/07 0000 94 Ventilator 30% 08/06 2228 97.5 113 20 151/73 08/06 2221 30 08/06 2000 95 Ventilator 30% 08/06 1915 30 08/06 1903 103 139/68 08/06 1615 30 08/06 1600 97.8 107 20 132/70 98 Ventilator 30% 08/06 1600 97 Ventilator 30% 08/06 1559 120 97/48 08/06 1437 30 Intake & Output 08/07 1600 08/07 0800 08/07 0000 Intake Total 220 309 Output Total 49 1558 Balance 171 -1249 Intake, Tube 190 219 Feeding Intake, Tube 30 90 Irrigant Output, 1500 Dialysate Output, Urine 49 58 Patient 175 lb 174 lb Weight Weight Bed scale Measurement Method Findings Pertinent Lab/Charli Results: Laboratory Tests 08/07 08/06 1150 1305 Chemistry Sodium (137 - 145 mmol/L) Pending 144 Potassium (3.5 - 5.1 mmol/L) Pending 3.5 Chloride (98 - 107 mmol/L) Pending 104 Carbon Dioxide (22 - 30 mmol/L) Pending 21 L Anion Gap (5 - 16) Pending 19 H BUN (7 - 17 mg/dL) Pending 69 H Creatinine (0.5 - 1.0 mg/dL) Pending 6.1 *H Estimated GFR (>60 ml/min) 7 L Glucose (65 - 99 mg/dL) Pending 250 H Calcium (8.4 - 10.2 mg/dL) Pending 9.0 Phosphorus (2.5 - 4.5 mg/dL) Pending 5.1 H Magnesium (1.6 - 2.3 mg/dL) Pending 2.2 Total Bilirubin (0.2 - 1.3 mg/dL) Pending 0.8 AST (14 - 36 U/L) Pending 42 H ALT (9 - 52 U/L) Pending 41 Albumin (3.5 - 5.0 g/dL) Pending 2.7 L Hematology CBC w Diff Pending NO MAN DIFF REQ WBC (4.8 - 10.8 /CUMM) Pending 17.1 H RBC (4.20 - 5.40 /CUMM) Pending 3.69 L Hgb (12.0 - 16.0 G/DL) Pending 10.2 L Hct (37 - 47 %) Pending 30.8 L MCV (81.0 - 99.0 FL) Pending 83.6 MCH (27.0 - 31.0 PG) Pending 27.7 MCHC (33.0 - 37.0 G/DL) Pending 33.1 RDW (11.5 - 14.5 %) Pending 17.9 H Plt Count (130 - 400 /CUMM) Pending 245 MPV (7.4 - 10.4 FL) Pending 8.1 Gran % (42.2 - 75.2 %) 79.5 H Lymphocytes % (20.5 - 51.1 %) 14.1 L Monocytes % (1.7 - 9.3 %) 6.0 Eosinophils % (0 - 5 %) 0.3 Basophils % (0.0 - 2.0 %) 0.1 Absolute Granulocytes (1.4 - 6.5 /CUMM) 13.6 H Absolute Lymphocytes (1.2 - 3.4 /CUMM) 2.4 Absolute Monocytes (0.10 - 0.60 /CUMM) 1.0 H Absolute Eosinophils (0.0 - 0.7 /CUMM) 0 Absolute Basophils (0.0 - 0.2 /CUMM) 0
--- NOTE | 2017-08-07 13:08 | Event Note ---
Event Note Event Note: Patients wishes to convert patients code status from FULL CODE to DNR/ DNI. She remains intubtaed and continued on all other interventions. The patients wishes that she is not to be resuscitated should she suddenly develop cardiac arrest. Goals of care meeting with several family members is to occur tomorrow. Comfort measures were discussed which will be addressed at that time.
[2017-08-07 14:10] LABS: ABSOLUTE BASOPHIL COUNT 0 /CUMM (0.0-0.2); ABSOLUTE EOSINOPHIL COUNT 0.1 /CUMM (0.0-0.7); ABSOLUTE GRANULOCYTE CT 15.1 /CUMM (1.4-6.5); ABSOLUTE LYMPH COUNT 2.7 /CUMM (1.2-3.4); ABSOLUTE MONOCYTE COUNT 1.3 /CUMM (0.10-0.60); BASOPHIL % 0.3 % (0.0-2.0); EOSINOPHIL % 0.3 % (0-5); GRANULOCYTE % 78.8 % (42.2-75.2); HEMATOCRIT 32.8 % (37-47); MEAN CORPUSCULAR HGB 27.1 PG (27.0-31.0); MEAN CORPUSCULAR HGB CONC 32.3 G/DL (33.0-37.0); MEAN PLATELET VOLUME 8.6 FL (7.4-10.4); PLATELET COUNT 265 /CUMM (130-400); RBC DISTRIBUTION WIDTH 17.9 % (11.5-14.5); WHITE BLOOD CELL COUNT 19.1 /CUMM (4.8-10.8)
[2017-08-07 16:00] VITALS: BP 114/62
[2017-08-08] VITALS: BP 124/70
--- NOTE | 2017-08-08 07:23 | PN- Resident CRCU ---
Bijan HYMAN,Nelly 08/08/17 0723: Subjective HPI/CRCU Issues: Overnight issues: Patient's CODE STATUS was changed to DNR/DNI yesterday. Patient continues to remain unresponsive, intubated off sedation. Patient's family was at bedside today and would like to extubate her today. Dialysis has been held off today. Vitals: MAXIMUM TEMPERATURE 98.8, heart rate 100 to 06/16/2019, sinus tach, respiration rate 20, blood pressure this morning 123/60, ranging from 106-161 systolic over 50s to 60s diastolic, saturating between 96-98% on mechanical ventilation with tidal volume of 500, FiO2 of 30, PEEP of 5 Currently on Nepro tube feeds, total intake:6318, output:5718 Accu-Chek: 282, 269, 202,160. Labs: WBC 17.3 (down from 19.1), H&H 10.2 and 31.2, platelets 238 BEP pending Chest x-ray: From 08/07 Endotracheal tube and enteric tube in place. Persistent hazy airspace disease within the medial right upper lung zone. Objective Vital Signs & I&O Last 8 Hrs of Vitals and I&O: Vital Signs Date Time Temp Pulse Resp B/P B/P Pulse O2 O2 Flow FiO2 Mean Ox Delivery Rate 08/08 1332 100.2 08/08 0840 30 08/08 0800 98 Ventilator 30% 08/08 0800 100.2 108 20 136/64 98 Ventilator 30% 08/08 0635 107 20 145/63 08/08 0520 30 08/08 0400 98 Ventilator 30% 08/08 0249 30 08/08 0011 30 08/08 0000 97.4 107 20 124/70 98 Ventilator 30% 08/08 0000 98 Ventilator 30% 08/07 2242 30 08/07 2157 97.7 107 20 143/76 08/07 2000 99 Ventilator 30% 08/07 1935 30 08/07 1748 104 106/60 08/07 1640 30 08/07 1600 97.3 102 20 114/62 98 Ventilator 30% 08/07 1600 98 Ventilator 30% 08/07 1431 106 110/58 Intake & Output 08/08 1600 08/08 0800 08/08 0000 Intake Total 385 345 Output Total 102 80 Balance 283 265 Intake, Tube 295 255 Feeding Intake, Tube 90 90 Irrigant Output, Urine 102 80 Patient 177 lb Weight Exam General Appearance: intubated, unresponsive, with spontaneous movement of legs Head: atraumatic, normal appearance Ears, Nose, Throat: lips were slightly swollen over the endotracheal tube, dry lips Cardiovascular: regular rate/rhythm Gastrointestinal: normal bowel sounds, soft, non-tender Extremities: upper extremity bilateral edema Cranial Nerves: PERRL, unresponsive on intubation off sedation Current Medications: Current Medications Sig/Makayla Start time Last Medication Dose Route Stop Time Status Admin Acetaminophen 1,000 MG Q6P PRN 08/08 1330 DCD 08/08 N/A 1 UNIT IV 1332 Acetaminophen 1,000 MG Q6P PRN 08/01 1445 DC 08/07 IV 0946 Amlodipine Besylate 2.5 MG DAILY 08/06 1815 DC 08/06 PO 1903 Artificial Tears 2 GTT 4 TIMES/DAY 08/05 1400 DCD 08/08 OPH 1322 Aspirin 81 MG DAILY 08/03 1000 DC 08/08 PO 0934 Atorvastatin Calcium 40 MG 1700 08/03 1700 DC 08/07 PO 1742 Epoetin Oz 8,000 UNIT Tuesday .. 08/06 1300 DC IV Hydralazine HCl 5 MG Q8 08/07 1400 DC IV Insulin Aspart 0 Q4H 08/05 1200 DC 08/08 SC 0854 Insulin Detemir 15 UNITS BID 08/07 2200 DC 08/08 SC 0854 Levothyroxine Sodium 25 MCG DAILY 08/02 1000 DC 08/08 IV 0933 Lorazepam 1 MG Q4P PRN 08/02 1400 DCD IV Morphine Sulfate 6 MG ONCE ONE 08/08 1130 DC 08/08 IV 08/08 1131 1142 Morphine Sulfate 100 MG Q24H 08/08 1130 DCD 08/08 Dextrose/Water 100 ML IV 1228 Nitroglycerin 0.5 GM Q6 08/06 1200 DC 08/07 TOP 0613 Pantoprazole Sodium 40 MG DAILY 08/01 1730 DC 08/08 IV 0933 Scopolamine HBr 1 PAT Q72H PRN 08/02 1600 DCD 08/08 TOP 1142 Impression/Plan Impression/Problem List Impression: This is 62-year-old female with a medical history of stage 5 CKD(nephrotic proteinuria, diabetic nephropathy and retinopathy) with left AV fistula placed couple month ago(still making urine), currently not on hemodialysis, has only one kidney since childhood. 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 Presented to the emergency department via EMS due to unresponsiveness. Patient is admitted to the ICU for management of the following: Patient shows no improvement in her neurological status. Patient's prognosis remains poor. Patient was extubated today and patient's care was deescalated to hospice care today after family discussion. Respiratory: Acute hypoxic respiratory failure 2/2 to aspiration pneumonia on mechanical ventilation: Patient continues to remain on mechanical ventilation. Oxygen requirement continues to improve with decreased FiO2. Patient's remains unresponsive off sedation. Extubated today. Oxygen supplementation with NC IV Morphine Plan per hospice care Infection: Aspiration Pneumonia: Patient continues to be tachycardic, febrile with elevated leukocytosis which is downtrending on IV Unasyn. No growth on cultures thus far. Repeat chest xray shows persistent bilateral airspace opacities with largest area of consolidation in the right upper lobe. Patient remains on ventilatory support. CT Chest showing lobulated mass in the right upper lobe medially is not significantly changed in size. There are now patchy areas of ground glass opacification nodularity in both lungs, which may be consistent with multifocal pneumonic infiltrates. Cardiac: Status post cardiac arrest in the ED New right bundle branch block, wide QRS tachycardia NSTEMI- likely 2/2 to demand ischemia Patient's troponin's peaked to 4.20. Patient remains unresponsive on mechanical ventilator. Patient's heparin was temporarily stopped on 08/02 due to concerns of bleeding from tinsley site. Patient was seen by cardiology. H/H was stable and patient's heparin was shortly after on 08/02. Off IV heparin. Patient's H/H stable. Heme: Anemia Patient has a history of chronic anemia. H/H dropped to 7.6 this morning. Patient had tinsley placement in the OR today with continued bleeding which is expected per urology. Patient is also having guiac positive stools. Repeat H/H after was 7.1. Patient s/p 1 unit pRBC with dialysis on 08/04. Repeat H/H was >9 this morning. Metabolic: Type 1 Diabetes - on Insulin Pump Patient initially presented with hypoglycemia w/ BG of 27. Patients BG over the past 24 hours were in the 200s. Patient is on levemir and insulin SS per endocrinology recommendations. Adrenal Insufficiency. Patient is on chronic prednisone for interstitital nephritis. Patien was on IV hydrocortisone 12.5mg IV BID. Metabolic acidosis with elevated anion gap and lactic acidosis - Resolved Patient's anion gap is down from previous day. Lactic acid was previously fluctuating however is now downtrending. Patient was previously getting IV Bicarb. Alimentary: Discontinue tube feeds per hopice. Neurology: Unresponsiveness - likely multifactorial at this point. Initially secondary to severe hypoglycemia. Patient likely had a seizure prior to arrival as she was found to have urinary and bladder incontinence and had an elevated prolactin level on admission. Patient was also found to have vomitted and aspirated. In the ED on day of admision patient had a cardiac arrest for approximately 10 minutes. Patient had a head CT on admission which was nondiagnostic due to motion artifact. Repeat CT on 08/03 showed extensive loss of benito-white matter differentiation primarily involving the basal ganglia, right insular cortex, and both temporal lobes. These findings are consistent with hypoxic ischemic injury. No acute hemorrhage. Nephrology: ESRD w/left sided AV fistula: Patient has a history of ESRD with biopsy showing chronic intersitial nephritis and diabetic nephropathy. Patient was placed on a course of steroids which were tapered off. Patient has received multiple dialysis sessions. Patient's dialysis today was held today. No more dialysis. Patient converted to hospice care. Urology: Urethral stricture. Nursing was unable to placed tinsley. Urology was consulted and placed a 16 russian tinsley after urethral dilation. Patient's tinsley appears to be obstructed today with what appears to be clotted frothy blood in the bag and area around the tinsley with bleeding and showing leakage. Irrigation on 08/02 did not improve the patency of the tinsley. The tinsley was removed in the morning on by urology. Patient's PVR >500 on 08/[address] Lim attempted to place a tinsley at the bedside however was unable to. Patient was taken to the OR on 08/04 for cystoscopy with successful tinsley placement. Cystoscopy showed false urethral passage. Patient drained 800cc immediateley after tinsley placement. DVT PPx: ALPs only Code: Full code Dispo: Patient converted to hospice care today. Problem List: 1. Hypoxic brain injury 2. Hypoglycemia Pain Ratin Tomorrow's Labs & Rationales: none Plan DVT/Prophylaxis: mechanical, pharmacological Hector Barajas MD 08/08/17 1136: Attending MD Review Statement Attending Sign Off Attending Cosign Statement: I have: examined this patient, reviewed avalbl EMR data, personally reviewd images, discussd w/resident/PA/BLINDSTITCH MACHINE OPERATOR, discussed mgmt plan w/[place], discussed mgmt plan w/CM, discussed mgmt plan w/pt, agreed w/resident/PA/BLINDSTITCH MACHINE OPERATOR, amended to note. Other Findings: IHector M.D. have examined this patient, reviewed available EMR data, personally reviewed images, discussed with resident/PA/BLINDSTITCH MACHINE OPERATOR, discussed management plan with housestaff and nursing staff, discussed managment plan all of healthcare providers, discussed management plan with patient and/or family, agreed with resident/PA/BLINDSTITCH MACHINE OPERATOR. The past history and parts of the chart have been autopopulated. Impression 62 year old woman s/p asystolic arrest, likely/presumed secondary to insulin overdose resulting in hypolglycemia CKD anoxic brain injury hypoxemic respiratory failure lung nodule s/p non diagnostic biopsy leukocytosis with likely aspiration Plan Per the family we will convert to comfort measures extubate and administer morphine
[2017-08-08 07:55] LABS: ABSOLUTE BASOPHIL COUNT 0 /CUMM (0.0-0.2); ABSOLUTE EOSINOPHIL COUNT 0.2 /CUMM (0.0-0.7); ABSOLUTE GRANULOCYTE CT 12.5 /CUMM (1.4-6.5); ABSOLUTE LYMPH COUNT 3.8 /CUMM (1.2-3.4); ABSOLUTE MONOCYTE COUNT 0.7 /CUMM (0.10-0.60); BASOPHIL % 0.3 % (0.0-2.0); EOSINOPHIL % 1.4 % (0-5); GRANULOCYTE % 72.1 % (42.2-75.2); HEMATOCRIT 31.2 % (37-47); MEAN CORPUSCULAR HGB 27.8 PG (27.0-31.0); MEAN CORPUSCULAR HGB CONC 32.8 G/DL (33.0-37.0); MEAN CORPUSCULAR VOLUME 84.8 FL (81.0-99.0); MEAN PLATELET VOLUME 8.7 FL (7.4-10.4); PLATELET COUNT 238 /CUMM (130-400); RBC DISTRIBUTION WIDTH 18.5 % (11.5-14.5); RED BLOOD CELL CT 3.68 /CUMM (4.20-5.40); WHITE BLOOD CELL COUNT 17.3 /CUMM (4.8-10.8)
[2017-08-08 08:00] VITALS: BP 136/64
--- NOTE | 2017-08-08 08:22 | PN- Diabetes ---
Assessment/Plan Diabetes Assessment: 62 y/o female hx of longstanding DM type 1, chronic renal disease due to diabetes and chronic interstitual nephritis and was treated with a couse of steroid. Patient was found to be unresponsive with glucose level was in the 20s. Blood work in ER showed inappropriately elevated insulin level. Her severe hypoglycemia most likely was due to insulin overdose. She received hydrocortisone 100 mg iv in ER. Patient was intubated. She was on D10 w and pressor. Her BP and glucose level improved and D10 w and pressor were discontinued. She is now on hydrocortisone 12.5 mg iv twice a day. In addition, she was put on Levothyroxine 25 mcg iv daily. According to her insulin pump-- Nivaltronic 630 G-- her basal insulin 36.75 units per 24 hours. The tube feeding was increased to 35 ml/hour. She is on Levemir 15 units twice a day and Novolog coverage every 4 hours. Her FSGs were 282, 269, 202 and 160. Plan: continue the current insulin regimen for now; monitor FSGs. will follow. Subjective Subjective: Patent remains intubated. Objective Last 24 Hrs of Vital Signs/I&O Vital Signs Date Time Temp Pulse Resp B/P B/P Pulse O2 O2 Flow FiO2 Mean Ox Delivery Rate 08/08 0635 107 20 145/63 08/08 0520 30 08/08 0400 98 Ventilator 30% 08/08 0249 30 08/08 0011 30 08/08 0000 97.4 107 20 124/70 98 Ventilator 30% 08/08 0000 98 Ventilator 30% 08/07 2242 30 08/07 2157 97.7 107 20 143/76 08/07 2000 99 Ventilator 30% 08/07 1935 30 08/07 1748 104 106/60 08/07 1640 30 08/07 1600 97.3 102 20 114/62 98 Ventilator 30% 08/07 1600 98 Ventilator 30% 08/07 1431 106 110/58 08/07 1400 30 08/07 1200 96 Ventilator 30% 08/07 1105 30 Intake & Output 08/08 1600 08/08 0800 08/08 0000 Intake Total 385 345 Output Total 102 80 Balance 283 265 Intake, Tube 295 255 Feeding Intake, Tube 90 90 Irrigant Output, Urine 102 80 Patient 177 lb Weight Findings Pertinent Lab/Charli Results: Laboratory Tests 08/08 08/07 0645 1150 Chemistry Sodium (137 - 145 mmol/L) Pending 143 Potassium (3.5 - 5.1 mmol/L) Pending 3.7 Chloride (98 - 107 mmol/L) Pending 103 Carbon Dioxide (22 - 30 mmol/L) Pending 24 Anion Gap (5 - 16) Pending 16 BUN (7 - 17 mg/dL) Pending 53 H Creatinine (0.5 - 1.0 mg/dL) Pending 5.0 H Estimated GFR (>60 ml/min) 9 L Glucose (65 - 99 mg/dL) Pending 241 H Calcium (8.4 - 10.2 mg/dL) Pending 8.6 Phosphorus (2.5 - 4.5 mg/dL) Pending 3.9 Magnesium (1.6 - 2.3 mg/dL) Pending 2.1 Total Bilirubin (0.2 - 1.3 mg/dL) Pending 0.6 AST (14 - 36 U/L) Pending 65 H ALT (9 - 52 U/L) Pending 41 Albumin (3.5 - 5.0 g/dL) Pending 2.8 L Hematology CBC w Diff NO MAN DIFF REQ MAN DIFF ORDERED WBC (4.8 - 10.8 /CUMM) 17.3 H 19.1 H RBC (4.20 - 5.40 /CUMM) 3.68 L 3.90 L Hgb (12.0 - 16.0 G/DL) 10.2 L 10.6 L Hct (37 - 47 %) 31.2 L 32.8 L MCV (81.0 - 99.0 FL) 84.8 84.0 MCH (27.0 - 31.0 PG) 27.8 27.1 MCHC (33.0 - 37.0 G/DL) 32.8 L 32.3 L RDW (11.5 - 14.5 %) 18.5 H 17.9 H Plt Count (130 - 400 /CUMM) 238 265 MPV (7.4 - 10.4 FL) 8.7 8.6 Gran % (42.2 - 75.2 %) 72.1 78.8 H Lymphocytes % (20.5 - 51.1 %) 22.1 13.9 L Monocytes % (1.7 - 9.3 %) 4.1 6.7 Eosinophils % (0 - 5 %) 1.4 0.3 Basophils % (0.0 - 2.0 %) 0.3 0.3 Absolute Granulocytes (1.4 - 6.5 /CUMM) 12.5 H 15.1 H Segmented Neutrophils (42.2 - 75.2 %) 62 Band Neutrophils (0.0 - 5.0 %) 6 H Absolute Lymphocytes (1.2 - 3.4 /CUMM) 3.8 H 2.7 Lymphocytes (20.5 - 51.1 %) 21 Monocytes (1.7 - 9.3 %) 4 Absolute Monocytes (0.10 - 0.60 /CUMM) 0.7 H 1.3 H Eosinophils (0 - 5.0 %) 2 Absolute Eosinophils (0.0 - 0.7 /CUMM) 0.2 0.1 Absolute Basophils (0.0 - 0.2 /CUMM) 0 0 Metamyelocytes (0.0 - 1.0 %) 1 Myelocytes (0 - 0 %) 4 H Nucleated RBCs (0.0 - 0.0 /100WBC) 2 H Platelet Estimate (ADEQUATE) ADEQUATE Polychromasia 1+ Poikilocytosis 2+ Anisocytosis 1+ Ovalocytes
--- NOTE | 2017-08-08 08:39 | RADIOLOGY REPORT ---
EXAMINATION: XR PORTABLE CHEST CLINICAL INFORMATION: Intubated. COMPARISON: 08/07/2017 TECHNIQUE: Portable frontal view of the chest was obtained. FINDINGS: Cardiomediastinal silhouette is within normal limits. Endotracheal tube again noted with the tip at the level of the thoracic inlet approximately 6.7 cm above the vazquez. Enteric tube is in place. Low lung volumes. Persistent mild hazy opacification again seen within the medial right upper lung zone. Lungs otherwise appear clear. No pleural effusion or pneumothorax. No acute osseous abnormality. IMPRESSION: 1. Stable positioning of the endotracheal and enteric tubes. 2. Persistent hazy airspace disease within the medial right upper lung zone.
--- NOTE | 2017-08-08 09:50 | PN- Neurology ---
Subjective Subjective: Remains comatose, intubated Objective Vital Signs and I&Os Vital Signs Date Time Temp Pulse Resp B/P B/P Pulse O2 O2 Flow FiO2 Mean Ox Delivery Rate 08/08 0840 30 08/08 0635 107 20 145/63 08/08 0520 30 08/08 0400 98 Ventilator 30% 08/08 0249 30 08/08 0011 30 08/08 0000 97.4 107 20 124/70 98 Ventilator 30% 08/08 0000 98 Ventilator 30% 08/07 2242 30 08/07 2157 97.7 107 20 143/76 08/07 2000 99 Ventilator 30% 08/07 1935 30 08/07 1748 104 106/60 08/07 1640 30 08/07 1600 97.3 102 20 114/62 98 Ventilator 30% 08/07 1600 98 Ventilator 30% 08/07 1431 106 110/58 08/07 1400 30 08/07 1200 96 Ventilator 30% 08/07 1105 30 Intake & Output 08/08 1600 08/08 0800 08/08 0000 08/07 1600 08/07 0800 08/07 0000 Intake Total 385 345 440 220 309 Output Total 102 80 45 49 1558 Balance 283 265 395 171 1249 Intake, IV 150 Intake, Tube 295 255 200 190 219 Feeding Intake, Tube 90 90 90 30 90 Irrigant Output, 1500 Dialysate Output, Urine 102 80 45 49 58 Patient 177 lb 175 lb 174 lb Weight Weight Bed scale Measurement Method Physical Exam: Comatose Eyes closed Pupils round sluggishly reactive to light Roving eye movements Intact oculocephalics Intact corneals Intact gag No response to sternal rub With nailbed pressure to the upper extremities, she displays decorticate posturing With nailbed pressure to the lower extremities, she displays triple flexion Current Medications: Current Medications Sig/Makayla Start time Last Medication Dose Route Stop Time Status Admin Acetaminophen 1,000 MG Q6P PRN 08/01 1445 AC 08/07 IV 0946 Amlodipine Besylate 2.5 MG DAILY 08/06 1815 AC 08/06 PO 1903 Artificial Tears 2 GTT 4 TIMES/DAY 08/05 1400 AC 08/07 OPH 2156 Aspirin 81 MG DAILY 08/03 1000 AC 08/08 PO 0934 Atorvastatin Calcium 40 MG 1700 08/03 1700 AC 08/07 PO 1742 Epoetin Oz 8,000 UNIT Tuesday .. 08/06 1300 AC IV Hydralazine HCl 5 MG Q8 08/07 1400 AC IV Hydralazine HCl 10 MG Q8 08/06 1400 DC 08/07 IV 0616 Hydrocortisone 12.5 MG BID 08/05 1000 DC 08/07 Sodium Succinate IV 0938 Insulin Aspart 0 Q4H 08/05 1200 AC 08/08 SC 0854 Insulin Detemir 15 UNITS BID 08/07 2200 AC 08/08 SC 0854 Insulin Detemir 11 UNITS BID 08/06 2200 DC 08/07 SC 0946 Levothyroxine Sodium 25 MCG DAILY 08/02 1000 AC 08/08 IV 0933 Lorazepam 1 MG Q4P PRN 08/02 1400 AC IV Nitroglycerin 0.5 GM Q6 08/06 1200 AC 08/07 TOP 0613 Pantoprazole Sodium 40 MG DAILY 08/01 1730 AC 08/08 IV 0933 Scopolamine HBr 1 PAT Q72H PRN 08/02 1600 AC 08/02 TOP 1640 Assessment/Plan Assessment: Severe encephalopathy, multifactorial, in the setting of presumed prolonged hypoglycemia, then cardiac arrest. No improvement in cortical function on serial exams over the past week. Diffuse cerebral edema on head CT 3 days ago. Intact brainstem functions. Plan: Very poor prognosis for neurologic recovery Goals of care discussions as per the ICU team. Please reconsult if we can be of further assist
--- NOTE | 2017-08-08 11:27 | Event Note ---
Event Note Event Note: Family meeting with patients occured between housestaff and attending Dr. Hector Barajas. It was decided to change patients code status to comfort measures and Morphine was started.
--- NOTE | 2017-08-08 14:36 | Discharge Summary ---
Visit Information Visit Dates Admission Date: 08/01/17 Discharge Date: 08/08/17 Hospital Course Course Attending Physician: Hector Barajas MD Primary Care Physician: Israel Oshea MD Consulting Request: 1 Consulting Specialty: Cardiology Consulting Physician: Dr. Morrow Consulting Request: 2 Consulting Specialty: Critical Care Consulting Physician: Dr. Barajas Consulting Request: 3 Consulting Specialty: Endocrinology Consulting Physician: Dr. Estrada Consulting Request: 4 Consulting Specialty: Infectious Disease Consulting Physician: Dr. Love Consulting Request: 5 Consulting Specialty: Nephrology Consulting Physician: Dr. Lucero Consulting Request: 6 Consulting Specialty: Neurology Consulting Physician: Dr. Robbins Consulting Request: 7 Consulting Specialty: Urology Consulting Physician: Dr. Lim [facility] Course: This is 62-year-old female with a medical history of stage 5 CKD(nephrotic proteinuria, diabetic nephropathy and retinopathy) with left AV fistula placed couple month ago(still making urine), currently not on hemodialysis, has only one kidney since childhood. 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 Presented to the emergency department via EMS due to unresponsiveness with the accucheck of 27. Patient was admitted to the ICU for management of the following: Problems: 1. Acute hypoxic respiratory failure 2/2 to aspiration requiring mechanical ventilation 2. Encephalopathy 2/2 Anoxic brain injury 3. Status post cardiac arrest 4. NSTEMI, likely Type II OR 5. Severe hypoglycemia on admission 6. Aspiration Pneumonia 7. End Stage Renal Disease, w/ AV Fistula 8. Adrenal Insufficiency 9. Insulin Dependent Diabetes Mellitus 10. Anemia of chronic disease 11. Urethral stricture, s/p cystoscopy and tinsley placement by urology 12. New RBBB Presentation and ED course: The patient presented to the ED unresponsive after patient's found her at 7 AM on day of admission unresponsive with vomit covering her face and noticed spell and urinary incontinence. EMS was called and patient was brought to the hospital where she was found to have a blood sugar of 27. Patient received D10 on the way to the hospital. Patient initially was placed on BiPAP due to metabolic acidosis seen on arterial blood gas. Patient was started on an IV bicarbonate drip per nephrology with no need for emergent dialysis. Patient remained unresponsive with elevated troponins and no significant EKG changes. Patient was given rectal aspirin and cardiology was notified and patient was started on IV heparin drip. Chest x-ray showed patchy opacity at the left base suggestive of developing consolidation as well as a stable mass in the right upper lobe. Patient received IV ceftriaxone, IV azithromycin and was started on IV D5 half-normal saline. Patient had nondiagnostic head CT due to significant streak and motion artifact. Due to hypotension patient was started on high-dose steroids IV. Patient had central line placed in the right femoral while in the ED. Cardiology, infectious disease, nephrology, and endocrinology were all consulted. Patient was intubated due to inability to protect her airway due to unresponsiveness in the ED. After which patient became bradycardic, a pacer and atropine were verbally ordered however before they could be administered patient went into asystole and patient underwent successful CPR with atropine, epinephrine, bicarbonate with initiation of a dopamine drip and levophed drip for hypotension. Status post cardiac arrest patient had an episode of V. tach and was given a dose of amiodarone 150 mg. Patient's troponins continued to rise. In the ICU: Encephalopathy Likely multifactorial. Initially secondary to severe hypoglycemia. Patient likely had a seizure prior to arrival as she was found to have urinary and bladder incontinence and had an elevated prolactin level on admission. Patient was also found to have vomitted and aspirated. In the ED on day of admision patient had a cardiac arrest for approximately 10 minutes. Patient had a head CT on admission which was nondiagnostic due to motion artifact. Repeat CT on 08/03 showed extensive loss of benito-white matter differentiation primarily involving the basal ganglia, right insular cortex, and both temporal lobes. These findings are consistent with hypoxic ischemic injury. Patient remained unresponsive off sedation. Patient was evaluated by neurology. Patient's care was de-escalated on 08/07 to DNR/DNI and on 08/08 was changed to comfort care. Acute hypoxic respiratory failure 2/2 to aspiration pneumonia Patient remained on mechanical ventilation throughtout the duration of her ICU stay. Her oxygen saturation improved however due to continued unresponsiveness and the inability to protect her airway, mechanical ventilation was continued until 08/08. Due to patient's poor neuroligical state 2/2 to anoxic brain injury ongoing discussion with the family led the decision to extubate patient today and convert to comfort care and discharged to hospice today. Aspiration Pneumonia Patient presented unresponsive with aspiration of bile contents prior to presentation. Patient's CXR showed area of left base consolidation. Patient had a CT Chest showing a lobulated mass in the right upper lobe medially is not significantly changed in size. There are now patchy areas of ground glass opacification nodularity in both lungs, which may be consistent with multifocal pneumonic infiltrates. Patient was started on continued on IV antibiotics for 5 days. Status post cardiac arrest in the ED New right bundle branch block, wide QRS tachycardia NSTEMI- likely 2/2 to demand ischemia Patient's troponin's peaked to 4.20. Patient was continued on IV Heparin which was temporarily shut of on 08/02 and then on 08/04 was discontinued completely due to concerns of bleeding. Chronic Anemia: Patient has a history of chronic anemia. Patient was found to have bleeding from initial tinsley insertion with a drop in her H/H requiring 1 pRBC which she received with her first round of dialysis on 08/04. Patient's H/H remained stable with no further transfusions required. Patient received EPO with her dialysis sessions. Severe hypoglycemia Insulin Dependent Diabetes Mellitus - on Insulin Pump Patient initially presented with hypoglycemia w/ BG of 27. Patient's insulin level on presentation was elevated. Endocrinology was consulted. Patient recieved D10 and D51/2 NS. Patient's sugars improved and was started on long and short acting insulin per endocrinology recommendations. Adrenal Insufficiency Patient is on chronic prednisone for interstitital nephritis. On presentation patient became hypotensive and was given stress dose steroids. Patient was maintained on hydrocortisone IV. Metabolic acidosis with elevated anion gap and lactic acidosis - Resolved Patient initially presented with metabolic acidosis with elevated anion gap and elevated lactic acidosis in the setting of hypoglycemia, hypotension and anoxic brain injury. Patient received IV fluids, IV bicarb drip and mechanical ventilation with resolution of the acidosis. ESRD w/left sided AV fistula: Patient has a history of ESRD with biopsy showing chronic intersitial nephritis and diabetic nephropathy. Patient was seen by nephrology and her first dialysis was performed on 08/04. Patient has received multiple dialysis sessions. Patient' s dialysis today was held on 08/08 at the request of the family. Patient was converted to hospice care. No further dialysis sessions. Urethral stricture s/p cystoscopy and tinsley placement in the OR by urology Nursing was unable to placed tinsley. Urology was consulted and placed a 16 [place] tinsley after urethral dilation. Patient's tinsley appears to be obstructed on 08/02 with no improvement with irrigation. Tinsley was removed however patient started to have urinary retention. Patient was taken to the OR on 08/04 for cystoscopy with successful tinsley placement. Cystoscopy showed false urethral passage. Patient drained 800cc immediateley after tinsley placement. Allergies: Uncoded Allergies: all pain medications (NAUSEA 02/26/14) Significant Procedures: PATIENT CARE UNIT CONFIDENTIAL COPY Operative/Inv Procedure Report Surgery Date: 08/04/17 Name of Procedure: Cystoscopy and insertion of tinsley catheter Pre-Operative Diagnosis: Urinary retention, unable to place tinsley at bedside Post-Operative Diagnosis: Same. Also in mid urethra a false passage ventrally Estimated Blood Loss: hugo Surgeon/Tutoring Manager: Carina Anesthesia: general endotracheal tube Drains: 18 fr summer camp counselor tip tinsley catheter Specimens: none Complications: none Condition: critical Operative Indication: Critically ill patient in urinary retention and inability to place tinsley at bedside Operative/Procedure Note Note: The patient was taken to the operating room and identified. She was placed on the operating table in the supine position. Timeout was executed appropriately. Patient was already intubated. Anesthesia was given. She was then placed in the dorsal lithotomy position. Bimanual exam revealed a palpable lower abdominal mass which was felt to be the bladder. The uterus and cervix were not palpable. She was prepped and draped in usual fashion for cystoscopy. Using the 22 [place] cystoscope with 30 lens urethroscopy was performed. The very distal urethra was normal. There was a sizable false passage of the urethra in the mid urethra ventrally. Urethroscopy revealed that the true urethra was much more superiorly located. Therefore by angling the cystoscope toward the ceiling the urethra could be followed into the bladder. The bladder was noted to be distended. It was otherwise grossly normal. A guidewire was placed through the cystoscope and the cystoscope removed leaving the wire in place. Over the wire an 18 [place] tip catheter was placed. 10 mL was placed in the balloon. A large amount of urine drained from the bladder, proximally 800 mL after which are palpable lower abdominal mass resolved. Patient tolerated the procedure reasonably well as completion was taken back to the intensive care unit in critical condition Findings: Distended bladder. Elevated bladder neck from previous surgery. Urethral false passage and mid urethral ventrally Pertinent Lab Results: SERVICE DATE: 08/01/17 EXAM TYPE: RAD - XRY-PORTABLE CHEST XRAY EXAMINATION: XR PORTABLE CHEST CLINICAL INFORMATION: Nausea vomiting, hypoxia, rales. History of end-stage renal disease. COMPARISON: Chest x-ray 03/31/[address] scan of the chest 06/03/2017. TECHNIQUE: Portable frontal view of the chest was obtained. FINDINGS: The lung klein are well-expanded bilaterally. The study redemonstrates a mass in the right superior lung field medially, which is not significantly changed compared to prior imaging. There is a new area of patchy opacity at the left base, which may be consistent with developing consolidation. The cardiac silhouette is normal. The aortic arch is unfolded. There is a small right-sided pleural effusion. There are no acute osseous findings. IMPRESSION: 1. There is a stable mass in the right upper lobe, seen on prior imaging. 2. Patchy opacification at the left base may be consistent with developing consolidation. SERVICE DATE: 08/01/17 EXAM TYPE: CAT - CT HEAD WO IV CONTRAST EXAMINATION: CT HEAD WITHOUT CONTRAST CLINICAL INFORMATION: Unresponsive the rotatory nystagmus. COMPARISON: None available. TECHNIQUE: Contiguous axial imaging was performed from the skull base to vertex without intravenous administration of contrast. FINDINGS: This examination is nondiagnostic secondary to significant streak artifact and patient motion. I cannot exclude infarcts nor for the presence of intracranial hemorrhage on this exam. There is no hydrocephalus nor midline shift. No definite significant soft tissue findings. No acute osseous findings. Trace fluid levels within the maxillary sinuses bilaterally. Partial ethmoid air cell opacification bilaterally. Small fluid level within the left sphenoid sinus. Partially imaged nasogastric tube. IMPRESSION: Nondiagnostic CT of the head secondary to significant streak/motion artifact despite repeating the acquisition. I cannot exclude infarcts nor hemorrhage on this study. SERVICE DATE: 08/01/17 EXAM TYPE: CARD - ECHOCARDIOGRAM Left Ventricle Normal left ventricular size, wall thickness and systolic function with severe hypokinesis of the apex, mid to distal inferior and distal anteroseptal wall. The ejection fraction is visually estimated at 30%. Right Ventricle The right ventricle is normal in size and function. Right Atrium The right atrium is normal in size. Left Atrium The left atrium is normal in size. The interatrial septum is intact. Mitral Valve The mitral valve demonstrates mild annuar calcification with normal function. There is trace mitral regurgitation. Aortic Valve Structurally normal aortic valve without significant sclerosis or stenosis. There is no aortic regurgitation. Tricuspid Valve The tricuspid valve is normal in structure and function. There is trace tricuspid regurgitation. Pulmonary artery systolic pressure is normal. Pulmonic Valve Structurally normal pulmonic valve. There is no pulmonic regurgitation. Pericardium Normal pericardium without effusion. No pleural effusion. Great Vessels Normal aortic root dimension. The aortic arch and great vessels are well seen and are normal. CONCLUSIONS 1. Moderately decreased EF of 30% with apical severe hypokinesis consistent with Takasubo cardiomyopathy. 2. Trace mitral regurgitation. 3. Trace tricuspid regurgitation. Loyd Morrow M.D. (Electronically Signed) Final Date: 02 August 2017 10:06 MEASUREMENTS (Male / Female) Normal Values 2D ECHO LV Diastolic Diameter PLAX 4.4 cm 4.2 - 5.9 / 3.9 - 5.3 cm LV Systolic Diameter PLAX 2.9 cm 2.1 - 4.0 cm LV Fractional Shortening PLAX 34.1 % 25 - 46 % LV Ejection Fraction 2D Teich 63.3 % IVS Diastolic Thickness 1.0 cm LVPW Diastolic Thickness 1.1 cm LV Relative Wall Thickness 0.5 RV Internal Dim ED PLAX 1.9 cm 1.9 - 3.8 cm LVOT Diameter 1.8 cm Aortic Root Diameter 2.4 cm LA Systolic Diameter LX 2.7 cm 3.0 - 4.0 / 2.7 - 3.8 cm LA Volume 19.0 cm 18 - 58 / 22 - 52 cm Ascending Aorta Diameter 2.7 cm DOPPLER AV Peak Velocity 157.0 cm/s AV Peak Gradient 9.9 mmHg AV Mean Velocity 103.0 cm/s AV Mean Gradient 5.0 mmHg AV Velocity Time Integral 21.6 cm LVOT Peak Velocity 104.0 cm/s LVOT Peak Gradient 4.3 mmHg LVOT Mean Velocity 76.2 cm/s LVOT Mean Gradient 3.0 mmHg LVOT Velocity Time Integral 16.9 cm LVOT Stroke Volume 43.0 cm AV Area Cont Eq vti 2.0 cm AV Area Cont Eq pk 1.7 cm MV Peak Velocity 170.5 cm/s MV Peak Gradient 11.6 mmHg MV Mean Velocity 90.1 cm/s MV Mean Gradient 4.0 mmHg Mitral E Point Velocity 132.0 cm/s MV PHT Velocity 170.0 cm/s MV Deceleration [place] 1269.0 cm/s MV Pressure Half Time 40.2 ms MV Area PHT 5.5 cm MV Deceleration Time 148.0 ms TR Peak Velocity 141.0 cm/s TR Peak Gradient 8.0 mmHg Right Atrial Pressure 10.0 mmHg Pulmonary Artery Systolic Pressu 18.0 mmHg Right Ventricular Systolic Press 18.0 mmHg LV E' Lateral Velocity 17.4 cm/s Mitral E to LV E' Lateral Ratio 7.6 LV E' Septal Velocity 16.9 cm/s Mitral E to LV E' Septal Ratio 7.8 SERVICE DATE: 08/03/17-1012 EXAM TYPE: CAT - CT CHEST WO IV CONTRAST EXAMINATION: CT CHEST WITHOUT CONTRAST CLINICAL INFORMATION: Lung mass. COMPARISON: Chest x-rays earlier 08/03/2017 and 08/02/2017. CT scan of the chest 06/03/2017. TECHNIQUE: Multidetector volumetric CT imaging of the chest was done. Axial MIP volume rendering provided. Sagittal and coronal reformatted images were obtained. DLP: 485.4 mGy-cm FINDINGS: ANALYST BUSINESS ANALYSIS: There are partially visualized enteric and endotracheal tubes. There is hazy opacity in the right upper zone medially. LUNGS: The study redemonstrates the lobulated relatively well-defined mass in the right upper lobe medially abutting the superior mediastinum which measures 3.9 x 2.5 cm which is not significantly changed compared to prior imaging taking differences in slice selection into account. There are now multiple new patchy areas of groundglass opacification with some nodularity in the right upper lobe posteriorly, in the superior segments of the lower lobes bilaterally with areas of more confluent opacification in the left lower lobe. MEDIASTINUM: The central airways are patent. The thyroid gland has heterogenous density with an area of low attenuation in the left lobe. There is no hilar or mediastinal lymphadenopathy. As described above there are endotracheal and enteric tubes in position. The heart is normal in size. There is no pericardial effusion. There are mild atheromatous calcifications of the coronary arteries. PLEURA: There is no pleural effusion. No pleural mass or thickening. AXILLA: There is no axillary lymphadenopathy. There are no masses in the chest wall. There are areas of edema in the lateral chest goddard bilaterally. UPPER ABDOMEN: The patient is status post cholecystectomy. The visualized right kidney appears atrophic. The adrenal glands are not enlarged. OSSEOUS STRUCTURES: There are multilevel spondylitic changes in the thoracic spine with narrowing of intervertebral disc height and marginal osteophytes. IMPRESSION: 1. The lobulated mass in the right upper lobe medially is not significantly changed in size. 2. There are now patchy areas of ground glass opacification nodularity in both lungs, which may be consistent with multifocal pneumonic infiltrates. SERVICE DATE: 08/03/171012 EXAM TYPE: CAT - CT HEAD WO IV CONTRAST EXAMINATION: CT HEAD WITHOUT CONTRAST CLINICAL INFORMATION: Unresponsiveness. Evaluate for hemorrhage or hypoxic brain injury. Stroke. COMPARISON: CT scan of the head 08/01/2017. TECHNIQUE: Contiguous axial imaging was performed from the skull base to vertex without intravenous administration of contrast. DLP: 610.91 mGy-cm FINDINGS: There is relatively extensive loss of benito-white matter differentiation primarily involving the basal ganglia, right insular cortex, and both temporal lobes. There is some preservation of benito-white matter differentiation for instance within the interhemispheric fissure near the vertex, both frontal lobes, and left insular cortex. Cytotoxic edema causes regional sulcal effacement. No midline shift or hydrocephalus. There is no acute intracranial hemorrhage and no abnormal extra-axial collection. The calvarium and skull base are intact. There is a trace right mastoid tip effusion. Moderate to severe paranasal sinus disease. IMPRESSION: There is relatively extensive loss of benito-white matter differentiation primarily involving the basal ganglia, right insular cortex, and both temporal lobes. These findings are consistent with hypoxic ischemic injury. No acute hemorrhage. SERVICE DATE: 08/08/170500 EXAM TYPE: RAD - XRY-PORTABLE CHEST XRAY EXAMINATION: XR PORTABLE CHEST CLINICAL INFORMATION: Intubated. COMPARISON: 08/07/2017 TECHNIQUE: Portable frontal view of the chest was obtained. FINDINGS: Cardiomediastinal silhouette is within normal limits. Endotracheal tube again noted with the tip at the level of the thoracic inlet approximately 6.7 cm above the vazquez. Enteric tube is in place. Low lung volumes. Persistent mild hazy opacification again seen within the medial right upper lung zone. Lungs otherwise appear clear. No pleural effusion or pneumothorax. No acute osseous abnormality. IMPRESSION: 1. Stable positioning of the endotracheal and enteric tubes. 2. Persistent hazy airspace disease within the medial right upper lung zone. Disposition Summary Disposition Principal Diagnosis: Encephalopathy secondary to anoxic brain injury and hypoglycemia Additional Diagnosis: NSTEMI, s/p cardiac arrest, aspiration pneumonia, ESRD on dialysis, acute hypoxic respiratory failure, adrenal insufficiency, anemia, urethral stricture Discharge Disposition: hospice - medical facilit Discharge Instructions General Discharge Information Code Status: Comfort Care Only Patient's Diet: Per hospice care Patient's Activity: Per hospice care Follow-Up Instructions/Appts: Per hospice care Copies To: Dayo HYMAN,Israel Bo
--- NOTE | 2017-08-08 21:08 | PN- Cardiology ---
Subjective Subjective: * Patient remains comatose. * sinus rhythm * improved blood pressure Objective Vital Signs and I&Os Vital Signs Date Time Temp Pulse Resp B/P B/P Pulse O2 O2 Flow FiO2 Mean Ox Delivery Rate 08/08 1332 100.2 08/08 0840 30 08/08 0800 98 Ventilator 30% 08/08 0800 100.2 108 20 136/64 98 Ventilator 30% 08/08 0635 107 20 145/63 08/08 0520 30 08/08 0400 98 Ventilator 30% 08/08 0249 30 08/08 0011 30 08/08 0000 97.4 107 20 124/70 98 Ventilator 30% 08/08 0000 98 Ventilator 30% 08/07 2242 30 08/07 2157 97.7 107 20 143/76 Intake & Output 08/08 1600 08/08 0800 08/08 0000 08/07 1600 08/07 0800 08/07 0000 Intake Total 385 345 440 220 309 Output Total 102 80 45 49 1558 Balance 283 265 395 171 -1249 Intake, IV 150 Intake, Tube 295 255 200 190 219 Feeding Intake, Tube 90 90 90 30 90 Irrigant Output, 1500 Dialysate Output, Urine 102 80 45 49 58 Patient 177 lb 175 lb 174 lb Weight Weight Bed scale Measurement Method Physical Exam: General: WD/overweight female. Intubated. HEENT: NC/AT, pupils reactive to light, no dolls eyes Neck: no JVD, no carotid bruit Heart: RRR w/o murmur Lungs: clear bilaterally Abdomen: soft, NT, +ve bowel sounds Extremities: no edema Neuro: some spontaneous movement of legs bilaterally Assessment/Plan Assessment/Plan * Patient's blood pressure is improved. Would not give medications that are negative chronotropic agents due to previous severe bradycardia. Continue hydralazine as needed for control of blood pressure. Continue NTG paste 1/2 inch Q 6 hours. Discussion with family is planned to consider comfort measures. Continue telemetry? Not applicable
== END 2017-08-08 13:48 | disposition hospice, home (50) | DRG 207 ==
LOC: ERH → CRI 13:26 → ERHI 13:26 → CANRESERV 15:18 → ENRESERV 15:18 → ENTRNSPT 18:16 → EDTRNSPT 18:19 → CMPTRNSPT 18:35 → CRI 18:44
PROVIDERS: Emergency Medicine; Internal Medicine Critical Care Medicine; Internal Medicine Hematology & Oncology; Internal Medicine Interventional Cardiology; Internal Medicine Pulmonary Disease; Student in an Organized Health Care Education/Training Program
PROC: 0BH17EZ Insertion of Endotracheal Airway into Trachea, Via Natural or Artificial Opening (ICD-10-PCS; principal; 2017-08-01)
PROC: 5A1955Z Respiratory Ventilation, Greater than 96 Consecutive Hours (ICD-10-PCS; principal; 2017-08-01)
PROC: 0T9B70Z Drainage of Bladder with Drainage Device, Via Natural or Artificial Opening (ICD-10-PCS; 2017-08-01)
PROC: 06HY33Z Insertion of Infusion Device into Lower Vein, Percutaneous Approach (ICD-10-PCS; 2017-08-01)
PROC: 0T9B80Z Drainage of Bladder with Drainage Device, Via Natural or Artificial Opening Endoscopic (ICD-10-PCS; 2017-08-04)
PROC: 5A1D70Z Performance of Urinary Filtration, Intermittent, Less than 6 Hours Per Day (ICD-10-PCS; 2017-08-04)
PROC: 30233N1 Transfusion of Nonautologous Red Blood Cells into Peripheral Vein, Percutaneous Approach (ICD-10-PCS; 2017-08-04)
DX: J69.0 Pneumonitis due to inhalation of food and vomit (principal); I21.A1 Myocardial infarction type 2; I46.9 Cardiac arrest, cause unspecified; E10.641 Type 1 diabetes mellitus with hypoglycemia with coma; G93.1 Anoxic brain damage, not elsewhere classified; I47.2 Ventricular tachycardia; E27.40 Unspecified adrenocortical insufficiency; N12 Tubulo-interstitial nephritis, not specified as acute or chronic; N18.6 End stage renal disease; N17.9 Acute kidney failure, unspecified; J96.01 Acute respiratory failure with hypoxia; Z99.11 Dependence on respirator [ventilator] status; Z51.5 Encounter for palliative care; E10.22 Type 1 diabetes mellitus with diabetic chronic kidney disease; R15.9 Full incontinence of feces; E10.319 Type 1 diabetes mellitus with unspecified diabetic retinopathy without macular edema; N36.5 Urethral false passage; M45.9 Ankylosing spondylitis of unspecified sites in spine; Z79.52 Long term (current) use of systemic steroids; F32.9 Major depressive disorder, single episode, unspecified; E21.3 Hyperparathyroidism, unspecified; G89.29 Other chronic pain; G47.33 Obstructive sleep apnea (adult) (pediatric); R00.1 Bradycardia, unspecified; I45.10 Unspecified right bundle-branch block; Z79.4 Long term (current) use of insulin; N35.9 Urethral stricture, unspecified; Z66 Do not resuscitate; R32 Unspecified urinary incontinence; D63.1 Anemia in chronic kidney disease; R91.1 Solitary pulmonary nodule; R33.9 Retention of urine, unspecified; E66.3 Overweight; Z68.34 Body mass index [BMI] 34.0-34.9, adult; K21.9 Gastro-esophageal reflux disease without esophagitis; E03.9 Hypothyroidism, unspecified; Z87.891 Personal history of nicotine dependence; I10 Essential (primary) hypertension
CPT/HCPCS: CCU; 36415; 71045; 80307; 82436; 83525; 86920; 87040; 87070; 87086; 87804; 87804-59; 93005; 93010; 93306; 96365; 96375; 99291; J0131; J0330; J0360; J0456; J0461; J0696; J0885; J1610; J1644; J1720; J2270; J3490; J7040; J7042; J7060; J7799; P9016

== ENCOUNTER 2017-08-08 13:49 | Inpatient (IN) | payer OTHER ==
[~2017-08-08 13:49] MED LIST: AMLODIPINE BESY10 M1 PO; ASPIRIN81 M4 PO; ESCITALOPRAM OXA5 MG PO; FUROSEMIDE40 M1 PO; LEVOTHYROXINE50 MCG PO; LOSARTAN POTAS100 M1 PO; NOVOLOG100 UNIT/2; PREDNISONE10 M2 PO; RENVELA800 M1 PO
[2017-08-08 14:00] VITALS: BP 136/64
--- NOTE | 2017-08-08 14:07 | History & Physical ---
Sherri WHITNEYLorin 08/08/17 1406: General Information and HPI Chief Complaint: Admit to hospice Source of Information: family, old records Exam Limitations: unable to give history, clinical condition Associated Symptoms: comatose, labored respirations History of Present Illness: Pt. is a 62-year-old female with PMhx of Type 1 diabetes on insulin pump, CKD St. 5 with interstitial nephropathy with placement of AV fistula several months ago but had not started dialysis yet, presented to the ED after being found by family at home unresponsive. Pt. was hypoglycemic to 27 in field, had vomited and subsequently developed aspiration pneumonia, had cardiac arrest in ED and was mechanically ventilated. She has had no improvement in neurolgical status and was extubated per family wishes and is now being place on hospice care. She is on a morphine drip at 2mg/hr with mildly labored respirations. is at bedside and coping as well as can be expected. Rest of family and extended family are meeting with [facility] nurse. Allergies/Medications Allergies: Uncoded Allergies: all pain medications (NAUSEA 02/26/14) Past History Medical History Neurological: NONE EENT: NONE Cardiovascular: hypertension Respiratory: obstructive sleep apnea, lung nodule, biopsy benign Gastrointestinal: NONE Hepatic: NONE Renal: chronic kidney disease Musculoskeletal: arthritis Psychiatric: NONE Endocrine: diabetes type 1 Blood Disorders: NONE Cancer(s): NONE MANAGER GOLF/Reproductive: NONE History of MRSA: No History of VRE: No History of CDIFF: No Influenza Vaccine: 02/22/17 Surgical History Surgical History: L AVF Past Family/Social History Family History: Unknown Psychosocial History: , 1 son Functional Ability: Was independent prior Review of Systems Review of Systems Constitutional: Reports: see HPI. Exam & Diagnostic Data Last 24 Hrs of Vital Signs/I&O Vital Signs Date Time Temp Pulse Resp B/P B/P Pulse O2 O2 Flow FiO2 Mean Ox Delivery Rate 08/08 1400 Nasal 4.0L Cannula 08/08 1400 100.2 109 24 136/64 Intake & Output 08/08 1600 08/08 0800 08/08 0000 Intake Total 130 Output Total 50 Balance 80 Intake, IV 130 Number 1 Bowel Movements Output, Urine 50 Physical Exam General Appearance Mild Distress (with labored breathing), comatose HEENT Atraumatic Cardiovascular tachycardic Lungs RR 20 with increased effort, some tracheal congestion noted Abdomen Soft Neurological obtunded Extremities edematous bilat. UEs, no edema or mottling to lower extremities Last 24 Hrs of Labs/Charli: 08/08/17: CBC with WBC 17.3, Hgb 10.2, Hct 31.2 Chem with Bun 74, Cr 6.6, alb 2.8 Diagnostic Data CXR Results 08/08/17: IMPRESSION: 1. Stable positioning of the endotracheal and enteric tubes. 2. Persistent hazy airspace disease within the medial right upper lung zone. Other Results 08/03/17: Head CT: IMPRESSION: There is relatively extensive loss of benito-white matter differentiation primarily involving the basal ganglia, right insular cortex, and both temporal lobes. These findings are consistent with hypoxic ischemic injury. No acute hemorrhage. Assessment/Plan Assessment: 62-year-old female with history of Type 1 diabetes with ESRD found unresponsive at home presumed due to hypoglycemia, with aspiration pneumonia, renal failure and encephalopathy, placed on hospice care s/p terminal extubation in ICU. Plan: Pt. is on morphine drip and titration protocol ordered, to receive bolus for labored respirations pow, Ativan 1 mg IV every 4 hrs as needed for anxiety/restlessness Scopolamine patch and as needed Robinul ordered for secretions As needed APAP for fever Plan discussed with nursing, CT hospice nurse and .
[2017-08-09 06:44] VITALS: BP 90/50
--- NOTE | 2017-08-09 11:52 | PN- Hospice ---
Subjective Subjective: Family at bedside; , son and his and 1 of their sons. Pt. appears comfortable on morphine drip at 2mg/hr. Received bolus earlier with good effect. Has not required ativan. Febrile to 102. Family asking appropriate questions, grieving. states pt has noisy breathing historically when not wearing CPAP for DIEGO. Review of Systems Constitutional: Reports: see HPI. Objective Last 24 Hrs of Vital Signs/I&O Vital Signs Date Time Temp Pulse Resp B/P B/P Pulse O2 O2 Flow FiO2 Mean Ox Delivery Rate 08/09 1006 103.0 08/09 0644 102.1 108 16 90/50 97 Nasal 2.0L Cannula 08/09 0000 Nasal 4.0L Cannula 08/08 1400 Nasal 4.0L Cannula 08/08 1400 100.2 109 24 136/64 Intake & Output 08/09 1600 08/09 0800 08/09 0000 Intake Total 32 4 Output Total 80 Balance -48 4 Intake, IV 32 4 Intake, Oral 0 0 Number 2 1 Bowel Movements Output, Urine 80 Physical Exam General Appearance: no apparent distress, sedated Ears, Nose, Throat: dry oral mucosa Respiratory: no respiratory distress, noisy respirations, unlabored, no congestion Cardiovascular: tachycardia Extremities: generalized edema, feet warm and no mottling. Other Physical Findings: tinsley with small amount julio c urine Current Medications: Current Medications Sig/Makayla Start time Last Medication Dose Route Stop Time Status Admin Acetaminophen 650 MG Q4P PRN 08/08 1400 AC 08/09 IA 1006 Artificial Tears 2 GTT Q2P PRN 08/08 1400 AC OU Glycerin/Mineral Oil 1 RICCARDO Q8P PRN 08/08 1400 AC TOP Glycopyrrolate 400 MCG Q4P PRN 08/08 1400 AC IV Lorazepam 1 MG Q4P PRN 08/08 1400 AC IV Morphine Sulfate 0 [id number] PRN 08/08 1445 AC 08/09 IV 1005 Morphine Sulfate 100 MG Q24H 08/08 1400 AC 08/09 Dextrose/Water 100 ML IV 0728 Scopolamine HBr 1 PAT Q72 08/11 1000 AC TOP Assessment/Plan Hospice Assessment/Recommendations: 62-year-old female with history of Type 1 diabetes with ESRD found unresponsive at home presumed due to hypoglycemia, with aspiration pneumonia, renal failure and encephalopathy, placed on hospice care s/p terminal extubation in ICU. Comfortable, continue morphine drip. Fever-schedule APAP suppository, add ASA IA for ineffective tylenol Add oasis mouth spray per request Problem List: 1. Renal failure (ARF), acute on chronic 2. Encephalopathy 3. Hospice care
[2017-08-10 06:56] VITALS: BP 110/52
--- NOTE | 2017-08-11 14:08 | Discharge Summary ---
Visit Information Visit Dates Admission Date: 08/08/17 Discharge Date: 08/10/17 Hospital Course Course Attending Physician: Stef Pepe MD Primary Care Physician: Israel Oshea MD Hospital Course: 62-year-old female with history of Type 1 diabetes with ESRD found unresponsive at home presumed due to hypoglycemia, s/p intubation in ED for respiratory failure and developed aspiration pneumonia, renal failure and encephalopathy, placed on hospice care s/p terminal extubation in ICU. Pt. was kept comfortable with morphine drip for dyspnea and tylenol suppository for fever until she peacefully with family at bedside. Allergies: Uncoded Allergies: all pain medications (NAUSEA 02/26/14) Disposition Summary Disposition Principal Diagnosis: Respiratory failure s/p terminal extubation Aspiration pneumonia Acute on chronic renal failure Additional Diagnosis: Diabetes mellitus type 1 encephalopathy s/p prolonged hypoglycemic state Discharge Disposition: Discharge Instructions General Discharge Information Code Status: Hospice Patient's Diet: N/A Patient's Activity: N/A Follow-Up Instructions/Appts: N/A Copies To: Israel Oshea MD Attending MD Review Statement Documenting Attending: Stef Pepe MD Other Findings: Agree with the above summary of admission.
== END 2017-08-10 12:10 | disposition expired | DRG 177 ==
LOC: CRI 13:49 → ENTRNSPT 19:14 → EDTRNSPTSTS 20:09 → EDTRNSPT 20:09 → CMPTRNSPT 20:16 → 2NA 08-10 12:10
DX: J69.0 Pneumonitis due to inhalation of food and vomit (principal); N18.6 End stage renal disease; Z51.5 Encounter for palliative care; G93.40 Encephalopathy, unspecified; N17.9 Acute kidney failure, unspecified; E10.22 Type 1 diabetes mellitus with diabetic chronic kidney disease; G47.33 Obstructive sleep apnea (adult) (pediatric); R91.1 Solitary pulmonary nodule; I10 Essential (primary) hypertension
CPT/HCPCS: CCU; J2270